=== PATIENT | female | born 1945 | race Caucasian/White ===

== ENCOUNTER 2017-05-07 07:51 | Outpatient (RCR) | payer MEDICARE, OTHER ==
[~2017-05-07 07:51] MED LIST: ALLOPURINOL300 MG PO; AMLODIPINE BESY10 MG PO; BYSTOLIC PO; FUROSEMIDE40 MG PO; GLIMEPIRIDE2 MG PO; GLYBURIDE5 MG PO; HYDRALAZINE HCL25 MG PO; LEVOTHYROXINE PO; LIPITOR40 MG PO; LISINOPRIL2.5 MG PO; METFORMIN HCL1000 M1 PO; NORCO 5-325 TA1 EACH PO; OXYBUTYNIN CHLOR5 MG PO; PANTOPRAZOLE SO40 MG PO; SERTRALINE HCL100 MG PO; SYMBICORT 80-10.2 GM INH; ULTRAM50 MG PO
== END 2017-05-30 ==
LOC: PT 07:51
PROVIDERS: ATTEND Neurological Surgery
DX: M51.16 Intervertebral disc disorders with radiculopathy, lumbar region (principal); M53.86 Other specified dorsopathies, lumbar region; M62.81 Muscle weakness (generalized)
CPT/HCPCS: 97110; 97161; G8978; G8979

== ENCOUNTER 2017-05-09 06:13 | Emergency (ER) | payer MEDICARE, OTHER ==
[~2017-05-09] VITALS: Ht 152.4 cm; Wt 110.7 kg
--- OUTSIDE RECORDS SUMMARY | 2017-05-09 06:17 | XMS REPORT | Clinical Summary ---
Author Author [place] [facility] Address Unknown Phone Unavailable Care Team Providers Care Hat Maker Name Role Phone Asked, Pcp PCP Unavailable Allergies No Known Allergies Current Medications No known medications Active Problems Problem Noted Date Peroneal tendon tear 04/24/2016 Achilles rupture, right 12/21/2015 Social History Tobacco Use Types Packs/Day Years Used Date Never Smoker Sex Assigned at Date Recorded Not on file Last Filed Vital Signs Not on file Plan of Treatment Health Maintenance Due Date Last Done Comments COLONOSCOPY 11/13/1995 MAMMOGRAM 11/13/1995 ZOSTER VACCINE 2005 PNEUMOCOCCAL 2010 POLYSACCHARIDE VACCINE AGE 65 AND OVER PNEUMOCOCCAL-13 2010 INFLUENZA VACCINE 10/31/2016 Results Not on fileafter 05/08/2016 Insurance Payer Benefit Subscriber ID Type Phone Address Plan / Group MEDICARE MEDICARE [id number] Medicare [place], [place] PART A AND B COMMERCIAL [facility] [id number] Commercial COMMERCIAL
[2017-05-09] MEDS ORDERED: CLONIDINE HCL 0.1 MG TAB PO ONE (06:45)
[2017-05-09 06:51] LABS: BASOPHILS % 0.5 % (0.0-1.0); EOSINOPHILS # (AUTO) 0.1 (0.0-0.4); EOSINOPHILS % 1.3 % (0.0-6.0); HEMATOCRIT 36.7 % (34.2-44.1); HEMOGLOBIN 11.9 g/dL (12.0-16.0); LYMPHOCYTES # (AUTO) 1.3 (1.0-3.2); LYMPHOCYTES % 20.6 % (18.0-39.1); MEAN CORPUSCULAR HEMOGLOBIN 30.7 pg (28-32); MEAN CORPUSCULAR HGB CONC 32.4 g/dL (31-35); MEAN CORPUSCULAR VOLUME 94.6 fL (81-99); MONOCYTES # (AUTO) 0.4 (0.2-0.8); MONOCYTES % 6.9 % (4.4-11.3); NEUTROPHILS # (AUTO) 4.3 (2.1-6.9); NEUTROPHILS % 70.4 % (38.7-80.0); PLATELET COUNT 149 x10e3/uL (140-360); RED BLOOD COUNT 3.88 x10e6/uL (3.6-5.1); RED CELL DISTRIBUTION WIDTH 14.6 % (11.7-14.4)
[2017-05-09 06:52] LABS: BILIRUBIN,URINE NEGATIVE (NEGATIVE); COLOR,URINE YELLOW (YELLOW); KETONES,URINE NEGATIVE (NEGATIVE); LEUKOCYTE ESTERASE ,URINE 2+ (NEGATIVE); NITRITE,URINE NEGATIVE (NEGATIVE); URINE UROBILINOGEN 0.2 mg/dL (0.2 - 1)
[2017-05-09 06:54] LABS: CLARITY,URINE HAZY (CLEAR); PROTEIN,URINE DIPSTICK 2+ (NEGATIVE)
[2017-05-09 07:09] LABS: ALBUMIN/GLOBULIN RATIO 1.2 (0.8-2.0); ANION GAP 15.5 mmol/L (8-16); CALCIUM 9.4 mg/dL (8.4-10.2); CREATININE, SERUM 1.58 mg/dL (0.57-1.11); POTASSIUM 4.5 mmol/L (3.5-5.1)
[2017-05-09 07:16] LABS: CREATINE KINASE MB 3.6 ng/mL (0.00-5.00)
[2017-05-09] MEDS ORDERED: ENALAPRILAT IV INJ 1.25 MG/ML VIAL IV STA (07:20)
[2017-05-09] MEDS ORDERED: KETOROLAC TROMETHAMINE 30 MG/ML VIAL IV STA (07:20)
[2017-05-09 07:27] LABS: EPITHELIAL CELLS,URINE FEW /LPF; TRANSITIONAL EPI CELLS,URINE FEW
[2017-05-09 07:30] LABS: BACTERIA,URINE RARE /HPF
[2017-05-09] MEDS ORDERED: METOCLOPRAMIDE HCL 10 MG/2ML VIAL IV ONE (07:30)
--- NOTE | 2017-05-09 08:15 | Diagnostic Imaging Report ---
EXAMINATION: Head CT HISTORY: Headache, nausea for the last 8 hours COMPARISON: None. TECHNIQUE: Multidetector axial images were obtained without contrast from the foramen magnum to the vertex . The images were reconstructed using brain and bone algorithms. Thin section brain images were reformatted into coronal and sagittal planes. Intravenous contrast: None. Motion/streaking artifact limits the evaluation of the skull base and posterior cranial fossa. FINDINGS: Parenchyma: 1. Moderately severe confluent periventricular, moses radiata and centrum semiovale white matter hypodensities, most likely nonspecific chronic microvascular ischemic changes. 2. No mass or hemorrhage. No CT evidence of acute territorial vascular insult. Extra-axial spaces:No abnormal density. No extra-axial fluid collections Brain volume: Normal for age. Ventricles: No hydrocephalus or displacement. Arteries: No density suggestive of thrombus. Dural sinuses: No abnormal density. Extra-axial spaces: No abnormal density. Foramen magnum: No mass, Chiari malformation, or basilar invagination. Sella: No obvious mass. Paranasal/mastoid sinuses: Imaged portions unremarkable. Skull/Scalp: No lytic or blastic lesions. No fractures. IMPRESSION: 1. No acute intracranial hemorrhage or cortical infarcts. 2. Severe confluent white matter chronic microvascular ischemic changes. Signed by: Dr. Nori Jones M.D. on 05/09/2017 8:11 AM
[2017-05-09] MEDS ORDERED: CEFTRIAXONE SOD 1 GM VIAL IV ONE (08:45)
[2017-05-09 10:16] VITALS: BP 137/87
== END 2017-05-09 10:25 | disposition home or self-care (01) ==
LOC: ER 06:13
DX: R51 Headache (principal); I10 Essential (primary) hypertension; E11.65 Type 2 diabetes mellitus with hyperglycemia; N18.9 Chronic kidney disease, unspecified; E66.01 Morbid (severe) obesity due to excess calories
CPT/HCPCS: 36415; 70450; 80053; 81001; 82550; 82553; 84484; 85025; 87086; 93005; 96374; 99284; J0696; J1885; J2765

== ENCOUNTER → 2017-11-28 | Day surgery (SDC) | payer MEDICARE, OTHER ==
--- NOTE | 2017-11-23 13:11 | Diagnostic Imaging Report ---
EXAMINATION: CHEST 2 VIEWS INDICATION: \S\PRE-OP \[id number] \S\[id number] COMPARISON: Chest radiograph 04/09/2015 FINDINGS: PA and lateral views TUBES and LINES: None. LUNGS: Lungs are well inflated. Unchanged bibasilar atelectasis. Mild chronic central pulmonary congestion. No consolidations. PLEURA: No pleural effusion or pneumothorax. HEART AND MEDIASTINUM: Stable mild enlargement of the cardiac silhouette. Mildly tortuous thoracic aorta. Enlarged pulmonary arteries are unchanged. BONES AND SOFT TISSUES: Surgical screw overlying the right humeral head. Mild multilevel degenerative changes of the thoracic spine. Surgical clips along the right upper quadrant. UPPER ABDOMEN: No free air under the diaphragm. IMPRESSION: Stable mild enlargement of the cardiac silhouette with chronic mild central bony vascular congestion and enlarged pulmonary arteries consistent with pulmonary hypertension. Stable mild subsegmental atelectasis in both lower lobes. Signed by: Dr. Vernell Coyne M.D. on 11/23/2017 1:08 PM
[~2017-11-28] MED LIST changes: +ASPIR 8181 MG PO; +CEFTRIAXONE SOD 1 GM VIAL ONE; +DEXAMETHASONE SOD PHOS INJ 4 MG/ML VIAL ONE; +LIDOCAINE HCL 2% LOCAL INJ 5 ML SDV VIAL INJ ONE; +MIDAZOLAM HCL 2 MG/2 ML VIAL ONE; +NIFEDIPINE ER30 M1 PO; +ONDANSETRON HCL INJ 2 MG/ML VIAL ONE; +PROPOFOL IV EMULSION 10 MG/ML 20 ML VIAL ONE; +SEVOFLURANE INHAL SOLN 250 ML PEN BTL ONE; +VITAMIN D35000 UNIT PO
--- NOTE | 2017-11-28 13:09 | Diagnostic Imaging Report ---
PROCEDURE:X-RAY ABDOMEN - KUB COMPARISON:None. INDICATIONS:PRE OPERATIVE LEFT RENAL STONE FINDINGS: One view of the abdomen (AP supine) No dilated loops of bowel or abnormal air-fluid levels patterns. No free air underneath the diaphragm. Visualized portions of the lung bases are clear. 1.2 cm calcification is projected over the left kidney. A 1.2 cm calcification is also projected over the right kidney. There is an indeterminate 1.0 cm calcification projected over the left hemipelvis which may be a urinary stone or calcified fibroid. Five non-rib bearing lumbar type vertebral bodies identified. There are degenerative changes of the lower lumbar spine. Cholecystectomy clips are visible. CONCLUSION: Calcifications projected over both kidneys as described above. There is an indeterminate 1 cm calcification in the left hemipelvis. This could represent a urinary calcification or calcified fibroid. Dictated by: Ahsan Sadler M.D. on 11/28/2017 at 13:15 Electronically approved by: Ahsan Sadler M.D. on 11/28/2017 at 13:15
--- NOTE | 2017-11-28 14:24 | Operative Report ---
DATE OF PROCEDURE: November 28, 2017 PREOPERATIVE DIAGNOSIS: Left kidney stone. POSTOPERATIVE DIAGNOSIS: Left kidney stone. OPERATION PERFORMED: Staged shock-wave lithotripsy, left side. ANESTHESIA: General. ESTIMATED BLOOD LOSS: Minimal. COMPLICATIONS: None. INDICATIONS FOR PROCEDURE: Ms. Durán is a very pleasant, 72-year-old female with a 6 x 6 cm, symptomatic, left kidney stone. She and I had a long discussion regarding the alternatives, risks and benefits, including doing nothing, shock-wave lithotripsy, ureteroscopy, percutaneous surgery, open surgery. She voiced an understanding of the options, the alternatives, and the risks and benefits, and she elected to proceed. PROCEDURE IN DETAIL: After informed consent was obtained, the patient was taken to the operative suite and placed supine on the table and underwent general anesthesia by the anesthesia service. The stone was localized in the X-Y-Z planes. Total of 2500 shocks were delivered to the stone. Good fragmentation was seen. The patient was awakened from anesthesia and transported to the recovery room in excellent condition. SUPERVISION OF FLUOROSCOPY: I was present during the entire procedure and supervised the use of fluoroscopy. No radiologist was present. Job#: [id number] cc:CLEO TORRES MD
[2017-11-28 14:40] VITALS: BP 144/93
== END | disposition home or self-care (01) ==
LOC: OR 10:48
PROVIDERS: ATTEND Urology
DX: N20.0 Calculus of kidney (principal); N39.0 Urinary tract infection, site not specified; E11.22 Type 2 diabetes mellitus with diabetic chronic kidney disease; I12.9 Hypertensive chronic kidney disease with stage 1 through stage 4 chronic kidney disease, or unspecified chronic kidney disease; N18.4 Chronic kidney disease, stage 4 (severe); E66.01 Morbid (severe) obesity due to excess calories; R00.1 Bradycardia, unspecified; I44.0 Atrioventricular block, first degree; J44.9 Chronic obstructive pulmonary disease, unspecified; G47.33 Obstructive sleep apnea (adult) (pediatric); E03.9 Hypothyroidism, unspecified; K21.9 Gastro-esophageal reflux disease without esophagitis; K58.9 Irritable bowel syndrome, unspecified; K76.0 Fatty (change of) liver, not elsewhere classified; Z91.048 Other nonmedicinal substance allergy status; Z01.810 Encounter for preprocedural cardiovascular examination; Z01.818 Encounter for other preprocedural examination; Z79.82 Long term (current) use of aspirin; Z68.42 Body mass index [BMI] 45.0-49.9, adult; Z84.1 Family history of disorders of kidney and ureter
CPT/HCPCS: 36415; 50590; 71046; 74018; 82948; 93005; J0696; J1100; J2001; J2250; J2405

== ENCOUNTER 2017-12-08 21:06 | Emergency (ER) | payer MEDICARE, OTHER ==
[~2017-12-08] VITALS: Ht 154.9 cm; Wt 116.1 kg
[~2017-12-08 21:06] MED LIST changes: -CEFTRIAXONE SOD 1 GM VIAL ONE; -DEXAMETHASONE SOD PHOS INJ 4 MG/ML VIAL ONE; -LIDOCAINE HCL 2% LOCAL INJ 5 ML SDV VIAL INJ ONE; -MIDAZOLAM HCL 2 MG/2 ML VIAL ONE; -ONDANSETRON HCL INJ 2 MG/ML VIAL ONE; -PROPOFOL IV EMULSION 10 MG/ML 20 ML VIAL ONE; -SEVOFLURANE INHAL SOLN 250 ML PEN BTL ONE
--- NOTE | 2017-12-08 22:26 | Diagnostic Imaging Report ---
EXAM: CT ABD/PEL WO CONTRAST-HOPD DATE: 12/08/2017 12:00 AM INDICATION: Constipation, left flank pain COMPARISON: None TECHNIQUE: The abdomen and pelvis were scanned using a multidetector helical scanner. Coronal and sagittal reformations were obtained. CT low dose techniques were utilized, as applicable. IV Contrast: 0 ml Isovue 300/370 FINDINGS: Lack of IV contrast and noise related to body habitus decreases sensitivity in evaluating abdominal and pelvic organs. LOWER THORAX: No consolidations. Coronary artery and aortic atherosclerosis. LIVER/BILIARY: No masses. No ductal dilatation. GALLBLADDER: Surgically absent SPLEEN: Unremarkable PANCREAS: Unremarkable ADRENALS: No nodules KIDNEYS: Bilateral renal vascular calcifications and/or nonobstructing renal calculi. No hydronephrosis. GI TRACT: Small hiatal hernia. Moderate left colonic stool burden. Diverticulosis with mild peritoneal thickening/fluid in the left lower quadrant (image 73, coronal image 38) which may be sequelae of diverticulitis. VESSELS: Moderate to severe atherosclerotic calcifications. PERITONEUM/RETROPERITONEUM: No free air or fluid LYMPH NODES: No lymphadenopathy REPRODUCTIVE ORGANS/BLADDER: Incidental calcified fibroid. Otherwise unremarkable SOFT TISSUES: Rectus muscle diastases. BONES: Multilevel degenerative changes with grade 1 anterolisthesis of L4 over L5. IMPRESSION: Evaluation is degraded by body habitus and lack of IV contrast. 1. Findings suspicious for uncomplicated sigmoid diverticulitis in the left lower quadrant. 2. No obstructive uropathy. Signed by: Dr Nolvia Lucero MD on 12/08/2017 10:23 PM
== END 2017-12-08 22:53 | disposition home or self-care (01) ==
LOC: FSED 21:06
DX: R10.33 Periumbilical pain (principal); R11.0 Nausea; K59.00 Constipation, unspecified; K57.32 Diverticulitis of large intestine without perforation or abscess without bleeding
CPT/HCPCS: 74176; 99283

== ENCOUNTER 2018-05-25 19:13 | Emergency (ER) | payer MEDICARE, OTHER ==
[~2018-05-25] VITALS: Ht 154.9 cm; Wt 103.4 kg
--- OUTSIDE RECORDS SUMMARY | 2018-05-25 19:18 | XMS REPORT | Clinical Summary ---
Author Author [place] [facility] Address Unknown Phone Unavailable Care Team Providers Care Payroll Consultant Name Role Phone Asked, No Pcp PCP Unavailable Allergies No Known Allergies Medications End Date Status Medication Sig Dispensed Refills Start Date Active allopurinol (ZYLOPRIM) 0 300 MG tablet 8 Active atorvastatin (LIPITOR) 40 0 MG tablet 8 Active budesonide-formoterol Symbicort 160 0 (SYMBICORT) 160-4.5 mcg-4.5 mcg/actuation inhaler mcg/actuation HFA aerosol inhaler Active SYNTHROID 50 mcg tablet 0 8 Active lisinopril 0 (PRINIVIL,ZESTRIL) 40 mg 8 tablet Active NIFEdipine XL (PROCARDIA 0 XL) 30 MG 24 hr tablet 8 Active pantoprazole (PROTONIX) 0 40 MG EC tablet 8 Active Problems Problem Noted Date Peroneal tendon tear 04/24/2016 Achilles rupture, right 12/21/2015 Encounters Care Team Description Date Type Specialty Hina Villeda MD Encounter for cervical Pap smear with pelvic exam (Primary Dx); Cervical polyp 11/21/2017 Office Visit Obstetrics and Gynecology after 05/24/2017 Social History Date Tobacco Use Types Packs/Day Years Used Never Smoker Smokeless Tobacco: Never Used Alcohol Use Drinks/Week oz/Week Comments Yes social Sex Assigned at Date Recorded Not on file Industry Job Start Date Occupation Not on file Not on file Not on file Travel End Travel History Travel Start No recent travel history available. Last Filed Vital Signs Time Taken Vital Sign Reading 11/21/2017 1:34 PM CDT Blood Pressure 148/83 11/21/2017 1:34 PM CDT Pulse 70 - Temperature - - Respiratory Rate - - Oxygen Saturation - - Inhaled Oxygen - Concentration 11/21/2017 1:34 PM CDT Weight 115 kg (253 lb 12.8 oz) 11/21/2017 1:34 PM CDT Height 152.4 cm (5') 11/21/2017 1:34 PM CDT Body Mass Index 49.57 Plan of Treatment Health Maintenance Due Date Last Done Comments BREAST CANCER SCREENING 11/13/1995 COLON CANCER SCREENING 11/13/1995 SHINGLES VACCINES (#1) 11/13/1995 65+ PNEUMOCOCCAL VACCINE 2010 (1 of 2 - PCV13) PNEUMOCOCCAL 2010 POLYSACCHARIDE VACCINE AGE 65 AND OVER INFLUENZA VACCINE 10/31/2017 Procedures Comments Procedure Name Priority Date/Time Associated Diagnosis THINPREP TIS PAP RFX HPV Routine 11/21/2017 Encounter for cervical 2:07 PM CDT Pap smear with pelvic exam after 05/24/2017 Results * THINPREP TIS PAP RFX HPV (11/21/2017 2:07 PM CDT) Clinical information None given [employer] [place] Date of last menstrual NONE GIVEN [employer] period [place] Prev. pap: NONE GIVEN [employer] [place] Prev. bx: NONE GIVEN [employer] [place] Source None given [employer] [place] Statement of adequacy Comment: [employer] Satisfactory for evaluation. [place] Endocervical/transformation zone component present. Interpretation/result: Comment: Negative for [employer] intraepithelial lesion or [facility] malignancy. Comment Comment: [employer] This Pap test has been [place] evaluated with computer assisted technology. Cover Creaser Comment: [employer] DJL, CT (ASCP) [place] CT screening location: [address], [place] [id number] Comment Comment: [employer] EXPLANATORY NOTE: [place] The Pap is a screening test for cervical cancer. It is not a diagnostic test and is subject to false negative and false positive results. It is most reliable when a satisfactory sample, regularly obtained, is submitted with relevant clinical findings and history, and when the Pap result is evaluated along with historic and current clinical information. Specimen Cervical Resulting Agency Comment Performing Organization Information: Site ID: [id number] Name: [facility] Address: [address] [place] [id number] Director: Aminah Arevalo Performing Organization Address City/State/Zipcode Phone Number DIANA [employer] [place] [phone] after 05/24/2017 Insurance Payer Benefit Subscriber ID Type Phone Address Plan / Group MEDICARE MEDICARE xxxxxxxxxx Medicare [place], [place] PART A AND B COMMERCIAL MISC MISC xxxxxxxxxxx Commercial COMMERCIAL Advance Directives Patient has advance care planning documents on file. For more information, shantel garner contact: Johnathan Loera [address] [place] [address]
--- NOTE | 2018-05-25 20:38 | Diagnostic Imaging Report ---
HIP LEFT 2-3 VW (+/- PELVIS) - 3 views HISTORY: Fall COMPARISON: None available. FINDINGS: See impression. IMPRESSION: No acute fracture or dislocation of the left hip. Partially seen lumbar spine fusion hardware and disc spacer. Vascular calcifications. Signed by: Dr. Guillaume Naylor MD on 05/25/2018 8:35 PM
--- NOTE | 2018-05-25 20:39 | Diagnostic Imaging Report ---
HIP RIGHT 2-3 VW (+/- PELVIS) - 3 views HISTORY: Fall COMPARISON: None available. FINDINGS: See impression. IMPRESSION: No acute fracture or dislocation of the right hip. Signed by: Dr. Guillaume Naylor MD on 05/25/2018 8:35 PM
--- NOTE | 2018-05-25 20:41 | Diagnostic Imaging Report ---
KNEE RIGHT THREE VIEWS - 3 views HISTORY: Pain COMPARISON: None available. FINDINGS: Bones: No acute displaced fracture. Osseous alignment is within normal limits. Joints: Medial and patellofemoral compartment joint space narrowing. Soft tissues: Vascular calcifications. IMPRESSION: No acute fracture or dislocation of the right knee. Signed by: Dr. Guillaume Naylor MD on 05/25/2018 8:38 PM
--- NOTE | 2018-05-25 20:41 | Diagnostic Imaging Report ---
KNEE LEFT THREE VIEWS - 3 views HISTORY: Pain COMPARISON: None available. FINDINGS: Bones: No acute displaced fracture. Osseous alignment is within normal limits. Joints: Medial and patellofemoral compartment narrowing. Soft tissues: Vascular calcifications. IMPRESSION: No acute fracture or dislocation of the left knee. Signed by: Dr. Guillaume Naylor MD on 05/25/2018 8:37 PM
[2018-05-25 20:56] LABS: CLARITY,URINE HAZY (CLEAR); COLOR,URINE YELLOW (YELLOW); LEUKOCYTE ESTERASE ,URINE NEGATIVE (NEGATIVE); NITRITE,URINE NEGATIVE (NEGATIVE); PROTEIN,URINE DIPSTICK 2+ (NEGATIVE)
[2018-05-25 20:57] LABS: BILIRUBIN,URINE NEGATIVE (NEGATIVE); KETONES,URINE NEGATIVE (NEGATIVE); URINE UROBILINOGEN 0.2 mg/dL (0.2 - 1)
[2018-05-25 20:58] LABS: BACTERIA,URINE FEW /HPF; EPITHELIAL CELLS,URINE MODERATE /LPF; WBC,URINE (MAN) 0-5 /HPF (0-5)
[2018-05-25 21:16] VITALS: BP 122/77
== END 2018-05-25 21:25 | disposition home or self-care (01) ==
LOC: ER 19:13
DX: S80.211A Abrasion, right knee, initial encounter (principal); W01.0XXA Fall on same level from slipping, tripping and stumbling without subsequent striking against object, initial encounter; M25.552 Pain in left hip; M25.551 Pain in right hip; M25.562 Pain in left knee; Y93.9 Activity, unspecified; Y92.019 Unspecified place in single-family (private) house as the place of occurrence of the external cause; Z91.048 Other nonmedicinal substance allergy status
CPT/HCPCS: 81001; 99283

== ENCOUNTER 2018-10-22 10:32 | Observation (INO) | payer MEDICARE, OTHER ==
[2018-10-22] VITALS (7 sets, daily range): BP systolic 125–138; BP diastolic 64–82
[~2018-10-22] VITALS: Ht 149.9 cm; Wt 100.4 kg
--- OUTSIDE RECORDS SUMMARY | 2018-10-22 10:37 | XMS REPORT | Clinical Summary ---
Author Author [facility] [facility] Address Unknown Phone Unavailable Care Team Providers Care Arch Pad Cementer Name Role Phone Asked, No Pcp PCP [...] 11/21/2017 Office Visit Obstetrics and Gynecology after 10/21/2017 Social History Date Tobacco Use Types Packs/Day [...] Last Done Comments BREAST CANCER SCREENING 11/13/1995 COLONOSCOPY SCREENING 11/13/1995 SHINGLES VACCINES (#1) 11/13/1995 65+ PNEUMOCOCCAL VACCINE 2010 (1 of 2 - PCV13) INFLUENZA VACCINE 10/31/2018 Procedures Comments Procedure Name Priority Date/Time Associated Diagnosis THINPREP TIS PAP RFX HPV Routine 11/21/2017 Encounter for cervical 2:07 PM CDT Pap smear with pelvic exam after 10/21/2017 Results * THINPREP TIS PAP RFX HPV (11/21/2017 2:07 PM CDT) Clinical None given [facility] information [employer] [place] Date of last NONE GIVEN [facility] menstrual [facility]AGNOST[facility] period [place] Prev. pap: NONE GIVEN [facility] [place] Prev. bx: NONE GIVEN [facility] [place] Source None given [facility] [place] Statement of Comment: [facility] adequacy Satisfactory for evaluation. [facility]ST[facility] Endocervical/transformation [facility] zone component present. Interpretation/ Comment: Negative for [facility] result: intraepithelial lesion or DI[facility]NOSTICS malignancy. [facility] Comment Comment: [facility] This Pap test has been DI[facility]NOSTICS evaluated with computer BOWLES assisted technology. [employer] Comment: [facility] t DJL, CT (ASCP) DIAGNOSTICS CT screening location: [facility] [address], [place] [phone] Comment Comment: [facility] EXPLANATORY NOTE: DIAGNOSTICS The Pap is a screening test [facility] for cervical cancer. It is not a diagnostic test and is subject to false negative and false positive results. It is most reliable when a satisfactory sample, regularly obtained, is submitted with relevant clinical findings and history, and when the Pap result is evaluated along with historic and current clinical information. Specimen Cervical Resulting Agency Comment Performing Organization Information: Site ID: [id number] Name: [facility] Address: [address] [place] [phone] Director: Aminah Arevalo Performing Organization Address City/State/Zipcode Phone Number CHRISTIE CON[place]Y [place] [phone] after 10/21/2017 Insurance Type Payer Benefit Subscriber ID Effective Phone Address Plan / Dates Group Medicare MEDICARE MEDICARE xxxxxxxxxx 2010-P BOWLES, PART A AND resent [place] B Commercial COMMERCIAL MISC MISC xxxxxxxxxxx 2006-P COMMERCIAL resent Advance Directives Patient has advance care planning documents on file. For more information, shantel garner contact: Johnathan Loera [address] [place] [address]
--- NOTE | 2018-10-22 11:20 | Diagnostic Imaging Report ---
EXAMINATION: CXR 1 [facility] INDICATION: Lethargy COMPARISON: Chest radiograph of 11/23/2017 FINDINGS: TUBES and LINES: None. LUNGS: The lung volumes are low. There is perihilar fullness and indistinctness of the pulmonary vasculature. PLEURA: Likely trace left pleural effusion. No pneumothorax. HEART AND MEDIASTINUM: Cardiomediastinal silhouette is stably enlarged. BONES AND SOFT TISSUES: No acute fracture or dislocation. UPPER ABDOMEN: No free air under the diaphragm. IMPRESSION: Low lung volumes. Possible mild pulmonary interstitial edema. Likely trace left pleural effusion. Unchanged cardiomegaly. Signed by: Fam Smith MD on 10/22/2018 11:16 AM
[2018-10-22] MEDS ORDERED: LANTUS 3ML100 UNITS/ SQ (11:39)
[2018-10-22] MEDS ORDERED: NIFEDIPINE ER60 MG PO (11:39)
[2018-10-22] MEDS ORDERED: HUMULIN R100 UNIT/2 (11:39)
[2018-10-22] MEDS ORDERED: LISINOPRIL40 MG PO (11:39)
[2018-10-22] MEDS ORDERED: IBUPROFEN 200 MG TAB PO PRN (11:45)
[2018-10-22] MEDS ORDERED: ACETAMINOPHEN 325 MG TAB PO PRN (11:45)
[2018-10-22] MEDS ORDERED: DIPHENHYDRAMINE HCL INJ 50 MG/ML VIAL IV PRN (11:45)
[2018-10-22] MEDS ORDERED: ONDANSETRON HCL INJ 2MG/ML 2ML 2 MG/ML VIAL IV PRN (11:45)
[2018-10-22] MEDS ORDERED: DEXTROSE 50% SYRINGE 50 ML IV PRN (11:45)
[2018-10-22] MEDS ORDERED: ENALAPRILAT IV INJ 1.25 MG/ML VIAL IV PRN (11:45)
--- NOTE | 2018-10-22 11:52 | NUR ---
[facility] CALLED 45 MIN ETA.
--- NOTE | 2018-10-22 12:10 | NUR ---
REPORT RECEIVED FROM CHAN IN [facility] CONTACT NUMBER IS [phone]
--- NOTE | 2018-10-22 12:21 | NUR ---
PT RESTING, VITAL SIGNS STABLE, PT AND FAMILY AWARE OF POC TO BE ADMITTED AND TRANSFERRED TO MAIN [facility], PT VOICES NO COMPLAINTS AT THIS TIME.
--- OUTSIDE RECORDS SUMMARY | 2018-10-22 12:28 | XMS REPORT | Clinical Summary ---
Author Author [facility] [facility] [facility] Address Unknown Phone Unavailable Care Team Providers Care Web Content Executive Name Role Phone Asked, No Pcp PCP [...] (11/21/2017 2:07 PM CDT) Clinical None given [employer] information [employer] [place] Date of last NONE GIVEN [facility] menstrual DIAGNOSTICS period [place] Prev. pap: NONE GIVEN [facility] [place] Prev. bx: NONE GIVEN [facility] [place] Source None given [facility] [place] Statement of Comment: [facility] adequacy Satisfactory for evaluation. DIAGNOSTICS Endocervical/transformation [place] zone component present. Interpretation/ Comment: Negative for [facility] result: intraepithelial lesion or DIAGNOSTICS malignancy. [place] Comment Comment: [facility] This Pap test has been DIAGNOSTICS evaluated with computer BOWLES assisted technology. [employer] Comment: [facility] t DJL, CT (ASCP) DIAGNOSTICS CT screening location: [facility] [address], [place] [phone] Comment Comment: [facility] EXPLANATORY NOTE: DIAGNOSTICS The Pap is a screening test [place] for cervical cancer. It is not a [...] Organization Information: Site ID: [id number] Name: [facility] Address: [address] [place] [phone] Director: Aminah Arevalo Performing Organization Address City/State/Zipcode Phone Number [place] [phone] after 10/21/2017 Insurance Type Payer Benefit Subscriber ID Effective Phone Address Plan / Dates Group Medicare MEDICARE MEDICARE xxxxxxxxxx 2010-P BOWLES, PART A AND resent [place] B Commercial COMMERCIAL MISC MISC xxxxxxxxxxx 2006-P COMMERCIAL resent Advance Directives Patient has advance care planning documents on file. For more information, shantel garner contact: Johnathan Loera [address] [place] [address]
[2018-10-22] MEDS ORDERED: IBUPROFEN 400 MG TAB PO PRN (12:45)
[2018-10-22] MEDS ORDERED: LACTATED RINGER'S 1,000 ML IV SCH (13:00)
--- NOTE | 2018-10-22 13:32 | NUR ---
RECEIVED PT TO FLOOR [id number] PT IS IN NO S.S OF DISTRESS DENIES PAIN V/S WITHIN NORMAL LIMITS BS READ AT 68 GIVEN CRANBERRY JUICE WITH SUGAR PACKS, SANDWICH, JELLO PT STATES LAST MEAL WAS YESTERDAY FAMILY IS AT BEDSIDE PLACED PT ON TELEMETRY READING A FIB CONCURRENT WITH EGK READING FROM HOPD IV TO THE RIGHT AC 2O PATENT AND DRY. UPON FLUSHING PT REPORTS PAIN. WILL DC AND GET NEW IV WILL CONTINUE TO MONITOR PT AT THIS TIME SIDE [id number], BED WHEELS LOCKED, CALL LIGHT IS WITHIN EASY REACH, INSTRUCTED TO CALL FOR ASSISTANCE IF NEEDED
[2018-10-22 15:13] LABS: CREATINE KINASE MB 3.9 ng/mL (0-5.0)
[2018-10-22] MEDS: INSULIN REGULAR, HUMAN 100 UNIT/1 ML 3ML VIAL SQ SCH ×2 (15:31→20:41)
[2018-10-22] MEDS: FAMOTIDINE 20 MG/2 ML VIAL IV SCH (16:39)
[2018-10-22] MEDS ORDERED: METOPROLOL SUCCINATE 25 MG TAB XL PO NR (18:15)
[2018-10-22] MEDS: RIVAROXABAN 15 MG TABLET PO SCH (18:27)
[2018-10-22] MEDS: OXYBUTYNIN CHLORIDE 5 MG TAB PO SCH ×2 (18:30→20:34)
--- NOTE | 2018-10-22 18:49 | Consultation ---
DATE OF CONSULTATION: 10/22/2018 Cardiology Consultation Note INDICATIONS: Atrial fibrillation. HISTORY OF PRESENT ILLNESS: Ms. Mills is a 72-year-old lady with new onset of swelling in her legs as well as dizziness and brief altered mental status. Blood sugar was below 60. She was brought to the freestanding emergency room, admitted because of new onset of atrial fibrillation. No documentation of atrial fibrillation in the past. She is not on a beta-kaley or anticoagulation. Echocardiogram done today shows an enlarged left atrium with normal LV systolic function. She denies any history of coronary artery disease. PAST MEDICAL HISTORY: Diabetes mellitus, hypertension. SOCIAL HISTORY: The patient does not smoke or drink. No family is present. MEDICATIONS: At home were reviewed and reconciled in the chart. REVIEW OF SYSTEMS: Negative except as dictated in the history of present illness. PHYSICAL EXAMINATION: VITAL SIGNS: Afebrile, heart rate 88, blood pressure 125/64, O2 sats 98%. CARDIOVASCULAR: Irregularly irregular rhythm. Systolic murmur. LUNGS: Clear to auscultation bilaterally. ABDOMEN: Soft. EXTREMITIES: 1+ edema. Pedal pulses are trace positive. Echocardiogram was repeated. EKG shows atrial fibrillation. LABORATORY DATA: Telemetry shows atrial fibrillation. Creatinine 2.0. Cardiac enzymes are negative. Chest x-ray shows mild pulmonary interstitial edema. ASSESSMENT: 1. Atrial fibrillation, new onset with CHADS-VASc score of greater than 3. 2. Acute diastolic heart failure. RECOMMENDATIONS: Include diuresis with intravenous diuretics, initiation of beta kaley, anticoagulation of 15 mg of Xarelto once daily. Echocardiogram was reviewed and discussed with the patient. The patient is stable for discharge in the next 24 hours with close followup in the office. Further evaluation of her congestive heart failure, atrial fibrillation, and possible coronary artery disease. I thank Dr. Bennett for this consultation. MD PRINCESS Bernstein/WEST /[id number]
--- NOTE | 2018-10-22 20:30 | NUR ---
Patient blood sugar at 1930 45 mg/dl. Patient is alert and verbal. Snacks offered and accepted. Patient blood sugar rechecked and revealed 82 mg/dl. Patient is responsive and oriented. No complains made.
[2018-10-22] MEDS: ATORVASTATIN 40 MG TAB PO SCH (20:34)
[2018-10-22] MEDS ORDERED: NON-FORMULARY MEDICATION (Atorvastatin Calcium (Lipitor) 40 MG) PO SCH (21:00)
[2018-10-22] MEDS: ZOLPIDEM TARTRATE 5 MG TAB PO PRN (23:03)
[2018-10-22 23:30] LABS: CREATINE KINASE MB 3.3 ng/mL (0-5.0)
[2018-10-23] VITALS (7 sets, daily range): BP systolic 125–173; BP diastolic 60–87
--- NOTE | 2018-10-23 05:03 | NUR ---
DR. TORRES MADE AWARE OF LOW BLOOD SUGAR 33 MG/DL. D50 1 VIAL GIVEN.
[2018-10-23] MEDS: LEVOTHYROXINE SODIUM 50 MCG TAB PO SCH (05:30)
--- NOTE | 2018-10-23 05:50 | NUR ---
DR. TORRES MADE AWARE OF BLOOD SUGAR OF 130MG/DL AFTER GIVING D50 1 VIAL, SLIDING SCALE PLACED ON HOLD AND D/C GLIMEPIRIDE.
[2018-10-23 06:19] LABS: BASOPHILS % 0.1 % (0.0-1.0); EOSINOPHILS # (AUTO) 0.1 (0.0-0.4); EOSINOPHILS % 1.3 % (0.0-6.0); HEMATOCRIT 32.3 % (34.2-44.1); HEMOGLOBIN 10.2 g/dL (12.0-16.0); LYMPHOCYTES # (AUTO) 0.4 (1.0-3.2); LYMPHOCYTES % 6.5 % (18.0-39.1); MEAN CORPUSCULAR HEMOGLOBIN 29.5 pg (28-32); MEAN CORPUSCULAR HGB CONC 31.6 g/dL (31-35); MEAN CORPUSCULAR VOLUME 93.4 fL (81-99); MONOCYTES # (AUTO) 0.5 (0.2-0.8); NEUTROPHILS # (AUTO) 5.7 (2.1-6.9); NEUTROPHILS % 83.7 % (38.7-80.0); PLATELET COUNT 152 x10e3/uL (140-360); RED BLOOD COUNT 3.46 x10e6/uL (3.6-5.1)
[2018-10-23 06:53] LABS: CREATINE KINASE MB 2.7 ng/mL (0-5.0)
[2018-10-23 06:55] LABS: ANION GAP 14.9 mmol/L (8-16); CALCIUM 8.8 mg/dL (8.4-10.2); CREATININE, SERUM 2.06 mg/dL (0.57-1.11); POTASSIUM 4.9 mmol/L (3.5-5.1)
[2018-10-23 06:56] LABS: CHOL/HDL RATIO 2.3 (3.0-3.6)
[2018-10-23 07:16] LABS: MAGNESIUM 1.3 MG/DL (1.3-2.1)
[2018-10-23] MEDS ORDERED: GLIMEPIRIDE 2 MG TAB PO SCH (07:30)
--- NOTE | 2018-10-23 07:46 | NUR ---
Pt received in bed with eyes closed easily arouses. Pt is able to verbalize needs. Pt denies any pain at this time. Breathes are even and unlabored.
[2018-10-23 08:24] LABS: EOSINOPHILS % (MANUAL) 2 % (0-7); HYPOCHROMASIA SLIGHT; LYMPHOCYTES % (MANUAL) 8 % (19-48); MONOCYTES % (MANUAL) 3 % (3.4-9.0); NEUTROPHILS % (MANUAL) 87 % (40-74); PLATELET ESTIMATE ADEQUATE; PLATELET MORPHOLOGY COMMENT MANY EDTA CLUMPING
[2018-10-23 08:25] LABS: POIKILOCYTOSIS SLIGHT
[2018-10-23] MEDS: PANTOPRAZOLE SOD 40 MG TABEC PO SCH (08:37)
[2018-10-23] MEDS: ASPIRIN 81 MG ENTERIC COATED PO SCH (08:37)
[2018-10-23] MEDS: OXYBUTYNIN CHLORIDE 5 MG TAB PO SCH ×4 (08:37→21:03)
[2018-10-23] MEDS: LISINOPRIL 20 MG TAB PO SCH (08:37)
[2018-10-23] MEDS: ALLOPURINOL 300 MG TAB PO SCH (08:38)
[2018-10-23] MEDS: RIVAROXABAN 15 MG TABLET PO SCH (08:38)
[2018-10-23] MEDS: FAMOTIDINE 20 MG/2 ML VIAL IV SCH ×2 (08:41→17:15)
[2018-10-23] MEDS ORDERED: METOPROLOL SUCCINATE 25 MG TAB XL PO SCH (09:00)
[2018-10-23] MEDS ORDERED: ONDANSETRON HCL 4 MG ORAL DISINTEGRATING TAB PO PRN (09:30)
--- NOTE | 2018-10-23 10:05 | NUR ---
Visit made by the Spiritual Care Department Pastoral Visitor, Vicky Camara. PV provided pastoral presence, prayer, hospitality, and supportive listening. Pastoral Visitor informed pt/family of the scope of Electronic Specialist Services and availability. MADHU RODRÍGUEZ Mirror Painter Spiritual Care Department O: [phone] Pager: [phone] ([phone] number calling from)
--- NOTE | 2018-10-23 11:01 | Progress Note ---
DATE: Cardiology Progress Note SUBJECTIVE: The patient is feeling better. Denies any chest pain, palpitations, or shortness of breath. OBJECTIVE: VITAL SIGNS: Temperature is 95.3, heart rate is 84, respirations are 19, blood pressure is 125/60, oxygen saturation 95% on room air. GENERAL: Well-appearing, in no apparent distress. CARDIOVASCULAR: Irregularly irregular. LUNGS: Clear to auscultation. ABDOMEN : Soft, nontender, and nondistended. EXTREMITIES: No edema. LABORATORY DATA: Reviewed. Hemoglobin 10.2, potassium 4.9, creatinine 2.06. Telemetry monitoring revealed atrial fibrillation with episodes of rapid ventricular response. IMPRESSION: 1. Atrial fibrillation. 2. Acute on chronic diastolic heart failure. 3. Diabetes mellitus. 4. Hypertension. 5. Acute on chronic kidney disease. RECOMMENDATIONS: Continue low-dose diuretics. Increase beta kaley for better rate control. Continue anticoagulation with Xarelto 15 mg daily. The patient is safe for discharge from a cardiovascular standpoint with outpatient followup. Paxton Peters DO BM/MODL /[id number]
[2018-10-23] MEDS: METOPROLOL SUCCINATE 50 MG TAB XL PO SCH (13:06)
--- NOTE | 2018-10-23 18:06 | NUR ---
Pt in bed. Aox4 and able to verbalize needs. Denies any pain at this time. Pt denies SOB on room air.
--- NOTE | 2018-10-23 19:23 | NUR ---
BEDSIDE SHIFT REPORT PERFORMED, RECEIVED PT LAYING SEMI FOWLERS IN BED, AAOX3, RR EVEN AND NON-LABORED, ON ROOM AIR. NO S/SX OF DISTRESS NOTED. LEFT PT LAYING SEMI FOWLERS IN BED, BED IN LOW LOCKED POSITION, SIDE RAILS UPX2, CALL LIGHT AND PHONE WITHIN REACH
[2018-10-23] MEDS: ATORVASTATIN 40 MG TAB PO SCH (21:03)
[2018-10-23] MEDS: ZOLPIDEM TARTRATE 5 MG TAB PO PRN (22:18)
[2018-10-24] VITALS: BP 178/96
[2018-10-24 04:00] VITALS: BP 170/96
[2018-10-24] MEDS: LEVOTHYROXINE SODIUM 50 MCG TAB PO SCH (05:33)
--- NOTE | 2018-10-24 07:28 | NUR ---
Rcvd patient in report this am. Patient is asleep in bed at this time. No s/s of distress noted
[2018-10-24] MEDS: ASPIRIN 81 MG ENTERIC COATED PO SCH (08:13)
[2018-10-24] MEDS: PANTOPRAZOLE SOD 40 MG TABEC PO SCH (08:13)
[2018-10-24] MEDS: LISINOPRIL 20 MG TAB PO SCH (08:13)
[2018-10-24] MEDS: FAMOTIDINE 20 MG/2 ML VIAL IV SCH (08:13)
[2018-10-24] MEDS: OXYBUTYNIN CHLORIDE 5 MG TAB PO SCH (08:13)
[2018-10-24] MEDS: RIVAROXABAN 15 MG TABLET PO SCH (08:14)
[2018-10-24] MEDS: METOPROLOL SUCCINATE 50 MG TAB XL PO SCH (08:14)
[2018-10-24] MEDS: ALLOPURINOL 300 MG TAB PO SCH (08:14)
--- NOTE | 2018-10-24 08:15 | NUR ---
Patient is AAOx3. Patient lung guzmán clear to auscultation. Bowel sounds present x4. No edema noted. Patient ambulates with a cane. No s/s of distress noted. No c/o chest pain
[2018-10-24 08:17] VITALS: BP 179/81
[2018-10-24] MEDS ORDERED: KEFLEX500 MG PO (08:33)
[2018-10-24] MEDS ORDERED: METOPROLOL SUCC50 MG PO (08:34)
[2018-10-24] MEDS ORDERED: XARELTO10 MG PO (08:34)
--- NOTE | 2018-10-24 08:52 | NUR ---
IV removed from left hand. Pressure dressing applied
[2018-10-24 09:30] VITALS: BP 179/81
--- NOTE | 2018-10-24 09:30 | NUR ---
Patient discharged from facility to home. Patient assisted out via wheelchair and staff. Reviewed all discharge paperwork, follow up appts and RX's given.
[2018-10-24] MEDS ORDERED: FAMOTIDINE 20 MG TAB PO SCH (16:30)
--- NOTE | 2018-11-04 10:19 | Discharge Summary ---
DISCHARGE DIAGNOSES: 1. Atrial fibrillation with rapid ventricular response. 2. Hypoglycemia. 3. Hypertension. HISTORY OF PRESENT ILLNESS: The patient is a lady well known to me, who presented with acute onset of atrial fibrillation with RVR, as well as hypoglycemia due to not eating well, so she was brought in, held of her diabetic medicines, and her sugars improved naturally. With atrial fibrillation, she was seen by Cardiology, where she converted to normal sinus rhythm quickly, feeling good. Once her workup was complete, she was able to be discharged home with followup in a couple of days with me. Please see hospital chart for full details. MD GENOVEVA Jacobo/WEST /[id number]
[2018-12-03] MEDS ORDERED: WARFARIN SODIUM3 MG PO (12:47)
[2018-12-03] MEDS ORDERED: LASIX20 MG PO (12:47)
[2018-12-03] MEDS ORDERED: HUMALOG100 UNIT/3 SC (12:47)
[2018-12-03] MEDS ORDERED: NORCO 10-325 T1 EACH PO (12:58)
== END 2018-10-24 09:25 | disposition home or self-care (01) ==
LOC: FSED 10:32 → ERHOLD 11:44 → MED/SURG 13:45
PROVIDERS: ADMIT Internal Medicine; ATTEND Internal Medicine
DX: I48.91 Unspecified atrial fibrillation (principal); E11.649 Type 2 diabetes mellitus with hypoglycemia without coma; I50.33 Acute on chronic diastolic (congestive) heart failure; E86.0 Dehydration; E86.1 Hypovolemia; Z91.048 Other nonmedicinal substance allergy status; E11.22 Type 2 diabetes mellitus with diabetic chronic kidney disease; E03.9 Hypothyroidism, unspecified; N18.3 Chronic kidney disease, stage 3 (moderate); G47.33 Obstructive sleep apnea (adult) (pediatric); Z82.49 Family history of ischemic heart disease and other diseases of the circulatory system; E66.01 Morbid (severe) obesity due to excess calories; Z68.41 Body mass index [BMI] 40.0-44.9, adult; I13.0 Hypertensive heart and chronic kidney disease with heart failure and stage 1 through stage 4 chronic kidney disease, or unspecified chronic kidney disease; N17.9 Acute kidney failure, unspecified; N39.0 Urinary tract infection, site not specified; Z79.4 Long term (current) use of insulin; Z79.82 Long term (current) use of aspirin
CPT/HCPCS: 36415 ×3; 71045; 80053 ×2; 80061; 81003; 82550 ×2; 82553 ×2; 82948 ×3; 83735; 83880; 84443; 84484 ×2; 85025 ×2; 85610; 87086; 87186; 93005; 93306; 99284; G0378 ×3; J7121 ×2; J7799; S0164 ×2

== ENCOUNTER → 2018-12-05 | Day surgery (SDC) | payer MEDICARE, OTHER ==
[2018-12-03 14:03] LABS: BASOPHILS % 0.3 % (0.0-1.0); EOSINOPHILS # (AUTO) 0.1 (0.0-0.4); HEMATOCRIT 32.8 % (34.2-44.1); HEMOGLOBIN 10.3 g/dL (12.0-16.0); LYMPHOCYTES # (AUTO) 0.8 (1.0-3.2); MEAN CORPUSCULAR HEMOGLOBIN 30.1 pg (28-32); MEAN CORPUSCULAR HGB CONC 31.4 g/dL (31-35); MEAN CORPUSCULAR VOLUME 95.9 fL (81-99); MONOCYTES # (AUTO) 0.4 (0.2-0.8); NEUTROPHILS # (AUTO) 5.3 (2.1-6.9); NEUTROPHILS % 79.4 % (38.7-80.0); PLATELET COUNT 137 x10e3/uL (140-360); RED BLOOD COUNT 3.42 x10e6/uL (3.6-5.1); RED CELL DISTRIBUTION WIDTH 16.3 % (11.7-14.4)
[2018-12-03 14:11] LABS: INR 1.03
[2018-12-03 14:12] LABS: PARTIAL THROMBOPLASTIN TIME 32.4 seconds (23.8-35.5)
[2018-12-03 14:18] LABS: ANION GAP 13.4 mmol/L (8-16)
[2018-12-03 14:23] LABS: POTASSIUM 5.4 mmol/L (3.5-5.1)
[~2018-12-05] MED LIST changes: +HUMALOG100 UNIT/3 SC; +HUMULIN R100 UNIT/2; +KEFLEX500 MG PO; +LANTUS 3ML100 UNITS/ SQ; +LASIX20 MG PO; +LIDOCAINE HCL 2% LOCAL INJ 5 ML SDV VIAL INJ ONE; +LISINOPRIL40 MG PO; +METOPROLOL SUCC50 MG PO; +MIDAZOLAM HCL 2 MG/2 ML VIAL ONE; +NIFEDIPINE ER60 MG PO; +NORCO 10-325 T1 EACH PO; +PROPOFOL IV EMULSION 10 MG/ML 20 ML VIAL ONE; +SODIUM CHLORIDE 0.9% 500ML 500 ML ONE; +WARFARIN SODIUM3 MG PO; +XARELTO10 MG PO
--- OUTSIDE RECORDS SUMMARY | 2018-12-05 06:16 | XMS REPORT | Clinical Summary ---
Author Author [facility] Organization [facility] Address Unknown Phone Unavailable Care Team Providers Care Manager Occupational Name Role Phone Asked, No Pcp PCP [...] 04/24/2016 Achilles rupture, right 12/21/2015 Social History Date Tobacco Use Types Packs/Day Years Used Never Smoker Smokeless Tobacco: Never Used Drinks/Week oz/Week Comments Alcohol Use social Yes Sex Assigned at Date Recorded Not on file Industry Job Start Date Occupation Not on file Not on file Not on file Travel End Travel History Travel Start No recent travel history available. Last Filed Vital Signs Not on file Plan of Treatment Health Maintenance Due Date Last Done Comments BREAST CANCER SCREENING 11/13/1995 COLONOSCOPY SCREENING 11/13/1995 SHINGLES VACCINES (#1) 11/13/1995 65+ PNEUMOCOCCAL VACCINE 2010 (1 of 2 - PCV13) INFLUENZA VACCINE 10/31/2018 Results Not on fileafter 12/04/2017 Insurance Type Payer Benefit Subscriber ID Effective Phone Address Plan / Dates Group Medicare MEDICARE MEDICARE xxxxxxxxxx 2010-P JOHNATHAN, PART A AND resent [place] B Commercial COMMERCIAL MISC MISC xxxxxxxxxxx 2006-P COMMERCIAL resent Advance Directives For more information, please contact: [phone] 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
[2018-12-05 08:55] VITALS: BP 149/73
== END | disposition home or self-care (01) ==
LOC: OR 06:12
PROVIDERS: ATTEND Internal Medicine Gastroenterology
DX: K29.70 Gastritis, unspecified, without bleeding (principal); K21.9 Gastro-esophageal reflux disease without esophagitis; K44.9 Diaphragmatic hernia without obstruction or gangrene; Z71.3 Dietary counseling and surveillance; E11.22 Type 2 diabetes mellitus with diabetic chronic kidney disease; I12.9 Hypertensive chronic kidney disease with stage 1 through stage 4 chronic kidney disease, or unspecified chronic kidney disease; G47.33 Obstructive sleep apnea (adult) (pediatric); N18.9 Chronic kidney disease, unspecified; E66.01 Morbid (severe) obesity due to excess calories; M10.9 Gout, unspecified; I48.91 Unspecified atrial fibrillation; E78.00 Pure hypercholesterolemia, unspecified; R76.11 Nonspecific reaction to tuberculin skin test without active tuberculosis; M06.9 Rheumatoid arthritis, unspecified; E03.9 Hypothyroidism, unspecified; Z01.810 Encounter for preprocedural cardiovascular examination; F32.9 Major depressive disorder, single episode, unspecified; Z01.812 Encounter for preprocedural laboratory examination; Z79.84 Long term (current) use of oral hypoglycemic drugs; Z79.4 Long term (current) use of insulin; Z79.01 Long term (current) use of anticoagulants; Z68.42 Body mass index [BMI] 45.0-49.9, adult; Z80.0 Family history of malignant neoplasm of digestive organs
CPT/HCPCS: 36415 ×2; 43239; 80048; 82948; 84132; 85025; 85610; 85730; 93005; J2001; J2250; J2704; J7040

== ENCOUNTER 2019-01-27 10:00 | Outpatient (RCR) | payer MEDICARE, OTHER ==
[~2019-01-27 10:00] MED LIST changes: +LEVOTHYROXINE50 MCG PO; -LIDOCAINE HCL 2% LOCAL INJ 5 ML SDV VIAL INJ ONE; -MIDAZOLAM HCL 2 MG/2 ML VIAL ONE; +NEXIUM20 MG PO; -PROPOFOL IV EMULSION 10 MG/ML 20 ML VIAL ONE; -SODIUM CHLORIDE 0.9% 500ML 500 ML ONE
== END 2019-01-30 ==
LOC: PT 10:00
PROVIDERS: ATTEND Specialist
DX: M16.12 Unilateral primary osteoarthritis, left hip (principal); M43.26 Fusion of spine, lumbar region

== ENCOUNTER 2019-02-21 09:58 | Outpatient (RCR) | payer MEDICARE, OTHER | END 2019-03-01 | LOC: PT 09:58 | PROVIDERS: ATTEND Specialist | DX: M16.12 Unilateral primary osteoarthritis, left hip (principal); M43.26 Fusion of spine, lumbar region | CPT/HCPCS: 97139 ==

== ENCOUNTER 2020-02-23 13:20 | Emergency (ER) | payer MEDICARE, OTHER ==
[~2020-02-23] VITALS: Ht 149.9 cm; Wt 100.2 kg
[2020-02-23] MEDS ORDERED: FENTANYL CITRATE/PF 100MCG/2 ML INJ IV ONE (13:30)
[2020-02-23] MEDS ORDERED: ACETAMINOPHEN 325 MG TAB PO PRN (13:30)
--- NOTE | 2020-02-23 13:35 | Emergency Department Note ---
History of Present Illnes History of Present Illness Chief Complaint: General Medicine Complaints History of Present Illness This is a 74 year old female that had a mechanical fall and struck her left shoulder about 11:30. Patient with severe pain to the left shoulder, denies any LOC or any other concerns. Patient did get up and ambulate. . Arrival Mode: [facility] Onset (how long ago): hour(s) (2) Location: L shoulder Radiation: Reports non-radiation Severity: severe Onset quality: gradual Duration (how long): hour(s) (2) Timing of current episode: constant Progression: worsening Chronicity: new Context: Denies recent illness Relieving factors: none Exacerbating factors: movement Associated symptoms: Reports denies other symptoms Treatments prior to arrival: none Past Medical/Family History Physician Review I have reviewed the patient's past medical and family history. Any updates have been documented here. Past Medical History Past Medical History: Hypertension, Diabetes, A-Fib, Hypothyroidism, Kidney Stones, Hyperlipedemia, Chronic Kidney Disease, Chronic Back Pain Other Medical History: GOUT SLEEP APNEA - CPAP AT HOME IBS Past Surgical History: Cholecysctectomy, Back Surgery Other Surgery: LITHOTRIPSY BILATERAL ACHILLES TENDON REPAIR. Other Last Tetanus: UTD Review of Systems Review of Systems Constitutional: Reports no symptoms EENTM: Reports no symptoms Cardiovascular: Reports no symptoms Respiratory: Reports no symptoms Gastrointestinal: Reports no symptoms Genitourinary: Reports no symptoms Musculoskeletal: Reports as per HPI Integumentary: Reports no symptoms Neurological: Reports no symptoms Psychological: Reports no symptoms Endocrine: Reports no symptoms Hematological/Lymphatic: Reports no symptoms Physical Exam Related Data Allergies: Uncoded Allergies: SURGICAL TAPE (Allergy, Mild, BLISTERS, 11/15/16) Vital signs reviewed: Yes Physical Exam CONSTITUTIONAL Constitutional: Present well-developed, Present well-nourished HENT HENT: Present normocephalic, Present atraumatic, Present oropharynx clear/moist, Present nose normal HENT L/R: Present left ext ear normal, Present right ext ear normal EYES Eyes: Reports PERRL, Reports conjunctivae normal NECK Neck: Present ROM normal PULMONARY Pulmonary: Present effort normal, Present breath sounds normal CARDIOVASCULAR Cardiovascular: Present regular rhythm, Present heart sounds normal, Present capillary refill normal, Present normal rate GASTROINTESTINAL Abdominal: Present soft, Present nontender, Present bowel sounds normal GENITOURINARY Genitourinary: Present exam deferred SKIN Skin: Present warm, Present dry MUSCULOSKELETAL Musculoskeletal: Present ROM normal, Present other (left shoulder with diffuse tenderness to palpation, edema, neurovascularly intact distally, the rest of musculoskeletal exam is normal.) NEUROLOGICAL Neurological: Present alert, Present oriented x 3, Present no gross motor or sensory deficits PSYCHOLOGICAL Psychological: Present mood/affect normal, Present judgement normal Assessment & Plan Medical Decision Making MDM Patient's a 74-year-old with a mechanical fall after she tripped. Patient is currently on Zoloft O for atrial fibrillation. Patient with left shoulder pain concern for dislocation versus humeral head fracture. We'll treat symptomatically and get imaging. Reassessment Reassessment Sure that she humerus neck fracture will be placed in a sling for comfort to follow-up with orthopedics. Assessment & Plan Final Impression: (1) Humeral head fracture (2) Fall Depart Disposition: HOME, SELF-alf Meds Reported Medications Rivaroxaban (XARELTO) 10 Mg Tablet, 15 MG PO DAILY 01/13/19 Esomeprazole Magnesium (NEXIUM) 20 Mg Capsule.dr, 20 MG PO DAILY PROTONIX THERAPEUTIC INTERCHANGE PER [facility] 01/13/19 Levothyroxine Sodium (LEVOTHYROXINE SODIUM) 50 Mcg Tablet, 50 MCG PO 0600, #30 TAB 01/13/19 Hydrocodone Bit/Acetaminophen (NORCO 10-325 TABLET) 1 Each Tablet, 1 EA PO Q4HR PRN for MODERATE PAIN (4-6) 12/03/18 Furosemide (LASIX) 20 Mg Tablet, 5 MG PO DAILY PRN for SWELLING, #30 TAB 12/03/18 Insulin Lispro (HUMALOG) 100 Unit/1 Ml Insuln.pen, SC UD BS 200-250 = 2 UNITS BS 251-300 = 4 UNITS 12/03/18 Metoprolol Succinate (METOPROLOL SUCCINATE) 50 Mg Tab.er.24h, 30 MG PO DAILY, MG 10/24/18 Insulin Glargine (LANTUS 3ML PEN) 100 Units/1 Ml Inj, 20 UNIT SQ HS 10/22/18 Nifedipine (NIFEDIPINE ER) 60 Mg Tablet.er, 60 MG PO DAILY 10/22/18 Lisinopril (LISINOPRIL) 40 Mg Tablet, 40 MG PO DAILY 10/22/18 Aspirin (ASPIR 81) 81 Mg Tablet.dr, 81 MG PO HS 11/26/17 Cholecalciferol (Vitamin D3) (VITAMIN D3) 5,000 Unit Capsule, 5000 UNITS PO HS 11/26/17 Allopurinol (ALLOPURINOL) 300 Mg Tablet, 300 MG PO DAILY, #30 TAB 04/09/15 Oxybutynin Chloride (OXYBUTYNIN CHLORIDE) 5 Mg Tablet, 5 MG PO BID, #30 TAB 12/25/13 Atorvastatin Calcium (LIPITOR) 40 Mg Tablet, 40 MG PO HS 12/23/13 KENYATTA CROWLEY MD Feb 23, 2020 13:35
--- OUTSIDE RECORDS SUMMARY | 2020-02-23 13:36 | XMS REPORT | Clinical Summary ---
Author Author [facility] Address Unknown Phone Unavailable Care Team Providers Care Research And Development Specialist Name Role Phone Reynaldo Bennett MD PCP Allergies No Known Active Allergies Medications End Date Status Medication Sig Dispensed Refills Start Date Active allopurinol (ZYLOPRIM) 0 300 MG tablet 8 Active atorvastatin (LIPITOR) 40 0 MG tablet 8 Active budesonide-formoterol Symbicort 160 0 (SYMBICORT) 160-4.5 mcg-4.5 mcg/actuation inhaler mcg/actuation HFA aerosol inhaler Active SYNTHROID 50 mcg tablet 0 8 Active lisinopril 0 (PRINIVIL,ZESTRIL) 40 mg 8 tablet Active pantoprazole (PROTONIX) 0 40 MG EC tablet 8 Active NIFEdipine CC (ADALAT CC) 0 60 MG 24 hr tablet 9 Active XARELTO 15 mg tablet 0 9 Active TOPROL XL 50 mg 24 hr 0 tablet 9 Active LANTUS U-100 INSULIN 100 INJECT 20 2 12/20 unit/mL injection (vial) UNITS SC QHS 9 Active NYAMYC 100,000 unit/gram 0 powder 9 02/24/2019 Discontinued NIFEdipine XL (PROCARDIA 0 XL) 30 MG 24 hr tablet 8 03/06/2019 sulfamethoxazole-trimetho Take 1 tablet 20 tablet 0 prim (BACTRIM DS) 800-160 by mouth 2 9 mg per tablet (two) times a day for 10 days. 03/13/2019 clindamycin (CLEOCIN HCL) Take 1 40 capsule 0 300 MG capsule capsule (300 9 mg total) by mouth 4 (four) times a day for 10 days. Active Problems Problem Noted Date Peroneal tendon tear 04/24/2016 Achilles rupture, right 12/21/2015 Encounters Care Team Description Date Type Specialty Hina Villeda MD 03/03/2019 Telephone Obstetrics and Gyne cology Hina Villeda MD Vulvar abscess (Primary Dx) 02/24/2019 Office Visit Obstetrics and Gyne cology after 02/22/2019 Surgical History Surgery Date Site/Laterality Comments FOOT SURGERY ANKLE SURGERY SHOULDER SURGERY BACK SURGERY 01/22/2018 Medical History Medical History Date Comments S/P foot joint surgery Hypertension Diabetes mellitus (HCC) Kidney stone Social History Date Tobacco Use Types Packs/Day Years Used Never Smoker Smokeless Tobacco: Never Used Drinks/Week oz/Week Comments Alcohol Use social Yes Sex Assigned at Date Recorded Not on file Obstetrics History Term Pre Abrt (TAB) (SAB) (Ect) Mult Lvng Comments Grav Para 1 1 Date GA Total Labor Labor/2nd/3rd Weight Sex Delivery Anes PTL [place] A1 A5 Name Clin Outcome Para Last Filed Vital Signs Reading Time Taken Comments Vital Sign 151/112 02/24/2019 3:49 PM STAMP MOUNTER Blood Pressure 80 02/24/2019 3:49 PM [employer]TER Pulse - - Temperature - - Respiratory Rate - - Oxygen Saturation - - Inhaled Oxygen Concentration 98 kg (216 lb) 02/24/2019 3:49 PM ST[employer] MOUNTER Weight 152.4 cm (5') 02/24/2019 3:49 PM [employer] M[employer]TER Height 42.18 02/24/2019 3:49 PM ST[employer] M[employer]TER Body Mass Index Plan of Treatment Health Maintenance Due Date Last Done Comments DIABETES: RETINAL EYE 11/13/1955 EXAM DIABETIC FOOT EXAM 11/13/1955 URINE MICROALBUMIN 11/13/1955 BREAST CANCER SCREENING 11/13/1995 COLONOSCOPY SCREENING 11/13/1995 SHINGLES VACCINES (#1) 11/13/1995 65+ PNEUMOCOCCAL VACCINE 2010 04/02/2017 (1 of 1 - PPSV23) INFLUENZA VACCINE 11/01/2019 Results Not on fileafter 02/22/2019 Insurance Type Payer Benefit Subscriber ID Effective Phone Address Plan / Dates Group Medicare MEDICARE MEDICARE [id number] 2010-P [place], PART A AND resent [place] B Commercial COMMERCIAL MISC MISC [id number] 2006-P COMMERCIAL resent Advance Directives For more information, please contact: [phone] 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
--- OUTSIDE RECORDS SUMMARY | 2020-02-23 13:37 | XMS REPORT | Continuity of Care Document ---
Author Author [facility] t Organization [facility] Address [address] [place] [address] Phone Unavailable Care Team Providers Care Negative Assembler Name Role Phone BRIAN CRENSHAW, CLEO PCP MICHELLE GONZALEZ Attphys Unavailable Christiana CRENSHAW, Hina Attphys Alysha CONTRERAS Attphys Unavailable Sunitha HAMM Attphys Unavailable CRISS PORTILLO Attphys Unavailable Felipe ROA Attphys Unavailable Payers Payer Name Policy Type Policy Number Effective Date Expiration Date [facility] Plan Indemnity [id number] 2011 00:00:00 [facility] Medicare A & B [id number] 2010 00:00:00 [facility] MEDICAREMEDICARE PART A AND [id number] 2010-ALESSANDRO BlakeMedisrinivasan [id number] 2010 00:00:00 Johnathan Loera COMMERCIAL MISCMISC [id number]/04/2006[facility] mercial [id number] 2006 00:00:00 Johnathan Loera Problems Condition Name Condition Details Condition Category Status Onset Date Resolution Date Last Treatment Date Treating Clinician Comments Source Peroneal tendon tear Peroneal tendon tear Disease Active 00:00:00 Johnathan Loera Achilles rupture, right Achilles rupture, right Disease Active 2015-12-21 00:00:00 Johnathan david Atrial fibrillation Atrial fibrillation Problem Active [facility] Hypoglycemia Hypoglycemia Problem Active [facility] Acute renal failure superimposed on chronic kidney dis ease Renal failure (ARF), acute on chronic Problem Active [facility] Allergies, Adverse Reactions, Alerts Allergy Name Allergy Type Status Severity Reaction(s) Onset Date Inacti ve Date Treating Clinician Comments Source adhesive tape DA Active 2018-05-30 00:00:00 [facility] SURGICAL TAPE Allergy to Substance Active Mild BLISTERS 2016-11-15 0 0:00:00 [facility] adhesive tape DA Active 2013-04-19 00:00:00 [facility] Social History Social Habit Start Date Stop Date Quantity Comments Source Sex Assigned At Liliane precious Loera Tobacco use and exposure 2019-02-24 00:00:00 2019-02-24 00:00:00 Nadia giraldo used Johnathan Loera Alcohol intake 2019-02-24 00:00:00 2019-02-24 00:00:00 Current drinker of alcohol (finding) Johnathan Loera Alcohol Comment 2017-11-21 00:00:00 2017-11-21 00:00:00 social Johnathan Loera Smoking Status Start Date Stop Date Source Never smoker Johnathan diaz Medications Ordered Medication Name Filled Medication Name Start Date Stop Da te Current Medication? Ordering Clinician Indication Dosage Frequency Signature (SIG) Comments Components Source clindamycin (CLEOCIN HCL) 300 MG capsule 2019-03 00:00:00 2019-03-13 23:59:00 No 300mg Q.25D Take 1 capsule (300 mg total) by mouth 4 (four) times a day for 10 days. Johnathan david budesonide-formoterol (SYMBICORT) 160-4.5 mcg/actuation inha ler 2019-02-24 15:48:35 Yes Symbicort 160 mcg-4.5 m cg/actuation HFA aerosol inhaler Johnathan Loera sulfamethoxazole-trimethoprim (BACTRIM DS) 800-160 mg per ta blet 2019-02-24 00:00:00 2019-03-06 23:59:00 No 1{tbl} Q.5D Take 1 tablet by mouth 2 (two) times a day for 10 days. Johnathan david NIFEdipine CC (ADALAT CC) 60 MG 24 hr tablet 2019-02-16 00:00:00 Yes Johnathan Taylor t XARELTO 15 mg tablet 2019-02-14 00:00:00 Yes Johnathan Loera NYAMYC 100,000 unit/gram powder 2019-01-15 00:00:00 Yes Johnathan Loera TOPROL XL 50 mg 24 hr tablet 2019-01-07 00:00:00 Yes Johnathan Loera LANTUS U-100 INSULIN 100 unit/mL injection (vial) 2018-12-20 00:00:00 Yes [facility] lisinopril (PRINIVIL,ZESTRIL) 40 mg tablet 2017-11-20 00:00:00 Yes Johnathan Loera NIFEdipine XL (PROCARDIA XL) 30 MG 24 hr tablet 2017-11-20 00:00:00 2019-02-24 00:00:00 No Johnathan Loera allopurinol (ZYLOPRIM) 300 MG tablet 2017-10-29 00:00:00 Yes Johnathan Loera pantoprazole (PROTONIX) 40 MG EC tablet 2017-10-27 00:00:00 Ye s Johnathan Loera SYNTHROID 50 mcg tablet 2017-10-11 00:00:00 Yes Johnathan Loera atorvastatin (LIPITOR) 40 MG tablet 2017-09-26 00:00:00 Yes Johnathan Loera Allopurinol 300 Mg Tablet Allopurinol 300 Mg Tablet Yes 300 Daily [facility] Aspirin (Aspir 81) 81 Mg Tablet. Aspirin (Aspir 81) 81 Mg Tablet. Yes 81 Bedtime [facility] Atorvastatin Calcium (Lipitor) 40 Mg Tablet Atorvastat in Calcium (Lipitor) 40 Mg Tablet Yes 40 Bedtime [facility] Cholecalciferol (Vitamin D3) (Vitamin D3) 5,000 Unit C apsule Cholecalciferol (Vitamin D3) (Vitamin D3) 5,000 Unit Capsule Yes 5000 Bedtime [facility] Esomeprazole Magnesium (Nexium) 20 Mg Capsule.dr Esome prazole Magnesium (Nexium) 20 Mg Capsule. Yes 20 Daily [facility] Furosemide (Lasix) 20 Mg Tablet Furosemide (Lasix) 20 Mg Tablet Yes 5 Daily as needed for Swelling [facility] Hydrocodone Bit/Acetaminophen (Shelby 10-325 Tablet) 1 Each Tablet Hydrocodone Bit/Acetaminophen (Shelby 10-325 Tablet) 1 Each Tablet Yes 1 Every 4 Hours as needed for Moderate Pain (4-6) [facility] Insulin Glargine (Lantus 3ML Pen) 100 Units/1 Ml Inj I nsulin Glargine (Lantus 3ML Pen) 100 Units/1 Ml Inj Yes 20 Bedtime [facility] Insulin Lispro (Humalog) 100 Unit/1 Ml Insuln.pen Insu genesis Lispro (Humalog) 100 Unit/1 Ml Insuln.pen Yes Use As Directed [facility] Levothyroxine Sodium 50 Mcg Tablet Levothyroxine Sodium 50 Mcg Tablet Yes 50 Today At 6:00AM [facility] Lisinopril 40 Mg Tablet Lisinopril 40 Mg Tablet Yes 40 Daily [facility] Metoprolol Succinate 50 Mg Tab.er.24h Metoprolol Succinate 50 Mg Ta b.er.24h Yes 30 Daily [facility] Nifedipine (Nifedipine Er) 60 Mg Tablet.er Nifedipine (Nifedipine Er) 60 Mg Tablet.er Yes 60 Daily [facility] Oxybutynin Chloride 5 Mg Tablet Oxybutynin Chloride 5 Mg Tablet Yes 5 Twice A Day [facility] Rivaroxaban (Xarelto) 10 Mg Tablet Rivaroxaban (Xarelto) 10 Mg Tablet Yes 15 Daily [facility] Glimepiride 2 Mg Tablet, 4 Mg Oral Glimepiride 2 Mg Tablet, 4 Mg Oral 2019-01-14 00:00:00 No 4 Daily [facility] Pantoprazole Sodium (Protonix) 40 Mg Tablet., 40 Mg Oral Pantoprazole Sodium (Protonix) 40 Mg Tablet., 40 Mg Oral 2019-01-13 00:00:00 No 40 Daily [facility] Warfarin Sodium 3 Mg Tablet, 5 Mg Oral Warfarin Sodium 3 Mg Tabl et, 5 Mg Oral 2019-01-13 00:00:00 No 5 Daily [facility] Cephalexin Monohydrate (Keflex) 500 Mg Capsule, 500 Mg Oral Cephalexin Monohydrate (Keflex) 500 Mg Capsule, 500 Mg Oral 2018-12-03 00:00:00 No 500 Twice A Day [facility] Insulin Regular, Human (Humulin R) 100 Unit/1 Ml Vial, 2 Insulin Regular, Human (Humulin R) 100 Unit/1 Ml Vial, 2 2018-12-03 00:00:00 No 2 [facility] Rivaroxaban (Xarelto) 10 Mg Tablet, 15 Mg Oral Rivarox aban (Xarelto) 10 Mg Tablet, 15 Mg Oral 2018-12-03 00:00:00 No 15 Daily [facility] Furosemide 40 Mg Tablet, 40 Mg Oral Furosemide 40 Mg Tablet, 40 Mg Oral 2018-10-22 00:00:00 No 40 Daily [facility] Hydrocodone Bit/Acetaminophen (Shelby 5-325 Tablet) 1 E ach Tablet, 1 Each Oral Hydrocodone Bit/Acetaminophen (Shelby 5-325 Tablet) 1 Each Tablet, 1 Each Oral 2018-10-22 00:00:00 No 1 As Needed [facility] Lisinopril 2.5 Mg Tablet, 2.5 Mg Oral Lisinopril 2.5 Mg Tablet, 2.5 Mg Oral 2018-10-22 00:00:00 No 2.5 Daily [facility] Nifedipine (Nifedipine Er) 30 Mg Tab.er.24, Oral Nif edipine (Nifedipine Er) 30 Mg Tab.er.24, Oral 2018-10-22 00:00:00 No [place] ly [facility] Amlodipine Besylate 10 Mg Tablet, 10 Mg Oral Amlodipin e Besylate 10 Mg Tablet, 10 Mg Oral 2017-11-28 00:00:00 No 10 Daily [facility] Budesonide/Formoterol Fumarate (Symbicor t 80-4.5 Mcg Inhaler) 10.2 Gm Hfa.aer.ad, 1 Each Inhalation Budesonide/Formoterol Fumarate (Symbicor t 80-4.5 Mcg Inhaler) 10.2 Gm Hfa.aer.ad, 1 Each Inhalation 2017-11-28 00:00:0 0 No 1 As Needed [facility] Tramadol Hcl (Ultram) 50 Mg Tablet, 50 Mg Oral Tramado l Hcl (Ultram) 50 Mg Tablet, 50 Mg Oral 2017-11-28 00:00:00 No 50 Bedtime as needed for Pain [facility] Sertraline Hcl 100 Mg Tablet, 100 Mg Oral Sertraline H cl 100 Mg Tablet, 100 Mg Oral 2016-11-16 00:00:00 No 100 Daily [facility] Metformin Hcl (Metformin Hcl Er) 1,000 Mg Tab.er.24, 1 000 Mg Oral Metformin Hcl (Metformin Hcl Er) 1,000 Mg Tab.er.24, 1000 Mg Oral 2015-04-12 00:0 0:00 No 1000 Twice A Day [facility] Bystolic , 10 Mg Oral Bystolic , 10 Mg Oral 2015-04-09 00:00:00 No 10 Daily [facility] Hydralazine Hcl 25 Mg Tab, 25 Mg Oral Hydralazine Hcl 25 Mg Tab, 25 Mg Oral 2015-04-09 00:00:00 No 25 Twice A Day [facility] Glyburide 5 Mg Tablet, 5 Mg Oral Glyburide 5 Mg Tablet, 5 Mg Ora l 2013-12-25 00:00:00 No 5 Daily [facility] Vital Signs Vital Name Observation Time Observation Value Comments Source Systolic blood pressure 2019-02-24 15:49:00 151 mm[Hg] Johnathan Loera Diastolic blood pressure 2019-02-24 15:49:00 112 mm[Hg] Johnathan Loera Heart rate 2019-02-24 15:49:00 80 /min Johnathan Loera Body height 2019-02-24 15:49:00 152.4 cm Johnathan Loera Body weight 2019-02-24 15:49:00 97.977 kg Johnathan Loera BMI 2019-02-24 15:49:00 42.18 kg/m2 Johnathan Loera Procedures Procedure Date / Time Performed Performing Clinician [facility] X-ray of chest, single view 2019-04-17 [facility] CT of abdomen and pelvis without contrast 2019-04-17 00:00:00 [facility] of brain without radiopaque contrast 201 12-10-12 00:00:00 [facility] EGD BIOPSY SINGLE/MULTIPLE 2018-12-05 00:00:00 JAMMIE LEMUS [facility] Plan of Care Planned Activity Planned Date Details Comments Source Future Scheduled Test 2019-11-01 00:00:00 INFLUENZA VACCINE [code = INFLUENZA VACCINE] [facility] Scheduled Test 2010 00:00:00 65+ PNEUMOCOCCAL V ACCINE (1 of 1 - PPSV23) [code = 65+ PNEUMOCOCCAL VACCINE (1 of 1 - PPSV23)] [facility] [place] Future Scheduled Test 1995-11-13 00:00:00 BREAST CANCER SCRE ENING [code = BREAST CANCER SCREENING] [facility] [place] Future Scheduled Test 1995-11-13 00:00:00 COLONOSCOPY SCREEN ING [code = COLONOSCOPY SCREENING] [facility] Scheduled Test 1995-11-13 00:00:00 SHINGLES VACCINES (#1) [code = SHINGLES VACCINES (#1)] [facility] [place] Future Scheduled Test 1955-11-13 00:00:00 DIABETES: RETINAL EYE EXAM [code = DIABETES: RETINAL EYE EXAM] [facility] [place] Future Scheduled Test 1955-11-13 00:00:00 DIABETIC FOOT EXAM [code = DIABETIC FOOT EXAM] [facility] [place] Future Scheduled Test 1955-11-13 00:00:00 URINE MICROALBUMIN [code = URINE MICROALBUMIN] [facility] [place] Encounters Start Date/Time End Date/Time Encounter Type Admission Type [facility] Facility Care Department Encounter ID Source 2019-04-30 09:55:00 2019-05-02 23:59:00 Discharged Recurring [facility] [id number] [facility] 2019-04-17 16:40:00 2019-04-18 00:03:00 [id number] 2019-01-31 09:57:00 2019-03-01 23:59:00 Discharged Recurring [facility] [id number] [facility] 2019-01-21 10:11:00 2019-01-30 23:59:00 Discharged Recurring [facility] [id number] [facility] 2019-01-12 17:55:00 2019-01-14 15:18:00 Discharged Inpatient (obs) 1 MICHELLE GAMBOA [facility] [id number] [facility] 2018-12-05 06:12:00 2018-12-05 06:12:00 Registered Surgical Day Care [facility] [id number] [facility] 2018-10-22 11:44:00 2018-10-24 09:25:00 Discharged Inpatient (obs) [address] [id number] [facility] 2018-05-25 19:13:00 2018-05-25 21:25:00 Departed Emergency Room 1 JASON CONTRERAS [facility] [id number] [facility] 2017-12-08 21:06:00 2017-12-08 22:53:00 Departed Emergency Room 1 KANDI HAMM [facility] [id number] [facility] 2017-11-28 10:48:00 2017-11-28 10:48:00 Registered Surgical Day Car e CRISS GARCIA [facility] [id number] [facility] 2017-05-03 13:08:00 2017-05-30 23:59:00 Discharged Recurring [facility] [id number] [facility] 2017-05-09 06:13:00 2017-05-09 10:25:00 Departed Emergency Room ER SURY ROA [facility] [id number] [facility] 2016-11-16 05:07:00 2016-11-16 05:07:00 Registered Surgical Day Care [facility] [id number] [facility] Results Test Description Test Time Test Comments Results Result Comments Source CT ABDOMEN/PELVIS WO 2019-04-17 23:16:00 [facility] [address], [place] [address] Patient Name: DARIELA MILLS MR #: [id number] : 1945 Age/Sex: 73/F Req #: [id number] Adm Physician: Ordered by: MICHELLE GONZALEZ DO Report #: [id number] Location: ER Room/Bed: Procedure: [id number] CT/CT ABDOMEN/PELVIS WO Exam Date: 04/17/19 Exam Time: 2154 REPORT STATUS: Signed EXAMINATION: CT of the abdomen and pelvis without contrast. TECHNIQUE: Spiral CT images of the abdomen and pelvis were performed from the lung bases to the lesser trochanters. No intravenous contrast was given due to decreased GFR. Oral dilute Gastrografin was given.. Coronal and sagittal reformatted images were obtained. COMPARISON: CT abdomen and pelvis without contrast 12/08/2012 CLINICAL HISTORY:Abdominal pain, epigastric pain since today, nausea and vomiting. DISCUSSION: ABSENCE OF INTRAVENOUS CONTRAST DECREASES SENSITIVITY FOR DETECTION OF FOCAL LESIONS AND VASCULAR PATHOLOGY. ABDOMEN/PELVIS: LOWER THORAX: Lung bases are grossly clear. Trace pericardial effusion. Atherosclerotic calcification of the thoracic aorta. Small hiatal hernia. HEPATOBILIARY: No focal hepatic lesions. No intra or extrahepatic biliary ductal dilation. GALLBLADDER: Cholecystectomy clips. SPLEEN: No splenomegaly. PANCREAS: No focal masses or ductal dilatation. Stable dystrophic calcification in the anterior aspect of the pancreatic head (series 2, image 30). No peripancreatic free fluid or fat stranding. ADRENALS: Stable 1.6 cm homogeneous fat containing lesion in the left adrenal gland, consistent with a myelolipoma. Right adrenal gland is unremarkable. KIDNEYS/URETERS: No ureteral calculi or hydronephrosis. No significant interval change in multiple bilateral renal calcific densities at the renal sinuses, most of which are linear, which are felt to represent vascular calcifications. Punctate bilateral sinus calcifications may reflect nonobstructing calculi ve rsus additional vascular calcifications No contour abnormalities. PELVIC ORGANS/BLADDER: Bladder is unremarkable. Stable dystrophic calcifications in the uterus, likely representing calcified fibroids. No adnexal masses. PERITONEUM/RETROPERITONEUM: No free air or fluid. LYMPH NODES: No intra- abdominal,retroperitoneal, pelvic or inguinal lymphadenopathy. VESSELS: Atherosclerotic calcification of the abdominal aorta, aortic branches and iliac vessels. GI TRACT: No bowel dilation or evidence of obstruction. No pericolonic inflammatory changes. Proximal and mid sigmoid diverticulosis, without surrounding inflammatory changes to suggest diverticulitis. BONES AND SOFT TISSUES: No aggressive lytic lesions. Generalized osteopenia. Vertebroplasty changes at L1. Posterior fusion hardware and intervertebral disc spacer L4-L5. Tiny fat-containing umbilical hernia. IMPRESSION: 1. No acute abdominopelvic abnormalities. Specifically, no acute abnormal findings in the epigastric region to explain the patient's pain. 2. Stable dystrophic calcification in the anterior aspect of the pancreatic head, which may reflect sequela of prior pancreatitis. No acute peripancreatic inflammatory changes, free fluid or fluid collections to suggest acute pancreatitis. 3. 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 4. Proximal and mid sigmoid diverticulosis, without diverticulitis. Signed by: Dr. Efrem Villarreal M.D. on 04/17/2019 11:25 PM Dictated By: EFREM VILLARREAL MD [id number] Transcribed By: BRAN on 04/17/19 9587 COPY TO: MICHELLE GONZALEZ DO Creatine Kinase MB 2019-04-17 21:02:00 Test Item Creatine Kinase MB (test code = 03790-5) 2.20 0-5.0 [facility] [id number] 21:02:00* Test Item Value Reference Range Interpretation Comments Troponin I (test code = VTV5763) 0.009 0-0.300 [facility] [id number] 21:02:00* Test Item Value Reference Range Interpretation Comments Creatine Kinase MB (test code = 24821-1) 2.20 0-5.0 [facility] CenterTroponin [id number] 21:02:00* Test Item Value Reference Range Interpretation Comments Troponin I (test code = XZK0137) 0.009 0-0.300 [facility] [id number] 20:53:00* Test Item Value Reference Range Interpretation Comments Sodium Level (test code = 2951-2) 142 136-145 [facility]Potassium Mcorf2385-73-84 20:53:00* Test Item Value Reference Range Interpretation Comments Potassium Level (test code = 2823-3) 4.8 3.5-5.1 [facility] CenterChloride Djyhs2752-00-62 20:53:00* Test Item Value Reference Range Interpretation Comments Chloride Level (test code = 2075-0) 115 98-107 H [facility] CenterCarbon Dioxide Oyhla0720-11-90 20:53:00* Test Item Value Reference Range Interpretation Comments Carbon Dioxide Level (test code = 2028-9) 18 22-29 L [facility] CenterAnion [id number] 20:53:00* Test Item Value Reference Range Interpretation Comments Anion Gap (test code = 59524-3) 13.8 8-16 [facility] Center[facility] Urea Ixonvxob7758-84-16 20:53:00* Test Item Value Reference Range Interpretation Comments Blood Urea Nitrogen (test code = 3094-0) 42 7-26 H [facility] CenterCreatinine2020-01-16 20:53:00* Test Item Value Reference Range Interpretation Comments Creatinine (test code = 2160-0) 2.19 0.57-1.11 H [facility] CenterBUN/Creatinine Gvruu5605-64-69 20:53:00* Test Item Value Reference Range Interpretation Comments BUN/Creatinine Ratio (test code = 3097-3) 19 6-25 [facility] CenterEstimat Glomerular Filtration Rate 2019-04-17 20:53:00* Test Item Value Reference Range Interpretation Comments Estimat Glomerular Filtration Rate (test code = 729491896) 22 >60 L Ranges were taken from the National Kidney Disease Education Program and the [facility] literature.Reference ranges:60 or greater: Kyknaa76-83 ( for 3 consecutive months): Chronic kidney disease 15 or less: Kidney failureWhite Rock Medical CenterGlucose Icxzd4547-99-84 20:53:00* Test Item Value Reference Range Interpretation Comments Glucose Level (test code = XKX5639) 182 74-118 H [facility] CenterCalcium Pnayc2261-64-90 20:53:00* Test Item Value Reference Range Interpretation Comments Calcium Level (test code = 71292-1) 9.2 8.4-10.2 [facility] CenterTotal Ebwlouwdp1211-04-11 20:53:00* Test Item Value Reference Range Interpretation Comments Total Bilirubin (test code = 1975-2) 0.4 0.2-1.2 [facility] CenterAspartate Amino Transf (AST/SGOT) 2019-04-17 20:53:00* Test Item Value Reference Range Interpretation Comments Aspartate Amino Transf (AST/SGOT) (test code = Aspartate Amino Transf (AST/SGOT)) 12 5-34 [facility] CenterAlanine Aminotransferase (ALT/SGPT) 2019-04-17 20:53:00* Test Item Value Reference Range Interpretation Comments Alanine Aminotransferase (ALT/SGPT) (test code = 1742-6) 13 0-55 [facility] CenterTotal Ptfoihz9618-91-53 20:53:00* Test Item Value Reference Range Interpretation Comments Total Protein (test code = 2885-2) 6.3 6.5-8.1 L [facility] CenterAlbumin2020-01-16 20:53:00* Test Item Value Reference Range Interpretation Comments Albumin (test code = 1751-7) 3.7 3.5-5.0 [facility] CenterGlobulin2020-01-16 20:53:00* Test Item Value Reference Range Interpretation Comments Globulin (test code = 15335-6) 2.6 2.3-3.5 [facility] CenterAlbumin/Globulin Bdlxk4748-47-35 20:53:00 * Test Item Value Reference Range Interpretation Comments Albumin/Globulin Ratio (test code = 1759-0) 1.4 0.8-2.0 [facility] CenterAlkaline Yvjpbvcoojl6643-96-93 20:53:00* Test Item Value Reference Range Interpretation Comments Alkaline Phosphatase (test code = 6768-6) 78 40-150 [facility] CenterCreatine Qbodsp8615-10-95 20:53:00* Test Item Value Reference Range Interpretation Comments Creatine Kinase (test code = 2157-6) 62 29-168 [facility] Zmtas9106-49-59 20:53:00* Test Item Value Reference Range Interpretation Comments Sodium Level (test code = 2951-2) 142 136-145 [facility] CenterPotassium Zofcc6926-79-12 20:53:00* Test Item Value Reference Range Interpretation Comments Potassium Level (test code = 2823-3) 4.8 3.5-5.1 [facility] CenterChloride Wwdnk2074-81-25 20:53:00* Test Item Value Reference Range Interpretation Comments Chloride Level (test code = 2075-0) 115 98-107 H [facility] CenterCarbon Dioxide Cutfl5369-59-55 20:53:00* Test Item Value Reference Range Interpretation Comments Carbon Dioxide Level (test code = 2028-9) 18 22-29 L [facility] CenterAnion Csk7335-03-33 20:53:00* Test Item Value Reference Range Interpretation Comments Anion Gap (test code = 91037-3) 13.8 8-16 [facility] CenterBlood Urea Wjtjiukt3740-70-88 20:53:00* Test Item Value Reference Range Interpretation Comments Blood Urea Nitrogen (test code = 3094-0) 42 7-26 H [facility] CenterCreatinine2020-01-16 20:53:00* Test Item Value Reference Range Interpretation Comments Creatinine (test code = 2160-0) 2.19 0.57-1.11 H [facility] CenterBUN/Creatinine Sykvi3482-14-03 20:53:00* Test Item Value Reference Range Interpretation Comments BUN/Creatinine Ratio (test code = 3097-3) 19 6-25 [facility] CenterEstimat Glomerular Filtration Rate 2019-04-17 20:53:00* Test Item Value Reference Range Interpretation Comments Estimat Glomerular Filtration Rate (test code = 516476275) 22 >60 L Ranges were taken from the National Kidney Disease Education Program and the [facility] Kidney Foundation literature.Reference ranges:60 or greater: Rglyhv77-16 ( for 3 consecutive months): Chronic kidney disease 15 or less: Kidney failureWhite Rock Medical CenterGlucose Aiazq1416-83-24 20:53:00* Test Item Value Reference Range Interpretation Comments Glucose Level (test code = JOP4723) 182 74-118 H [facility] CenterCalcium Zdace9747-05-12 20:53:00* Test Item Value Reference Range Interpretation Comments Calcium Level (test code = 21474-2) 9.2 8.4-10.2 [facility] CenterTotal Zlcvnusbi5269-67-47 20:53:00* Test Item Value Reference Range Interpretation Comments Total Bilirubin (test code = 1975-2) 0.4 0.2-1.2 [facility] CenterAspartate Amino Transf (AST/SGOT) 2019-04-17 20:53:00* Test Item Value Reference Range Interpretation Comments Aspartate Amino Transf (AST/SGOT) (test code = Aspartate Amino Transf (AST/SGOT)) 12 5-34 [facility] CenterAlanine Aminotransferase (ALT/SGPT) 2019-04-17 20:53:00* Test Item Value Reference Range Interpretation Comments Alanine Aminotransferase (ALT/SGPT) (test code = 1742-6) 13 0-55 [facility] CenterTotal Zxrkvxx0904-34-34 20:53:00* Test Item Value Reference Range Interpretation Comments Total Protein (test code = 2885-2) 6.3 6.5-8.1 L [facility] CenterAlbumin2020-01-16 20:53:00* Test Item Value Reference Range Interpretation Comments Albumin (test code = 1751-7) 3.7 3.5-5.0 [facility] CenterGlobulin2020-01-16 20:53:00* Test Item Value Reference Range Interpretation Comments Globulin (test code = 23261-2) 2.6 2.3-3.5 [facility] CenterAlbumin/Globulin Ofvna2376-87-28 20:53:00 * Test Item Value Reference Range Interpretation Comments Albumin/Globulin Ratio (test code = 1759-0) 1.4 0.8-2.0 [facility] CenterAlkaline Vgbzvolqhig9453-43-55 20:53:00* Test Item Value Reference Range Interpretation Comments Alkaline Phosphatase (test code = 6768-6) 78 40-150 [facility] CenterCreatine Qllnnr7600-94-87 20:53:00* Test Item Value Reference Range Interpretation Comments Creatine Kinase (test code = 2157-6) 62 29-168 [facility] CenterUrine Lkrdl5980-51-05 19:58:00* Test Item Value Reference Range Interpretation Comments Urine Color (test code = 5778-6) YELLOW YELLOW [facility] Fdkdikv6759-12-08 19:58:00* Test Item Value Reference Range Interpretation Comments Urine Clarity (test code = 85560-9) SL CLOUDY CLEAR [facility] CenterU[facility] Specific Lscoyvk3871-44-33 19:58:00 * Test Item Value Reference Range Interpretation Comments Urine Specific [place] (test code = 5811-5) 1.025 1.010-1.02 5 [facility] CenterU[facility] qH1615-76-41 19:58:00* Test Item Value Reference Range Interpretation Comments Urine pH (test code = 09927-9) 5 5-7 [facility] Leukocyte Hotwopzf2576-61-46 19:58:00* Test Item Value Reference Range Interpretation Comments Urine Leukocyte Esterase (test code = 5799-2) NEGATIVE NEGATIVE [facility] Kugdmco2826-93-20 19:58:00* Test Item Value Reference Range Interpretation Comments Urine Nitrite (test code = 78864-7) NEGATIVE NEGATIVE [facility] Mgxctjg5102-95-29 19:58:00* Test Item Value Reference Range Interpretation Comments Urine Protein (test code = 5804-0) 2+ NEGATIVE H [facility] CenterU[facility] Glucose (UA)2019-04-17 19:58:00* Test Item Value Reference Range Interpretation Comments Urine Glucose (UA) (test code = 2349-9) NEGATIVE NEGATIVE [facility] CenterU[facility] Bynoiuk6919-39-78 19:58:00* Test Item Value Reference Range Interpretation Comments Urine Ketones (test code = 95940-5) TRACE NEGATIVE H [facility] Cfboblalanpy3719-51-31 19:58:00* Test Item Value Reference Range Interpretation Comments Urine Urobilinogen (test code = 50277-4) 1 0.2-1 [facility] Gwoablmds2537-53-37 19:58:00* Test Item Value Reference Range Interpretation Comments Urine Bilirubin (test code = 1978-6) SMALL NEGATIVE [facility] Kdxne5376-48-83 19:58:00* Test Item Value Reference Range Interpretation Comments Urine Blood (test code = 71093-8) NEGATIVE NEGATIVE [facility] EAC9215-18-10 19:58:00* Test Item Value Reference Range Interpretation Comments Urine WBC (test code = 5821-4) 0-5 0-5 [facility] XOB4295-09-58 19:58:00* Test Item Value Reference Range Interpretation Comments Urine RBC (test code = 62585-8) 0-5 0-5 [facility] Vvlhsqbb3888-71-31 19:58:00* Test Item Value Reference Range Interpretation Comments Urine Bacteria (test code = 40710-6) MODERATE NONE H [facility] CenterU[facility] Epithelial Zuedp2887-35-60 19:58:00 * Test Item Value Reference Range Interpretation Comments Urine Epithelial Cells (test code = 48890-5) FEW NONE [facility] Ggghr7572-14-76 19:58:00* Test Item Value Reference Range Interpretation Comments Urine Mucus (test code = 8247-9) FEW RARE H [facility] CenterU[facility] Xsqbc0197-26-68 19:58:00* Test Item Value Reference Range Interpretation Comments Urine Color (test code = 5778-6) YELLOW YELLOW [facility] Center[facility] Zkuvpny4554-72-95 19:58:00* Test Item Value Reference Range Interpretation Comments Urine Clarity (test code = 89381-4) SL CLOUDY CLEAR [facility] CenterU[facility] Specific Qvzjwto8977-00-98 19:58:00 * Test Item Value Reference Range Interpretation Comments Urine Specific [place] (test code = 5811-5) 1.025 1.010-1.02 5 [facility] CenterU[facility] mC1761-66-87 19:58:00* Test Item Value Reference Range Interpretation Comments Urine pH (test code = 17019-0) 5 5-7 [facility] Center[facility] Leukocyte Unuuoltq7927-50-29 19:58:00* Test Item Value Reference Range Interpretation Comments Urine Leukocyte Esterase (test code = 5799-2) NEGATIVE NEGATIVE [facility] CenterU[facility] Laktliq4056-22-45 19:58:00* Test Item Value Reference Range Interpretation Comments Urine Nitrite (test code = 26674-0) NEGATIVE NEGATIVE [facility] Cqqpbvf3395-05-46 19:58:00* Test Item Value Reference Range Interpretation Comments Urine Protein (test code = 5804-0) 2+ NEGATIVE H [facility] CenterU[facility] Glucose (UA)2019-04-17 19:58:00* Test Item Value Reference Range Interpretation Comments Urine Glucose (UA) (test code = 2349-9) NEGATIVE NEGATIVE [facility] Nrvoplw2793-43-73 19:58:00* Test Item Value Reference Range Interpretation Comments Urine Ketones (test code = 77304-7) TRACE NEGATIVE H [facility] CenterU[facility] Hqhfkmkmnkim9941-09-40 19:58:00* Test Item Value Reference Range Interpretation Comments Urine Urobilinogen (test code = 01419-5) 1 0.2-1 [facility] Nfoqenwgv5404-49-61 19:58:00* Test Item Value Reference Range Interpretation Comments Urine Bilirubin (test code = 1978-6) SMALL NEGATIVE [facility] Lkfsi4658-64-89 19:58:00* Test Item Value Reference Range Interpretation Comments Urine Blood (test code = 29872-7) NEGATIVE NEGATIVE [facility] RMX4937-78-85 19:58:00* Test Item Value Reference Range Interpretation Comments Urine WBC (test code = 5821-4) 0-5 0-5 [facility] RJD8575-43-88 19:58:00* Test Item Value Reference Range Interpretation Comments Urine RBC (test code = 68887-4) 0-5 0-5 [facility] Bajakfrc1831-17-47 19:58:00* Test Item Value Reference Range Interpretation Comments Urine Bacteria (test code = 14557-0) MODERATE NONE H [facility] CenterU[facility] Epithelial Xkrtg7449-27-15 19:58:00 * Test Item Value Reference Range Interpretation Comments Urine Epithelial Cells (test code = 37352-2) FEW NONE [facility] CenterU[facility] Aqurs1700-54-01 19:58:00* Test Item Value Reference Range Interpretation Comments Urine Mucus (test code = 8247-9) FEW RARE H [facility] CenterPlatelet Shqob9249-92-16 18:52:00* Test Item Value Reference Range Interpretation Comments Platelet Count (test code = 777-3) 164 140-360 [facility] CenterPlatelet Djuoiwtj5731-46-80 18:52:00* Test Item Value Reference Range Interpretation Comments Platelet Estimate (test code = 17325-9) ADEQUATE [facility] CenterClumped Udaiutslx1723-70-65 18:52:00* Test Item Value Reference Range Interpretation Comments Clumped Platelets (test code = 7796-6) NONE NONE [facility] CenterRed Cell Morphology Redaezl1086-48-71 18:52:00* Test Item Value Reference Range Interpretation Comments Red Cell Morphology Comment (test code = 6742-1) NORMAL [facility] CenterPlatelet Ipnjq3166-27-01 18:52:00* Test Item Value Reference Range Interpretation Comments Platelet Count (test code = 777-3) 164 140-360 [facility] CenterPlatelet Equhtwlj7325-85-86 18:52:00* Test Item Value Reference Range Interpretation Comments Platelet Estimate (test code = 00606-5) ADEQUATE [facility] CenterClumped Lvrzzdqub8751-84-59 18:52:00* Test Item Value Reference Range Interpretation Comments Clumped Platelets (test code = 7796-6) NONE NONE [facility] CenterRed Cell Morphology Gvjhltb2718-06-01 18:52:00* Test Item Value Reference Range Interpretation Comments Red Cell Morphology Comment (test code = 6742-1) NORMAL [facility] CenterWhite Blood Sdkro2551-73-32 18:36:00* Test Item Value Reference Range Interpretation Comments White Blood Count (test code = 6690-2) 11.66 4.8-10.8 H [facility] CenterRed Blood Oqqbx1268-08-73 18:36:00* Test Item Value Reference Range Interpretation Comments Red Blood Count (test code = 789-8) 3.29 3.6-5.1 L [facility] CenterHemoglobin2020-01-16 18:36:00* Test Item Value Reference Range Interpretation Comments Hemoglobin (test code = 76807-4) 9.9 12.0-16.0 L [facility] CenterHematocrit2020-01-16 18:36:00* Test Item Value Reference Range Interpretation Comments Hematocrit (test code = 4544-3) 31.2 34.2-44.1 L [facility] CenterMean Corpuscular Fmybgj5142-06-19 18:36:00* Test Item Value Reference Range Interpretation Comments Mean Corpuscular Volume (test code = 787-2) 94.8 81-99 [facility] CenterMean Corpuscular Prqqrcbxcg7578-42-32 18:36:00* Test Item Value Reference Range Interpretation Comments Mean Corpuscular Hemoglobin (test code = 785-6) 30.1 28-32 [facility] CenterMean Corpuscular Hemoglobin Concent 2019-04-17 18:36:00* Test Item Value Reference Range Interpretation Comments Mean Corpuscular Hemoglobin Concent (test code = 786-4) 31.7 31-35 [facility] CenterRed Cell Distribution Arzvr5752-50-22 18:36:00* Test Item Value Reference Range Interpretation Comments Red Cell Distribution Width (test code = 85947-7) 16.5 11.7 -14.4 H [facility] CenterNeutrophils (%) (Auto)2019-04-17 18:36:00 * Test Item Value Reference Range Interpretation Comments Neutrophils (%) (Auto) (test code = 88182-8) 88.9 38.7-80.0 H [facility] CenterLymphocytes (%) (Auto)2019-04-17 18:36:00 * Test Item Value Reference Range Interpretation Comments Lymphocytes (%) (Auto) (test code = 736-9) 5.2 18.0-39.1 L [facility] CenterMonocytes (%) (Auto)2019-04-17 18:36:00* Test Item Value Reference Range Interpretation Comments Monocytes (%) (Auto) (test code = 5905-5) 4.0 4.4-11.3 L [facility] CenterEosinophils (%) (Auto)2019-04-17 18:36:00 * Test Item Value Reference Range Interpretation Comments Eosinophils (%) (Auto) (test code = 713-8) 1.3 0.0-6.0 [facility] CenterBasophils (%) (Auto)2019-04-17 18:36:00* Test Item Value Reference Range Interpretation Comments Basophils (%) (Auto) (test code = 706-2) 0.3 0.0-1.0 [facility] CenterIM GRANULOCYTES %2019-04-17 18:36:00* Test Item Value Reference Range Interpretation Comments IM GRANULOCYTES % (test code = IM GRANULOCYTES %) 0.3 0.0- 1.0 [facility] CenterNeutrophils # (Auto)2019-04-17 18:36:00* Test Item Value Reference Range Interpretation Comments Neutrophils # (Auto) (test code = 751-8) 10.4 2.1-6.9 H [facility] CenterLymphocytes # (Auto)2019-04-17 18:36:00* Test Item Value Reference Range Interpretation Comments Lymphocytes # (Auto) (test code = 37964-1) 0.6 1.0-3.2 L [facility] CenterMonocytes # (Auto)2019-04-17 18:36:00* Test Item Value Reference Range Interpretation Comments Monocytes # (Auto) (test code = 742-7) 0.5 0.2-0.8 [facility] CenterEosinophils # (Auto)2019-04-17 18:36:00* Test Item Value Reference Range Interpretation Comments Eosinophils # (Auto) (test code = 711-2) 0.2 0.0-0.4 [facility] CenterBasophils # (Auto)2019-04-17 18:36:00* Test Item Value Reference Range Interpretation Comments Basophils # (Auto) (test code = 704-7) 0.0 0.0-0.1 [facility] CenterAbsolute Immature Granulocyte (auto 2019-04-17 18:36:00* Test Item Value Reference Range Interpretation Comments Absolute Immature Granulocyte (auto (mart t code = Absolute Immature Granulocyte (auto) 0.04 0-0.1 [facility] CenterWhite Blood Lauvo3944-39-89 18:36:00* Test Item Value Reference Range Interpretation Comments White Blood Count (test code = 6690-2) 11.66 4.8-10.8 H [facility] CenterRed Blood Zcwzf9975-34-69 18:36:00* Test Item Value Reference Range Interpretation Comments Red Blood Count (test code = 789-8) 3.29 3.6-5.1 L [facility] CenterHemoglobin2020-01-16 18:36:00* Test Item Value Reference Range Interpretation Comments Hemoglobin (test code = 89181-9) 9.9 12.0-16.0 L [facility] CenterHematocrit2020-01-16 18:36:00* Test Item Value Reference Range Interpretation Comments Hematocrit (test code = 4544-3) 31.2 34.2-44.1 L [facility] CenterMean Corpuscular Stsegp0790-17-70 18:36:00* Test Item Value Reference Range Interpretation Comments Mean Corpuscular Volume (test code = 787-2) 94.8 81-99 [facility] CenterMean Corpuscular Meigczxbdh9671-15-38 18:36:00* Test Item Value Reference Range Interpretation Comments Mean Corpuscular Hemoglobin (test code = 785-6) 30.1 28-32 [facility] CenterMean Corpuscular Hemoglobin Concent 2019-04-17 18:36:00* Test Item Value Reference Range Interpretation Comments Mean Corpuscular Hemoglobin Concent (test code = 786-4) 31.7 31-35 [facility] CenterRed Cell Distribution Bvfzc3804-43-62 18:36:00* Test Item Value Reference Range Interpretation Comments Red Cell Distribution Width (test code = 31792-2) 16.5 11.7 -14.4 H [facility] CenterNeutrophils (%) (Auto)2019-04-17 18:36:00 * Test Item Value Reference Range Interpretation Comments Neutrophils (%) (Auto) (test code = 36836-7) 88.9 38.7-80.0 H [facility] CenterLymphocytes (%) (Auto)2019-04-17 18:36:00 * Test Item Value Reference Range Interpretation Comments Lymphocytes (%) (Auto) (test code = 736-9) 5.2 18.0-39.1 L [facility] CenterMonocytes (%) (Auto)2019-04-17 18:36:00* Test Item Value Reference Range Interpretation Comments Monocytes (%) (Auto) (test code = 5905-5) 4.0 4.4-11.3 L [facility] CenterEosinophils (%) (Auto)2019-04-17 18:36:00 * Test Item Value Reference Range Interpretation Comments Eosinophils (%) (Auto) (test code = 713-8) 1.3 0.0-6.0 [facility] CenterBasophils (%) (Auto)2019-04-17 18:36:00* Test Item Value Reference Range Interpretation Comments Basophils (%) (Auto) (test code = 706-2) 0.3 0.0-1.0 [facility] CenterIM GRANULOCYTES %2019-04-17 18:36:00* Test Item Value Reference Range Interpretation Comments IM GRANULOCYTES % (test code = IM GRANULOCYTES %) 0.3 0.0- 1.0 [facility] CenterNeutrophils # (Auto)2019-04-17 18:36:00* Test Item Value Reference Range Interpretation Comments Neutrophils # (Auto) (test code = 751-8) 10.4 2.1-6.9 H [facility] CenterLymphocytes # (Auto)2019-04-17 18:36:00* Test Item Value Reference Range Interpretation Comments Lymphocytes # (Auto) (test code = 74446-7) 0.6 1.0-3.2 L [facility] CenterMonocytes # (Auto)2019-04-17 18:36:00* Test Item Value Reference Range Interpretation Comments Monocytes # (Auto) (test code = 742-7) 0.5 0.2-0.8 [facility] CenterEosinophils # (Auto)2019-04-17 18:36:00* Test Item Value Reference Range Interpretation Comments Eosinophils # (Auto) (test code = 711-2) 0.2 0.0-0.4 [facility] CenterBasophils # (Auto)2019-04-17 18:36:00* Test Item Value Reference Range Interpretation Comments Basophils # (Auto) (test code = 704-7) 0.0 0.0-0.1 [facility] CenterAbsolute Immature Granulocyte (auto 2019-04-17 18:36:00* Test Item Value Reference Range Interpretation Comments Absolute Immature Granulocyte (auto (mart t code = Absolute Immature Granulocyte (auto) 0.04 0-0.1 [facility] CenterCHEST SINGLE (NOT PORTABLE)2019-04-17 18:03:00 [facility] [address] [address] Patient Name: DARIELA MILLS MR #: [id number] : 1945 Age/Sex: 73/F Req #: [id number] Adm Physician: Ordered by: MICHELLE GONZALEZ DO Report #: [id number] Location: ER Room/Bed: Procedure: [id number] DX/CHEST SINGLE (NOT PORTABLE) Exam Date: 04/17/19 Exam Time: 1730 REPORT STATUS: Sign ed EXAMINATION: CHEST SINGLE (NOT PORTABLE) INDICATION: [id number] COMPARISON: 10/22/2018 FINDINGS: TUB ES and LINES: None. LUNGS: The lung volumes are low. There is perihilar f ullness and indistinctness of the pulmonary vasculature. PLEURA: No defi nite pleural effusion. No pneumothorax. HEART AND MEDIASTINUM: Cardiomedias tinal silhouette is stably enlarged. BONES AND SOFT TISSUES: No acute fract ure or dislocation. UPPER ABDOMEN: No free air under the diaphragm. IM PRESSION: Low lung volumes. Possible mild pulmonary interstitial edema. Unchanged cardiomegaly. Signed by: Dr. Tico Saleem M.D. on 04/17/2019 6:04 PM Dictated By: TICO SALEEM MD, MD 03 Transcribed By: BRAN on 04/17/191803 COPY TO: MICHELLE GONZALEZ DO SCR MAMM BILATERAL YANELI CAD UJIMVOS2739-62-40 10:42:04 - SCR MAMM BILATERAL YANELI CAD DIGITALBILATERAL DIGITAL SCREENING MAMMOGRAM 3D/2D WITH CAD: 01/17/2019CLINICAL: Asymptomatic. Digital breast tomosynthesis was performed in addition to routine CC and MLO views. Current mammographic images were evaluated by either a [employer] M-Vu or a [employer] ImageChecker CAD (computer aided detection system). Comparison is made to exams dated 12/25/2017 mammogram, 12/20/2016 mammogram, and 11/03/2015 mammogram - [facility]-. There are scattered fibroglandular tissues in both breasts. No suspicious mass, architectural distortion, malignant type calcification, or lymph node abnormality detected. Breast architecture is stable compared to prior exams.IMPRESSION: NEGATIVEThere is no mammographic evidence of malignancy. Resume annual screening mammography in one year. Taz Bray M.D. ss/penrad:01/17/2019 10:42:04 Operations Assistant: Elida NÚÑEZ, [facility]-letter sent: BIRADS 1-2 Normal Mammogram BI-RADS: [facility] Ancuzfw5006-49-53 22:22:00* Test Item Value Reference Range Interpretation Comments Bedside Glucose (test code = 05365-0) 158 70-120 H Meter ID: [id number] [facility] Glucose 2019-01-14 22:22:00* Test Item Value Reference Range Interpretation Comments Bedside Glucose (test code = 94632-9) 158 70-120 H Meter ID: [id number] [facility] Glucose 2019-01-14 22:22:00* Test Item Value Reference Range Interpretation Comments Bedside Glucose (test code = 82301-9) 158 70-120 H Meter ID: [id number] [facility] Glucose 2019-01-14 22:22:00* Test Item Value Reference Range Interpretation Comments Bedside Glucose (test code = 84468-7) 158 70-120 H Meter ID: [id number] [facility] Glucose 2019-01-14 07:27:00* Test Item Value Reference Range Interpretation Comments Bedside Glucose (test code = 37107-1) 110 70-120 Meter ID: [id number] [facility] CampusHemoglobin A1c Jrbtfbv7111-49-76 06:57:00* Test Item Value Reference Range Interpretation Comments Hemoglobin A1c Percent (test code = Hemoglobin A1c Percent) 5.5 4.0-7.0 [facility] CenterHemoglobin A1c Yftxrrm8689-04-41 06:57:00 * Test Item Value Reference Range Interpretation Comments Hemoglobin A1c Percent (test code = Hemoglobin A1c Percent) 5.5 4.0-7.0 [facility] CenterHemoglobin A1c Eqjnilw0341-75-17 06:57:00 * Test Item Value Reference Range Interpretation Comments Hemoglobin A1c Percent (test code = Hemoglobin A1c Percent) 5.5 4.0-7.0 [facility] CenterHemoglobin A1c Meujhjz1378-61-77 06:57:00 * Test Item Value Reference Range Interpretation Comments Hemoglobin A1c Percent (test code = Hemoglobin A1c Percent) 5.5 4.0-7.0 [facility] CenterHemoglobin A1c Sctjcjc6914-65-15 06:57:00 * Test Item Value Reference Range Interpretation Comments Hemoglobin A1c Percent (test code = Hemoglobin A1c Percent) 5.5 4.0-7.0 [facility]st[facility] Nazjg9377-17-77 06:52:00* Test Item Value Reference Range Interpretation Comments Sodium Level (test code = 2951-2) 144 136-145 [facility] CenterPotassium Aqsun3680-26-27 06:52:00* Test Item Value Reference Range Interpretation Comments Potassium Level (test code = 2823-3) 5.2 3.5-5.1 H [facility] CenterChloride Tyytu6446-88-87 06:52:00* Test Item Value Reference Range Interpretation Comments Chloride Level (test code = 2075-0) 114 98-107 H [facility] CenterCarbon Dioxide Dxoon1780-62-27 06:52:00* Test Item Value Reference Range Interpretation Comments Carbon Dioxide Level (test code = 2028-9) 23 22-29 [facility] CenterAnion Day8141-07-09 06:52:00* Test Item Value Reference Range Interpretation Comments Anion Gap (test code = 34619-6) 12.2 8-16 [facility] CenterBlood Urea Xczyibcv3008-54-16 06:52:00* Test Item Value Reference Range Interpretation Comments Blood Urea Nitrogen (test code = 3094-0) 38 7-26 H [facility] CenterCreatinine2019-10-14 06:52:00* Test Item Value Reference Range Interpretation Comments Creatinine (test code = 2160-0) 1.74 0.57-1.11 H [facility] CenterBUN/Creatinine Mhsua4084-54-40 06:52:00* Test Item Value Reference Range Interpretation Comments BUN/Creatinine Ratio (test code = 3097-3) 22 6-25 [facility] CenterEstimat Glomerular Filtration Rate 2019-01-13 06:52:00* Test Item Value Reference Range Interpretation Comments Estimat Glomerular Filtration Rate (test code = 726580760) 29 >60 L Ranges were taken from the National Kidney Disease Education Program and the [facility] Foundation literature.Reference ranges:60 or greater: Qrvdcd97-80 ( for 3 consecutive months): Chronic kidney disease 15 or less: Kidney failureWhite Rock Medical CenterGlucose Megbv8168-59-46 06:52:00* Test Item Value Reference Range Interpretation Comments Glucose Level (test code = WXF2929) 95 74-118 [facility] CenterCalcium Hroll3515-78-97 06:52:00* Test Item Value Reference Range Interpretation Comments Calcium Level (test code = 33058-5) 9.4 8.4-10.2 [facility] CenterTotal Lemvthyzw6297-94-34 06:52:00* Test Item Value Reference Range Interpretation Comments Total Bilirubin (test code = 1975-2) 0.4 0.2-1.2 [facility] CenterAspartate Amino Transf (AST/SGOT) 2019-01-13 06:52:00* Test Item Value Reference Range Interpretation Comments Aspartate Amino Transf (AST/SGOT) (test code = Aspartate Amino Transf (AST/SGOT)) 11 5-34 [facility] CenterAlanine Aminotransferase (ALT/SGPT) 2019-01-13 06:52:00* Test Item Value Reference Range Interpretation Comments Alanine Aminotransferase (ALT/SGPT) (test code = 1742-6) 10 0-55 [facility] CenterTotal Qzugcxq5258-53-43 06:52:00* Test Item Value Reference Range Interpretation Comments Total Protein (test code = 2885-2) 5.8 6.5-8.1 L [facility] CenterAlbumin2019-10-14 06:52:00* Test Item Value Reference Range Interpretation Comments Albumin (test code = 1751-7) 3.2 3.5-5.0 L [facility] CenterGlobulin2019-10-14 06:52:00* Test Item Value Reference Range Interpretation Comments Globulin (test code = 44944-7) 2.6 2.3-3.5 [facility] CenterAlbumin/Globulin Fquwb5025-37-15 06:52:00 * Test Item Value Reference Range Interpretation Comments Albumin/Globulin Ratio (test code = 1759-0) 1.2 0.8-2.0 [facility] CenterAlkaline Keadywjklte0596-50-84 06:52:00* Test Item Value Reference Range Interpretation Comments Alkaline Phosphatase (test code = 6768-6) 56 40-150 [facility]stodium Nwryh9212-93-96 06:52:00* Test Item Value Reference Range Interpretation Comments Sodium Level (test code = 2951-2) 144 136-145 [facility] CenterPotassium Owtcn4822-83-58 06:52:00* Test Item Value Reference Range Interpretation Comments Potassium Level (test code = 2823-3) 5.2 3.5-5.1 H [facility] CenterChloride Naedd1258-79-10 06:52:00* Test Item Value Reference Range Interpretation Comments Chloride Level (test code = 2075-0) 114 98-107 H [facility] CenterCarbon Dioxide Xaljh4713-14-76 06:52:00* Test Item Value Reference Range Interpretation Comments Carbon Dioxide Level (test code = 2028-9) 23 22-29 [facility] CenterAnion Glk3430-93-74 06:52:00* Test Item Value Reference Range Interpretation Comments Anion Gap (test code = 24816-5) 12.2 8-16 [facility] [facility] CenterBlood Urea Oqvcdoiw4504-05-56 06:52:00* Test Item Value Reference Range Interpretation Comments Blood Urea Nitrogen (test code = 3094-0) 38 7-26 [facility] CenterCreatinine2019-10-14 06:52:00* Test Item Value Reference Range Interpretation Comments Creatinine (test code = 2160-0) 1.74 0.57-1.11 [facility] CenterBUN/Creatinine Tzjns2203-91-17 06:52:00* Test Item Value Reference Range Interpretation Comments BUN/Creatinine Ratio (test code = 3097-3) 22 6-25 [facility] CenterEstimat Glomerular Filtration Rate 2019-01-13 06:52:00* Test Item Value Reference Range Interpretation Comments Estimat Glomerular Filtration Rate (test code = 604297986) 29 >60 L Ranges were taken from the National Kidney Disease Education Program and the [facility] literature.Reference ranges:60 or greater: Kzwawg67-48 ( for 3 consecutive months): Chronic kidney disease 15 or less: Kidney failureWhite Rock Medical CenterGlucose Nsvwt6423-22-96 06:52:00* Test Item Value Reference Range Interpretation Comments Glucose Level (test code = AMG5154) 95 74-118 [facility] CenterCalcium Sqzjz9889-67-03 06:52:00* Test Item Value Reference Range Interpretation Comments Calcium Level (test code = 06933-0) 9.4 8.4-10.2 [facility] CenterTotal Sgkkqusjy3028-77-23 06:52:00* Test Item Value Reference Range Interpretation Comments Total Bilirubin (test code = 1975-2) 0.4 0.2-1.2 [facility] CenterAspartate Amino Transf (AST/SGOT) 2019-01-13 06:52:00* Test Item Value Reference Range Interpretation Comments Aspartate Amino Transf (AST/SGOT) (test code = Aspartate Amino Transf (AST/SGOT)) 11 5-34 [facility] CenterAlanine Aminotransferase (ALT/SGPT) 2019-01-13 06:52:00* Test Item Value Reference Range Interpretation Comments Alanine Aminotransferase (ALT/SGPT) (test code = 1742-6) 10 0-55 [facility] CenterTotal Jniadwv0647-47-63 06:52:00* Test Item Value Reference Range Interpretation Comments Total Protein (test code = 2885-2) 5.8 6.5-8.1 L [facility] CenterAlbumin2019-10-14 06:52:00* Test Item Value Reference Range Interpretation Comments Albumin (test code = 1751-7) 3.2 3.5-5.0 L [facility] CenterGlobulin2019-10-14 06:52:00* Test Item Value Reference Range Interpretation Comments Globulin (test code = 65093-8) 2.6 2.3-3.5 [facility] CenterAlbumin/Globulin Ijewn9057-33-05 06:52:00 * Test Item Value Reference Range Interpretation Comments Albumin/Globulin Ratio (test code = 1759-0) 1.2 0.8-2.0 [facility] CenterAlkaline Ccikdmwnlds1594-24-72 06:52:00* Test Item Value Reference Range Interpretation Comments Alkaline Phosphatase (test code = 6768-6) 56 40-150 [facility]st[facility] Aplex1068-98-21 06:52:00* Test Item Value Reference Range Interpretation Comments Sodium Level (test code = 2951-2) 144 136-145 [facility] CenterPotassium Wavwg0835-95-51 06:52:00* Test Item Value Reference Range Interpretation Comments Potassium Level (test code = 2823-3) 5.2 3.5-5.1 [facility] CenterChloride Vmtie6799-84-90 06:52:00* Test Item Value Reference Range Interpretation Comments Chloride Level (test code = 2075-0) 114 98-107 [facility] CenterCarbon Dioxide Vqzso4907-95-37 06:52:00* Test Item Value Reference Range Interpretation Comments Carbon Dioxide Level (test code = 2028-9) 23 22-29 [facility] CenterAnion Mho2613-81-64 06:52:00* Test Item Value Reference Range Interpretation Comments Anion Gap (test code = 17109-9) 12.2 8-16 [facility] CenterBlood Urea Ochnqtgw8390-88-80 06:52:00* Test Item Value Reference Range Interpretation Comments Blood Urea Nitrogen (test code = 3094-0) 38 7-26 [facility] CenterCreatinine2019-10-14 06:52:00* Test Item Value Reference Range Interpretation Comments Creatinine (test code = 2160-0) 1.74 0.57-1.11 [facility] CenterBUN/Creatinine Dmyjc1331-40-98 06:52:00* Test Item Value Reference Range Interpretation Comments BUN/Creatinine Ratio (test code = 3097-3) 22 6-25 [facility] CenterEstimat Glomerular Filtration Rate 2019-01-13 06:52:00* Test Item Value Reference Range Interpretation Comments Estimat Glomerular Filtration Rate (test code = 072465806) 29 >60 L Ranges were taken from the National Kidney Disease Education Program and the [facility] literature.Reference ranges:60 or greater: Mqlrkf43-31 ( for 3 consecutive months): Chronic kidney disease 15 or less: Kidney failureWhite Rock Medical CenterGlucose Ozdxc0485-78-92 06:52:00* Test Item Value Reference Range Interpretation Comments Glucose Level (test code = BLP4913) 95 74-118 [facility] CenterCalcium Twppr2574-10-71 06:52:00* Test Item Value Reference Range Interpretation Comments Calcium Level (test code = 73177-5) 9.4 8.4-10.2 [facility] CenterTotal Dzjxijvxk9640-82-30 06:52:00* Test Item Value Reference Range Interpretation Comments Total Bilirubin (test code = 1975-2) 0.4 0.2-1.2 [facility] CenterAspartate Amino Transf (AST/SGOT) 2019-01-13 06:52:00* Test Item Value Reference Range Interpretation Comments Aspartate Amino Transf (AST/SGOT) (test code = Aspartate Amino Transf (AST/SGOT)) 11 5-34 [facility] CenterAlanine Aminotransferase (ALT/SGPT) 2019-01-13 06:52:00* Test Item Value Reference Range Interpretation Comments Alanine Aminotransferase (ALT/SGPT) (test code = 1742-6) 10 0-55 [facility] CenterTotal Xdmxpuc7791-57-96 06:52:00* Test Item Value Reference Range Interpretation Comments Total Protein (test code = 2885-2) 5.8 6.5-8.1 L [facility] CenterAlbumin2019-10-14 06:52:00* Test Item Value Reference Range Interpretation Comments Albumin (test code = 1751-7) 3.2 3.5-5.0 L [facility] CenterGlobulin2019-10-14 06:52:00* Test Item Value Reference Range Interpretation Comments Globulin (test code = 38087-3) 2.6 2.3-3.5 [facility] CenterAlbumin/Globulin Coshq7943-96-39 06:52:00 * Test Item Value Reference Range Interpretation Comments Albumin/Globulin Ratio (test code = 1759-0) 1.2 0.8-2.0 [facility] CenterAlkaline Ovsroxgwvbr5140-69-69 06:52:00* Test Item Value Reference Range Interpretation Comments Alkaline Phosphatase (test code = 6768-6) 56 40-150 [facility] CenterCreatine Kinase JU3767-07-13 06:35:00* Test Item Value Reference Range Interpretation Comments Creatine Kinase MB (test code = 59477-5) 1.90 0-5.0 [facility] CenterTroponin O2429-57-20 06:35:00* Test Item Value Reference Range Interpretation Comments Troponin I (test code = PAV3289) 0.009 0-0.300 [facility] CenterCreatine Kinase XM5824-40-00 06:35:00* Test Item Value Reference Range Interpretation Comments Creatine Kinase MB (test code = 49953-0) 1.90 0-5.0 [facility] Austinn D9243-55-83 06:35:00* Test Item Value Reference Range Interpretation Comments Troponin I (test code = AMO5320) 0.009 0-0.300 [facility] CenterCreatine Kinase FY1243-79-61 06:35:00* Test Item Value Reference Range Interpretation Comments Creatine Kinase MB (test code = 31058-2) 1.90 0-5.0 [facility] CenterTroponin C7537-21-58 06:35:00* Test Item Value Reference Range Interpretation Comments Troponin I (test code = CAA8597) 0.009 0-0.300 [facility] CenterCreatine Leoboy5541-89-75 06:31:00* Test Item Value Reference Range Interpretation Comments Creatine Kinase (test code = 2157-6) 48 29-168 [facility] CenterCreatine Vcthmc3039-01-60 06:31:00* Test Item Value Reference Range Interpretation Comments Creatine Kinase (test code = 2157-6) 48 29-168 [facility] CenterCreatine Munmrq4120-39-27 06:31:00* Test Item Value Reference Range Interpretation Comments Creatine Kinase (test code = 2157-6) 48 168 [facility] CenterWhite Blood Jxreb6760-19-64 06:22:00* Test Item Value Reference Range Interpretation Comments White Blood Count (test code = 6690-2) 5.42 4.8-10.8 [facility] CenterRed Blood Gnrna2207-36-69 06:22:00* Test Item Value Reference Range Interpretation Comments Red Blood Count (test code = 789-8) 3.11 3.6-5.1 L [facility] CenterHemoglobin2019-10-14 06:22:00* Test Item Value Reference Range Interpretation Comments Hemoglobin (test code = 03240-1) 9.2 12.0-16.0 L [facility] CenterHematocrit2019-10-14 06:22:00* Test Item Value Reference Range Interpretation Comments Hematocrit (test code = 4544-3) 29.4 34.2-44.1 L [facility] CenterMean Corpuscular Kqdhaq3326-44-97 06:22:00* Test Item Value Reference Range Interpretation Comments Mean Corpuscular Volume (test code = 787-2) 94.5 81-99 [facility] CenterMean Corpuscular Hjzdcvkndg8712-27-36 06:22:00* Test Item Value Reference Range Interpretation Comments Mean Corpuscular Hemoglobin (test code = 785-6) 29.6 28-32 [facility] CenterMean Corpuscular Hemoglobin Concent 2019-01-13 06:22:00* Test Item Value Reference Range Interpretation Comments Mean Corpuscular Hemoglobin Concent (test code = 786-4) 31.3 31-35 [facility] CenterRed Cell Distribution Rorqy4454-20-43 06:22:00* Test Item Value Reference Range Interpretation Comments Red Cell Distribution Width (test code = 09761-6) 15.3 11.7 -14.4 H [facility] CenterPlatelet Iuqjq6037-70-33 06:22:00* Test Item Value Reference Range Interpretation Comments Platelet Count (test code = 777-3) 139 140-360 L [facility] CenterNeutrophils (%) (Auto)2019-01-13 06:22:00 * Test Item Value Reference Range Interpretation Comments Neutrophils (%) (Auto) (test code = 71298-0) 71.5 38.7-80.0 [facility] CenterLymphocytes (%) (Auto)2019-01-13 06:22:00 * Test Item Value Reference Range Interpretation Comments Lymphocytes (%) (Auto) (test code = 736-9) 16.6 18.0-39.1 L [facility] CenterMonocytes (%) (Auto)2019-01-13 06:22:00* Test Item Value Reference Range Interpretation Comments Monocytes (%) (Auto) (test code = 5905-5) 8.1 4.4-11.3 [facility] CenterEosinophils (%) (Auto)2019-01-13 06:22:00 * Test Item Value Reference Range Interpretation Comments Eosinophils (%) (Auto) (test code = 713-8) 2.8 0.0-6.0 [facility] CenterBasophils (%) (Auto)2019-01-13 06:22:00* Test Item Value Reference Range Interpretation Comments Basophils (%) (Auto) (test code = 706-2) 0.4 0.0-1.0 [facility] CenterIM GRANULOCYTES %2019-01-13 06:22:00* Test Item Value Reference Range Interpretation Comments IM GRANULOCYTES % (test code = IM GRANULOCYTES %) 0.6 0.0- 1.0 [facility] CenterNeutrophils # (Auto)2019-01-13 06:22:00* Test Item Value Reference Range Interpretation Comments Neutrophils # (Auto) (test code = 751-8) 3.9 2.1-6.9 [facility] CenterLymphocytes # (Auto)2019-01-13 06:22:00* Test Item Value Reference Range Interpretation Comments Lymphocytes # (Auto) (test code = 70738-3) 0.9 1.0-3.2 L [facility] CenterMonocytes # (Auto)2019-01-13 06:22:00* Test Item Value Reference Range Interpretation Comments Monocytes # (Auto) (test code = 742-7) 0.4 0.2-0.8 [facility] CenterEosinophils # (Auto)2019-01-13 06:22:00* Test Item Value Reference Range Interpretation Comments Eosinophils # (Auto) (test code = 711-2) 0.2 0.0-0.4 [facility] CenterBasophils # (Auto)2019-01-13 06:22:00* Test Item Value Reference Range Interpretation Comments Basophils # (Auto) (test code = 704-7) 0.0 0.0-0.1 [facility] CenterAbsolute Immature Granulocyte (auto 2019-01-13 06:22:00* Test Item Value Reference Range Interpretation Comments Absolute Immature Granulocyte (auto (mart t code = Absolute Immature Granulocyte (auto) 0.03 0-0.1 [facility] CenterWhite Blood Pebmv1802-05-40 06:22:00* Test Item Value Reference Range Interpretation Comments White Blood Count (test code = 6690-2) 5.42 4.8-10.8 [facility] CenterRed Blood Taipm2639-31-96 06:22:00* Test Item Value Reference Range Interpretation Comments Red Blood Count (test code = 789-8) 3.11 3.6-5.1 L [facility] CenterHemoglobin2019-10-14 06:22:00* Test Item Value Reference Range Interpretation Comments Hemoglobin (test code = 63266-8) 9.2 12.0-16.0 L [facility] CenterHematocrit2019-10-14 06:22:00* Test Item Value Reference Range Interpretation Comments Hematocrit (test code = 4544-3) 29.4 34.2-44.1 L [facility] CenterMean Corpuscular Gnvnef0454-83-41 06:22:00* Test Item Value Reference Range Interpretation Comments Mean Corpuscular Volume (test code = 787-2) 94.5 81-99 [facility] CenterMean Corpuscular Akimuevolj2266-75-32 06:22:00* Test Item Value Reference Range Interpretation Comments Mean Corpuscular Hemoglobin (test code = 785-6) 29.6 28-32 [facility] CenterMean Corpuscular Hemoglobin Concent 2019-01-13 06:22:00* Test Item Value Reference Range Interpretation Comments Mean Corpuscular Hemoglobin Concent (test code = 786-4) 31.3 31-35 [facility] CenterRed Cell Distribution Tdyme9097-61-74 06:22:00* Test Item Value Reference Range Interpretation Comments Red Cell Distribution Width (test code = 90740-3) 15.3 11.7 -14.4 H [facility] CenterPlatelet Rhdyb4728-73-09 06:22:00* Test Item Value Reference Range Interpretation Comments Platelet Count (test code = 777-3) 139 140-360 L [facility] CenterNeutrophils (%) (Auto)2019-01-13 06:22:00 * Test Item Value Reference Range Interpretation Comments Neutrophils (%) (Auto) (test code = 99816-9) 71.5 38.7-80.0 [facility] CenterLymphocytes (%) (Auto)2019-01-13 06:22:00 * Test Item Value Reference Range Interpretation Comments Lymphocytes (%) (Auto) (test code = 736-9) 16.6 18.0-39.1 L [facility] CenterMonocytes (%) (Auto)2019-01-13 06:22:00* Test Item Value Reference Range Interpretation Comments Monocytes (%) (Auto) (test code = 5905-5) 8.1 4.4-11.3 [facility] CenterEosinophils (%) (Auto)2019-01-13 06:22:00 * Test Item Value Reference Range Interpretation Comments Eosinophils (%) (Auto) (test code = 713-8) 2.8 0.0-6.0 [facility] CenterBasophils (%) (Auto)2019-01-13 06:22:00* Test Item Value Reference Range Interpretation Comments Basophils (%) (Auto) (test code = 706-2) 0.4 0.0-1.0 [facility] CenterIM GRANULOCYTES %2019-01-13 06:22:00* Test Item Value Reference Range Interpretation Comments IM GRANULOCYTES % (test code = IM GRANULOCYTES %) 0.6 0.0- 1.0 [facility] CenterNeutrophils # (Auto)2019-01-13 06:22:00* Test Item Value Reference Range Interpretation Comments Neutrophils # (Auto) (test code = 751-8) 3.9 2.1-6.9 [facility] CenterLymphocytes # (Auto)2019-01-13 06:22:00* Test Item Value Reference Range Interpretation Comments Lymphocytes # (Auto) (test code = 46184-8) 0.9 1.0-3.2 L [facility] CenterMonocytes # (Auto)2019-01-13 06:22:00* Test Item Value Reference Range Interpretation Comments Monocytes # (Auto) (test code = 742-7) 0.4 0.2-0.8 [facility] CenterEosinophils # (Auto)2019-01-13 06:22:00* Test Item Value Reference Range Interpretation Comments Eosinophils # (Auto) (test code = 711-2) 0.2 0.0-0.4 [facility] CenterBasophils # (Auto)2019-01-13 06:22:00* Test Item Value Reference Range Interpretation Comments Basophils # (Auto) (test code = 704-7) 0.0 0.0-0.1 [facility] CenterAbsolute Immature Granulocyte (auto 2019-01-13 06:22:00* Test Item Value Reference Range Interpretation Comments Absolute Immature Granulocyte (auto (mart t code = Absolute Immature Granulocyte (auto) 0.03 0-0.1 [facility] CenterWhite Blood Qcgvs9959-83-29 06:22:00* Test Item Value Reference Range Interpretation Comments White Blood Count (test code = 6690-2) 5.42 4.8-10.8 [facility] CenterRed Blood Gsdsv2505-84-59 06:22:00* Test Item Value Reference Range Interpretation Comments Red Blood Count (test code = 789-8) 3.11 3.6-5.1 L [facility] CenterHemoglobin2019-10-14 06:22:00* Test Item Value Reference Range Interpretation Comments Hemoglobin (test code = 91831-5) 9.2 12.0-16.0 L [facility] CenterHematocrit2019-10-14 06:22:00* Test Item Value Reference Range Interpretation Comments Hematocrit (test code = 4544-3) 29.4 34.2-44.1 L [facility] CenterMean Corpuscular Wgutrm4666-66-59 06:22:00* Test Item Value Reference Range Interpretation Comments Mean Corpuscular Volume (test code = 787-2) 94.5 81-99 [facility] CenterMean Corpuscular Ocdsfzdlbf8675-14-99 06:22:00* Test Item Value Reference Range Interpretation Comments Mean Corpuscular Hemoglobin (test code = 785-6) 29.6 28-32 [facility] CenterMean Corpuscular Hemoglobin Concent 2019-01-13 06:22:00* Test Item Value Reference Range Interpretation Comments Mean Corpuscular Hemoglobin Concent (test code = 786-4) 31.3 31-35 [facility] CenterRed Cell Distribution Eccmb4068-11-49 06:22:00* Test Item Value Reference Range Interpretation Comments Red Cell Distribution Width (test code = 35056-9) 15.3 11.7 -14.4 H [facility] CenterPlatelet Hkeom8974-65-72 06:22:00* Test Item Value Reference Range Interpretation Comments Platelet Count (test code = 777-3) 139 140-360 L [facility] CenterNeutrophils (%) (Auto)2019-01-13 06:22:00 * Test Item Value Reference Range Interpretation Comments Neutrophils (%) (Auto) (test code = 00976-1) 71.5 38.7-80.0 [facility] CenterLymphocytes (%) (Auto)2019-01-13 06:22:00 * Test Item Value Reference Range Interpretation Comments Lymphocytes (%) (Auto) (test code = 736-9) 16.6 18.0-39.1 L [facility] CenterMonocytes (%) (Auto)2019-01-13 06:22:00* Test Item Value Reference Range Interpretation Comments Monocytes (%) (Auto) (test code = 5905-5) 8.1 4.4-11.3 [facility] CenterEosinophils (%) (Auto)2019-01-13 06:22:00 * Test Item Value Reference Range Interpretation Comments Eosinophils (%) (Auto) (test code = 713-8) 2.8 0.0-6.0 [facility] CenterBasophils (%) (Auto)2019-01-13 06:22:00* Test Item Value Reference Range Interpretation Comments Basophils (%) (Auto) (test code = 706-2) 0.4 0.0-1.0 [facility] CenterIM GRANULOCYTES %2019-01-13 06:22:00* Test Item Value Reference Range Interpretation Comments IM GRANULOCYTES % (test code = IM GRANULOCYTES %) 0.6 0.0- 1.0 [facility] CenterNeutrophils # (Auto)2019-01-13 06:22:00* Test Item Value Reference Range Interpretation Comments Neutrophils # (Auto) (test code = 751-8) 3.9 2.1-6.9 [facility] CenterLymphocytes # (Auto)2019-01-13 06:22:00* Test Item Value Reference Range Interpretation Comments Lymphocytes # (Auto) (test code = 47744-6) 0.9 1.0-3.2 L [facility] CenterMonocytes # (Auto)2019-01-13 06:22:00* Test Item Value Reference Range Interpretation Comments Monocytes # (Auto) (test code = 742-7) 0.4 0.2-0.8 [facility] CenterEosinophils # (Auto)2019-01-13 06:22:00* Test Item Value Reference Range Interpretation Comments Eosinophils # (Auto) (test code = 711-2) 0.2 0.0-0.4 [facility] CenterBasophils # (Auto)2019-01-13 06:22:00* Test Item Value Reference Range Interpretation Comments Basophils # (Auto) (test code = 704-7) 0.0 0.0-0.1 [facility] CenterAbsolute Immature Granulocyte (auto 2019-01-13 06:22:00* Test Item Value Reference Range Interpretation Comments Absolute Immature Granulocyte (auto (mart t code = Absolute Immature Granulocyte (auto) 0.03 0-0.1 [facility] CenterMagnesium Zevhq8932-42-31 18:12:00* Test Item Value Reference Range Interpretation Comments Magnesium Level (test code = 55589-0) 1.2 1.3-2.1 L [facility] CenterMagnesium Usnwr0505-20-56 18:12:00* Test Item Value Reference Range Interpretation Comments Magnesium Level (test code = 31850-4) 1.2 1.3-2.1 L [facility] CenterMagnesium Ygoaw4235-23-66 18:12:00* Test Item Value Reference Range Interpretation Comments Magnesium Level (test code = 50947-8) 1.2 1.3-2.1 L [facility] CenterMagnesium Zbjas1239-74-47 18:12:00* Test Item Value Reference Range Interpretation Comments Magnesium Level (test code = 32240-0) 1.2 1.3-2.1 L [facility] CenterMagnesium Gfjij7060-18-85 18:12:00* Test Item Value Reference Range Interpretation Comments Magnesium Level (test code = 79945-3) 1.2 1.3-2.1 L [facility] CenterCT BRAIN EW7253-26-26 17:56:00 [facility] [address] [address] Patient Name: DARIELA MILLS MR #: [id number] : 1945 Age/Sex: 73/F Req #: [id number] Adm Physician: Ordered by: MICHELLE GAMBOA MD Report #: [id number] Location: ER Room/Bed: Procedure: [id number] CT/CT BRAIN WO Exam Date: 01/12/19 Exam Time: 1725 REPORT STATUS: Signed Exam: Head CT without contrast History: Altered mental status Comparison studies: Hea d CT 05/09/2018. Technique: Axial images were obtained from the skull base to the vertex. Coronal and sagittal images reconstructed from the axial data. Dose modulation, iterative reconstruction, and/or weight based adjustment of the mA/kV was utilized to reduce the radiation dose to as low as reasonably achievable. Radiation dose: Total DLP: 1066 mGy*cm. Estimated effec tive dose: DLP x 0.015 Intravenous contrast: None Findings: Scalp: No abnormalities. Bones: No fractures, blastic or lytic lesions. Brain zaragoza lci: Mildly prominent. Ventricles: Mild compensatory dilatation. No hydrocepha jackie. Extra-axial spaces: Incidental small dural ossification right frontal con vexity without mass effect. No other mass or fluid collection. Parenchym a: No mass, acute hemorrhage or acute cortical vascular insults. Ill-defined confluent hypodensities in the supratentorial white matter are nonspecific but are most compatible with chronic microvascular ischemic changes. Possible small chronic lacunar infarct present in the left thalamus. Sellar/suprasellar region: No abnormalities. Craniocervical junction: Patent foramen magnum. No Chiari one malformation. Incidental findings: Calcified atherosclerosis in the carotid siphons and left intradural vertebral artery. IMPRESSION: No acute intracranial abnormalities. Chronic findings: 1. Mild ge neralized parenchymal volume loss. 2. Severe chronic microvascular ischemic c hanges. Signed by: Dr. Carol Mcallister M.D. on 01/12/2019 6:00 PM Dic tated By: CAROL MCALLISTER MD 1800 COPY TO: SHERRON GAMBOA MD Urine [id number] 17:45:00* Test Item Value Reference Range Interpretation Comments Urine WBC (test code = 5821-4) 0-5 0-5 [facility] CenterUrine [id number] 17:45:00* Test Item Value Reference Range Interpretation Comments Urine RBC (test code = 05046-4) 0-5 0-5 [facility] CenterUrine Hhiiuubz4087-68-84 17:45:00* Test Item Value Reference Range Interpretation Comments Urine Bacteria (test code = 64135-2) FEW NONE [facility] CenterUrine Epithelial Eyxax1259-63-10 17:45:00 * Test Item Value Reference Range Interpretation Comments Urine Epithelial Cells (test code = 76339-4) FEW NONE [facility] CenterUrine RTO4750-03-43 17:45:00* Test Item Value Reference Range Interpretation Comments Urine WBC (test code = 5821-4) 0-5 0-5 [facility] CenterUrine FSD7561-94-85 17:45:00* Test Item Value Reference Range Interpretation Comments Urine RBC (test code = 69113-9) 0-5 0-5 [facility] CenterUrine Zrfkhuki5841-39-62 17:45:00* Test Item Value Reference Range Interpretation Comments Urine Bacteria (test code = 29731-3) FEW NONE [facility] CenterUrine Epithelial Gxbdl4253-88-47 17:45:00 * Test Item Value Reference Range Interpretation Comments Urine Epithelial Cells (test code = 56508-0) FEW NONE [facility] CenterUrine [id number] 17:45:00* Test Item Value Reference Range Interpretation Comments Urine WBC (test code = 5821-4) 0-5 0-5 [facility] CenterUrine [id number] 17:45:00* Test Item Value Reference Range Interpretation Comments Urine RBC (test code = 40682-6) 0-5 0-5 [facility] CenterUrine Pjaedjhf3262-02-17 17:45:00* Test Item Value Reference Range Interpretation Comments Urine Bacteria (test code = 94642-0) FEW NONE [facility] CenterUrine Epithelial Hmsyt2430-56-57 17:45:00 * Test Item Value Reference Range Interpretation Comments Urine Epithelial Cells (test code = 17828-3) FEW NONE [facility] CenterUrine Toirp1825-34-35 17:42:00* Test Item Value Reference Range Interpretation Comments Urine Color (test code = 5778-6) YELLOW YELLOW [facility] Oyifqun6764-44-05 17:42:00* Test Item Value Reference Range Interpretation Comments Urine Clarity (test code = 82420-1) HAZY CLEAR [facility] Specific Nuqfdoo6884-58-29 17:42:00 * Test Item Value Reference Range Interpretation Comments Urine Specific [place] (test code = 5811-5) 1.020 1.010-1.02 5 [facility] [id number] 17:42:00* Test Item Value Reference Range Interpretation Comments Urine pH (test code = 50127-6) 6 5-7 [facility] Leukocyte Nkxzgyow2357-24-67 17:42:00* Test Item Value Reference Range Interpretation Comments Urine Leukocyte Esterase (test code = 5799-2) NEGATIVE NEGATIVE [facility] Jrgdtvv2257-53-19 17:42:00* Test Item Value Reference Range Interpretation Comments Urine Nitrite (test code = 17094-5) NEGATIVE NEGATIVE [facility] Mblkelc3183-44-13 17:42:00* Test Item Value Reference Range Interpretation Comments Urine Protein (test code = 5804-0) NEGATIVE NEGATIVE [facility] Glucose (UA)2019-01-12 17:42:00* Test Item Value Reference Range Interpretation Comments Urine Glucose (UA) (test code = 2349-9) NEGATIVE NEGATIVE [facility] Usqyxph4357-27-27 17:42:00* Test Item Value Reference Range Interpretation Comments Urine Ketones (test code = 40697-0) NEGATIVE NEGATIVE [facility] Abbngohaqeli2384-17-31 17:42:00* Test Item Value Reference Range Interpretation Comments Urine Urobilinogen (test code = 10132-2) 0.2 0.2-1 [facility] Ofmvidsir3332-37-83 17:42:00* Test Item Value Reference Range Interpretation Comments Urine Bilirubin (test code = 1978-6) NEGATIVE NEGATIVE [facility] Sfsnx2476-25-20 17:42:00* Test Item Value Reference Range Interpretation Comments Urine Blood (test code = 23103-7) NEGATIVE NEGATIVE [facility] Rqseq5739-76-60 17:42:00* Test Item Value Reference Range Interpretation Comments Urine Color (test code = 5778-6) YELLOW YELLOW [facility] Lyroqdc3431-67-46 17:42:00* Test Item Value Reference Range Interpretation Comments Urine Clarity (test code = 67112-9) HAZY CLEAR [facility] Specific Hhscfod6882-40-83 17:42:00 * Test Item Value Reference Range Interpretation Comments Urine Specific [place] (test code = 5811-5) 1.020 1.010-1.02 5 [facility] rW7129-70-98 17:42:00* Test Item Value Reference Range Interpretation Comments Urine pH (test code = 72554-4) 6 5-7 [facility] Leukocyte Hnwdosoq4173-53-62 17:42:00* Test Item Value Reference Range Interpretation Comments Urine Leukocyte Esterase (test code = 5799-2) NEGATIVE NEGATIVE [facility] Lwrfezf3071-28-22 17:42:00* Test Item Value Reference Range Interpretation Comments Urine Nitrite (test code = 20985-6) NEGATIVE NEGATIVE [facility] Pjcitxb2888-89-19 17:42:00* Test Item Value Reference Range Interpretation Comments Urine Protein (test code = 5804-0) NEGATIVE NEGATIVE [facility] Glucose (UA)2019-01-12 17:42:00* Test Item Value Reference Range Interpretation Comments Urine Glucose (UA) (test code = 2349-9) NEGATIVE NEGATIVE [facility] Iavoadk1389-04-59 17:42:00* Test Item Value Reference Range Interpretation Comments Urine Ketones (test code = 50878-5) NEGATIVE NEGATIVE [facility] Ycyrwszcnsqb0609-16-68 17:42:00* Test Item Value Reference Range Interpretation Comments Urine Urobilinogen (test code = 74786-1) 0.2 0.2-1 [facility] Idstiknxo7920-03-84 17:42:00* Test Item Value Reference Range Interpretation Comments Urine Bilirubin (test code = 1978-6) NEGATIVE NEGATIVE [facility] Dlgpk0043-82-75 17:42:00* Test Item Value Reference Range Interpretation Comments Urine Blood (test code = 25774-3) NEGATIVE NEGATIVE [facility] Odfho7177-85-60 17:42:00* Test Item Value Reference Range Interpretation Comments Urine Color (test code = 5778-6) YELLOW YELLOW [facility] Vdjcpca1957-56-59 17:42:00* Test Item Value Reference Range Interpretation Comments Urine Clarity (test code = 08294-1) HAZY CLEAR [facility] Specific Aomcget7370-08-86 17:42:00 * Test Item Value Reference Range Interpretation Comments Urine Specific [place] (test code = 5811-5) 1.020 1.010-1.02 5 [facility] bM2188-53-12 17:42:00* Test Item Value Reference Range Interpretation Comments Urine pH (test code = 33243-1) 6 5-7 [facility] Leukocyte Zugnosfc0165-63-39 17:42:00* Test Item Value Reference Range Interpretation Comments Urine Leukocyte Esterase (test code = 5799-2) NEGATIVE NEGATIVE [facility] Pggikzw1266-99-63 17:42:00* Test Item Value Reference Range Interpretation Comments Urine Nitrite (test code = 58893-0) NEGATIVE NEGATIVE [facility] Hsuyfae9542-12-61 17:42:00* Test Item Value Reference Range Interpretation Comments Urine Protein (test code = 5804-0) NEGATIVE NEGATIVE [facility] Glucose (UA)2019-01-12 17:42:00* Test Item Value Reference Range Interpretation Comments Urine Glucose (UA) (test code = 2349-9) NEGATIVE NEGATIVE [facility] Ufiuext8569-76-63 17:42:00* Test Item Value Reference Range Interpretation Comments Urine Ketones (test code = 58551-4) NEGATIVE NEGATIVE [facility] Jmaiicvxqthv2621-66-37 17:42:00* Test Item Value Reference Range Interpretation Comments Urine Urobilinogen (test code = 93216-9) 0.2 0.2-1 [facility] Rjgfoazka0228-89-05 17:42:00* Test Item Value Reference Range Interpretation Comments Urine Bilirubin (test code = 1978-6) NEGATIVE NEGATIVE [facility] Jwpbg0029-81-19 17:42:00* Test Item Value Reference Range Interpretation Comments Urine Blood (test code = 08355-2) NEGATIVE NEGATIVE [facility] CenterProthrombin Bgjg9834-07-19 17:28:00* Test Item Value Reference Range Interpretation Comments Prothrombin Time (test code = 5902-2) 22.9 11.9-14.5 H [facility] CenterProthromb Time International Ratio 2019-01-12 17:28:00* Test Item Value Reference Range Interpretation Comments Prothromb Time International Ratio (test code = 6301-6) 1.95 Oral Anticoagulant Therapy INR Values:1. Low Intensity Therapy 1.5 - 2.02 . Moderate Intensity Therapy 2.0 - 3.03. High Intensity Therapy(1) 2.5 - 3. 54. High Intensity Therapy(2) 3.0 - 4.05. Panic Value INR > 5.0 [facility] CenterAct[facility] Partial Thromboplast Time 2019-01-12 17:28:00* Test Item Value Reference Range Interpretation Comments Activated Partial Thromboplast Time (test code = 45842-0) 46.6 23.8-35.5 H [facility] CenterProthrombin Iqbj6281-13-63 17:28:00* Test Item Value Reference Range Interpretation Comments Prothrombin Time (test code = 5902-2) 22.9 11.9-14.5 H [facility] CenterProthromb Time International Ratio 2019-01-12 17:28:00* Test Item Value Reference Range Interpretation Comments Prothromb Time International Ratio (test code = 6301-6) 1.95 Oral Anticoagulant Therapy INR Values:1. Low Intensity Therapy 1.5 - 2.02 . Moderate Intensity Therapy 2.0 - 3.03. High Intensity Therapy(1) 2.5 - 3. 54. High Intensity Therapy(2) 3.0 - 4.05. Panic Value INR > 5.0 [facility] CenterAct[facility] Partial Thromboplast Time 2019-01-12 17:28:00* Test Item Value Reference Range Interpretation Comments Activated Partial Thromboplast Time (test code = 94103-0) 46.6 23.8-35.5 H [facility] CenterProthrombin Vbyf9979-72-90 17:28:00* Test Item Value Reference Range Interpretation Comments Prothrombin Time (test code = 5902-2) 22.9 11.9-14.5 H [facility] CenterProthromb Time International Ratio 2019-01-12 17:28:00* Test Item Value Reference Range Interpretation Comments Prothromb Time International Ratio (test code = 6301-6) 1.95 Oral Anticoagulant Therapy INR Values:1. Low Intensity Therapy 1.5 - 2.02 . Moderate Intensity Therapy 2.0 - 3.03. High Intensity Therapy(1) 2.5 - 3. 54. High Intensity Therapy(2) 3.0 - 4.05. Panic Value INR > 5.0 [facility] CenterAct[facility] Partial Thromboplast Time 2019-01-12 17:28:00* Test Item Value Reference Range Interpretation Comments Activated Partial Thromboplast Time (test code = 35317-1) 46.6 23.8-35.5 H [facility] CenterProthrombin Gnig8591-04-40 17:28:00* Test Item Value Reference Range Interpretation Comments Prothrombin Time (test code = 5902-2) 22.9 11.9-14.5 H [facility] CenterProthromb Time International Ratio 2019-01-12 17:28:00* Test Item Value Reference Range Interpretation Comments Prothromb Time International Ratio (test code = 6301-6) 1.95 Oral Anticoagulant Therapy INR Values:1. Low Intensity Therapy 1.5 - 2.02 . Moderate Intensity Therapy 2.0 - 3.03. High Intensity Therapy(1) 2.5 - 3. 54. High Intensity Therapy(2) 3.0 - 4.05. Panic Value INR > 5.0 [facility] CenterAct[facility] Partial Thromboplast Time 2019-01-12 17:28:00* Test Item Value Reference Range Interpretation Comments Activated Partial Thromboplast Time (test code = 02375-5) 46.6 23.8-35.5 H [facility] CenterProthrombin Joif5658-85-86 17:28:00* Test Item Value Reference Range Interpretation Comments Prothrombin Time (test code = 5902-2) 22.9 11.9-14.5 H [facility] CenterProthromb Time International Ratio 2019-01-12 17:28:00* Test Item Value Reference Range Interpretation Comments Prothromb Time International Ratio (test code = 6301-6) 1.95 Oral Anticoagulant Therapy INR Values:1. Low Intensity Therapy 1.5 - 2.02 . Moderate Intensity Therapy 2.0 - 3.03. High Intensity Therapy(1) 2.5 - 3. 54. High Intensity Therapy(2) 3.0 - 4.05. Panic Value INR > 5.0 [facility] CenterAct[facility] Partial Thromboplast Time 2019-01-12 17:28:00* Test Item Value Reference Range Interpretation Comments Activated Partial Thromboplast Time (test code = 69201-7) 46.6 23.8-35.5 H [facility] Qufympc8040-69-49 09:16:00* Test Item Value Reference Range Interpretation Comments Urine Culture (test code = 630-4) Organism: ESCHERICHIA COLI [facility] Fvrhiaz6928-70-11 09:16:00* Test Item Value Reference Range Interpretation Comments Urine Culture (test code = 630-4) No Result Data Provided [facility] Zrvfimk2132-32-39 09:16:00* Test Item Value Reference Range Interpretation Comments Urine Culture (test code = 630-4) No Result Data Provided [facility] Sqcfisy7620-20-29 09:16:00* Test Item Value Reference Range Interpretation Comments Urine Culture (test code = 630-4) No Result Data Provided [facility] Qjjagyx1488-44-57 09:16:00* Test Item Value Reference Range Interpretation Comments Urine Culture (test code = 630-4) No Result Data Provided [facility] Damltvx0939-87-04 09:16:00* Test Item Value Reference Range Interpretation Comments Urine Culture (test code = 630-4) No Result Data Provided [facility] CenterBedside Nzmcmkj0706-57-71 08:42:00* Test Item Value Reference Range Interpretation Comments Bedside Glucose (test code = 37726-5) 130 70-120 H Meter ID: [id number] [facility] Mxkkqfq9812-96-58 08:25:00* Test Item Value Reference Range Interpretation Comments Differential Total Cells Counted (test code = Differellie tial Total Cells Counted) 100 [facility] CenterNeutrophils % (Manual)2018-10-23 08:25:00 * Test Item Value Reference Range Interpretation Comments Neutrophils % (Manual) (test code = 70285-0) 87 40-74 H [facility] CenterLymphocytes % (Manual)2018-10-23 08:25:00 * Test Item Value Reference Range Interpretation Comments Lymphocytes % (Manual) (test code = 737-7) 8 19-48 L [facility] CenterMonocytes % (Manual)2018-10-23 08:25:00* Test Item Value Reference Range Interpretation Comments Monocytes % (Manual) (test code = 744-3) 3 3.4-9.0 L [facility] CenterEosinophils % (Manual)2018-10-23 08:25:00 * Test Item Value Reference Range Interpretation Comments Eosinophils % (Manual) (test code = 714-6) 2 0-7 [facility] CenterPlatelet Iewzhujm2303-43-34 08:25:00* Test Item Value Reference Range Interpretation Comments Platelet Estimate (test code = 61419-6) ADEQUATE [facility] CenterPlatelet Morphology Qaetlsu6041-50-40 08:25:00* Test Item Value Reference Range Interpretation Comments Platelet Morphology Comment (test code = 16738-0) MANY EDTA CLUMPIN G [facility] CenterHypochromasia2019-07-24 08:25:00* Test Item Value Reference Range Interpretation Comments Hypochromasia (test code = 728-6) SLIGHT [facility] CenterPoikilocytosis2019-07-24 08:25:00* Test Item Value Reference Range Interpretation Comments Poikilocytosis (test code = 779-9) SLIGHT [facility] CenterDifferential Total Cells Counted 2018-10-23 08:25:00* Test Item Value Reference Range Interpretation Comments Differential Total Cells Counted (test code = Differen tial Total Cells Counted) 100 [facility] CenterNeutrophils % (Manual)2018-10-23 08:25:00 * Test Item Value Reference Range Interpretation Comments Neutrophils % (Manual) (test code = 18523-1) 87 40-74 H [facility] CenterLymphocytes % (Manual)2018-10-23 08:25:00 * Test Item Value Reference Range Interpretation Comments Lymphocytes % (Manual) (test code = 737-7) 8 19-48 L [facility] CenterMonocytes % (Manual)2018-10-23 08:25:00* Test Item Value Reference Range Interpretation Comments Monocytes % (Manual) (test code = 744-3) 3 3.4-9.0 L [facility] CenterEosinophils % (Manual)2018-10-23 08:25:00 * Test Item Value Reference Range Interpretation Comments Eosinophils % (Manual) (test code = 714-6) 2 0-7 [facility] CenterPlatelet Vkrsdwmj8178-89-00 08:25:00* Test Item Value Reference Range Interpretation Comments Platelet Estimate (test code = 72075-4) ADEQUATE [facility] CenterPlatelet Morphology Ufjriix4706-82-74 08:25:00* Test Item Value Reference Range Interpretation Comments Platelet Morphology Comment (test code = 66623-9) MANY EDTA CLUMPIN G [facility] CenterHypochromasia2019-07-24 08:25:00* Test Item Value Reference Range Interpretation Comments Hypochromasia (test code = 728-6) SLIGHT [facility] CenterPoikilocytosis2019-07-24 08:25:00* Test Item Value Reference Range Interpretation Comments Poikilocytosis (test code = 779-9) SLIGHT [facility] CenterDifferential Total Cells Counted 2018-10-23 08:25:00* Test Item Value Reference Range Interpretation Comments Differential Total Cells Counted (test code = Differellie tial Total Cells Counted) 100 [facility] CenterNeutrophils % (Manual)2018-10-23 08:25:00 * Test Item Value Reference Range Interpretation Comments Neutrophils % (Manual) (test code = 70033-7) 87 40-74 H [facility] CenterLymphocytes % (Manual)2018-10-23 08:25:00 * Test Item Value Reference Range Interpretation Comments Lymphocytes % (Manual) (test code = 737-7) 8 19-48 L [facility] CenterMonocytes % (Manual)2018-10-23 08:25:00* Test Item Value Reference Range Interpretation Comments Monocytes % (Manual) (test code = 744-3) 3 3.4-9.0 L [facility] CenterEosinophils % (Manual)2018-10-23 08:25:00 * Test Item Value Reference Range Interpretation Comments Eosinophils % (Manual) (test code = 714-6) 2 0-7 [facility] CenterPlatelet Fxgpplai7585-29-82 08:25:00* Test Item Value Reference Range Interpretation Comments Platelet Estimate (test code = 89754-4) ADEQUATE [facility] CenterPlatelet Morphology Uxtbuys3869-82-08 08:25:00* Test Item Value Reference Range Interpretation Comments Platelet Morphology Comment (test code = 23470-2) MANY EDTA CLUMPIN G [facility] CenterHypochromasia2019-07-24 08:25:00* Test Item Value Reference Range Interpretation Comments Hypochromasia (test code = 728-6) SLIGHT [facility] CenterPoikilocytosis2019-07-24 08:25:00* Test Item Value Reference Range Interpretation Comments Poikilocytosis (test code = 779-9) SLIGHT [facility] CenterDifferential Total Cells Counted 2018-10-23 08:25:00* Test Item Value Reference Range Interpretation Comments Differential Total Cells Counted (test code = Differellie tial Total Cells Counted) 100 [facility] CenterNeutrophils % (Manual)2018-10-23 08:25:00 * Test Item Value Reference Range Interpretation Comments Neutrophils % (Manual) (test code = 76499-8) 87 40-74 H [facility] CenterLymphocytes % (Manual)2018-10-23 08:25:00 * Test Item Value Reference Range Interpretation Comments Lymphocytes % (Manual) (test code = 737-7) 8 19-48 L [facility] CenterMonocytes % (Manual)2018-10-23 08:25:00* Test Item Value Reference Range Interpretation Comments Monocytes % (Manual) (test code = 744-3) 3 3.4-9.0 L [facility] CenterEosinophils % (Manual)2018-10-23 08:25:00 * Test Item Value Reference Range Interpretation Comments Eosinophils % (Manual) (test code = 714-6) 2 0-7 [facility] CenterPlatelet Ttydoysj9606-08-96 08:25:00* Test Item Value Reference Range Interpretation Comments Platelet Estimate (test code = 68305-3) ADEQUATE [facility] CenterPlatelet Morphology Gkraqyg5485-82-87 08:25:00* Test Item Value Reference Range Interpretation Comments Platelet Morphology Comment (test code = 99177-0) MANY EDTA CLUMPIN G [facility] CenterHypochromasia2019-07-24 08:25:00* Test Item Value Reference Range Interpretation Comments Hypochromasia (test code = 728-6) SLIGHT [facility] CenterPoikilocytosis2019-07-24 08:25:00* Test Item Value Reference Range Interpretation Comments Poikilocytosis (test code = 779-9) SLIGHT [facility] CenterDifferential Total Cells Counted 2018-10-23 08:25:00* Test Item Value Reference Range Interpretation Comments Differential Total Cells Counted (test code = Differen tial Total Cells Counted) 100 [facility] CenterNeutrophils % (Manual)2018-10-23 08:25:00 * Test Item Value Reference Range Interpretation Comments Neutrophils % (Manual) (test code = 21541-9) 87 40-74 H [facility] CenterLymphocytes % (Manual)2018-10-23 08:25:00 * Test Item Value Reference Range Interpretation Comments Lymphocytes % (Manual) (test code = 737-7) 8 19-48 L [facility] CenterMonocytes % (Manual)2018-10-23 08:25:00* Test Item Value Reference Range Interpretation Comments Monocytes % (Manual) (test code = 744-3) 3 3.4-9.0 L [facility] CenterEosinophils % (Manual)2018-10-23 08:25:00 * Test Item Value Reference Range Interpretation Comments Eosinophils % (Manual) (test code = 714-6) 2 0-7 [facility] CenterPlatelet Morphology Fqksdib7069-19-97 08:25:00* Test Item Value Reference Range Interpretation Comments Platelet Morphology Comment (test code = 99790-9) MANY EDTA CLUMPIN G [facility] CenterHypochromasia2019-07-24 08:25:00* Test Item Value Reference Range Interpretation Comments Hypochromasia (test code = 728-6) SLIGHT [facility] CenterPoikilocytosis2019-07-24 08:25:00* Test Item Value Reference Range Interpretation Comments Poikilocytosis (test code = 779-9) SLIGHT [facility] CenterDifferential Total Cells Counted 2018-10-23 08:25:00* Test Item Value Reference Range Interpretation Comments Differential Total Cells Counted (test code = Differen tial Total Cells Counted) 100 [facility] CenterNeutrophils % (Manual)2018-10-23 08:25:00 * Test Item Value Reference Range Interpretation Comments Neutrophils % (Manual) (test code = 47543-5) 87 40-74 H [facility] CenterLymphocytes % (Manual)2018-10-23 08:25:00 * Test Item Value Reference Range Interpretation Comments Lymphocytes % (Manual) (test code = 737-7) 8 19-48 L [facility] CenterMonocytes % (Manual)2018-10-23 08:25:00* Test Item Value Reference Range Interpretation Comments Monocytes % (Manual) (test code = 744-3) 3 3.4-9.0 L [facility] CenterEosinophils % (Manual)2018-10-23 08:25:00 * Test Item Value Reference Range Interpretation Comments Eosinophils % (Manual) (test code = 714-6) 2 0-7 [facility] CenterPlatelet Morphology Hmbwohd0595-66-46 08:25:00* Test Item Value Reference Range Interpretation Comments Platelet Morphology Comment (test code = 24501-6) MANY EDTA CLUMPIN G [facility] CenterHypochromasia2019-07-24 08:25:00* Test Item Value Reference Range Interpretation Comments Hypochromasia (test code = 728-6) SLIGHT [facility] CenterPoikilocytosis2019-07-24 08:25:00* Test Item Value Reference Range Interpretation Comments Poikilocytosis (test code = 779-9) SLIGHT [facility] CenterThyroid Stimulating Hormone (TSH) 2018-10-23 07:30:00* Test Item Value Reference Range Interpretation Comments Thyroid Stimulating Hormone (TSH) (test code = 47009-6) 3.277 0.350-4.940 [facility] CenterThyroid Stimulating Hormone (TSH) 2018-10-23 07:30:00* Test Item Value Reference Range Interpretation Comments Thyroid Stimulating Hormone (TSH) (test code = 01996-3) 3.277 0.350-4.940 [facility] CenterThyroid Stimulating Hormone (TSH) 2018-10-23 07:30:00* Test Item Value Reference Range Interpretation Comments Thyroid Stimulating Hormone (TSH) (test code = 51484-7) 3.277 0.350-4.940 [facility] CenterThyroid Stimulating Hormone (TSH) 2018-10-23 07:30:00* Test Item Value Reference Range Interpretation Comments Thyroid Stimulating Hormone (TSH) (test code = 99313-1) 3.277 0.350-4.940 [facility] CenterThyroid Stimulating Hormone (TSH) 2018-10-23 07:30:00* Test Item Value Reference Range Interpretation Comments Thyroid Stimulating Hormone (TSH) (test code = 92576-7) 3.277 0.350-4.940 [facility] CenterThyroid Stimulating Hormone (TSH) 2018-10-23 07:30:00* Test Item Value Reference Range Interpretation Comments Thyroid Stimulating Hormone (TSH) (test code = 34372-7) 3.277 0.350-4.940 [facility] CenterMagnesium Bmpny4869-30-53 07:16:00* Test Item Value Reference Range Interpretation Comments Magnesium Level (test code = 07577-1) 1.3 1.3-2.1 [facility] CenterTroponin V4585-97-19 07:14:00* Test Item Value Reference Range Interpretation Comments Troponin I (test code = MJT0238) 0.004 0-0.300 [facility] CenterCreatine Wpaxrq7565-48-77 07:08:00* Test Item Value Reference Range Interpretation Comments Creatine Kinase (test code = 2157-6) 50 29-168 [facility] Jonye9059-79-06 07:03:00* Test Item Value Reference Range Interpretation Comments Sodium Level (test code = 2951-2) 141 136-145 [facility] CenterPotassium Vhhqj2699-10-93 07:03:00* Test Item Value Reference Range Interpretation Comments Potassium Level (test code = 2823-3) 4.9 3.5-5.1 [facility] CenterChloride Vtxis7768-08-96 07:03:00* Test Item Value Reference Range Interpretation Comments Chloride Level (test code = 2075-0) 113 98-107 H [facility] CenterCarbon Dioxide Lpcva8523-78-52 07:03:00* Test Item Value Reference Range Interpretation Comments Carbon Dioxide Level (test code = 2028-9) 18 22-29 L [facility] CenterAnion Kaa1289-62-15 07:03:00* Test Item Value Reference Range Interpretation Comments Anion Gap (test code = 37647-8) 14.9 8-16 [facility] CenterBlood Urea Yikbzmmj9297-16-02 07:03:00* Test Item Value Reference Range Interpretation Comments Blood Urea Nitrogen (test code = 3094-0) 45 7-26 H [facility] CenterCreatinine2019-07-24 07:03:00* Test Item Value Reference Range Interpretation Comments Creatinine (test code = 2160-0) 2.06 0.57-1.11 H [facility] CenterBUN/Creatinine Xzoge1847-27-75 07:03:00* Test Item Value Reference Range Interpretation Comments BUN/Creatinine Ratio (test code = 3097-3) 22 6-25 [facility] CenterEstimat Glomerular Filtration Rate 2018-10-23 07:03:00* Test Item Value Reference Range Interpretation Comments Estimat Glomerular Filtration Rate (test code = 266955728) 24 >60 L Ranges were taken from the National Kidney Disease Education Program and the [facility] literature.Reference ranges:60 or greater: Ezacxv89-22 ( for 3 consecutive months): Chronic kidney disease 15 or less: Kidney failureWhite [facility] Medical CenterGlucose Abgxl1360-65-36 07:03:00* Test Item Value Reference Range Interpretation Comments Glucose Level (test code = JSG5390) 118 74-118 [facility] CenterCalcium Pkpmh9739-49-54 07:03:00* Test Item Value Reference Range Interpretation Comments Calcium Level (test code = 96518-1) 8.8 8.4-10.2 [facility] CenterTotal Rovfobroq9048-71-99 07:03:00* Test Item Value Reference Range Interpretation Comments Total Bilirubin (test code = 1975-2) 0.2 0.2-1.2 [facility] CenterAspartate Amino Transf (AST/SGOT) 2018-10-23 07:03:00* Test Item Value Reference Range Interpretation Comments Aspartate Amino Transf (AST/SGOT) (test code = Aspartate Amino Transf (AST/SGOT)) 9 5-34 [facility] CenterAlanine Aminotransferase (ALT/SGPT) 2018-10-23 07:03:00* Test Item Value Reference Range Interpretation Comments Alanine Aminotransferase (ALT/SGPT) (test code = 1742-6) 11 0-55 [facility] CenterTotal Rtmhyjb9138-05-48 07:03:00* Test Item Value Reference Range Interpretation Comments Total Protein (test code = 2885-2) 6.1 6.5-8.1 L [facility] CenterAlbumin2019-07-24 07:03:00* Test Item Value Reference Range Interpretation Comments Albumin (test code = 1751-7) 3.0 3.5-5.0 L [facility] CenterGlobulin2019-07-24 07:03:00* Test Item Value Reference Range Interpretation Comments Globulin (test code = 65398-2) 3.1 2.3-3.5 [facility] CenterAlbumin/Globulin Saurz8256-29-88 07:03:00 * Test Item Value Reference Range Interpretation Comments Albumin/Globulin Ratio (test code = 1759-0) 1.0 0.8-2.0 [facility] CenterAlkaline Zpqqyqtenuc6550-97-18 07:03:00* Test Item Value Reference Range Interpretation Comments Alkaline Phosphatase (test code = 6768-6) 58 40-150 [facility] CenterTriglycerides Yzuld8113-14-12 06:57:00* Test Item Value Reference Range Interpretation Comments Triglycerides Level (test code = 2571-8) 56 0-149 [facility] CenterCholesterol Owctm0361-52-93 06:57:00* Test Item Value Reference Range Interpretation Comments Cholesterol Level (test code = 2093-3) 121 0-199 Less than 200 mg/dL Low Bbyl960 - 239 mg/dL Borderline Bjix250 m g/dl and greater High Risk [facility] CenterLDL Iuwqxotquwt1161-83-45 06:57:00* Test Item Value Reference Range Interpretation Comments LDL Cholesterol (test code = 2089-1) 57 60-130 L [facility] CenterHDL Lltpitwnlys3183-23-94 06:57:00* Test Item Value Reference Range Interpretation Comments HDL Cholesterol (test code = 2085-9) 53 40-60 [facility] CenterCholesterol/HDL Bdgww6326-66-42 06:57:00 * Test Item Value Reference Range Interpretation Comments Cholesterol/HDL Ratio (test code = 9830-1) 2.3 3.0-3.6 L [facility] CenterTriglycerides Zratg5190-33-41 06:57:00* Test Item Value Reference Range Interpretation Comments Triglycerides Level (test code = 2571-8) 56 0-149 [facility] CenterCholesterol Esnnj5819-26-38 06:57:00* Test Item Value Reference Range Interpretation Comments Cholesterol Level (test code = 2093-3) 121 0-199 Less than 200 mg/dL Low Ukue047 - 239 mg/dL Borderline Vczw275 m g/dl and greater High Risk [facility] CenterLDL Vxwhminqkbo6221-55-35 06:57:00* Test Item Value Reference Range Interpretation Comments LDL Cholesterol (test code = 2089-1) 57 60-130 L [facility] Bbsefsnrxrc6789-62-30 06:57:00* Test Item Value Reference Range Interpretation Comments HDL Cholesterol (test code = 2085-9) 53 40-60 [facility] CenterCholesterol/HDL Chtwx1758-13-95 06:57:00 * Test Item Value Reference Range Interpretation Comments Cholesterol/HDL Ratio (test code = 9830-1) 2.3 3.0-3.6 L [facility] CenterTriglycerides Jxmbm5936-19-05 06:57:00* Test Item Value Reference Range Interpretation Comments Triglycerides Level (test code = 2571-8) 56 0-149 [facility] CenterCholesterol Rhqav2906-91-33 06:57:00* Test Item Value Reference Range Interpretation Comments Cholesterol Level (test code = 2093-3) 121 0-199 Less than 200 mg/dL Low Nsyj021 - 239 mg/dL Borderline Jjqw709 m g/dl and greater High Risk [facility] CenterLDL Dmdaiekoozv1393-98-74 06:57:00* Test Item Value Reference Range Interpretation Comments LDL Cholesterol (test code = 2089-1) 57 60-130 L [facility] Dhivojezfcp8532-96-87 06:57:00* Test Item Value Reference Range Interpretation Comments HDL Cholesterol (test code = 2085-9) 53 40-60 [facility] CenterCholesterol/HDL Yloxm1680-11-49 06:57:00 * Test Item Value Reference Range Interpretation Comments Cholesterol/HDL Ratio (test code = 9830-1) 2.3 3.0-3.6 L [facility] CenterTriglycerides Rnvmm9674-41-32 06:57:00* Test Item Value Reference Range Interpretation Comments Triglycerides Level (test code = 2571-8) 56 0-149 [facility] CenterCholesterol Ecula4388-28-92 06:57:00* Test Item Value Reference Range Interpretation Comments Cholesterol Level (test code = 2093-3) 121 0-199 Less than 200 mg/dL Low Nfnq601 - 239 mg/dL Borderline Slga970 m g/dl and greater High Risk [facility] CenterLDL Iztcqzzwhfs2197-17-80 06:57:00* Test Item Value Reference Range Interpretation Comments LDL Cholesterol (test code = 2089-1) 57 60-130 [facility] Wnngotupnuf2761-13-78 06:57:00* Test Item Value Reference Range Interpretation Comments HDL Cholesterol (test code = 2085-9) 53 40-60 [facility] CenterCholesterol/HDL Zkykf3973-98-30 06:57:00 * Test Item Value Reference Range Interpretation Comments Cholesterol/HDL Ratio (test code = 9830-1) 2.3 3.0-3.6 L [facility] CenterTriglycerides Zcsro6197-20-59 06:57:00* Test Item Value Reference Range Interpretation Comments Triglycerides Level (test code = 2571-8) 56 0-149 [facility] CenterCholesterol Boqjw5884-39-83 06:57:00* Test Item Value Reference Range Interpretation Comments Cholesterol Level (test code = 2093-3) 121 0-199 Less than 200 mg/dL Low Gqdc105 - 239 mg/dL Borderline Sqvo200 m g/dl and greater High Risk [facility] CenterLDL Tzbrbqzgjdp6106-19-29 06:57:00* Test Item Value Reference Range Interpretation Comments LDL Cholesterol (test code = 2089-1) 57 60-130 L [facility] Toblhweryyp2298-94-45 06:57:00* Test Item Value Reference Range Interpretation Comments HDL Cholesterol (test code = 2085-9) 53 40-60 [facility] CenterCholesterol/HDL Luzfh8670-85-12 06:57:00 * Test Item Value Reference Range Interpretation Comments Cholesterol/HDL Ratio (test code = 9830-1) 2.3 3.0-3.6 L [facility] CenterTriglycerides Ruxma0329-82-33 06:57:00* Test Item Value Reference Range Interpretation Comments Triglycerides Level (test code = 2571-8) 56 0-149 [facility] CenterCholesterol Xnycl9725-41-97 06:57:00* Test Item Value Reference Range Interpretation Comments Cholesterol Level (test code = 2093-3) 121 0-199 Less than 200 mg/dL Low Oanq023 - 239 mg/dL Borderline Xsou676 m g/dl and greater High Risk [facility] CenterLDL Krlnjplbeza5741-66-46 06:57:00* Test Item Value Reference Range Interpretation Comments LDL Cholesterol (test code = 2089-1) 57 60-130 L [facility] CenterHDL Jlyqpebhtcn3914-99-03 06:57:00* Test Item Value Reference Range Interpretation Comments HDL Cholesterol (test code = 2085-9) 53 40-60 [facility] CenterCholesterol/HDL Asekn3201-30-69 06:57:00 * Test Item Value Reference Range Interpretation Comments Cholesterol/HDL Ratio (test code = 9830-1) 2.3 3.0-3.6 L [facility] CenterCreatine Kinase TC0428-60-32 06:54:00* Test Item Value Reference Range Interpretation Comments Creatine Kinase MB (test code = 91885-5) 2.70 0-5.0 [facility] CenterWhite Blood Rtyrg2766-19-89 06:23:00* Test Item Value Reference Range Interpretation Comments White Blood Count (test code = 6690-2) 6.79 4.8-10.8 [facility] CenterRed Blood Vkulc1844-61-60 06:23:00* Test Item Value Reference Range Interpretation Comments Red Blood Count (test code = 789-8) 3.46 3.6-5.1 L [facility] CenterHemoglobin2019-07-24 06:23:00* Test Item Value Reference Range Interpretation Comments Hemoglobin (test code = 73904-1) 10.2 12.0-16.0 L [facility] CenterHematocrit2019-07-24 06:23:00* Test Item Value Reference Range Interpretation Comments Hematocrit (test code = 4544-3) 32.3 34.2-44.1 L [facility] CenterMean Corpuscular Knwwln6809-76-37 06:23:00* Test Item Value Reference Range Interpretation Comments Mean Corpuscular Volume (test code = 787-2) 93.4 81-99 [facility] CenterMean Corpuscular Gqvstwetss5304-86-35 06:23:00* Test Item Value Reference Range Interpretation Comments Mean Corpuscular Hemoglobin (test code = 785-6) 29.5 28-32 [facility] CenterMean Corpuscular Hemoglobin Concent 2018-10-23 06:23:00* Test Item Value Reference Range Interpretation Comments Mean Corpuscular Hemoglobin Concent (test code = 786-4) 31.6 31-35 [facility] CenterRed Cell Distribution Wgjhi9653-84-15 06:23:00* Test Item Value Reference Range Interpretation Comments Red Cell Distribution Width (test code = 40329-5) 15.0 11.7 -14.4 H [facility] CenterPlatelet Wwrkl7564-08-69 06:23:00* Test Item Value Reference Range Interpretation Comments Platelet Count (test code = 777-3) 152 140-360 [facility] CenterNeutrophils (%) (Auto)2018-10-23 06:23:00 * Test Item Value Reference Range Interpretation Comments Neutrophils (%) (Auto) (test code = 06605-7) 83.7 38.7-80.0 H [facility] CenterLymphocytes (%) (Auto)2018-10-23 06:23:00 * Test Item Value Reference Range Interpretation Comments Lymphocytes (%) (Auto) (test code = 736-9) 6.5 18.0-39.1 L [facility] CenterMonocytes (%) (Auto)2018-10-23 06:23:00* Test Item Value Reference Range Interpretation Comments Monocytes (%) (Auto) (test code = 5905-5) 8.0 4.4-11.3 [facility] CenterEosinophils (%) (Auto)2018-10-23 06:23:00 * Test Item Value Reference Range Interpretation Comments Eosinophils (%) (Auto) (test code = 713-8) 1.3 0.0-6.0 [facility] CenterBasophils (%) (Auto)2018-10-23 06:23:00* Test Item Value Reference Range Interpretation Comments Basophils (%) (Auto) (test code = 706-2) 0.1 0.0-1.0 [facility] CenterIM GRANULOCYTES %2018-10-23 06:23:00* Test Item Value Reference Range Interpretation Comments IM GRANULOCYTES % (test code = IM GRANULOCYTES %) 0.4 0.0- 1.0 [facility] CenterNeutrophils # (Auto)2018-10-23 06:23:00* Test Item Value Reference Range Interpretation Comments Neutrophils # (Auto) (test code = 751-8) 5.7 2.1-6.9 [facility] CenterLymphocytes # (Auto)2018-10-23 06:23:00* Test Item Value Reference Range Interpretation Comments Lymphocytes # (Auto) (test code = 63203-4) 0.4 1.0-3.2 L [facility] CenterMonocytes # (Auto)2018-10-23 06:23:00* Test Item Value Reference Range Interpretation Comments Monocytes # (Auto) (test code = 742-7) 0.5 0.2-0.8 [facility] CenterEosinophils # (Auto)2018-10-23 06:23:00* Test Item Value Reference Range Interpretation Comments Eosinophils # (Auto) (test code = 711-2) 0.1 0.0-0.4 [facility] CenterBasophils # (Auto)2018-10-23 06:23:00* Test Item Value Reference Range Interpretation Comments Basophils # (Auto) (test code = 704-7) 0.0 0.0-0.1 [facility] CenterAbsolute Immature Granulocyte (auto 2018-10-23 06:23:00* Test Item Value Reference Range Interpretation Comments Absolute Immature Granulocyte (auto (mart t code = Absolute Immature Granulocyte (auto) 0.03 0-0.1 [facility] CenterCXR 1 VEW - PGAO3210-03-08 11:13:00 [place] [address] Patient Name: DARIELA MILLS MR #: [id number] : 1945 Age/Sex: 72/F Req #: [id number] Adm Physician: Ordered by: JASON CONTRERAS MD Report #: [id number] [facility] Room/Bed: Procedure: [id number] HOP D/CXR 1 VEW - HOPD Exam Date: 10/22/18 Exam Time: 02 08 REPORT STATUS: Signed EXAMINA TION: CXR 1 - HOPD INDICATION: Lethargy COMPARISON: Chest rad iograph of 11/23/2017 FINDINGS: TUBES and LINES: None. LUNGS: The lung volumes are low. There is perihilar fullness and indistinctness of th e pulmonary vasculature. PLEURA: Likely trace left pleural effusion. No pn eumothorax. HEART AND MEDIASTINUM: Cardiomediastinal silhouette is stably e nlarged. BONES AND SOFT TISSUES: No acute fracture or dislocation. UPP ER ABDOMEN: No free air under the diaphragm. IMPRESSION: Low lung volume s. Possible mild pulmonary interstitial edema. Likely trace left pleural effus ion. Unchanged cardiomegaly. Signed by: Lisa Barnes MD on 10/22/2018 11 :16 AM Dictated By: LISA BARNES MD 111 Transcribed By: BRAN on 10/22/186 COPY TO: JASON PHIPPS MD - CT L-SPINE W/O IZOPRMFC5583-60-06 07:55:00 Name: DARIELA MILLS [facility] : 1945 Age/S: 72 / F [address] Unit #: [id number] Loc: [place] [address] Phys: Colt Valdez MD Acct: [id number] Di s Date: [id number] Status: DIS IN PHONE #: [phone] Exam Date: 07/02/2018 0953 FAX #: [phone] Reason: POST KYPHOPLASTY EXAMS: CPT CODE: [id number] CT L-SPINE W/O CONTRAST 95812 EXAM: CT scan of the lumbar spine without contrast; INFORMATION: Low back pain; subacute compression fracture of L1; status post kyphoplasty. Clinically, the patient has significantly improved with only mild residual back pain. TECHNIQUE AND FINDINGS: CT dose reduction protocol; 2.5 mm axial scans; sagittal and coronal reconstructions. There is good cement distribution within the L1 vertebral body with minimal leakage into the T12/L1 disc space. No posterior, epidural leakage. Status post pos terior fusion of L4 and 5. Advanced degenerative disc disease L3/4 with al most complete obliteration of the disc space and with intravertebral vacuu m phenomenon. Prominent anterior and anterior lateral osteophytes fr om L2 to through L5. Paravertebral soft tissues are unremarkable. The stent is seen in the right renal artery and there are are calcific ations of the abdominal aorta and both renal arteries. IMPRESSIO N: 1. Good morphological result after kyphoplasty for treatment of a symptomatic compression fracture of L1. No significant cement elo kage. 2. Status post posterior fusion of L4 and 5. 3. Advanced degenerative disc disease L3/4. 4. Spondylosis. 5. Right renal stent. at 0755 Reported and signed by: Ryan Valdez M.D. CC: Celo Bennett MD; Ryan Boggs MD Technologist:Karen Cochran RT(R),CT CT DI: DLP: Trnscb Date/Time: 07/03/2018 (075) Charan Orig Print D/T: S: 07/03/2018 (0759) CTDI: DLP: PAGE 1 Signed Report BONE,OEAACV2365-00-07 16:23:00 RUN DATE: 07/02/18 [facility] PAGE 1 RUN TIME: 1623 Specimen Inqui ry RUN USER: INTERFACE PATIENT: DARIELA MILLS ACCT #: [id number] LOC: [employer] U #: [id number] AGE/SX: 72/F ROOM: [facility] RE07/01/18REG DR: Ryan Valdez MD : [birth year] BED: A DIS: STATUS: ADM IN TLOC: SPEC #: [id number] RECD: 07/01/18 STATUS: SIGIFREDOAlysha REQ #: [id number] MELVIN: 07/01/18- SUBM DR: Ryan Valdez MD ENTERED: 07/01/18 SP TYPE: BX BONE OTHR DR: Jane Jones MD, Kent D MDORDERED: GROSS COPIES TO: Leo Joens MD [address] [facility], [address] [place] [address] Cleo Bennett MD [address] [facility] [address] [place] [address] Ryan Valdez MD [address] [place] [address] PROCEDURES: GROSS (07/02/18 -1158) TISSUES: LUMBAR VERTEBRA, NOS - L1 BX AND 2 SLIDES CLIN ICAL HISTORY COLLECTION DATE: 07/01/18 FINAL DIAGNOSIS Vertebra, L1, core biopsy with touch prep: REACTIVE BONE WITH UNREMARKABLE MARROW [place] ENTS COMPATIBLE WITH ORGANIZING FRACTURE SITE MIXED INFLAMMATOR Y CELLS AND CELLS COMPATIBLE WITH MEGAKARYOCYTES IN BACKGROUND OF BLOOD (MARROW ELEMENTS), TOUCH PREP SLIDES NEGATIVE FOR MALIGNANCY R RB/ifeoma D [address], [address], [address] SREE KENRICK ON NEXT PAGE RUN DATE: 07/02/18 [facility] - Lab PAGE 2 RUN TIME: 1623 Specimen Inquiry RUN USER: INTERFACE SPEC #: [id number] ATIENT: DARIELA MILLS #[id number] (Continued) MACROSCOPIC The specimen consists of two slides for processing. Rec eived in formalin in a container labeled with the patient's name and identifie d as "L1" is a core biopsy of dark johnson-red gritty tissue compatible with bone that measures 1.0 cm in length with a diameter up to 0.2 cm. The specimen is submitted for decalcification and follow up histologic evaluation. SHAWN S PERFORMED AT [facility] [address] [place] [address] [phone])[phone] [facility] All of the stains, including any controls performed, stain appropriately . MICROSCOPIC PERFORMED AT [facility] [address] [place] [address] [phone])[phone] PER FORMING SITE Diagnosis performed at: [facility] [address] [place] [address] ----- ------- Signed SIGNATURE ON FILE Abe Arias MD 05/21 3093 END O F REPORT - US RETRO [id number] 13:36:00 Name: DARIELA MILLS [facility] : 1945 Age/S: 72 / F [address] Unit #: [id number] Loc: [place] [address] Phys: Leo Jones MD Acct: [id number] Dis Date: Status: ADM IN PHONE #: [phone] Exam Date: 07/02/2018 1227 FAX #: [phone] Reason: ELEVATED BUN/CREATININE EXAMS: CPT CODE: [id number] [facility] [address] HISTORY: Elevated BUN/creatinine. COMPARISON: Renal ultrasound from January 292017. Both kidneys are hyperechogenic suggesting chronic medical renal disease. No hydronephrosis on either side. Calyceal stones on the left side measuring 5.3 mm in the upper pole and 5.5 mm in the lower pole. No calyceal stones visible on the right side. No perinephric collections. Right kidney measured 9.4 x 4.1 x 4.1 cm. Bosniak 1 and 2 lesion in the upper pole and interpolar region measuring between 1 and 1.2 cm with debris. Left kidney measured 10.7 x 4.5 x 4.5 cm. Unremarkable incompletely distended urinary bladder. No wall thickening or mural nodules. IMPRESSION: No hydronephrosis on either side with nonobstructing calyceal stones in the upper and the lower pole as described. Bosniak 1 and 2 lesions on the right side. Chronic medical renal disease is slight loss of corticomedullary differentiation bilaterally. Unremarkable incompletely distended urinary bladder. Electronically Signed by Jp Calderon on 07/02 at 1330 Reported and signed by: Gama Calderon M.D. CC: Leo Jones MD; Cleo Bennett MD; Ryan Valdez MD Technolo gist: DEBBY DOTSON RT(R),[facility] Trngab Date/Time: 0 07/02/2018 (5816) t.SDR.TH4 Orig Print D/T: S: 07/02/2018 (7561) Probe: PAGE 1 Signed Rep ort URINALYSIS [id number] 13:12:00* Test Item Value Reference Range Interpretation Comments UA COLOR (test code = COLU) LIGHT YELLOW YELLOW UA APPEARANCE (test code = APPU) SLIGHTLY CLOUDY CLEAR A UA GLUCOSE DIPSTICK (test code = DGLUU) NEGATIVE mg/dL NEGATIVE UA BILIRUBIN DIPSTICK (test code = BILU) NEGATIVE mg/dL NEGATIVE UA KETONE DIPSTICK (test code = KETU) NEGATIVE mg/dL NEGATIVE UA SPECIFIC GRAVITY (test code = SGU) 1.013 1.001-1.035 UA BLOOD DIPSTICK (test code = LACEY) Negative mg/dL NEGATIVE UA PH DIPSTICK (test code = JERALD) 5.0 5.0-8.0 UA PROTEIN DIPSTICK (test code = PROU) 30 (1+) mg/dL NEGATIVE A UA UROBILINIOGEN DIPSTICK (test code = URO) NEGATIVE mg/dL NEGATIVE UA NITRITE DIPSTICK (test code = CANDE) NEGATIVE NEGATIVE UA LEUKOCYTE ESTERASE W REFLEX (test code = LEUUR) TRACE Maggie/uL NEG ATIVE A UA WBC (test code = WBCU) 0-5 per HPF 0-5 UA RBC (test code = RBCU) 0-2 #/HPF 0-5 UA EPITHELIAL CELLS (test code = EPIU) FEW per HPF FEW UA BACTERIA (test code = BACU) FEW #/HPF NONE A UA MUCUS (test code = MUCU) FEW #/LPF FEW Urine Source? Clean CatchUR PROTEIN [id number] 13:12:00* Test Item Value Reference Range Interpretation Comments UR PROTEIN RANDOM (test code = PROTU) 78.3 mg/dL 0.0-11.9 H Protein levels may be falsely elevated in patients withelevated level of aminoglycoside antibiotics in CSF and inhighly concentrated urine specimens. If false elevation issuspected, contact lab for alternated testing technique. Urine Source? Clean CatchUR CREATININE [id number] 13:12:00* Test Item Value Reference Range Interpretation Comments UR CREATININE RANDOM (test code = CREATU) 87.0 mg/dL 30-125 N Urine Source? Clean CatchURINALYSIS [id number] 13:07:00* Test Item Value Reference Range Interpretation Comments UA COLOR (test code = COLU) LIGHT YELLOW YELLOW UA APPEARANCE (test code = APPU) SLIGHTLY CLOUDY CLEAR A UA GLUCOSE DIPSTICK (test code = DGLUU) NEGATIVE mg/dL NEGATIVE UA BILIRUBIN DIPSTICK (test code = BILU) NEGATIVE mg/dL NEGATIVE UA KETONE DIPSTICK (test code = KETU) NEGATIVE mg/dL NEGATIVE UA SPECIFIC GRAVITY (test code = SGU) 1.013 1.001-1.035 UA BLOOD DIPSTICK (test code = LACEY) Negative mg/dL NEGATIVE UA PH DIPSTICK (test code = JERALD) 5.0 5.0-8.0 UA PROTEIN DIPSTICK (test code = PROU) 30 (1+) mg/dL NEGATIVE A UA UROBILINIOGEN DIPSTICK (test code = URO) NEGATIVE mg/dL NEGATIVE UA NITRITE DIPSTICK (test code = CANDE) NEGATIVE NEGATIVE UA LEUKOCYTE ESTERASE W REFLEX (test code = LEUUR) TRACE Maggie/uL NEG ATIVE A UA WBC (test code = WBCU) 0-5 per HPF 0-5 UA RBC (test code = RBCU) 0-2 #/HPF 0-5 UA EPITHELIAL CELLS (test code = EPIU) FEW per HPF FEW UA BACTERIA (test code = BACU) FEW #/HPF NONE A UA MUCUS (test code = MUCU) FEW #/LPF FEW Urine Source? Clean CatchUR PROTEIN [id number] 13:07:00* Test Item Value Reference Range Interpretation Comments UR PROTEIN RANDOM (test code = PROTU) 78.3 mg/dL 0.0-11.9 H Protein levels may be falsely elevated in patients withelevated level of aminoglycoside antibiotics in CSF and inhighly concentrated urine specimens. If false elevation issuspected, contact lab for alternated testing technique. Urine Source? Clean CatchUR CREATININE [id number] 13:07:00* Test Item Value Reference Range Interpretation Comments UR CREATININE RANDOM (test code = CREATU) mg/dL 30-125 Urine Source? Clean CatchURINALYSIS [id number] 12:47:00* Test Item Value Reference Range Interpretation Comments UA COLOR (test code = COLU) LIGHT YELLOW YELLOW UA APPEARANCE (test code = APPU) SLIGHTLY CLOUDY CLEAR A UA GLUCOSE DIPSTICK (test code = DGLUU) NEGATIVE mg/dL NEGATIVE UA BILIRUBIN DIPSTICK (test code = BILU) NEGATIVE mg/dL NEGATIVE UA KETONE DIPSTICK (test code = KETU) NEGATIVE mg/dL NEGATIVE UA SPECIFIC GRAVITY (test code = SGU) 1.013 1.001-1.035 UA BLOOD DIPSTICK (test code = LACEY) Negative mg/dL NEGATIVE UA PH DIPSTICK (test code = JERALD) 5.0 5.0-8.0 UA PROTEIN DIPSTICK (test code = PROU) 30 (1+) mg/dL NEGATIVE A UA UROBILINIOGEN DIPSTICK (test code = URO) NEGATIVE mg/dL NEGATIVE UA NITRITE DIPSTICK (test code = CANDE) NEGATIVE NEGATIVE UA LEUKOCYTE ESTERASE W REFLEX (test code = LEUUR) TRACE Maggie/uL NEG ATIVE A UA WBC (test code = WBCU) 0-5 per HPF 0-5 UA RBC (test code = RBCU) 0-2 #/HPF 0-5 UA EPITHELIAL CELLS (test code = EPIU) FEW per HPF FEW UA BACTERIA (test code = BACU) FEW #/HPF NONE A UA MUCUS (test code = MUCU) FEW #/LPF FEW Urine Source? Clean CatchUR PROTEIN [id number] 12:47:00* Test Item Value Reference Range Interpretation Comments UR PROTEIN RANDOM (test code = PROTU) mg/dL 0.0-11.9 Urine Source? Clean CatchUR CREATININE [id number] 12:47:00* Test Item Value Reference Range Interpretation Comments UR CREATININE RANDOM (test code = CREATU) mg/dL 30-125 Urine Source? Clean CatchURINALYSIS [id number] 12:45:00* Test Item Value Reference Range Interpretation Comments UA COLOR (test code = COLU) LIGHT YELLOW YELLOW UA APPEARANCE (test code = APPU) SLIGHTLY CLOUDY CLEAR A UA GLUCOSE DIPSTICK (test code = DGLUU) NEGATIVE mg/dL NEGATIVE UA BILIRUBIN DIPSTICK (test code = BILU) NEGATIVE mg/dL NEGATIVE UA KETONE DIPSTICK (test code = KETU) NEGATIVE mg/dL NEGATIVE UA SPECIFIC GRAVITY (test code = SGU) 1.013 1.001-1.035 UA BLOOD DIPSTICK (test code = LACEY) Negative mg/dL NEGATIVE UA PH DIPSTICK (test code = JERALD) 5.0 5.0-8.0 UA PROTEIN DIPSTICK (test code = PROU) 30 (1+) mg/dL NEGATIVE A UA UROBILINIOGEN DIPSTICK (test code = URO) NEGATIVE mg/dL NEGATIVE UA NITRITE DIPSTICK (test code = CANDE) NEGATIVE NEGATIVE UA LEUKOCYTE ESTERASE W REFLEX (test code = LEUUR) TRACE Maggie/uL NEG ATIVE A UA WBC (test code = WBCU) per HPF 0-5 Urine Source? Clean CatchUR PROTEIN [id number] 12:45:00* Test Item Value Reference Range Interpretation Comments UR PROTEIN RANDOM (test code = PROTU) mg/dL 0.0-11.9 Urine Source? Clean CatchUR CREATININE [id number] 12:45:00* Test Item Value Reference Range Interpretation Comments UR CREATININE RANDOM (test code = CREATU) mg/dL 30-125 Urine Source? Clean [id number] 09:20:00* Test Item Value Reference Range Interpretation Comments GLUBED (test code = GLUBED) 95 mg/dL 74-106 N Performed by certified pattern generator operator at [facility] - VERT W FRAC RED BB [id number] 08:14:00 Name: DARIELA MILLS [facility] : 1945 Age/S: 72 / F [address] Unit #: [id number] Loc: [place] [address] Phys: Ryan Valdez MD Acct: [id number] Dis Date: Status: ADM IN PHONE #: [phone] Exam Date: 07/01/2018 1411 FAX #: [phone] Reason: EXAMS: CPT CODE: [id number] VERT W FRAC RED BB LUMBAR [id number] Fluoro Time: 522 DAP (Gy m2): 336233 Air Kerma (mGy): 926.8 EXAM: Percutaneous lumbar kyphoplasty; INFORMATION: Patient with severe lower back pain after fall; an MRI scan has demonstrated a subacute fracture of the L1 vertebral body. The patient is also status post posterior fusion of L4 and L5. TECHNIQUE AND FINDINGS: Benefits and risks of procedure including risks of hemorrhage, infection and cement leakage with possible nerve injury, were explained to the patient and informed consent was obtained. She was placed prone on the procedure table and general anesthesia was initiated. The patient's skin in the lumbar region was prepped and draped in the usual sterile fashion, applying all elements of maximal sterile barrier technique. Marcaine was administered at the skin and at the posterior asp ect of the pedicles of L1. Trocar cannulas were then inserted throug h both pedicles into the posterior 3rd of the L1 vertebral body. Coaxial bone marrow biopsy was performed followed by insertion of a bone drill and augmentation balloons. After deflation and removal of the balloons bone cement was slowly injected and good distribution was seen within the L1 ve rtebral body. Cement leakage occurred into the T12/L1 disc. This is of n o clinical significance. No evidence of posterior, epidural leakage. Trocar cannulas were removed. No apparent complications. IMPRESSION: 1. Technically successful percutaneous kyphoplasty for treatment of a symptomatic compression fracture of L1. 2. The procedure was combined with coaxial bone marrow biopsy. Fluor oscopy Time: 522 sec CAK : 926.85 mGy DAP : 209703 mGy sq cm at 0814 Reported and signed by: Ryan Valdez M.D. PAGE 1 Sig luca Report (CONTINUED) Name: DARIELA MILLS [facility] : 1945 Age/S: 72 / F 40 [facility] Unit #: [id number] Loc: [place] [address] Phys: Ryan Valdez MD Acct: [id number] Dis Date: Status: ADM IN PHONE #: [phone] Exam Date: 07/01/2018 1411 FAX #: [phone] Reason: EXAMS: CPT CODE: [id number] VERT W FRAC RED BB LUMBAR [id number] Fluoro Time: 522 DAP (Gy m2): 697741 Air Kerma (mGy): 926.8 < Continued> CC: Cleo Bennett MD; Ryan Valdez MD Technologist: VINOD SIERRA RT(R) Trnscb Date/Time: 07/02/2018 (813) tOLIVIA Orig Print D/T: S: 07/02/2018 (816) PAGE 2 Signed Report BASIC METABOLIC [id number] 07:57:00* Test Item Value Reference Range Interpretation Comments SODIUM (test code = NA) 147 mmol/L 136-145 H POTASSIUM (test code = K) 4.7 mmol/L 3.5-5.1 N CHLORIDE (test code = CL) 118.0 mmol/L 98-107 H CARBON DIOXIDE (test code = CO2) 22.0 mmol/L 21-32 N ANION GAP (test code = GAP) 11.7 10-20 N GLUCOSE (test code = GLU) 80 mg/dL 74-106 N BLOOD UREA NITROGEN (test code = BUN) 42 mg/dL 7-18 H GLOMERULAR FILTRATION RATE (test code = GFR) 24 mL/min >=60 Estimated GFR by using Modified MDRD formula.Chronic kidney disease is defined as either kidney damageor GFR <60 mL/min/1.73 m2 for >3 months. CREATININE (test code = CREAT) 2.00 mg/dL 0.55-1.02 H Note change in reference range due to change in reagent. BUN/CREATININE RATIO (test code = BUN/CREA) 21.0 10-20 H CALCIUM (test code = CA) 8.6 mg/dL 8.5-10.1 N BASIC METABOLIC [id number] 07:55:00* Test Item Value Reference Range Interpretation Comments SODIUM (test code = NA) 147 mmol/L 136-145 H POTASSIUM (test code = K) 4.7 mmol/L 3.5-5.1 N CHLORIDE (test code = CL) 118.0 mmol/L 98-107 H CARBON DIOXIDE (test code = CO2) mmol/L 21-32 ANION GAP (test code = GAP) 10-20 GLUCOSE (test code = GLU) mg/dL 74-106 BLOOD UREA NITROGEN (test code = BUN) mg/dL 7-18 GLOMERULAR FILTRATION RATE (test code = GFR) mL/min >=60 CREATININE (test code = CREAT) mg/dL 0.55-1.02 BUN/CREATININE RATIO (test code = BUN/CREA) 10-20 CALCIUM (test code = CA) 8.6 mg/dL 8.5-10.1 N [id number] 16:35:00* Test Item Value Reference Range Interpretation Comments GLUBED (test code = GLUBED) 104 mg/dL 74-106 N Performed by certified pattern generator operator at [facility] COMPREHENSIVE METABOLIC [id number] 11:36:00* Test Item Value Reference Range Interpretation Comments SODIUM (test code = NA) 144 mmol/L 136-145 N POTASSIUM (test code = K) 5.4 mmol/L 3.5-5.1 H CHLORIDE (test code = CL) 113.0 mmol/L 98-107 H CARBON DIOXIDE (test code = CO2) 22.0 mmol/L 21-32 N ANION GAP (test code = GAP) 14.4 10-20 N GLUCOSE (test code = GLU) 134 mg/dL 74-106 H BLOOD UREA NITROGEN (test code = BUN) 51 mg/dL 7-18 H GLOMERULAR FILTRATION RATE (test code = GFR) 21 mL/min >=60 Estimated GFR by using Modified MDRD formula.Chronic kidney disease is defined as either kidney damageor GFR <60 mL/min/1.73 m2 for >3 months. CREATININE (test code = CREAT) 2.30 mg/dL 0.55-1.02 H Note change in reference range due to change in reagent. BUN/CREATININE RATIO (test code = BUN/CREA) 22.2 10-20 H TOTAL PROTEIN (test code = PROT) 7.1 gram/dL 6.4-8.2 N ALBUMIN (test code = ALB) 3.4 g/dL 3.4-5.0 N GLOBULIN (test code = GLOB) 3.7 gram/dL 2.7-4.2 N ALBUMIN/GLOBULIN RATIO (test code = A/G) 0.9 0.75-1.50 N CALCIUM (test code = CA) 9.4 mg/dL 8.5-10.1 N BILIRUBIN TOTAL (test code = BILT) 0.30 mg/dL 0.0-1.0 N SGOT/AST (test code = AST) 12 IUnit/L 15-37 L SGPT/ALT (test code = ALT) 13 IUnit/L 12-78 N ALKALINE PHOSPHATASE TOTAL (test code = ALKP) 97 IUnit/L 45-117 N Note change in reference range due to change in reagent. COMPREHENSIVE METABOLIC [id number] 11:28:00* Test Item Value Reference Range Interpretation Comments SODIUM (test code = NA) 144 mmol/L 136-145 N POTASSIUM (test code = K) 5.4 mmol/L 3.5-5.1 H CHLORIDE (test code = CL) 113.0 mmol/L 98-107 H CARBON DIOXIDE (test code = CO2) mmol/L 21-32 ANION GAP (test code = GAP) 10-20 GLUCOSE (test code = GLU) mg/dL 74-106 BLOOD UREA NITROGEN (test code = BUN) mg/dL 7-18 GLOMERULAR FILTRATION RATE (test code = GFR) mL/min >=60 CREATININE (test code = CREAT) mg/dL 0.55-1.02 BUN/CREATININE RATIO (test code = BUN/CREA) 10-20 TOTAL PROTEIN (test code = PROT) gram/dL 6.4-8.2 ALBUMIN (test code = ALB) g/dL 3.4-5.0 GLOBULIN (test code = GLOB) gram/dL 2.7-4.2 ALBUMIN/GLOBULIN RATIO (test code = A/G) 0.75-1.50 CALCIUM (test code = CA) mg/dL 8.5-10.1 BILIRUBIN TOTAL (test code = BILT) mg/dL 0.0-1.0 SGOT/AST (test code = AST) IUnit/L 15-37 SGPT/ALT (test code = ALT) IUnit/L 12-78 ALKALINE PHOSPHATASE TOTAL (test code = ALKP) IUnit/L 45-117 [id number] 11:03:00* Test Item Value Reference Range Interpretation Comments GLUBED (test code = GLUBED) 131 mg/dL 74-106 H Performed by certified pattern generator operator at [facility] CBC W/AUTO [id number] 16:41:00* Test Item Value Reference Range Interpretation Comments WHITE BLOOD CELL (test code = WBC) 9.1 K/mm3 4.5-12.5 N RED BLOOD CELL (test code = RBC) 3.96 mill/mm3 3.7-5.2 N HEMOGLOBIN (test code = HGB) 11.1 gram/dL 11.5-15.5 L HEMATOCRIT (test code = HCT) 37.3 % 36.0-46.0 N MEAN CELL VOLUME (test code = MCV) 94.2 fL 80-98 N MEAN CELL HGB (test code = MCH) 28.0 picogram 27.0-33.0 N MEAN CELL HGB CONCETRATION (test code = MCHC) 29.8 gram/dL 33.0-36. 0 L RED CELL DISTRIBUTION WIDTH (test code = RDW) 15.5 % 11.6-16. 2 N RED CELL DISTRIBUTION WIDTH SD (test code = RDW-SD) 53.2 fL 37 .0-51.0 H PLATELET COUNT (test code = PLT) 194 K/mm3 150-450 N MEAN PLATELET VOLUME (test code = MPV) TEST NOT PERFORMED fL 6.7-11 .0 Unable to determine due to platelet abnormality , please seethe platelet morphology. NEUTROPHIL % (test code = NT%) 81.4 % 39.0-69.0 H IMMATURE GRANULOCYTE % (test code = IG%) 0.6 % 0.0-5.0 N LYMPHOCYTE % (test code = LY%) 10.9 % 25.0-55.0 L MONOCYTE % (test code = MO%) 5.6 % 0.0-10.0 N EOSINOPHIL % (test code = EO%) 1.2 % 0.0-5.0 N BASOPHIL % (test code = BA%) 0.3 % 0.0-1.0 N NUCLEATED RBC % (test code = NRBC%) 0.0 % 0-0 N NEUTROPHIL # (test code = NT#) 7.37 K/mm3 1.8-7.7 N IMMATURE GRANULOCYTE # (test code = IG#) 0.05 x10 3/uL 0-0.03 H LYMPHOCYTE # (test code = LY#) 0.99 K/mm3 1.0-5.0 L MONOCYTE # (test code = MO#) 0.51 K/mm3 0-0.8 N EOSINOPHIL # (test code = EO#) 0.11 K/mm3 0.0-0.5 N BASOPHIL # (test code = BA#) 0.03 K/mm3 0.0-0.2 N NUCLEATED RBC # (test code = NRBC#) 0.00 K/mm3 0.0-0.1 N MANUAL DIFF REQUIRED (test code = MDIFF) NO, ONLY SCAN NEEDED DIFFERENTIAL [id number] 16:41:00* Test Item Value Reference Range Interpretation Comments STAIN ACCEPTABILITY (test code = STN ACCEPTABLE) STAIN ACCEPTABLE POIKILOCYTOSIS (test code = POIK) 1+ ANISOCYTOSIS (test code = ANISO) 1+ PLATELET ESTIMATE (test code = PLTEST) ADEQUATE PLATELET MORPHOLOGY (test code = PLTMORPH) NORMAL COMPREHENSIVE METABOLIC [id number] 16:24:00* Test Item Value Reference Range Interpretation Comments SODIUM (test code = NA) 139 mmol/L 136-145 N POTASSIUM (test code = K) 5.5 mmol/L 3.5-5.1 H CHLORIDE (test code = CL) 111.0 mmol/L 98-107 H CARBON DIOXIDE (test code = CO2) 20.0 mmol/L 21-32 L ANION GAP (test code = GAP) 13.5 10-20 N GLUCOSE (test code = GLU) 258 mg/dL 74-106 H BLOOD UREA NITROGEN (test code = BUN) 61 mg/dL 7-18 H GLOMERULAR FILTRATION RATE (test code = GFR) 19 mL/min >=60 Estimated GFR by using Modified MDRD formula.Chronic kidney disease is defined as either kidney damageor GFR <60 mL/min/1.73 m2 for >3 months. CREATININE (test code = CREAT) 2.50 mg/dL 0.55-1.02 H Note change in reference range due to change in reagent. BUN/CREATININE RATIO (test code = BUN/CREA) 24.4 10-20 H TOTAL PROTEIN (test code = PROT) 7.4 gram/dL 6.4-8.2 N ALBUMIN (test code = ALB) 3.4 g/dL 3.4-5.0 N GLOBULIN (test code = GLOB) 4.0 gram/dL 2.7-4.2 N ALBUMIN/GLOBULIN RATIO (test code = A/G) 0.9 0.75-1.50 N CALCIUM (test code = CA) 9.6 mg/dL 8.5-10.1 N BILIRUBIN TOTAL (test code = BILT) 0.20 mg/dL 0.0-1.0 N SGOT/AST (test code = AST) 9 IUnit/L 15-37 L SGPT/ALT (test code = ALT) 15 IUnit/L 12-78 N ALKALINE PHOSPHATASE TOTAL (test code = ALKP) 102 IUnit/L 45-117 N Note change in reference range due to change in reagent. PROTHROMBIN [id number] 16:20:00* Test Item Value Reference Range Interpretation Comments PROTHROMBIN TIME PATIENT (test code = PTP) 12.8 seconds 9.0-14.0 N INTERNATIONAL NORMAL RATIO (test code = INR) 1.1 0.8-1.2 N The therapeutic range for oral anticoagulant therapy formost indications is an international normalized ratio (INR)of between 2.0 and 3.0. The recommended therapeutic INRrange for various clinical situations is listed below: Clinical Situation INR range Pulmonary e mbolism treatment (2.0-3.0)Venous thrombosis treatmentVenous thrombosis prophylaxis (high risk surgery)Prevention of systemic embolism from: Acute myocardial infarction Valvular heart disease Atrial fibrillation Mechanical prosthetic heart valves (2.5-3.5) THROMBOPLASTIN TIME [id number] 16:20:00* Test Item Value Reference Range Interpretation Comments THROMBOPLASTIN TIME PARTIAL (test code = PTT) 32.2 seconds 25.0-36. 5 N COMPREHENSIVE METABOLIC [id number] 16:10:00* Test Item Value Reference Range Interpretation Comments SODIUM (test code = NA) 139 mmol/L 136-145 N POTASSIUM (test code = K) 5.5 mmol/L 3.5-5.1 H CHLORIDE (test code = CL) 111.0 mmol/L 98-107 H CARBON DIOXIDE (test code = CO2) mmol/L 21-32 ANION GAP (test code = GAP) 10-20 GLUCOSE (test code = GLU) mg/dL 74-106 BLOOD UREA NITROGEN (test code = BUN) mg/dL 7-18 GLOMERULAR FILTRATION RATE (test code = GFR) mL/min >=60 CREATININE (test code = CREAT) mg/dL 0.55-1.02 BUN/CREATININE RATIO (test code = BUN/CREA) 10-20 TOTAL PROTEIN (test code = PROT) gram/dL 6.4-8.2 ALBUMIN (test code = ALB) g/dL 3.4-5.0 GLOBULIN (test code = GLOB) gram/dL 2.7-4.2 ALBUMIN/GLOBULIN RATIO (test code = A/G) 0.75-1.50 CALCIUM (test code = CA) mg/dL 8.5-10.1 BILIRUBIN TOTAL (test code = BILT) mg/dL 0.0-1.0 SGOT/AST (test code = AST) IUnit/L 15-37 SGPT/ALT (test code = ALT) IUnit/L 12-78 ALKALINE PHOSPHATASE TOTAL (test code = ALKP) IUnit/L 45-117 CBC W/AUTO [id number] 16:07:00* Test Item Value Reference Range Interpretation Comments WHITE BLOOD CELL (test code = WBC) 9.1 K/mm3 4.5-12.5 N RED BLOOD CELL (test code = RBC) 3.96 mill/mm3 3.7-5.2 N HEMOGLOBIN (test code = HGB) 11.1 gram/dL 11.5-15.5 L HEMATOCRIT (test code = HCT) 37.3 % 36.0-46.0 N MEAN CELL VOLUME (test code = MCV) 94.2 fL 80-98 N MEAN CELL HGB (test code = MCH) 28.0 picogram 27.0-33.0 N MEAN CELL HGB CONCETRATION (test code = MCHC) 29.8 gram/dL 33.0-36. 0 L RED CELL DISTRIBUTION WIDTH (test code = RDW) 15.5 % 11.6-16. 2 N RED CELL DISTRIBUTION WIDTH SD (test code = RDW-SD) 53.2 fL 37 .0-51.0 H PLATELET COUNT (test code = PLT) 194 K/mm3 150-450 N MEAN PLATELET VOLUME (test code = MPV) TEST NOT PERFORMED fL 6.7-11 .0 Unable to determine due to platelet abnormality , please seethe platelet morphology. NEUTROPHIL % (test code = NT%) 81.4 % 39.0-69.0 H IMMATURE GRANULOCYTE % (test code = IG%) 0.6 % 0.0-5.0 N LYMPHOCYTE % (test code = LY%) 10.9 % 25.0-55.0 L MONOCYTE % (test code = MO%) 5.6 % 0.0-10.0 N EOSINOPHIL % (test code = EO%) 1.2 % 0.0-5.0 N BASOPHIL % (test code = BA%) 0.3 % 0.0-1.0 N NUCLEATED RBC % (test code = NRBC%) 0.0 % 0-0 N NEUTROPHIL # (test code = NT#) 7.37 K/mm3 1.8-7.7 N IMMATURE GRANULOCYTE # (test code = IG#) 0.05 x10 3/uL 0-0.03 H LYMPHOCYTE # (test code = LY#) 0.99 K/mm3 1.0-5.0 L MONOCYTE # (test code = MO#) 0.51 K/mm3 0-0.8 N EOSINOPHIL # (test code = EO#) 0.11 K/mm3 0.0-0.5 N BASOPHIL # (test code = BA#) 0.03 K/mm3 0.0-0.2 N NUCLEATED RBC # (test code = NRBC#) 0.00 K/mm3 0.0-0.1 N MANUAL DIFF REQUIRED (test code = MDIFF) NO, ONLY SCAN NEEDED DIFFERENTIAL [id number] 16:07:00* Test Item Value Reference Range Interpretation Comments STAIN ACCEPTABILITY (test code = STN ACCEPTABLE) CABOT RINGS (test code = CAB) MORPHOLOGY COMMENT (test code = MOC) PLATELET ESTIMATE (test code = PLTEST) PLATELET MORPHOLOGY (test code = PLTMORPH) CBC W/AUTO [id number] 16:07:00* Test Item Value Reference Range Interpretation Comments WHITE BLOOD CELL (test code = WBC) 9.1 K/mm3 4.5-12.5 N RED BLOOD CELL (test code = RBC) 3.96 mill/mm3 3.7-5.2 N HEMOGLOBIN (test code = HGB) 11.1 gram/dL 11.5-15.5 L HEMATOCRIT (test code = HCT) 37.3 % 36.0-46.0 N MEAN CELL VOLUME (test code = MCV) 94.2 fL 80-98 N MEAN CELL HGB (test code = MCH) 28.0 picogram 27.0-33.0 N MEAN CELL HGB CONCETRATION (test code = MCHC) 29.8 gram/dL 33.0-36. 0 L RED CELL DISTRIBUTION WIDTH (test code = RDW) 15.5 % 11.6-16. 2 N RED CELL DISTRIBUTION WIDTH SD (test code = RDW-SD) 53.2 fL 37 .0-51.0 H PLATELET COUNT (test code = PLT) 194 K/mm3 150-450 N MEAN PLATELET VOLUME (test code = MPV) TEST NOT PERFORMED fL 6.7-11 .0 Unable to determine due to platelet abnormality , please seethe platelet morphology. NEUTROPHIL % (test code = NT%) 81.4 % 39.0-69.0 H IMMATURE GRANULOCYTE % (test code = IG%) 0.6 % 0.0-5.0 N LYMPHOCYTE % (test code = LY%) 10.9 % 25.0-55.0 L MONOCYTE % (test code = MO%) 5.6 % 0.0-10.0 N EOSINOPHIL % (test code = EO%) 1.2 % 0.0-5.0 N BASOPHIL % (test code = BA%) 0.3 % 0.0-1.0 N NUCLEATED RBC % (test code = NRBC%) 0.0 % 0-0 N NEUTROPHIL # (test code = NT#) 7.37 K/mm3 1.8-7.7 N IMMATURE GRANULOCYTE # (test code = IG#) 0.05 x10 3/uL 0-0.03 H LYMPHOCYTE # (test code = LY#) 0.99 K/mm3 1.0-5.0 L MONOCYTE # (test code = MO#) 0.51 K/mm3 0-0.8 N EOSINOPHIL # (test code = EO#) 0.11 K/mm3 0.0-0.5 N BASOPHIL # (test code = BA#) 0.03 K/mm3 0.0-0.2 N NUCLEATED RBC # (test code = NRBC#) 0.00 K/mm3 0.0-0.1 N MANUAL DIFF REQUIRED (test code = MDIFF) NO, ONLY SCAN NEEDED DIFFERENTIAL [id number] 16:07:00* Test Item Value Reference Range Interpretation Comments STAIN ACCEPTABILITY (test code = STN ACCEPTABLE) CABOT RINGS (test code = CAB) MORPHOLOGY COMMENT (test code = MOC) PLATELET ESTIMATE (test code = PLTEST) PLATELET MORPHOLOGY (test code = PLTMORPH) CBC W/AUTO [id number] 16:07:00* Test Item Value Reference Range Interpretation Comments WHITE BLOOD CELL (test code = WBC) 9.1 K/mm3 4.5-12.5 N RED BLOOD CELL (test code = RBC) 3.96 mill/mm3 3.7-5.2 N HEMOGLOBIN (test code = HGB) 11.1 gram/dL 11.5-15.5 L HEMATOCRIT (test code = HCT) 37.3 % 36.0-46.0 N MEAN CELL VOLUME (test code = MCV) 94.2 fL 80-98 N MEAN CELL HGB (test code = MCH) 28.0 picogram 27.0-33.0 N MEAN CELL HGB CONCETRATION (test code = MCHC) 29.8 gram/dL 33.0-36. 0 L RED CELL DISTRIBUTION WIDTH (test code = RDW) 15.5 % 11.6-16. 2 N RED CELL DISTRIBUTION WIDTH SD (test code = RDW-SD) 53.2 fL 37 .0-51.0 H PLATELET COUNT (test code = PLT) 194 K/mm3 150-450 N MEAN PLATELET VOLUME (test code = MPV) TEST NOT PERFORMED fL 6.7-11 .0 Unable to determine due to platelet abnormality , please seethe platelet morphology. NEUTROPHIL % (test code = NT%) 81.4 % 39.0-69.0 H IMMATURE GRANULOCYTE % (test code = IG%) 0.6 % 0.0-5.0 N LYMPHOCYTE % (test code = LY%) 10.9 % 25.0-55.0 L MONOCYTE % (test code = MO%) 5.6 % 0.0-10.0 N EOSINOPHIL % (test code = EO%) 1.2 % 0.0-5.0 N BASOPHIL % (test code = BA%) 0.3 % 0.0-1.0 N NUCLEATED RBC % (test code = NRBC%) 0.0 % 0-0 N NEUTROPHIL # (test code = NT#) 7.37 K/mm3 1.8-7.7 N IMMATURE GRANULOCYTE # (test code = IG#) 0.05 x10 3/uL 0-0.03 H LYMPHOCYTE # (test code = LY#) 0.99 K/mm3 1.0-5.0 L MONOCYTE # (test code = MO#) 0.51 K/mm3 0-0.8 N EOSINOPHIL # (test code = EO#) 0.11 K/mm3 0.0-0.5 N BASOPHIL # (test code = BA#) 0.03 K/mm3 0.0-0.2 N NUCLEATED RBC # (test code = NRBC#) 0.00 K/mm3 0.0-0.1 N MANUAL DIFF REQUIRED (test code = MDIFF) NO, ONLY SCAN NEEDED DIFFERENTIAL [id number] 16:07:00* Test Item Value Reference Range Interpretation Comments STAIN ACCEPTABILITY (test code = STN ACCEPTABLE) MORPHOLOGY COMMENT (test code = MOC) PLATELET ESTIMATE (test code = PLTEST) PLATELET MORPHOLOGY (test code = PLTMORPH) CBC W/AUTO [id number] 16:06:00* Test Item Value Reference Range Interpretation Comments WHITE BLOOD CELL (test code = WBC) 9.1 K/mm3 4.5-12.5 N RED BLOOD CELL (test code = RBC) 3.96 mill/mm3 3.7-5.2 N HEMOGLOBIN (test code = HGB) 11.1 gram/dL 11.5-15.5 L HEMATOCRIT (test code = HCT) 37.3 % 36.0-46.0 N MEAN CELL VOLUME (test code = MCV) 94.2 fL 80-98 N MEAN CELL HGB (test code = MCH) 28.0 picogram 27.0-33.0 N MEAN CELL HGB CONCETRATION (test code = MCHC) 29.8 gram/dL 33.0-36. 0 L RED CELL DISTRIBUTION WIDTH (test code = RDW) 15.5 % 11.6-16. 2 N RED CELL DISTRIBUTION WIDTH SD (test code = RDW-SD) 53.2 fL 37 .0-51.0 H PLATELET COUNT (test code = PLT) 194 K/mm3 150-450 N MEAN PLATELET VOLUME (test code = MPV) TEST NOT PERFORMED fL 6.7-11 .0 Unable to determine due to platelet abnormality , please seethe platelet morphology. NEUTROPHIL % (test code = NT%) 81.4 % 39.0-69.0 H IMMATURE GRANULOCYTE % (test code = IG%) 0.6 % 0.0-5.0 N LYMPHOCYTE % (test code = LY%) 10.9 % 25.0-55.0 L MONOCYTE % (test code = MO%) 5.6 % 0.0-10.0 N EOSINOPHIL % (test code = EO%) 1.2 % 0.0-5.0 N BASOPHIL % (test code = BA%) 0.3 % 0.0-1.0 N NUCLEATED RBC % (test code = NRBC%) 0.0 % 0-0 N NEUTROPHIL # (test code = NT#) 7.37 K/mm3 1.8-7.7 N IMMATURE GRANULOCYTE # (test code = IG#) 0.05 x10 3/uL 0-0.03 H LYMPHOCYTE # (test code = LY#) 0.99 K/mm3 1.0-5.0 L MONOCYTE # (test code = MO#) 0.51 K/mm3 0-0.8 N EOSINOPHIL # (test code = EO#) 0.11 K/mm3 0.0-0.5 N BASOPHIL # (test code = BA#) 0.03 K/mm3 0.0-0.2 N NUCLEATED RBC # (test code = NRBC#) 0.00 K/mm3 0.0-0.1 N MANUAL DIFF REQUIRED (test code = MDIFF) NO, ONLY SCAN NEEDED DIFFERENTIAL [id number] 16:06:00* Test Item Value Reference Range Interpretation Comments STAIN ACCEPTABILITY (test code = STN ACCEPTABLE) CABOT RINGS (test code = CAB) MORPHOLOGY COMMENT (test code = MOC) PLATELET ESTIMATE (test code = PLTEST) PLATELET MORPHOLOGY (test code = PLTMORPH) - CT PELVIS W/O [id number] 08:56:00 Name: DARIELA MILLS [facility] : 1945 Age/S: 72 / F [address] [facility] Unit #: [id number] Loc: [place] [address] Phys: Juvenal Lawson MD Acct: [id number] Dis Date: Status: REG ER PHONE #: [phone] Exam Date: 05/30/2018 0848 FAX #: [phone] Reason: Fall, L hip pain EXAMS: CPT CODE: [id number] CT PELVIS W/O CONTRAST 97763 EXAM: CT of the pelvis without contrast; INFORMATION: Left hip pain after fall; TECHNIQUE AND FINDINGS: CT dose reduction protocol; 2.5 mm axial scans without contrast; FINDINGS: Pelvis, sacrum, coccyx and both hip joints are intact; no evidence of fracture or dislocation. Status post posterior fusion of L4 and 5 with 2 longitudinal rods and transpedicular screws and with interbody spacer. Soft tissue windows show no evidence of pelvic mass lesions. Small calcifications are seen in the uterus consistent with calcified fibroids. There are also calcified plaques in the aorta and iliofemoral arteries. There are sigmoid diverticula without evidence of diverticulitis. Small gluteal injection granulomas on the right. IMPRESSION: 1. No evidence of acute osseous trauma. 2. Sigmoid diverticulosis without evidence of diverticulitis. 3. Small calcified uterine fibroids. 4. Status post posterior fusion of the lower lumbar spine. at 0856 Reported and signed by: Ryan Valdez M.D. CC: Juvenal Lawson MD; Cleo Bennett MD Technologist:Tasha Briceno,RT(R),CT CTDI: DLP: Trnscb Date/Time: 05/30/2018 (0856) [email or web address] Orig Print D/T: S: 05/30/2018 (0859) CTDI: DLP: PAGE 1 Signed Report Urine [id number] 20:58:00* Test Item Value Reference Range Interpretation Comments Urine Color (test code = 5778-6) [facility]LLOW [facility]LLOW [facility] [id number] 20:58:00* Test Item Value Reference Range Interpretation Comments Urine Clarity (test code = 12852-3) HAZY CLEAR [facility] [id number] 20:58:00 * Test Item Value Reference Range Interpretation Comments Urine Specific [place] (test code = 5811-5) 1.030 1.010-1.02 5 H [facility] [id number] 20:58:00* Test Item Value Reference Range Interpretation Comments Urine pH (test code = 91666-3) 6 5-7 [facility] Leukocyte [id number] 20:58:00* Test Item Value Reference Range Interpretation Comments Urine Leukocyte Esterase (test code = 5799-2) NEGATIVE NEGATIVE [facility] [id number] 20:58:00* Test Item Value Reference Range Interpretation Comments Urine Nitrite (test code = 97562-0) NEGATIVE NEGATIVE [facility] [id number] 20:58:00* Test Item Value Reference Range Interpretation Comments Urine Protein (test code = 5804-0) 2+ NEGATIVE H [facility] Glucose (UA)2018-05-25 20:58:00* Test Item Value Reference Range Interpretation Comments Urine Glucose (UA) (test code = 2349-9) NEGATIVE NEGATIVE [facility] Gsrsmhv4239-73-80 20:58:00* Test Item Value Reference Range Interpretation Comments Urine Ketones (test code = 11345-2) NEGATIVE NEGATIVE [facility] Pbnblzunmkro4659-46-54 20:58:00* Test Item Value Reference Range Interpretation Comments Urine Urobilinogen (test code = 70473-7) 0.2 0.2-1 [facility] Ygkqebnnl7250-95-25 20:58:00* Test Item Value Reference Range Interpretation Comments Urine Bilirubin (test code = 1978-6) NEGATIVE NEGATIVE [facility] Oeiln0446-41-37 20:58:00* Test Item Value Reference Range Interpretation Comments Urine Blood (test code = 05162-9) 1+ NEGATIVE H [facility] MZD5640-48-43 20:58:00* Test Item Value Reference Range Interpretation Comments Urine WBC (test code = 5821-4) 0-5 0-5 [facility] TOI8168-01-59 20:58:00* Test Item Value Reference Range Interpretation Comments Urine RBC (test code = 49366-3) 6-10 0-5 [facility] Ftbxtrbm9410-47-65 20:58:00* Test Item Value Reference Range Interpretation Comments Urine Bacteria (test code = 65828-1) FEW NONE [facility] Epithelial Lsrlx1307-39-01 20:58:00 * Test Item Value Reference Range Interpretation Comments Urine Epithelial Cells (test code = 53038-2) MODERATE NONE [facility] Oblbu4006-67-28 20:58:00* Test Item Value Reference Range Interpretation Comments Urine Color (test code = 5778-6) YELLOW YELLOW [facility] Ycojmhg6566-20-72 20:58:00* Test Item Value Reference Range Interpretation Comments Urine Clarity (test code = 63907-3) HAZY CLEAR [facility] Specific Jnwdapf3839-35-53 20:58:00 * Test Item Value Reference Range Interpretation Comments Urine Specific [place] (test code = 5811-5) 1.030 1.010-1.02 5 H [facility] hC3665-71-50 20:58:00* Test Item Value Reference Range Interpretation Comments Urine pH (test code = 62013-3) 6 5-7 [facility] Leukocyte Chlewkln3208-12-88 20:58:00* Test Item Value Reference Range Interpretation Comments Urine Leukocyte Esterase (test code = 5799-2) NEGATIVE NEGATIVE [facility] Mqweftn2103-91-76 20:58:00* Test Item Value Reference Range Interpretation Comments Urine Nitrite (test code = 15861-2) NEGATIVE NEGATIVE [facility] Gpmjhot8556-36-27 20:58:00* Test Item Value Reference Range Interpretation Comments Urine Protein (test code = 5804-0) 2+ NEGATIVE H [facility] Glucose (UA)2018-05-25 20:58:00* Test Item Value Reference Range Interpretation Comments Urine Glucose (UA) (test code = 2349-9) NEGATIVE NEGATIVE [facility] Hxbroiv4126-43-43 20:58:00* Test Item Value Reference Range Interpretation Comments Urine Ketones (test code = 24580-3) NEGATIVE NEGATIVE [facility] Ewpcyqaixdfl0211-11-95 20:58:00* Test Item Value Reference Range Interpretation Comments Urine Urobilinogen (test code = 32249-7) 0.2 0.2-1 [facility] Lzrtsxgrl0855-19-18 20:58:00* Test Item Value Reference Range Interpretation Comments Urine Bilirubin (test code = 1978-6) NEGATIVE NEGATIVE [facility] Nkuej3204-67-82 20:58:00* Test Item Value Reference Range Interpretation Comments Urine Blood (test code = 31873-1) 1+ NEGATIVE H [facility] ZJJ3476-73-49 20:58:00* Test Item Value Reference Range Interpretation Comments Urine WBC (test code = 5821-4) 0-5 0-5 [facility] ZDE5671-95-94 20:58:00* Test Item Value Reference Range Interpretation Comments Urine RBC (test code = 53691-0) 6-10 0-5 [facility] Ymnrqycy5689-25-07 20:58:00* Test Item Value Reference Range Interpretation Comments Urine Bacteria (test code = 17185-4) FEW NONE [facility] Epithelial Fvkvo7568-41-73 20:58:00 * Test Item Value Reference Range Interpretation Comments Urine Epithelial Cells (test code = 69780-3) MODERATE NONE [facility] CenterKNEE RIGHT THREE AHKRV6721-88-84 20:37:00 [facility] [address] [address] Patient Name: DARIELA MILLS MR #: [id number] : 946 Age/Sex: 72/F Req #: [id number] Adm Physician: Ordered by: JASON CONTRERAS MD Report #: [id number] Location: ER Room/Bed: Procedure: [id number] DX/ KNEE RIGHT THREE VIEWS Exam Date: Exam Time: REPORT STATUS: Signed KNEE RIGHT THREE VIEWS - 3 views HISTORY: Pain COMPARISON: None available. FI NDINGS: Bones: No acute displaced fracture. Osseous alignment is within normal limits. Joints: Medial and patellofemoral compartment joint space narrowing. Soft tissues: Vascular calcifications. IMPRESSION: No acute fracture or dislocation of the right knee. Signed by: Dr. Kylah breen MD on 05/25/2018 8:38 PM Dictated By: KYLAH BELL MD [facility] Signed By: KYLAH BELL MD on 05/25/182037 Transcribed By: BRAN on 2037 COPY TO: JASON CONTRERAS MD KNEE LEFT THREE VIEWS 2018-05-25 20:36:[address] [address] Patient Name: DARIELA MILLS MR #: [id number] : 1945 Age/Sex: 72/F Req #: [id number] Adm Physician: Ordered by: JASON CONTRERAS MD Report #: [id number] Location: ER Room/Bed: Procedure: [id number] DX/ KNEE LEFT THREE VIEWS Exam Date: Exam Time: REPORT STATUS: Signed KNEE LEFT THREE VIEWS - 3 views HISTORY: Pain COMPARISON: None available. FIND INGS: Bones: No acute displaced fracture. Osseous alignment is within no rmal limits. Joints: Medial and patellofemoral compartment narrowing. Soft tissues: Vascular calcifications. IMPRESSION: No acute fract ure or dislocation of the left knee. Signed by: Dr. Kylah Bell MD on 8:37 PM Dictated By: KYLAH BLEL MD 36 Transcribed By: BRAN on 05/25/182036 COPY TO: JASON CONTRERAS MD HIP RIGHT 2-3 VW (+/- PELVIS)2018-05-25 20:35:00 [address] [address] Patient Name: DARIELA MILLS MR #: [id number] : 1945 Age/Sex: 72/F Req #: [id number] Adm Physician: Ordered by: JASON CONTRERAS MD Report #: [id number] Location: ER Room/Bed: Procedure: [id number] DX/ HIP RIGHT 2-3 VW (+/- PELVIS) Exam Date: Exam Time: REPORT STATUS: Signed HIP RIGHT 2-3 VW (+/- PELVIS) - 3 views HISTORY: Fall COMPARISON: None available. FINDINGS: See impression. IMPRESSION: No acute fracture or dislocation of the right hip. Signed by: Dr. Kylah Bell MD on 05/25/2018 8:35 PM Dictated By: KYLAH BELL MD 34 Transcribed By: BRAN on 05/25/182034 COPY TO: JASON CONTRERAS MD HIP LEFT 2-3 VW (+/- PELVIS)2018-05-25 20:32:00 [address] [address] Patient Name: DARIELA MILLS MR #: [id number] : 1945 Age/Sex: 72/F Req #: [id number] Adm Physician: Ordered by: JASON CONTRERAS MD Report #: [id number] Location: ER Room/Bed: Procedure: [id number] DX/ HIP LEFT 2-3 VW (+/- PELVIS) Exam Date: Exam Time: REPORT STATUS: Signed HIP LEFT 2-3 VW (+/- PELVIS) - 3 views HISTORY: Fall COMPARISON: None available. FINDINGS: See impression. IMPRESSION: No acute fracture or dislocation of the left hip. Partially seen lumbar spine fusion hardware and disc spacer. Vascular calcifications. Signed by: Dr. Kylah Bell MD on 05/25/2018 8:35 PM Dictated By: KYLAH BELL MD 34 Transcribed By: BRAN on 05/25/182034 COPY TO: JASON CONTRERAS MD INTERVERTEBRAL RCCD9126-07-25 13:27:00 RUN DATE: 01/24/[address] [facility] PAGE 1 RUN TIME: 1327 Specimen Inqui ry RUN USER: INTERFACE PATIENT: DARIELA MILLS ACCT #: [id number] LOC: [facility] #: [id number] AGE/SX: 72/F ROOM: 2080 RE01/23/18REG DR: Fede Vargas MD : 45 BED: A DIS: STATUS: ADM IN TLOC: SPEC #: [id number] RECD: 01/23/18 STATUS: CAROL OBRIEN #: [id number] MELVIN: 01/23/18 DR: Fede Vargas MD ENTERED: 01/23/18 SP TYPE: INT DISC OTHR DR: Cleo Mercado MD ORDERED: GROSS COPIES TO: Fede Vargas MD [address] [place], [place] [address] Cleo Bennett MD [address] [place] [address] PROCEDURES: GROSS ( 8-1215) TISSUES: LUMBAR REGION - DISC CLINICAL HISTORY MELVIN ECTION DATE: 01/23/2018 L4-5 SPONDYLOLISTHESIS FINAL DIAGNOSIS Lumbar disc, L4-5, discectomy: INTERVERTEBRAL DISC MATERIAL NEGAT LEANDRA FOR MALIGNANCY DMW/ifeoma D [address], [address] MACROSCOPIC The specimen is received in formalin labeled with the patient's name, "lumbar disc" and consists of irregular fragments of johnson fibrous tissue and small fra gments of possible bone. The specimen measures 4.0 X 4.0 X 0.8 cm in aggregat e. After decalcification public health representative portions are submitted for histologic evaluation in a single cassette. CONTINUED ON NEXT PAGE RUN DATE: 01/24/[address] [facility] PAGE 2 RUN TIME: 1327 Specimen Inquiry RUN USER: INTERFACE SPEC #: [id number] PATIENT: DARIELA MILLS #[id number] (Continued) MACROSCOPIC (Continued) GROSS PERFORMED AT [address] [address] (P) MICROSCOPIC MICROSCOPIC PERFORMED AT [facility] All of the stains, including any controls performed, stain appropriately. [facility] [address] [place] [phone] PERFORMING SITE Diagnosis performed at: [facility], [address] [address] Signed SIGNATURE ON FILE Yoseph isBia 01/24/[address] ABD/PEL WO DTHHZBDX-UMUR3963-25-08 22:13:00 [address] [address] Patient Name: DARIELA MILLS MR #: [id number] : 1945 Age/Sex: 72/F Req #: [id number] Adm Physician: Ordered by: KANDI HAMM MD Report #: [id number] Location: [facility]/Bed: Procedure: [id number] HOPD/CT ABD/PEL WO CONT RAST-HOPD Exam Date: 12/08/17 Exam Time: 2150 REPORT STATUS: Signed EXAM: CT ABD/PEL WO CONTRAST-HOPD DATE: 12/08/2017 12:0 0 AM INDICATION: Constipation, left flank pain COMPARISON: None TECHN IQUE: The abdomen and pelvis were scanned using a multidetector helical scanne r. Coronal and sagittal reformations were obtained. CT low dose techniques we re utilized, as applicable. IV Contrast: 0 ml Isovue 300/370 FINDINGS: Lack of IV contrast and noise related to body habitus decreases sensitivity in evaluating abdominal and pelvic organs. LOWER THORAX: No consolidations. Cor onary artery and aortic atherosclerosis. LIVER/BILIARY: No masses. No tali codey dilatation. GALLBLADDER: Surgically absent SPLEEN: Unremarkable PATEL CREAS: Unremarkable ADRENALS: No nodules KIDNEYS: Bilateral renal vascula r calcifications and/or nonobstructing renal calculi. No hydronephrosis. GI TRACT: Small hiatal hernia. Moderate left colonic stool burden. Diverticulosis with mild peritoneal thickening/fluid in the left lower quadrant (image 73, coronal image 38) which may be sequelae of diverticulitis. VESSELS: Moderate to severe atherosclerotic calcifications. PERITONEUM/RETROPERITONEUM: No free air or fluid LYMPH NODES: No lymphadenopathy REPRODUCTIVE ORGANS/BLADDER: Incidental calcified fibroid. Otherwise unremarkable SOFT TISSUES: Rectus muscle diastases. BONES: Multilevel degenerative changes with grade 1 ronald listhesis of L4 over L5. IMPRESSION: Evaluation is degraded by body hab itus and lack of IV contrast. 1. Findings suspicious for uncomplicated sigmoid diverticulitis in the left lower quadrant. 2. No obstructive uropathy. Signed by: Dr Russel Smith MD on 12/08/2017 10:23 PM Dictated By: RUSSEL SMITH MD 22 Tra nscribed By: BRAN on 12/08/172222 COPY TO: KANDI HAMM MD Bedside Zjqaoqg4723-65-04 13:48:00* Test Item Value Reference Range Interpretation Comments Bedside Glucose (test code = 20479-5) 166 70-120 H Meter ID: [id number] [facility] 2017-11-28 13:48:00* Test Item Value Reference Range Interpretation Comments Bedside Glucose (test code = 51234-7) 166 70-120 H Meter ID: [id number] [address] (KUB) 2017-11-28 13:15:00 [address] [address] Patient Name: DRAIELA MILLS MR #: [id number] : 1945 Age/Sex: 72/F Req #: [id number] Adm Physician: Ordered by: RCISS PORTILLO MD Report #: [id number] Location: OR Room/Bed: Procedure: [id number] DX/ABDOMEN-1VIEW (KUB) Exam Date: 11/28/17 Exam Time: 1240 REPORT STATUS: Signed PROCEDURE: X-RAY ABDOMEN - KUB COMPARISON: None. INDIC ATIONS: PRE OPERATIVE LEFT RENAL STONE FINDINGS: One view of the a bdomen (AP supine) No dilated loops of bowel or abnormal air-fluid levels patterns. No free air underneath the diaphragm. Visualized portions of the lung bases are clear. 1.2 cm calcification is projected over the left k idney. A 1.2 cm calcification is also projected over the right kidney. There is an indeterminate 1.0 cm calcification projected over the left hemipelvis which may be a urinary stone or calcified fibroid. Five non-rib bearing lumbar type vertebral bodies identified. There are degenerative changes of th e lower lumbar spine. Cholecystectomy clips are visible. CONCLUSION: Calcifications projected over both kidneys as described above. There is an indeterminate 1 cm calcification in the left hemipelvis. This could repr esent a urinary calcification or calcified fibroid. Dictated by: Josie pittman M.D. on 11/28/2017 at 13:15 Electronically approved by: Josie dee M.D. on 11/28/2017 at 13:15 Dictated By: JOSIE Ram MD 1315 Transcribe d By: ELEONORA on 11/28/17 1315 COPY TO: CRISS PORTILLO MD CHEST 2 JRHAU1493-54-59 12:57:00 [address] [address] Patient Name: DARIELA MILLS MR #: [id number] : 1945 Age/Sex: 72/F Req #: [id number] Adm Physician: Ordered by: CRISS PORTILLO MD Report #: [id number] Location: OR Room/Bed: Procedure: [id number] DX/CHEST 2 VIEWS Exam Date: 11/23/17 Exam Time: 1234 REPORT STATUS: Signed EXAMINATION: CHEST 2 VIEWS INDICATION: COMPARI SON: Chest radiograph 04/09/2015 FINDINGS: PA and lateral views TUBES and LINES: None. LUNGS: Lungs are well inflated. Unchanged bibasi lar atelectasis. Mild chronic central pulmonary congestion. No consolidation s. PLEURA: No pleural effusion or pneumothorax. HEART AND MEDIASTINUM : Stable mild enlargement of the cardiac silhouette. Mildly tortuous thoracic aorta. Enlarged pulmonary arteries are unchanged. BONES AND SOFT TISSUES: Surgical screw overlying the right humeral head. Mild multilevel degenerative changes of the thoracic spine. Surgical clips along the right upper quadrant. UPPER ABDOMEN: No free air under the diaphragm. IMPRESSION: Stable mild enlargement of the cardiac silhouette with chronic mild central bony v ascular congestion and enlarged pulmonary arteries consistent with pulmonary h ypertension. Stable mild subsegmental atelectasis in both lower lobes. Signed by: Dr. Vernell Coyne M.D. on 11/23/2017 1:08 PM Dic tated By: VERNELL COYNE MD 1308 Transcribed By: BRAN on 11/23/17 1308 COPY TO: CRISS PORTILLO MD Sodium Forgu1923-73-84 07:32:00* Test Item Value Reference Range Interpretation Comments Sodium Level (test code = 2951-2) 143 136-145 [facility] Waddn0047-12-17 07:32:00* Test Item Value Reference Range Interpretation Comments Potassium Level (test code = 2823-3) 4.5 3.5-5.1 [facility] CenterChloride Jhulu7942-70-34 07:32:00* Test Item Value Reference Range Interpretation Comments Chloride Level (test code = 2075-0) 109 98-107 H [facility] CenterCarbon Dioxide Mkryz8192-87-26 07:32:00* Test Item Value Reference Range Interpretation Comments Carbon Dioxide Level (test code = 2028-9) 23 22-29 [facility] CenterAnion Qcz6917-40-05 07:32:00* Test Item Value Reference Range Interpretation Comments Anion Gap (test code = 96957-3) 15.5 8-16 [facility] CenterBlood Urea Iqmkloyi8747-27-66 07:32:00* Test Item Value Reference Range Interpretation Comments Blood Urea Nitrogen (test code = 3094-0) 40 7-26 H [facility] CenterCreatinine2018-02-07 07:32:00* Test Item Value Reference Range Interpretation Comments Creatinine (test code = 2160-0) 1.58 0.57-1.11 H [facility] CenterBUN/Creatinine Smpjk8930-93-83 07:32:00* Test Item Value Reference Range Interpretation Comments BUN/Creatinine Ratio (test code = 3097-3) 25 6-25 [facility] CenterEstimat Glomerular Filtration Rate 2017-05-09 07:32:00* Test Item Value Reference Range Interpretation Comments Estimat Glomerular Filtration Rate (test code = 19754-6) 32 >60 L Ranges were taken from the National Kidney Disease Education Program and the [facility] Foundation literature.Reference ranges:60 or greater: Nozxjs25-67 ( for 3 consecutive months): Chronic kidney disease 15 or less: Kidney failureWhite Rock Medical CenterGlucose Rlbfi2429-21-37 07:32:00* Test Item Value Reference Range Interpretation Comments Glucose Level (test code = LQK9938) 214 74-118 H [facility] CenterCalcium Dltsd5217-04-53 07:32:00* Test Item Value Reference Range Interpretation Comments Calcium Level (test code = 83463-8) 9.4 8.4-10.2 [facility] CenterTotal Ibglwcxab2561-80-99 07:32:00* Test Item Value Reference Range Interpretation Comments Total Bilirubin (test code = 1975-2) 0.5 0.2-1.2 [facility] CenterAspartate Amino Transf (AST/SGOT) 2017-05-09 07:32:00* Test Item Value Reference Range Interpretation Comments Aspartate Amino Transf (AST/SGOT) (test code = Aspartate Amino Transf (AST/SGOT)) 13 5-34 [facility] CenterAlanine Aminotransferase (ALT/SGPT) 2017-05-09 07:32:00* Test Item Value Reference Range Interpretation Comments Alanine Aminotransferase (ALT/SGPT) (test code = 1742-6) 13 0-55 [facility] CenterTotal Pacbduo4156-88-78 07:32:00* Test Item Value Reference Range Interpretation Comments Total Protein (test code = 2885-2) 7.3 6.5-8.1 [facility] CenterAlbumin2018-02-07 07:32:00* Test Item Value Reference Range Interpretation Comments Albumin (test code = 1751-7) 4.0 3.5-5.0 [facility] CenterGlobulin2018-02-07 07:32:00* Test Item Value Reference Range Interpretation Comments Globulin (test code = 02553-8) 3.3 2.3-3.5 [facility] CenterAlbumin/Globulin Mczvp9373-47-58 07:32:00 * Test Item Value Reference Range Interpretation Comments Albumin/Globulin Ratio (test code = 1759-0) 1.2 0.8-2.0 [facility] CenterAlkaline Sighujfojzh6120-52-27 07:32:00* Test Item Value Reference Range Interpretation Comments Alkaline Phosphatase (test code = 6768-6) 85 40-150 [facility] CenterCreatine Osnjot3213-77-75 07:32:00* Test Item Value Reference Range Interpretation Comments Creatine Kinase (test code = 2157-6) 124 29-168 [facility] CenterCreatine Kinase HK0450-24-19 07:32:00* Test Item Value Reference Range Interpretation Comments Creatine Kinase MB (test code = 52242-3) 3.60 0.00-5.00 [facility] CenterTroponin W2998-69-71 07:32:00* Test Item Value Reference Range Interpretation Comments Troponin I (test code = 27725-9) 0.026 0-0.300 [facility] Tvafv2913-89-08 07:32:00* Test Item Value Reference Range Interpretation Comments Sodium Level (test code = 2951-2) 143 136-145 [facility] CenterPotassium Cksst7691-69-64 07:32:00* Test Item Value Reference Range Interpretation Comments Potassium Level (test code = 2823-3) 4.5 3.5-5.1 [facility] CenterChloride Dbtsa1277-95-10 07:32:00* Test Item Value Reference Range Interpretation Comments Chloride Level (test code = 2075-0) 109 98-107 H [facility] CenterCarbon Dioxide Zyxcu0382-87-62 07:32:00* Test Item Value Reference Range Interpretation Comments Carbon Dioxide Level (test code = 2028-9) 23 22-29 [facility] CenterAnion Smb1522-03-62 07:32:00* Test Item Value Reference Range Interpretation Comments Anion Gap (test code = 79356-4) 15.5 8-16 [facility] CenterBlood Urea Easglcej4580-73-37 07:32:00* Test Item Value Reference Range Interpretation Comments Blood Urea Nitrogen (test code = 3094-0) 40 7-26 H [facility] CenterCreatinine2018-02-07 07:32:00* Test Item Value Reference Range Interpretation Comments Creatinine (test code = 2160-0) 1.58 0.57-1.11 H [facility] CenterBUN/Creatinine Qzrdv2574-82-74 07:32:00* Test Item Value Reference Range Interpretation Comments BUN/Creatinine Ratio (test code = 3097-3) 25 6-25 [facility] CenterEstimat Glomerular Filtration Rate 2017-05-09 07:32:00* Test Item Value Reference Range Interpretation Comments Estimat Glomerular Filtration Rate (test code = 12488-1) 32 >60 L Ranges were taken from the National Kidney Disease Education Program and the [facility] Foundation literature.Reference ranges:60 or greater: Iiwtck25-68 ( for 3 consecutive months): Chronic kidney disease 15 or less: Kidney failureWhite Rock Medical CenterGlucose Nstkr9733-57-15 07:32:00* Test Item Value Reference Range Interpretation Comments Glucose Level (test code = AFY2051) 214 74-118 H [facility] CenterCalcium Pdvug5327-06-27 07:32:00* Test Item Value Reference Range Interpretation Comments Calcium Level (test code = 56230-2) 9.4 8.4-10.2 [facility] CenterTotal Quymkspmw4301-43-66 07:32:00* Test Item Value Reference Range Interpretation Comments Total Bilirubin (test code = 1975-2) 0.5 0.2-1.2 [facility] CenterAspartate Amino Transf (AST/SGOT) 2017-05-09 07:32:00* Test Item Value Reference Range Interpretation Comments Aspartate Amino Transf (AST/SGOT) (test code = Aspartate Amino Transf (AST/SGOT)) 13 5-34 [facility] CenterAlanine Aminotransferase (ALT/SGPT) 2017-05-09 07:32:00* Test Item Value Reference Range Interpretation Comments Alanine Aminotransferase (ALT/SGPT) (test code = 1742-6) 13 0-55 [facility] CenterTotal Knrctun7725-28-43 07:32:00* Test Item Value Reference Range Interpretation Comments Total Protein (test code = 2885-2) 7.3 6.5-8.1 [facility] CenterAlbumin2018-02-07 07:32:00* Test Item Value Reference Range Interpretation Comments Albumin (test code = 1751-7) 4.0 3.5-5.0 [facility] CenterGlobulin2018-02-07 07:32:00* Test Item Value Reference Range Interpretation Comments Globulin (test code = 61227-9) 3.3 2.3-3.5 [facility] CenterAlbumin/Globulin Dhczb0056-21-92 07:32:00 * Test Item Value Reference Range Interpretation Comments Albumin/Globulin Ratio (test code = 1759-0) 1.2 0.8-2.0 [facility] CenterAlkaline Kajsssepzss8427-94-56 07:32:00* Test Item Value Reference Range Interpretation Comments Alkaline Phosphatase (test code = 6768-6) 85 40-150 [facility] CenterCreatine Ezletv4682-23-84 07:32:00* Test Item Value Reference Range Interpretation Comments Creatine Kinase (test code = 2157-6) 124 29-168 [facility] CenterCreatine Kinase ON7924-11-97 07:32:00* Test Item Value Reference Range Interpretation Comments Creatine Kinase MB (test code = 85014-7) 3.60 0.00-5.00 [facility] CenterTroponin V6555-54-74 07:32:00* Test Item Value Reference Range Interpretation Comments Troponin I (test code = POT2787) 0.026 0-0.300 [facility]stodium Enygk3320-32-88 07:32:00* Test Item Value Reference Range Interpretation Comments Sodium Level (test code = 2951-2) 143 136-145 [facility] CenterPotassium Uofxl0573-00-81 07:32:00* Test Item Value Reference Range Interpretation Comments Potassium Level (test code = 2823-3) 4.5 3.5-5.1 [facility] CenterChloride Btgli1172-87-77 07:32:00* Test Item Value Reference Range Interpretation Comments Chloride Level (test code = 2075-0) 109 98-107 H [facility] CenterCarbon Dioxide Ajrbw5046-95-53 07:32:00* Test Item Value Reference Range Interpretation Comments Carbon Dioxide Level (test code = 2028-9) 23 22-29 [facility] CenterAnion Miw4494-66-75 07:32:00* Test Item Value Reference Range Interpretation Comments Anion Gap (test code = 29202-8) 15.5 8-16 [facility] CenterBlood Urea Hgrmuglv7497-91-66 07:32:00* Test Item Value Reference Range Interpretation Comments Blood Urea Nitrogen (test code = 3094-0) 40 7-26 H [facility] CenterCreatinine2018-02-07 07:32:00* Test Item Value Reference Range Interpretation Comments Creatinine (test code = 2160-0) 1.58 0.57-1.11 H [facility] CenterBUN/Creatinine Vadts1689-07-84 07:32:00* Test Item Value Reference Range Interpretation Comments BUN/Creatinine Ratio (test code = 3097-3) 25 6-25 [facility] CenterEstimat Glomerular Filtration Rate 2017-05-09 07:32:00* Test Item Value Reference Range Interpretation Comments Estimat Glomerular Filtration Rate (test code = 09333-8) 32 >60 L Ranges were taken from the National Kidney Disease Education Program and the [facility] Kidney Foundation literature.Reference ranges:60 or greater: Dsqpoa47-57 ( for 3 consecutive months): Chronic kidney disease 15 or less: Kidney failureCHI Hendrick Medical CenterGlucose Jitaz2635-77-74 07:32:00* Test Item Value Reference Range Interpretation Comments Glucose Level (test code = PVH9714) 214 74-118 H [facility] CenterCalcium Qypcy1430-18-52 07:32:00* Test Item Value Reference Range Interpretation Comments Calcium Level (test code = 97683-1) 9.4 8.4-10.2 [facility] [facility] Bbddnvavj6789-70-51 07:32:00* Test Item Value Reference Range Interpretation Comments Total Bilirubin (test code = 1975-2) 0.5 0.2-1.2 [facility] CenterAspartate Amino Transf (AST/SGOT) 2017-05-09 07:32:00* Test Item Value Reference Range Interpretation Comments Aspartate Amino Transf (AST/SGOT) (test code = Aspartate Amino Transf (AST/SGOT)) 13 5-34 [facility] CenterAlanine Aminotransferase (ALT/SGPT) 2017-05-09 07:32:00* Test Item Value Reference Range Interpretation Comments Alanine Aminotransferase (ALT/SGPT) (test code = 1742-6) 13 0-55 [facility] CenterTotal Frzchai6248-40-21 07:32:00* Test Item Value Reference Range Interpretation Comments Total Protein (test code = 2885-2) 7.3 6.5-8.1 [facility] CenterAlbumin2018-02-07 07:32:00* Test Item Value Reference Range Interpretation Comments Albumin (test code = 1751-7) 4.0 3.5-5.0 [facility] CenterGlobulin2018-02-07 07:32:00* Test Item Value Reference Range Interpretation Comments Globulin (test code = 76970-1) 3.3 2.3-3.5 [facility] CenterAlbumin/Globulin Gnrkg5544-49-35 07:32:00 * Test Item Value Reference Range Interpretation Comments Albumin/Globulin Ratio (test code = 1759-0) 1.2 0.8-2.0 [facility] CenterAlkaline Cgievocxctb6361-35-54 07:32:00* Test Item Value Reference Range Interpretation Comments Alkaline Phosphatase (test code = 6768-6) 85 40-150 [facility] CenterCreatine Ooheir9086-05-39 07:32:00* Test Item Value Reference Range Interpretation Comments Creatine Kinase (test code = 2157-6) 124 29-168 [facility] CenterCreatine Kinase QK4618-51-09 07:32:00* Test Item Value Reference Range Interpretation Comments Creatine Kinase MB (test code = 59798-5) 3.60 0.00-5.00 [facility] CenterTroponin I0398-48-98 07:32:00* Test Item Value Reference Range Interpretation Comments Troponin I (test code = BZK7174) 0.026 0-0.300 [facility] CenterUrine RCV8033-16-03 07:30:00* Test Item Value Reference Range Interpretation Comments Urine WBC (test code = 5821-4) 11-20 0-5 H [facility] CenterU[facility] FLY2907-88-80 07:30:00* Test Item Value Reference Range Interpretation Comments Urine RBC (test code = 47480-7) 6-10 0-5 H [facility] CenterU[facility] Pyjfqqox4987-11-60 07:30:00* Test Item Value Reference Range Interpretation Comments Urine Bacteria (test code = 29467-2) RARE NONE [facility] CenterU[facility] Epithelial Dtpvv9816-60-04 07:30:00 * Test Item Value Reference Range Interpretation Comments Urine Epithelial Cells (test code = 31615-5) FEW NONE [facility] CenterU[facility] Transitional Epithelial Cells 2017-05-09 07:30:00* Test Item Value Reference Range Interpretation Comments Urine Transitional Epithelial Cells (test code = 8249-5) FEW NONE H [facility] CenterU[facility] KUA5022-19-25 07:30:00* Test Item Value Reference Range Interpretation Comments Urine WBC (test code = 5821-4) 11-20 0-5 H [facility] CenterU[facility] [id number] 07:30:00* Test Item Value Reference Range Interpretation Comments Urine RBC (test code = 84884-7) 6-10 0-5 H [facility] Jigoihgd4364-52-78 07:30:00* Test Item Value Reference Range Interpretation Comments Urine Bacteria (test code = 06423-2) RARE NONE [facility] Epithelial Vttab1442-10-58 07:30:00 * Test Item Value Reference Range Interpretation Comments Urine Epithelial Cells (test code = 37582-8) FEW NONE [facility] Transitional Epithelial Cells 2017-05-09 07:30:00* Test Item Value Reference Range Interpretation Comments Urine Transitional Epithelial Cells (test code = 8249-5) FEW NONE H [facility] CenterU[facility] MTJ3494-08-63 07:30:00* Test Item Value Reference Range Interpretation Comments Urine WBC (test code = 5821-4) 11-20 0-5 H [facility] CenterU[facility] [id number] 07:30:00* Test Item Value Reference Range Interpretation Comments Urine RBC (test code = 15008-9) 6-10 0-5 H [facility] Pyjqsqvk9749-60-82 07:30:00* Test Item Value Reference Range Interpretation Comments Urine Bacteria (test code = 94252-0) RARE [facility] Epithelial Gdjkk7619-57-53 07:30:00 * Test Item Value Reference Range Interpretation Comments Urine Epithelial Cells (test code = 80622-2) FEW NONE [facility] Transitional Epithelial Cells 2017-05-09 07:30:00* Test Item Value Reference Range Interpretation Comments Urine Transitional Epithelial Cells (test code = 8249-5) FEW NONE H [facility] CenterU[facility] Nlwop3767-53-10 06:54:00* Test Item Value Reference Range Interpretation Comments Urine Color (test code = 5778-6) YELLOW YELLOW [facility] CenterU[facility] Fewxzih7217-28-75 06:54:00* Test Item Value Reference Range Interpretation Comments Urine Clarity (test code = 56600-7) HAZY CLEAR [facility] CenterU[facility] Specific Ufprqxh4102-17-61 06:54:00 * Test Item Value Reference Range Interpretation Comments Urine Specific [place] (test code = 5811-5) 1.015 1.010-1.02 5 [facility] CenterU[facility] jB7016-21-97 06:54:00* Test Item Value Reference Range Interpretation Comments Urine pH (test code = 36748-7) 5 5-7 [facility] Leukocyte Ngpvjtdr9713-64-92 06:54:00* Test Item Value Reference Range Interpretation Comments Urine Leukocyte Esterase (test code = 5799-2) 2+ NEGATIVE H [facility] CenterU[facility] Qnnuypy8747-62-06 06:54:00* Test Item Value Reference Range Interpretation Comments Urine Nitrite (test code = 60428-8) NEGATIVE NEGATIVE [facility] CenterU[facility] Sdblxcl9786-49-83 06:54:00* Test Item Value Reference Range Interpretation Comments Urine Protein (test code = 5804-0) 2+ NEGATIVE H [facility] CenterU[facility] Glucose (UA)2017-05-09 06:54:00* Test Item Value Reference Range Interpretation Comments Urine Glucose (UA) (test code = 2349-9) TRACE NEGATIVE H [facility] CenterU[facility] Jhobnxi9391-36-32 06:54:00* Test Item Value Reference Range Interpretation Comments Urine Ketones (test code = 62153-3) NEGATIVE NEGATIVE [facility] CenterU[facility] Njfymzzjnslt0675-29-97 06:54:00* Test Item Value Reference Range Interpretation Comments Urine Urobilinogen (test code = 04253-8) 0.2 0.2-1 [facility] CenterU[facility] Ovuinfkim1245-34-24 06:54:00* Test Item Value Reference Range Interpretation Comments Urine Bilirubin (test code = 1978-6) NEGATIVE NEGATIVE [facility] Qirxh8938-20-74 06:54:00* Test Item Value Reference Range Interpretation Comments Urine Blood (test code = 07590-3) 1+ NEGATIVE H [facility] CenterU[facility] Bvoja9281-92-17 06:54:00* Test Item Value Reference Range Interpretation Comments Urine Color (test code = 5778-6) YELLOW YELLOW [facility] Botebfj9741-76-44 06:54:00* Test Item Value Reference Range Interpretation Comments Urine Clarity (test code = 16562-1) HAZY CLEAR [facility] Specific Judlvsj1103-35-68 06:54:00 * Test Item Value Reference Range Interpretation Comments Urine Specific [place] (test code = 5811-5) 1.015 1.010-1.02 5 [facility] tB0171-43-27 06:54:00* Test Item Value Reference Range Interpretation Comments Urine pH (test code = 07651-0) 5 5-7 [facility] Leukocyte Irutpxmt9883-66-20 06:54:00* Test Item Value Reference Range Interpretation Comments Urine Leukocyte Esterase (test code = 5799-2) 2+ NEGATIVE H [facility] Edudymd2634-14-06 06:54:00* Test Item Value Reference Range Interpretation Comments Urine Nitrite (test code = 05364-6) NEGATIVE NEGATIVE [facility] Dpklxyy5833-34-62 06:54:00* Test Item Value Reference Range Interpretation Comments Urine Protein (test code = 5804-0) 2+ NEGATIVE H [facility] Glucose (UA)2017-05-09 06:54:00* Test Item Value Reference Range Interpretation Comments Urine Glucose (UA) (test code = 2349-9) TRACE NEGATIVE H [facility] Kkbbmgv8452-61-87 06:54:00* Test Item Value Reference Range Interpretation Comments Urine Ketones (test code = 75902-3) NEGATIVE NEGATIVE [facility] Hrbcksyewahq0360-63-55 06:54:00* Test Item Value Reference Range Interpretation Comments Urine Urobilinogen (test code = 66889-3) 0.2 0.2-1 [facility] CenterU[facility] Zjomzkcqc0734-69-20 06:54:00* Test Item Value Reference Range Interpretation Comments Urine Bilirubin (test code = 1978-6) NEGATIVE NEGATIVE [facility] CenterU[facility] Wduei1256-03-39 06:54:00* Test Item Value Reference Range Interpretation Comments Urine Blood (test code = 74484-4) 1+ NEGATIVE H [facility] CenterU[facility] Fxhsh6036-49-85 06:54:00* Test Item Value Reference Range Interpretation Comments Urine Color (test code = 5778-6) YELLOW YELLOW [facility] CenterU[facility] Xqmkugq6641-54-66 06:54:00* Test Item Value Reference Range Interpretation Comments Urine Clarity (test code = 59742-7) HAZY CLEAR [facility] CenterU[facility] Specific Guzyony5156-48-70 06:54:00 * Test Item Value Reference Range Interpretation Comments Urine Specific [place] (test code = 5811-5) 1.015 1.010-1.02 5 [facility] CenterU[facility] pH3405-65-75 06:54:00* Test Item Value Reference Range Interpretation Comments Urine pH (test code = 31720-5) 5 5-7 [facility] Leukocyte Zmnwploq2616-29-25 06:54:00* Test Item Value Reference Range Interpretation Comments Urine Leukocyte Esterase (test code = 5799-2) 2+ NEGATIVE H [facility] CenterU[facility] Umfhaij6503-87-99 06:54:00* Test Item Value Reference Range Interpretation Comments Urine Nitrite (test code = 98827-3) NEGATIVE NEGATIVE [facility] CenterU[facility] Sqmgjqe6148-87-25 06:54:00* Test Item Value Reference Range Interpretation Comments Urine Protein (test code = 5804-0) 2+ NEGATIVE H [facility] CenterU[facility] Glucose (UA)2017-05-09 06:54:00* Test Item Value Reference Range Interpretation Comments Urine Glucose (UA) (test code = 2349-9) TRACE NEGATIVE H [facility] CenterU[facility] Eckkcab6763-12-55 06:54:00* Test Item Value Reference Range Interpretation Comments Urine Ketones (test code = 49998-6) NEGATIVE NEGATIVE [facility] CenterU[facility] Wzewfsmypgfq7454-24-68 06:54:00* Test Item Value Reference Range Interpretation Comments Urine Urobilinogen (test code = 15414-7) 0.2 0.2-1 [facility] CenterU[facility] Hqwypyjpp6891-13-06 06:54:00* Test Item Value Reference Range Interpretation Comments Urine Bilirubin (test code = 1978-6) NEGATIVE NEGATIVE [facility] CenterU[facility] Jshfx1606-37-33 06:54:00* Test Item Value Reference Range Interpretation Comments Urine Blood (test code = 96692-0) 1+ NEGATIVE H [facility] CenterWhite Blood Hheam7983-64-59 06:52:00* Test Item Value Reference Range Interpretation Comments White Blood Count (test code = 6690-2) 6.06 4.8-10.8 [facility] CenterRed Blood Qvcsx4962-31-46 06:52:00* Test Item Value Reference Range Interpretation Comments Red Blood Count (test code = 789-8) 3.88 3.6-5.1 [facility] CenterHemoglobin2018-02-07 06:52:00* Test Item Value Reference Range Interpretation Comments Hemoglobin (test code = 10780-8) 11.9 12.0-16.0 L [facility] CenterHematocrit2018-02-07 06:52:00* Test Item Value Reference Range Interpretation Comments Hematocrit (test code = 4544-3) 36.7 34.2-44.1 [facility] CenterMean Corpuscular Arwizi0027-22-80 06:52:00* Test Item Value Reference Range Interpretation Comments Mean Corpuscular Volume (test code = 787-2) 94.6 81-99 [facility] CenterMean Corpuscular Odbcgdjerd8993-49-26 06:52:00* Test Item Value Reference Range Interpretation Comments Mean Corpuscular Hemoglobin (test code = 785-6) 30.7 28-32 [facility] CenterMean Corpuscular Hemoglobin Concent 2017-05-09 06:52:00* Test Item Value Reference Range Interpretation Comments Mean Corpuscular Hemoglobin Concent (test code = 786-4) 32.4 31-35 [facility] CenterRed Cell Distribution Guofd9895-52-47 06:52:00* Test Item Value Reference Range Interpretation Comments Red Cell Distribution Width (test code = 90342-7) 14.6 11.7 -14.4 H [facility] CenterPlatelet Uyryo1574-78-62 06:52:00* Test Item Value Reference Range Interpretation Comments Platelet Count (test code = 777-3) 149 140-360 [facility] CenterNeutrophils (%) (Auto)2017-05-09 06:52:00 * Test Item Value Reference Range Interpretation Comments Neutrophils (%) (Auto) (test code = 02777-2) 70.4 38.7-80.0 [facility] CenterLymphocytes (%) (Auto)2017-05-09 06:52:00 * Test Item Value Reference Range Interpretation Comments Lymphocytes (%) (Auto) (test code = 736-9) 20.6 18.0-39.1 [facility] CenterMonocytes (%) (Auto)2017-05-09 06:52:00* Test Item Value Reference Range Interpretation Comments Monocytes (%) (Auto) (test code = 5905-5) 6.9 4.4-11.3 [facility] CenterEosinophils (%) (Auto)2017-05-09 06:52:00 * Test Item Value Reference Range Interpretation Comments Eosinophils (%) (Auto) (test code = 713-8) 1.3 0.0-6.0 [facility] CenterBasophils (%) (Auto)2017-05-09 06:52:00* Test Item Value Reference Range Interpretation Comments Basophils (%) (Auto) (test code = 706-2) 0.5 0.0-1.0 [facility] CenterIM GRANULOCYTES %2017-05-09 06:52:00* Test Item Value Reference Range Interpretation Comments IM GRANULOCYTES % (test code = IM GRANULOCYTES %) 0.3 0.0- 1.0 [facility] CenterNeutrophils # (Auto)2017-05-09 06:52:00* Test Item Value Reference Range Interpretation Comments Neutrophils # (Auto) (test code = 751-8) 4.3 2.1-6.9 [facility] CenterLymphocytes # (Auto)2017-05-09 06:52:00* Test Item Value Reference Range Interpretation Comments Lymphocytes # (Auto) (test code = 83453-7) 1.3 1.0-3.2 [facility] CenterMonocytes # (Auto)2017-05-09 06:52:00* Test Item Value Reference Range Interpretation Comments Monocytes # (Auto) (test code = 742-7) 0.4 0.2-0.8 [facility] CenterEosinophils # (Auto)2017-05-09 06:52:00* Test Item Value Reference Range Interpretation Comments Eosinophils # (Auto) (test code = 711-2) 0.1 0.0-0.4 [facility] CenterBasophils # (Auto)2017-05-09 06:52:00* Test Item Value Reference Range Interpretation Comments Basophils # (Auto) (test code = 704-7) 0.0 0.0-0.1 [facility] CenterAbsolute Immature Granulocyte (auto 2017-05-09 06:52:00* Test Item Value Reference Range Interpretation Comments Absolute Immature Granulocyte (auto (mart t code = Absolute Immature Granulocyte (auto) 0.02 0-0.1 [facility] CenterWhite Blood Ubbqq5262-00-06 06:52:00* Test Item Value Reference Range Interpretation Comments White Blood Count (test code = 6690-2) 6.06 4.8-10.8 [facility] CenterRed Blood Uwcjt7911-43-08 06:52:00* Test Item Value Reference Range Interpretation Comments Red Blood Count (test code = 789-8) 3.88 3.6-5.1 [facility] CenterHemoglobin2018-02-07 06:52:00* Test Item Value Reference Range Interpretation Comments Hemoglobin (test code = 26875-9) 11.9 12.0-16.0 L [facility] CenterHematocrit2018-02-07 06:52:00* Test Item Value Reference Range Interpretation Comments Hematocrit (test code = 4544-3) 36.7 34.2-44.1 [facility] CenterMean Corpuscular Vcyjvu7380-08-36 06:52:00* Test Item Value Reference Range Interpretation Comments Mean Corpuscular Volume (test code = 787-2) 94.6 81-99 [facility] CenterMean Corpuscular Jhmmqtfsmn5453-49-45 06:52:00* Test Item Value Reference Range Interpretation Comments Mean Corpuscular Hemoglobin (test code = 785-6) 30.7 28-32 [facility] CenterMean Corpuscular Hemoglobin Concent 2017-05-09 06:52:00* Test Item Value Reference Range Interpretation Comments Mean Corpuscular Hemoglobin Concent (test code = 786-4) 32.4 31-35 [facility] CenterRed Cell Distribution Mgcmw4304-49-15 06:52:00* Test Item Value Reference Range Interpretation Comments Red Cell Distribution Width (test code = 56997-7) 14.6 11.7 -14.4 H [facility] CenterPlatelet Wbops4069-45-93 06:52:00* Test Item Value Reference Range Interpretation Comments Platelet Count (test code = 777-3) 149 140-360 [facility] CenterNeutrophils (%) (Auto)2017-05-09 06:52:00 * Test Item Value Reference Range Interpretation Comments Neutrophils (%) (Auto) (test code = 62157-4) 70.4 38.7-80.0 [facility] CenterLymphocytes (%) (Auto)2017-05-09 06:52:00 * Test Item Value Reference Range Interpretation Comments Lymphocytes (%) (Auto) (test code = 736-9) 20.6 18.0-39.1 [facility] CenterMonocytes (%) (Auto)2017-05-09 06:52:00* Test Item Value Reference Range Interpretation Comments Monocytes (%) (Auto) (test code = 5905-5) 6.9 4.4-11.3 [facility] CenterEosinophils (%) (Auto)2017-05-09 06:52:00 * Test Item Value Reference Range Interpretation Comments Eosinophils (%) (Auto) (test code = 713-8) 1.3 0.0-6.0 [facility] CenterBasophils (%) (Auto)2017-05-09 06:52:00* Test Item Value Reference Range Interpretation Comments Basophils (%) (Auto) (test code = 706-2) 0.5 0.0-1.0 [facility] CenterIM GRANULOCYTES %2017-05-09 06:52:00* Test Item Value Reference Range Interpretation Comments IM GRANULOCYTES % (test code = IM GRANULOCYTES %) 0.3 0.0- 1.0 [facility] CenterNeutrophils # (Auto)2017-05-09 06:52:00* Test Item Value Reference Range Interpretation Comments Neutrophils # (Auto) (test code = 751-8) 4.3 2.1-6.9 [facility] CenterLymphocytes # (Auto)2017-05-09 06:52:00* Test Item Value Reference Range Interpretation Comments Lymphocytes # (Auto) (test code = 25500-7) 1.3 1.0-3.2 [facility] CenterMonocytes # (Auto)2017-05-09 06:52:00* Test Item Value Reference Range Interpretation Comments Monocytes # (Auto) (test code = 742-7) 0.4 0.2-0.8 [facility] CenterEosinophils # (Auto)2017-05-09 06:52:00* Test Item Value Reference Range Interpretation Comments Eosinophils # (Auto) (test code = 711-2) 0.1 0.0-0.4 [facility] CenterBasophils # (Auto)2017-05-09 06:52:00* Test Item Value Reference Range Interpretation Comments Basophils # (Auto) (test code = 704-7) 0.0 0.0-0.1 [facility] CenterAbsolute Immature Granulocyte (auto 2017-05-09 06:52:00* Test Item Value Reference Range Interpretation Comments Absolute Immature Granulocyte (auto (mart t code = Absolute Immature Granulocyte (auto) 0.02 0-0.1 [facility] CenterWhite Blood Euwwl2615-23-47 06:52:00* Test Item Value Reference Range Interpretation Comments White Blood Count (test code = 6690-2) 6.06 4.8-10.8 [facility] CenterRed Blood Iqxeb5119-65-81 06:52:00* Test Item Value Reference Range Interpretation Comments Red Blood Count (test code = 789-8) 3.88 3.6-5.1 [facility] CenterHemoglobin2018-02-07 06:52:00* Test Item Value Reference Range Interpretation Comments Hemoglobin (test code = 90086-1) 11.9 12.0-16.0 L [facility] CenterHematocrit2018-02-07 06:52:00* Test Item Value Reference Range Interpretation Comments Hematocrit (test code = 4544-3) 36.7 34.2-44.1 [facility] CenterMean Corpuscular Udfizu1858-16-62 06:52:00* Test Item Value Reference Range Interpretation Comments Mean Corpuscular Volume (test code = 787-2) 94.6 81-99 [facility] CenterMean Corpuscular Pfpxmduvlj2801-38-12 06:52:00* Test Item Value Reference Range Interpretation Comments Mean Corpuscular Hemoglobin (test code = 785-6) 30.7 28-32 [facility] CenterMean Corpuscular Hemoglobin Concent 2017-05-09 06:52:00* Test Item Value Reference Range Interpretation Comments Mean Corpuscular Hemoglobin Concent (test code = 786-4) 32.4 31-35 [facility] CenterRed Cell Distribution Fwtai2870-89-29 06:52:00* Test Item Value Reference Range Interpretation Comments Red Cell Distribution Width (test code = 95120-9) 14.6 11.7 -14.4 H [facility] CenterPlatelet Akpwq1244-26-87 06:52:00* Test Item Value Reference Range Interpretation Comments Platelet Count (test code = 777-3) 149 140-360 [facility] CenterNeutrophils (%) (Auto)2017-05-09 06:52:00 * Test Item Value Reference Range Interpretation Comments Neutrophils (%) (Auto) (test code = 29005-5) 70.4 38.7-80.0 [facility] CenterLymphocytes (%) (Auto)2017-05-09 06:52:00 * Test Item Value Reference Range Interpretation Comments Lymphocytes (%) (Auto) (test code = 736-9) 20.6 18.0-39.1 [facility] CenterMonocytes (%) (Auto)2017-05-09 06:52:00* Test Item Value Reference Range Interpretation Comments Monocytes (%) (Auto) (test code = 5905-5) 6.9 4.4-11.3 [facility] CenterEosinophils (%) (Auto)2017-05-09 06:52:00 * Test Item Value Reference Range Interpretation Comments Eosinophils (%) (Auto) (test code = 713-8) 1.3 0.0-6.0 [facility] CenterBasophils (%) (Auto)2017-05-09 06:52:00* Test Item Value Reference Range Interpretation Comments Basophils (%) (Auto) (test code = 706-2) 0.5 0.0-1.0 [facility] CenterIM GRANULOCYTES %2017-05-09 06:52:00* Test Item Value Reference Range Interpretation Comments IM GRANULOCYTES % (test code = IM GRANULOCYTES %) 0.3 0.0- 1.0 [facility] CenterNeutrophils # (Auto)2017-05-09 06:52:00* Test Item Value Reference Range Interpretation Comments Neutrophils # (Auto) (test code = 751-8) 4.3 2.1-6.9 [facility] CenterLymphocytes # (Auto)2017-05-09 06:52:00* Test Item Value Reference Range Interpretation Comments Lymphocytes # (Auto) (test code = 22226-5) 1.3 1.0-3.2 [facility] CenterMonocytes # (Auto)2017-05-09 06:52:00* Test Item Value Reference Range Interpretation Comments Monocytes # (Auto) (test code = 742-7) 0.4 0.2-0.8 [facility] CenterEosinophils # (Auto)2017-05-09 06:52:00* Test Item Value Reference Range Interpretation Comments Eosinophils # (Auto) (test code = 711-2) 0.1 0.0-0.4 [facility] CenterBasophils # (Auto)2017-05-09 06:52:00* Test Item Value Reference Range Interpretation Comments Basophils # (Auto) (test code = 704-7) 0.0 0.0-0.1 [facility] CenterAbsolute Immature Granulocyte (auto 2017-05-09 06:52:00* Test Item Value Reference Range Interpretation Comments Absolute Immature Granulocyte (auto (mart t code = Absolute Immature Granulocyte (auto) 0.02 0-0.1 [facility] Jfkaeen3692-38-47 05:56:00* Test Item Value Reference Range Interpretation Comments Bedside Glucose (test code = 93160-5) 110 70-120 Meter ID: [id number] [facility] Glucose 2016-11-16 05:56:00* Test Item Value Reference Range Interpretation Comments Bedside Glucose (test code = 31170-9) 110 70-120 Meter ID: [id number] [facility] [address] [place] [address] Patient Name: DARIELA MILLS MR #: [id number] : 1945 Age/Sex: 71/F Req #: [id number] Adm Physician: Ordered by: GÓMEZ PEGUERO MD Report #: [id number] Location: ER Room/Bed: Procedure: [id number] CT/CT BRAIN WO Exam D ate: 05/09/17 Exam Time: 0755 REPORT STATUS: Si gned EXAMINATION: Head CT HISTORY: Headache, nausea for the last 8 hour s COMPARISON: None. TECHNIQUE: Multidetector axial images were obtained with out contrast from the foramen magnum to the vertex . The images were reconstru cted using brain and bone algorithms. Thin section brain images were reformat joshua into coronal and sagittal planes. Intravenous contrast: None. Motion/ streaking artifact limits the evaluation of the skull base and posterior crani al fossa. FINDINGS: Parenchyma: 1. Moderately severe confluen t periventricular, moses radiata and centrum semiovale white matter hypodensi ties, most likely nonspecific chronic microvascular ischemic changes. 2. No mass or hemorrhage. No CT evidence of acute territorial vascular insult. Extra-axial spaces:No abnormal density. No extra-axial fluid collecti ons Brain volume: Normal for age. Ventricles: No hydrocephalus o r displacement. Arteries: No density suggestive of thrombus. Du ral sinuses: No abnormal density. Extra-axial spaces: No abnormal densit y. Foramen magnum: No mass, Chiari malformation, or basilar invagination . Sella: No obvious mass. Paranasal/mastoid sinuses: Imaged por tions unremarkable. Skull/Scalp: No lytic or blastic lesions. No fractu res. IMPRESSION: 1. No acute intracranial hemorrhage or cortical inf arcts. 2. Severe confluent white matter chronic microvascular ischemic charles nges. Signed by: Dr. Ryan Jones M.D. on 05/09/2017 8:11 AM Dictated By: RYAN JONES MD 0 T ranscribed By: BRAN on 05/09/17810 COPY TO: GÓMEZ PEGUERO MD
--- NOTE | 2020-02-23 15:17 | Diagnostic Imaging Report ---
CT BRAIN WO HISTORY: Fall COMPARISON: Head CT 01/12/2019 Technique: Noncontrast axial scans were obtained from skull base to the vertex. Coronal and sagittal reconstructions obtained from the axial data. One or more of the following dose reduction techniques were used: Automated exposure control, adjustment of the mA and/or kV according to patient size, and/or utilization of iterative reconstruction technique. DISCUSSION: Scalp/Skull: Unremarkable. Brain sulci: Mildly prominent. Ventricles: Compensatory dilatation. Extra-axial spaces: No masses or fluid collections. Carotid and vertebral artery calcifications are present. Parenchyma: Moderate to severe bilateral deep white matter hypodensity is likely chronic microvascular ischemic change. Otherwise, no masses, hemorrhage, or large vascular territory acute infarct. Dural sinuses: No abnormal densities. Sellar/Suprasellar region: Intact. Skull base: Intact. Incidental findings: None. IMPRESSION: 1. No acute intracranial abnormalities. 2. Moderate to severe supratentorial chronic microvascular ischemic change. Mild generalized cerebral volume loss. Signed by: Dr. Israel Montero M.D. on 02/23/2020 3:14 PM
--- NOTE | 2020-02-23 15:23 | Diagnostic Imaging Report ---
CT CERVICAL SPINE WO HISTORY: Fall COMPARISON: None. TECHNIQUE: CT of the cervical spine without contrast. Sagittal and coronal reformations were created. One or more of the following dose reduction techniques were used: Automated exposure control, adjustment of the mA and/or kV according to patient size, and/or utilization of iterative reconstruction technique. FINDINGS: Cervical lordosis is straightened. There is no scoliosis or subluxation. Mild bone demineralization limits evaluation. No definite acute fracture or compression deformity is seen. The craniocervical junction is intact. No gross spinal canal masses are seen. The paravertebral and paraspinal soft tissues are unremarkable. Degenerative changes: Mild to moderate multilevel spondylosis is most prominent at C5-C6 and C6-C7. There is at least mild to moderate canal stenosis from C4 to C7 due to posterior disc osteophyte complexes. Moderate bilateral C5-C6 and C6-C7 foraminal stenoses are due to uncovertebral and facet arthrosis. Incidental findings: Mild to moderate bilateral carotid bulb calcified plaque is present. Trace bilateral mastoid effusion. IMPRESSION: 1. No acute osseous abnormalities. 2. Degenerative changes as described above. Signed by: Dr. Israel Montero M.D. on 02/23/2020 3:19 PM
--- NOTE | 2020-02-23 16:48 | Diagnostic Imaging Report ---
X-ray left shoulder History: Fall Findings: Suboptimal film in a patient with osteopenic bones. There is comminuted fracture of the left humeral head. The acromion process is intact. Integrity of the glenoid and coracoid process is difficult to evaluate. Impression: Comminuted fracture of the humeral head. The body habitus and osteopenia make interpretation difficult. A CT of the shoulder should be considered. Signed by: Dayron Arguelles MD on 02/23/2020 4:44 PM
[2020-02-23] MEDS ORDERED: HYDROCODONE/APAP 5MG-325MG TAB PO ONE (17:00)
[2020-02-23 17:58] VITALS: BP 128/74
== END 2020-02-23 18:00 | disposition home or self-care (01) ==
LOC: ER 13:33
DX: S42.292A Other displaced fracture of upper end of left humerus, initial encounter for closed fracture (principal); S50.312A Abrasion of left elbow, initial encounter; W01.198A Fall on same level from slipping, tripping and stumbling with subsequent striking against other object, initial encounter; Y93.01 Activity, walking, marching and hiking; Y92.008 Other place in unspecified non-institutional (private) residence as the place of occurrence of the external cause; I10 Essential (primary) hypertension; E11.9 Type 2 diabetes mellitus without complications; I48.91 Unspecified atrial fibrillation; E78.5 Hyperlipidemia, unspecified; M10.9 Gout, unspecified; G47.30 Sleep apnea, unspecified
CPT/HCPCS: 70450; 72125; 73030; 99284; J3010

== ENCOUNTER 2020-04-10 20:30 | Inpatient (IN) | payer MEDICARE, OTHER ==
[~2020-04-10] VITALS: Ht 149.9 cm; Wt 100.2 kg
[2020-04-10 22:03] LABS: BASOPHILS # (AUTO) 0.1 (0.0-0.1); BASOPHILS % 0.7 % (0.0-1.0); EOSINOPHILS # (AUTO) 0.5 (0.0-0.4); EOSINOPHILS % 6.6 % (0.0-6.0); HEMATOCRIT 29.9 % (34.2-44.1); HEMOGLOBIN 9.4 g/dL (12.0-16.0); LYMPHOCYTES # (AUTO) 0.8 (1.0-3.2); LYMPHOCYTES % 11.7 % (18.0-39.1); MEAN CORPUSCULAR HEMOGLOBIN 28.7 pg (28-32); MEAN CORPUSCULAR HGB CONC 31.4 g/dL (31-35); MEAN CORPUSCULAR VOLUME 91.4 fL (81-99); MONOCYTES # (AUTO) 0.4 (0.2-0.8); MONOCYTES % 5.5 % (4.4-11.3); NEUTROPHILS # (AUTO) 5.3 (2.1-6.9); NEUTROPHILS % 74.9 % (38.7-80.0); PLATELET COUNT 257 x10e3/uL (140-360); RED BLOOD COUNT 3.27 x10e6/uL (3.6-5.1); RED CELL DISTRIBUTION WIDTH 16.5 % (11.7-14.4)
[2020-04-10 22:12] LABS: INR 1.92; PROTHROMBIN TIME 23.5 seconds (11.9-14.5)
[2020-04-10 22:13] LABS: PARTIAL THROMBOPLASTIN TIME 48.8 seconds (23.8-35.5)
[2020-04-10 22:24] LABS: ALBUMIN 3.6 g/dL (3.5-5.0); ALBUMIN/GLOBULIN RATIO 1.1 (0.8-2.0); ANION GAP 15.7 mmol/L (8-16); CALCIUM 8.9 mg/dL (8.4-10.2); CREATININE, SERUM 1.81 mg/dL (0.57-1.11); POTASSIUM 4.7 mmol/L (3.5-5.1)
[2020-04-10 22:33] LABS: CREATINE KINASE MB 1.5 ng/mL (0-5.0)
[2020-04-11] VITALS (7 sets, daily range): BP systolic 157–184; BP diastolic 63–85
[2020-04-11] MEDS ORDERED: DEXTROSE 50% SYRINGE 50 ML IV PRN
[2020-04-11] MEDS ORDERED: FUROSEMIDE 20 MG TAB PO PRN (05:00)
[2020-04-11] MEDS: LEVOTHYROXINE SODIUM 50 MCG TAB PO SCH (05:45)
[2020-04-11] MEDS: HYDROCODONE/APAP 10MG-325MG TAB PO PRN (05:45)
[2020-04-11] MEDS: CEFTRIAXONE SOD 1 GM/NS 50 ML 50 ML IV SCH (06:43)
[2020-04-11] MEDS: INSULIN REGULAR, HUMAN 100 UNIT/1 ML 3ML VIAL SQ SCH ×4 (07:30→21:00)
[2020-04-11 08:26] LABS: CREATINE KINASE MB 1.6 ng/mL (0-5.0)
[2020-04-11] MEDS ORDERED: RIVAROXABAN 10 MG TABLET PO SCH (09:00)
[2020-04-11] MEDS: OXYBUTYNIN CHLORIDE 5 MG TAB PO SCH ×2 (09:00→17:00)
[2020-04-11] MEDS: LISINOPRIL 20 MG TAB PO SCH (09:00)
[2020-04-11] MEDS: ALLOPURINOL 300 MG TAB PO SCH (09:00)
[2020-04-11] MEDS: FUROSEMIDE INJ 10 MG/ML 4 ML VIAL IV SCH ×3 (09:00→17:00)
[2020-04-11] MEDS: PANTOPRAZOLE SOD 40 MG TABEC PO SCH (09:15)
[2020-04-11] MEDS: METOPROLOL SUCCINATE 50 MG TAB XL PO SCH (09:30)
[2020-04-11] MEDS ORDERED: RIVAROXABAN 15 MG TABLET PO SCH (10:30)
[2020-04-11 15:52] LABS: CREATINE KINASE MB 1.4 ng/mL (0-5.0)
[2020-04-11] MEDS: ATORVASTATIN 20 MG TAB PO SCH (21:00)
[2020-04-11] MEDS: ASPIRIN 81 MG CHEW TAB PO SCH (21:00)
[2020-04-12] VITALS (8 sets, daily range): BP systolic 127–191; BP diastolic 60–87
[2020-04-12] MEDS ORDERED: CLONIDINE HCL 0.1 MG TAB PO ONE (02:15)
[2020-04-12] MEDS: METOPROLOL SUCCINATE 50 MG TAB XL PO SCH (04:25)
[2020-04-12] MEDS: LISINOPRIL 20 MG TAB PO SCH (04:25)
[2020-04-12] MEDS ORDERED: CLONIDINE HCL 0.1 MG TAB PO PRN (04:45)
[2020-04-12] MEDS: LEVOTHYROXINE SODIUM 50 MCG TAB PO SCH (05:10)
[2020-04-12 06:11] LABS: BASOPHILS % 0.7 % (0.0-1.0); EOSINOPHILS # (AUTO) 0.3 (0.0-0.4); EOSINOPHILS % 5.7 % (0.0-6.0); HEMATOCRIT 30.9 % (34.2-44.1); HEMOGLOBIN 9.7 g/dL (12.0-16.0); LYMPHOCYTES # (AUTO) 0.8 (1.0-3.2); MEAN CORPUSCULAR HEMOGLOBIN 28.4 pg (28-32); MEAN CORPUSCULAR HGB CONC 31.4 g/dL (31-35); MEAN CORPUSCULAR VOLUME 90.6 fL (81-99); MONOCYTES # (AUTO) 0.4 (0.2-0.8); MONOCYTES % 7.3 % (4.4-11.3); NEUTROPHILS # (AUTO) 4.4 (2.1-6.9); PLATELET COUNT 221 x10e3/uL (140-360); RED BLOOD COUNT 3.41 x10e6/uL (3.6-5.1); RED CELL DISTRIBUTION WIDTH 16.7 % (11.7-14.4)
[2020-04-12] MEDS: CEFTRIAXONE SOD 1 GM/NS 50 ML 50 ML IV SCH (06:20)
[2020-04-12 06:52] LABS: ALBUMIN 3.4 g/dL (3.5-5.0); ALBUMIN/GLOBULIN RATIO 1.2 (0.8-2.0); ANION GAP 15.3 mmol/L (8-16); CALCIUM 9.1 mg/dL (8.4-10.2); CREATININE, SERUM 1.37 mg/dL (0.57-1.11); POTASSIUM 4.3 mmol/L (3.5-5.1)
[2020-04-12 07:30] LABS: MAGNESIUM 0.9 MG/DL (1.3-2.1)
[2020-04-12] MEDS: INSULIN REGULAR, HUMAN 100 UNIT/1 ML 3ML VIAL SQ SCH ×4 (07:30→21:00)
[2020-04-12] MEDS: PANTOPRAZOLE SOD 40 MG TABEC PO SCH (07:58)
[2020-04-12] MEDS: NIFEDIPINE CR 30 MG TAB PO SCH (07:58)
[2020-04-12] MEDS: ALLOPURINOL 300 MG TAB PO SCH (07:59)
[2020-04-12] MEDS: RIVAROXABAN 15 MG TABLET PO SCH (07:59)
[2020-04-12] MEDS: OXYBUTYNIN CHLORIDE 5 MG TAB PO SCH ×2 (07:59→16:23)
[2020-04-12] MEDS ORDERED: MAGNESIUM SULFATE 2GM/50ML 50 ML IV ONE ×2 (08:00→12:00)
[2020-04-12] MEDS: FUROSEMIDE INJ 10 MG/ML 4 ML VIAL IV SCH ×2 (10:00→16:23)
[2020-04-12] MEDS: HYDROCODONE/APAP 10MG-325MG TAB PO PRN (13:26)
[2020-04-12] MEDS ORDERED: INSULIN GLARGINE 100 UNITS/ML VIAL SQ SCH (21:00)
[2020-04-12] MEDS: ATORVASTATIN 20 MG TAB PO SCH (21:39)
[2020-04-12] MEDS: ASPIRIN 81 MG CHEW TAB PO SCH (21:39)
[2020-04-13] VITALS: BP 129/61
[2020-04-13 04:00] VITALS: BP 146/63
[2020-04-13 05:45] LABS: ANION GAP 16.5 mmol/L (8-16); CALCIUM 8.8 mg/dL (8.4-10.2); CREATININE, SERUM 1.97 mg/dL (0.57-1.11); POTASSIUM 4.5 mmol/L (3.5-5.1)
[2020-04-13] MEDS: LEVOTHYROXINE SODIUM 50 MCG TAB PO SCH (05:45)
[2020-04-13] MEDS: CEFTRIAXONE SOD 1 GM/NS 50 ML 50 ML IV SCH (05:45)
[2020-04-13] MEDS: HYDROCODONE/APAP 10MG-325MG TAB PO PRN (05:52)
[2020-04-13 06:32] LABS: BASOPHILS # (AUTO) 0.1 (0.0-0.1); BASOPHILS % 0.8 % (0.0-1.0); EOSINOPHILS # (AUTO) 0.5 (0.0-0.4); EOSINOPHILS % 7.1 % (0.0-6.0); HEMATOCRIT 31.5 % (34.2-44.1); HEMOGLOBIN 9.8 g/dL (12.0-16.0); LYMPHOCYTES # (AUTO) 0.8 (1.0-3.2); LYMPHOCYTES % 12.5 % (18.0-39.1); MEAN CORPUSCULAR HEMOGLOBIN 28.5 pg (28-32); MEAN CORPUSCULAR HGB CONC 31.1 g/dL (31-35); MEAN CORPUSCULAR VOLUME 91.6 fL (81-99); MONOCYTES # (AUTO) 0.6 (0.2-0.8); MONOCYTES % 8.6 % (4.4-11.3); NEUTROPHILS # (AUTO) 4.7 (2.1-6.9); NEUTROPHILS % 70.5 % (38.7-80.0); PLATELET COUNT 179 x10e3/uL (140-360); RED BLOOD COUNT 3.44 x10e6/uL (3.6-5.1); RED CELL DISTRIBUTION WIDTH 17.2 % (11.7-14.4)
[2020-04-13] MEDS: INSULIN REGULAR, HUMAN 100 UNIT/1 ML 3ML VIAL SQ SCH ×3 (07:30→16:19)
[2020-04-13 07:44] VITALS: BP 125/60
[2020-04-13 08:08] VITALS: BP 125/60
[2020-04-13] MEDS: FUROSEMIDE INJ 10 MG/ML 4 ML VIAL IV SCH ×2 (09:00→16:22)
[2020-04-13] MEDS: OXYBUTYNIN CHLORIDE 5 MG TAB PO SCH ×2 (09:01→16:22)
[2020-04-13] MEDS: PANTOPRAZOLE SOD 40 MG TABEC PO SCH (09:02)
[2020-04-13] MEDS: METOPROLOL SUCCINATE 50 MG TAB XL PO SCH (09:02)
[2020-04-13] MEDS: ALLOPURINOL 300 MG TAB PO SCH (09:03)
[2020-04-13] MEDS: RIVAROXABAN 15 MG TABLET PO SCH (09:03)
[2020-04-13] MEDS: LISINOPRIL 20 MG TAB PO SCH (11:26)
[2020-04-13] MEDS: NIFEDIPINE CR 30 MG TAB PO SCH (11:27)
[2020-04-13 11:55] VITALS: BP 169/64
[2020-04-13 16:06] VITALS: BP 165/72
[2020-04-13] MEDS ORDERED: FUROSEMIDE40 MG PO (16:34)
== END 2020-04-13 17:47 | disposition home or self-care (01) | DRG 291 ==
LOC: ER 21:00 → ERHOLD 04-11 00:05 → MED/SURG2 04-11 01:47 → OBSVTOIN 04-13 11:53
PROVIDERS: ADMIT Internal Medicine; ATTEND Internal Medicine
DX: I13.0 Hypertensive heart and chronic kidney disease with heart failure and stage 1 through stage 4 chronic kidney disease, or unspecified chronic kidney disease (principal); J96.01 Acute respiratory failure with hypoxia; I50.31 Acute diastolic (congestive) heart failure; Z68.41 Body mass index [BMI] 40.0-44.9, adult; I48.21 Permanent atrial fibrillation; N18.30 Chronic kidney disease, stage 3 unspecified; E66.01 Morbid (severe) obesity due to excess calories; Z20.822 Contact with and (suspected) exposure to COVID-19
CPT/HCPCS: 36415; 71045; 80053; 82550; 82553; 82948; 83735; 83880; 84484; 85025; 85610; 85730; 93005; 93306; 99284; J0696; J1815; J1817; J1940; J3475; U0002

== ENCOUNTER → 2020-09-02 | Day surgery (SDC) | payer MEDICARE, OTHER ==
[2020-08-31 10:54] LABS: BASOPHILS % 0.5 % (0.0-1.0); EOSINOPHILS # (AUTO) 0.3 (0.0-0.4); EOSINOPHILS % 4.7 % (0.0-6.0); HEMATOCRIT 34.5 % (34.2-44.1); HEMOGLOBIN 10.9 g/dL (12.0-16.0); LYMPHOCYTES # (AUTO) 0.6 (1.0-3.2); LYMPHOCYTES % 9.4 % (18.0-39.1); MEAN CORPUSCULAR HEMOGLOBIN 29.9 pg (28-32); MEAN CORPUSCULAR HGB CONC 31.6 g/dL (31-35); MEAN CORPUSCULAR VOLUME 94.5 fL (81-99); MONOCYTES # (AUTO) 0.5 (0.2-0.8); MONOCYTES % 7.5 % (4.4-11.3); NEUTROPHILS # (AUTO) 4.8 (2.1-6.9); NEUTROPHILS % 77.7 % (38.7-80.0); PLATELET COUNT 200 x10e3/uL (140-360); RED BLOOD COUNT 3.65 x10e6/uL (3.6-5.1); RED CELL DISTRIBUTION WIDTH 15.7 % (11.7-14.4)
[2020-08-31 11:16] LABS: ANION GAP 17.7 mmol/L (8-16); CALCIUM 9.5 mg/dL (8.4-10.2); CREATININE, SERUM 2.58 mg/dL (0.57-1.11); POTASSIUM 4.7 mmol/L (3.5-5.1)
[2020-08-31 11:24] LABS: INR 0.95; PROTHROMBIN TIME 13.3 seconds (11.9-14.5)
[2020-08-31 11:25] LABS: PARTIAL THROMBOPLASTIN TIME 33.7 seconds (23.8-35.5)
[~2020-09-02] MED LIST changes: +ACIPHEX20 MG PO; +LIDOCAINE HCL 2% LOCAL INJ 5 ML SDV VIAL INJ ONE; +PROPOFOL IV EMULSION 10 MG/ML 20 ML VIAL ONE; +TORSEMIDE20 MG PO
[2020-09-02 10:10] VITALS: BP 128/84
== END | disposition home or self-care (01) ==
LOC: OR 07:00
PROVIDERS: ATTEND Internal Medicine Gastroenterology
DX: Z09 Encounter for follow-up examination after completed treatment for conditions other than malignant neoplasm (principal); Z86.010 Personal history of colon polyps; K57.30 Diverticulosis of large intestine without perforation or abscess without bleeding; K64.8 Other hemorrhoids; Z71.3 Dietary counseling and surveillance; G47.33 Obstructive sleep apnea (adult) (pediatric); I25.10 Atherosclerotic heart disease of native coronary artery without angina pectoris; I48.91 Unspecified atrial fibrillation; E11.22 Type 2 diabetes mellitus with diabetic chronic kidney disease; I13.0 Hypertensive heart and chronic kidney disease with heart failure and stage 1 through stage 4 chronic kidney disease, or unspecified chronic kidney disease; N18.9 Chronic kidney disease, unspecified; I50.9 Heart failure, unspecified; E66.01 Morbid (severe) obesity due to excess calories; Z01.810 Encounter for preprocedural cardiovascular examination; Z01.812 Encounter for preprocedural laboratory examination; Z20.822 Contact with and (suspected) exposure to COVID-19; Z79.4 Long term (current) use of insulin; Z79.82 Long term (current) use of aspirin; Z68.41 Body mass index [BMI] 40.0-44.9, adult; Z80.0 Family history of malignant neoplasm of digestive organs
CPT/HCPCS: 36415 ×2; 45378; 80048; 82948; 85025; 85610; 85730; 93005; J2001; J2704; U0002

== ENCOUNTER → 2020-11-30 | Day surgery (SDC) | payer MEDICARE, OTHER ==
[2020-11-25 13:43] LABS: BASOPHILS % 0.4 % (0.0-1.0); EOSINOPHILS # (AUTO) 0.1 (0.0-0.4); EOSINOPHILS % 0.7 % (0.0-6.0); HEMATOCRIT 37.6 % (34.2-44.1); HEMOGLOBIN 11.9 g/dL (12.0-16.0); LYMPHOCYTES # (AUTO) 0.6 (1.0-3.2); LYMPHOCYTES % 6.9 % (18.0-39.1); MEAN CORPUSCULAR HGB CONC 31.6 g/dL (31-35); MEAN CORPUSCULAR VOLUME 94.7 fL (81-99); MONOCYTES # (AUTO) 0.5 (0.2-0.8); MONOCYTES % 6.5 % (4.4-11.3); NEUTROPHILS # (AUTO) 7.1 (2.1-6.9); PLATELET COUNT 216 x10e3/uL (140-360); RED BLOOD COUNT 3.97 x10e6/uL (3.6-5.1)
[2020-11-25 14:04] LABS: ALBUMIN 3.9 g/dL (3.5-5.0); ALBUMIN/GLOBULIN RATIO 1.3 (0.8-2.0); ANION GAP 16.5 mmol/L (8-16); CALCIUM 9.5 mg/dL (8.4-10.2); CREATININE, SERUM 2.3 mg/dL (0.57-1.11); POTASSIUM 4.5 mmol/L (3.5-5.1)
[2020-11-30] VITALS (9 sets, daily range): BP systolic 130–143; BP diastolic 60–77
[~2020-11-30] VITALS: Ht 149.9 cm; Wt 90.7 kg
[~2020-11-30] MED LIST changes: +ALPRAZOLAM 0.5 MG TAB ONE; +CITALOPRAM HBR20 MG PO; +DIPHENHYDRAMINE HCL 25 MG CAP ONE; +FENTANYL CITRATE/PF 100MCG/2 ML INJ ONE; +HEPARIN SOD/SOD CHLORIDE 2,000 ML ONE; +IOPAMIDOL 370 MG/ML 200 ML INFUS..BTL INJ ONE; +LIDOCAINE HCL 2% LOCAL 20 ML VIAL ONE; -LIDOCAINE HCL 2% LOCAL INJ 5 ML SDV VIAL INJ ONE; +MIDAZOLAM HCL 2 MG/2 ML VIAL ONE; -PROPOFOL IV EMULSION 10 MG/ML 20 ML VIAL ONE; +QUESTRAN PACKET4 GM PO; +SODIUM CHLORIDE 0.9% 1000ML 1,000 ML ONE
== END | disposition home or self-care (01) ==
LOC: CATH LAB 11:07
PROVIDERS: ATTEND Internal Medicine Interventional Cardiology
DX: I25.110 Atherosclerotic heart disease of native coronary artery with unstable angina pectoris (principal); R94.39 Abnormal result of other cardiovascular function study; I48.21 Permanent atrial fibrillation; E11.22 Type 2 diabetes mellitus with diabetic chronic kidney disease; I13.0 Hypertensive heart and chronic kidney disease with heart failure and stage 1 through stage 4 chronic kidney disease, or unspecified chronic kidney disease; N18.4 Chronic kidney disease, stage 4 (severe); I50.33 Acute on chronic diastolic (congestive) heart failure; Z01.812 Encounter for preprocedural laboratory examination; Z20.822 Contact with and (suspected) exposure to COVID-19; Z79.82 Long term (current) use of aspirin; Z79.4 Long term (current) use of insulin; Z68.34 Body mass index [BMI] 34.0-34.9, adult; Z95.818 Presence of other cardiac implants and grafts; Z82.49 Family history of ischemic heart disease and other diseases of the circulatory system; Z83.3 Family history of diabetes mellitus
CPT/HCPCS: 36415 ×2; 76937; 80053; 82948; 85025; 93458; C1769 ×2; C1887; J2001; J2250; J3010; J7030; Q9967; U0002; 99152

== ENCOUNTER → 2020-12-21 | Day surgery (SDC) | payer MEDICARE, OTHER ==
[~2020-12-21] MED LIST changes: -ALPRAZOLAM 0.5 MG TAB ONE; +BUPIVACAINE HCL 0.5% INJ 30 ML VIAL INJ ONE; -DIPHENHYDRAMINE HCL 25 MG CAP ONE; -FENTANYL CITRATE/PF 100MCG/2 ML INJ ONE; -HEPARIN SOD/SOD CHLORIDE 2,000 ML ONE; -IOPAMIDOL 370 MG/ML 200 ML INFUS..BTL INJ ONE; +LIDOCAINE 1% W/EPINEPHRINE 20 ML VIAL ONE; -LIDOCAINE HCL 2% LOCAL 20 ML VIAL ONE; -MIDAZOLAM HCL 2 MG/2 ML VIAL ONE; +SILVER NITRATE SWABS ONE; -SODIUM CHLORIDE 0.9% 1000ML 1,000 ML ONE
[2020-12-21 10:35] VITALS: BP 129/59
== END | disposition home or self-care (01) ==
LOC: OR 05:32
PROVIDERS: ATTEND Obstetrics & Gynecology
DX: D25.0 Submucous leiomyoma of uterus (principal); N84.1 Polyp of cervix uteri; N81.6 Rectocele; N81.2 Incomplete uterovaginal prolapse; G47.33 Obstructive sleep apnea (adult) (pediatric); I25.10 Atherosclerotic heart disease of native coronary artery without angina pectoris; E11.22 Type 2 diabetes mellitus with diabetic chronic kidney disease; I13.2 Hypertensive heart and chronic kidney disease with heart failure and with stage 5 chronic kidney disease, or end stage renal disease; N18.5 Chronic kidney disease, stage 5; I50.9 Heart failure, unspecified; K21.9 Gastro-esophageal reflux disease without esophagitis; E03.9 Hypothyroidism, unspecified; Z01.810 Encounter for preprocedural cardiovascular examination; Z01.812 Encounter for preprocedural laboratory examination; Z20.822 Contact with and (suspected) exposure to COVID-19; Z79.82 Long term (current) use of aspirin; Z79.4 Long term (current) use of insulin
CPT/HCPCS: 36415; 58561; 71046; 82948; 88305; C1758; U0002

== ENCOUNTER 2021-01-13 06:57 | Observation (INO) | payer MEDICARE, OTHER ==
[2021-01-11 09:42] LABS: BASOPHILS % 0.3 % (0.0-1.0); EOSINOPHILS # (AUTO) 0.2 (0.0-0.4); EOSINOPHILS % 2.2 % (0.0-6.0); HEMATOCRIT 36.2 % (34.2-44.1); HEMOGLOBIN 11.3 g/dL (12.0-16.0); LYMPHOCYTES # (AUTO) 0.6 (1.0-3.2); MEAN CORPUSCULAR HEMOGLOBIN 30.4 pg (28-32); MEAN CORPUSCULAR HGB CONC 31.2 g/dL (31-35); MEAN CORPUSCULAR VOLUME 97.3 fL (81-99); MONOCYTES # (AUTO) 0.7 (0.2-0.8); MONOCYTES % 6.6 % (4.4-11.3); NEUTROPHILS # (AUTO) 8.8 (2.1-6.9); NEUTROPHILS % 84.5 % (38.7-80.0); PLATELET COUNT 204 x10e3/uL (140-360); RED BLOOD COUNT 3.72 x10e6/uL (3.6-5.1); RED CELL DISTRIBUTION WIDTH 15.8 % (11.7-14.4)
[2021-01-11 10:03] LABS: INR 1.09; PROTHROMBIN TIME 14.5 seconds (11.9-14.5)
[2021-01-11 10:04] LABS: PARTIAL THROMBOPLASTIN TIME 35.6 seconds (23.8-35.5)
[2021-01-11 10:09] LABS: ANION GAP 16.7 mmol/L (8-16); CALCIUM 9.2 mg/dL (8.4-10.2); CREATININE, SERUM 2.47 mg/dL (0.57-1.11); POTASSIUM 4.7 mmol/L (3.5-5.1)
[~2021-01-13 06:57] MED LIST changes: -BUPIVACAINE HCL 0.5% INJ 30 ML VIAL INJ ONE; -SILVER NITRATE SWABS ONE; +THROMBIN FOR SOLN 5,000 UNIT VIAL ONE; +Vancomycin IV 1 GM VIAL ONE
[2021-01-13] MEDS ORDERED: HYDROCODON-ACE1 EA12 PO (09:10)
[2021-01-13] MEDS ORDERED: CARISOPRODOL 350 MG TAB PO PRN (09:15)
[2021-01-13] MEDS ORDERED: ACETAMINOPHEN 325 MG TAB PO PRN (09:15)
[2021-01-13] MEDS ORDERED: PROMETHAZINE HCL (IM) 25 MG/ML VIAL IM PRN (09:15)
[2021-01-13] MEDS ORDERED: HYDROMORPHONE 2MG/ML 2 MG/ML ML IV PRN (09:15)
[2021-01-13] MEDS ORDERED: OXYCODONE/ACETAMINOPHEN 5-325 1 EACH TABLET PO PRN (09:15)
[2021-01-13] MEDS ORDERED: DEXTROSE 50% SYRINGE 50 ML IV PRN (09:15)
[2021-01-13] MEDS ORDERED: CHOLESTYRAMINE 4 GM PACKET PO PRN (09:15)
[2021-01-13] MEDS ORDERED: ONDANSETRON HCL INJ 2MG/ML 2ML 2 MG/ML VIAL IV PRN (09:15)
[2021-01-13] MEDS ORDERED: MAGNESIUM/ALUMINUM/SIMETHICONE 30 ML UDC PO PRN (09:15)
[2021-01-13] MEDS ORDERED: MORPHINE SULFATE 5 MG/ML VIAL IM PRN (09:15)
[2021-01-13] MEDS: LACTATED RINGER'S 1,000 ML IV SCH ×2 (10:53→16:50)
[2021-01-13] MEDS: INSULIN LISPRO 100 UNIT/1 ML 3ML VIAL SQ SCH ×3 (11:30→21:48)
[2021-01-13 11:34] VITALS: BP 121/59
[2021-01-13] MEDS: HYDROCODONE/APAP 10MG-325MG TAB PO PRN (12:02)
[2021-01-13 12:26] VITALS: BP 107/43
[2021-01-13 12:39] VITALS: BP 123/64
[2021-01-13] MEDS ORDERED: PROPOFOL IV EMULSION 10 MG/ML 20 ML VIAL ONE (13:50)
[2021-01-13] MEDS ORDERED: EPHEDRINE SULFATE INJ 50 MG/ML VIAL ONE (13:50)
[2021-01-13] MEDS ORDERED: LIDOCAINE HCL 2% LOCAL INJ 5 ML SDV VIAL INJ ONE (13:50)
[2021-01-13] MEDS ORDERED: ONDANSETRON HCL INJ 2MG/ML 2ML 2 MG/ML VIAL ONE (13:50)
[2021-01-13] MEDS ORDERED: ROCURONIUM BROMIDE 10 MG/ML 5ML VIAL IV ONE (13:50)
[2021-01-13] MEDS ORDERED: DEXAMETHASONE SOD PHOS INJ 4 MG/ML SDV ONE (13:50)
[2021-01-13] MEDS ORDERED: SEVOFLURANE INHAL SOLN 250 ML PEN BTL ONE (13:50)
[2021-01-13] MEDS ORDERED: POVIDONE IODINE 0.05% 0.05 % ML PO ONE (13:50)
[2021-01-13] MEDS ORDERED: FENTANYL CITRATE/PF 100MCG/2 ML INJ ONE (16:01)
[2021-01-13] MEDS ORDERED: MIDAZOLAM HCL 2 MG/2 ML VIAL ONE (16:01)
[2021-01-13] MEDS: Cefazolin 1 GM in SODIUM CHLORIDE 0.9% 50ML 50 ML IV SCH ×2 (16:50→23:18)
[2021-01-13] MEDS: OXYBUTYNIN CHLORIDE 5 MG TAB PO SCH (16:50)
[2021-01-13 18:27] VITALS: BP 158/88
[2021-01-13 20:00] VITALS: BP 140/59
[2021-01-13 21:00] VITALS: BP 140/59
[2021-01-13] MEDS ORDERED: INSULIN GLARGINE 100 UNITS/ML VIAL SQ SCH (21:00)
[2021-01-13] MEDS ORDERED: NON-FORMULARY MEDICATION (Atorvastatin Calcium (Lipitor) 40 MG) PO SCH (21:00)
[2021-01-13] MEDS ORDERED: ATORVASTATIN 40 MG TAB PO SCH (21:00)
[2021-01-13] MEDS ORDERED: NON-FORMULARY MEDICATION (Insulin Glargine (Lantus 3ML Pen) 20 UNIT) SQ SCH (21:00)
[2021-01-13] MEDS ORDERED: ZOLPIDEM TARTRATE 5 MG TAB PO PRN (21:00)
[2021-01-14] VITALS: BP 152/74
[2021-01-14 04:00] VITALS: BP 174/83
[2021-01-14] MEDS: LACTATED RINGER'S 1,000 ML IV SCH ×2 (04:39→10:17)
[2021-01-14] MEDS ORDERED: LEVOTHYROXINE SODIUM 50 MCG TAB PO SCH (06:00)
[2021-01-14] MEDS: INSULIN LISPRO 100 UNIT/1 ML 3ML VIAL SQ SCH (07:30)
[2021-01-14] MEDS ORDERED: PANTOPRAZOLE SOD 40 MG TABEC PO SCH (07:30)
[2021-01-14] MEDS: Cefazolin 1 GM in SODIUM CHLORIDE 0.9% 50ML 50 ML IV SCH (08:44)
[2021-01-14] MEDS: OXYBUTYNIN CHLORIDE 5 MG TAB PO SCH (08:45)
[2021-01-14] MEDS: HYDROCODONE/APAP 10MG-325MG TAB PO PRN (08:48)
[2021-01-14] MEDS ORDERED: METOPROLOL SUCCINATE 25 MG TAB XL PO SCH (09:00)
[2021-01-14] MEDS ORDERED: NON-FORMULARY MEDICATION (Nifedipine (Nifedipine Er) 60 MG) PO SCH (09:00)
[2021-01-14] MEDS ORDERED: CITALOPRAM HYDROBROMIDE 20 MG TAB PO SCH (09:00)
[2021-01-14] MEDS ORDERED: ONDANSETRON HCL 4 MG ORAL DISINTEGRATING TAB PO PRN (09:00)
[2021-01-14] MEDS ORDERED: NIFEDIPINE CR 30 MG TAB PO SCH (09:00)
[2021-01-14] MEDS ORDERED: ALLOPURINOL 300 MG TAB PO SCH (09:00)
[2021-01-14] MEDS ORDERED: TORSEMIDE 10 MG TAB PO SCH (09:00)
[2021-01-14 09:02] VITALS: BP 193/87
[2021-01-14 10:47] VITALS: BP 193/87
== END 2021-01-14 12:08 | disposition home or self-care (01) ==
LOC: OR 06:57 → PACU V 09:08 → MED/SURG 10:32
PROVIDERS: ADMIT Neurological Surgery; ATTEND Neurological Surgery
DX: M47.12 Other spondylosis with myelopathy, cervical region (principal); M50.021 Cervical disc disorder at C4-C5 level with myelopathy; Z01.812 Encounter for preprocedural laboratory examination; Z20.822 Contact with and (suspected) exposure to COVID-19; K21.9 Gastro-esophageal reflux disease without esophagitis; K58.9 Irritable bowel syndrome, unspecified; K85.90 Acute pancreatitis without necrosis or infection, unspecified; E66.1 Drug-induced obesity; E11.22 Type 2 diabetes mellitus with diabetic chronic kidney disease; I12.9 Hypertensive chronic kidney disease with stage 1 through stage 4 chronic kidney disease, or unspecified chronic kidney disease; N18.4 Chronic kidney disease, stage 4 (severe); G47.33 Obstructive sleep apnea (adult) (pediatric); D64.9 Anemia, unspecified; Z95.811 Presence of heart assist device; Z79.82 Long term (current) use of aspirin; Z79.4 Long term (current) use of insulin
CPT/HCPCS: 20931; 22551; 22552; 22845; 36415 ×3; 72040; 80048; 82948 ×2; 85025; 85610; 85730; 86850; 86900; 88304; 88311; G0378 ×2; J0690 ×2; J1100; J2001; J2250; J2405; J2550; J2704; J3010; J3370; J7121 ×2; S0164; U0002; 77003; C1713

== ENCOUNTER 2021-03-03 17:09 | Inpatient (IN) | payer MEDICARE, OTHER ==
[~2021-03-03] VITALS: Ht 149.9 cm; Wt 93.0 kg
[~2021-03-03 17:09] MED LIST changes: +HYDROCODON-ACE1 EA12 PO; -LIDOCAINE 1% W/EPINEPHRINE 20 ML VIAL ONE; -THROMBIN FOR SOLN 5,000 UNIT VIAL ONE; -Vancomycin IV 1 GM VIAL ONE
[2021-03-03 18:38] LABS: BASOPHILS % 0.2 % (0.0-1.0); HEMATOCRIT 35.5 % (34.2-44.1); HEMOGLOBIN 11.7 g/dL (12.0-16.0); LYMPHOCYTES # (AUTO) 0.4 (1.0-3.2); LYMPHOCYTES % 2.9 % (18.0-39.1); MEAN CORPUSCULAR HEMOGLOBIN 29.6 pg (28-32); MEAN CORPUSCULAR VOLUME 89.9 fL (81-99); MONOCYTES # (AUTO) 0.4 (0.2-0.8); MONOCYTES % 3.4 % (4.4-11.3); NEUTROPHILS # (AUTO) 11.8 (2.1-6.9); NEUTROPHILS % 92.4 % (38.7-80.0); PLATELET COUNT 243 x10e3/uL (140-360); RED BLOOD COUNT 3.95 x10e6/uL (3.6-5.1); RED CELL DISTRIBUTION WIDTH 14.6 % (11.7-14.4)
[2021-03-03 19:07] LABS: INR 1.02; PROTHROMBIN TIME 14.2 seconds (11.9-14.5)
[2021-03-03 19:14] LABS: CLARITY,URINE SL CLOUDY (CLEAR); COLOR,URINE YELLOW (YELLOW); KETONES,URINE NEGATIVE (NEGATIVE); LEUKOCYTE ESTERASE ,URINE NEGATIVE (NEGATIVE); NITRITE,URINE NEGATIVE (NEGATIVE); PROTEIN,URINE DIPSTICK NEGATIVE (NEGATIVE); URINE UROBILINOGEN 0.2 mg/dL (0.2 - 1)
[2021-03-03 19:16] LABS: BACTERIA,URINE FEW /HPF; EPITHELIAL CELLS,URINE MODERATE /LPF; RBC,URINE 0-5 /HPF (0-5); WBC,URINE (MAN) 0-5 /HPF (0-5)
[2021-03-03 19:21] LABS: ALBUMIN 3.5 g/dL (3.5-5.0); ANION GAP 23.2 mmol/L (8-16); CALCIUM 9.3 mg/dL (8.4-10.2); CREATININE, SERUM 3.93 mg/dL (0.57-1.11); POTASSIUM 4.2 mmol/L (3.5-5.1)
[2021-03-03] MEDS ORDERED: FUROSEMIDE INJ 10 MG/ML 4 ML VIAL IV ONE (19:45)
[2021-03-03] MEDS ORDERED: DEXTROSE 50% SYRINGE 50 ML IV PRN (20:00)
[2021-03-03] MEDS: INSULIN REGULAR, HUMAN 100 UNIT/1 ML SQ SCH (20:10)
[2021-03-03 22:45] VITALS: BP 117/54
[2021-03-03] MEDS: HYDROCODONE/APAP 5MG-325MG TAB PO PRN (23:35)
[2021-03-03 23:39] VITALS: BP 117/54
[2021-03-03] MEDS: TEMAZEPAM 7.5 MG CAP PO PRN (23:39)
[2021-03-04] VITALS (7 sets, daily range): BP systolic 112–129; BP diastolic 54–68
[2021-03-04 03:11] LABS: BASOPHILS % 0.2 % (0.0-1.0); EOSINOPHILS # (AUTO) 0.1 (0.0-0.4); EOSINOPHILS % 1.1 % (0.0-6.0); HEMATOCRIT 31.5 % (34.2-44.1); HEMOGLOBIN 10.3 g/dL (12.0-16.0); LYMPHOCYTES # (AUTO) 0.4 (1.0-3.2); LYMPHOCYTES % 3.5 % (18.0-39.1); MEAN CORPUSCULAR HEMOGLOBIN 29.8 pg (28-32); MEAN CORPUSCULAR HGB CONC 32.7 g/dL (31-35); MONOCYTES # (AUTO) 0.7 (0.2-0.8); MONOCYTES % 6.4 % (4.4-11.3); NEUTROPHILS # (AUTO) 9.6 (2.1-6.9); NEUTROPHILS % 87.9 % (38.7-80.0); PLATELET COUNT 226 x10e3/uL (140-360); RED BLOOD COUNT 3.46 x10e6/uL (3.6-5.1); RED CELL DISTRIBUTION WIDTH 14.4 % (11.7-14.4)
[2021-03-04 03:33] LABS: CREATINE KINASE MB 2.4 ng/mL (0-5.0)
[2021-03-04 03:46] LABS: ALBUMIN/GLOBULIN RATIO 1.1 (0.8-2.0); ANION GAP 18.9 mmol/L (8-16); CALCIUM 8.8 mg/dL (8.4-10.2); CREATININE, SERUM 3.84 mg/dL (0.57-1.11); POTASSIUM 3.9 mmol/L (3.5-5.1)
[2021-03-04] MEDS ORDERED: CHOLESTYRAMINE 4 GM PACKET PO PRN (04:15)
[2021-03-04] MEDS: LEVOTHYROXINE SODIUM 50 MCG TAB PO SCH (05:27)
[2021-03-04] MEDS: HYDROCODONE/APAP 5MG-325MG TAB PO PRN ×2 (05:29→13:09)
[2021-03-04] MEDS: NIFEDIPINE CR 30 MG TAB PO SCH (09:00)
[2021-03-04] MEDS ORDERED: METOPROLOL SUCCINATE 50 MG TAB XL PO SCH (09:00)
[2021-03-04] MEDS: PANTOPRAZOLE SOD 40 MG TABEC PO SCH (09:00)
[2021-03-04] MEDS: OXYBUTYNIN CHLORIDE 5 MG TAB PO SCH ×2 (09:00→16:35)
[2021-03-04] MEDS: ALLOPURINOL 300 MG TAB PO SCH (09:01)
[2021-03-04] MEDS: INSULIN REGULAR, HUMAN 100 UNIT/1 ML SQ SCH ×4 (09:09→21:00)
[2021-03-04 12:22] LABS: CREATINE KINASE MB 1.7 ng/mL (0-5.0)
[2021-03-04] MEDS: SODIUM CHLORIDE 0.9% 1000ML 1,000 ML IV SCH (13:20)
[2021-03-04] MEDS: HYDROCODONE/APAP 10MG-325MG TAB PO PRN (17:45)
[2021-03-04] MEDS: ONDANSETRON HCL INJ 2MG/ML 2ML 2 MG/ML VIAL IV PRN (17:45)
[2021-03-04] MEDS: ATORVASTATIN 20 MG TAB PO SCH (21:51)
[2021-03-04] MEDS: TEMAZEPAM 7.5 MG CAP PO PRN (21:51)
[2021-03-04] MEDS: ASPIRIN 81 MG CHEW TAB PO SCH (21:51)
[2021-03-05 04:00] VITALS: BP 109/52
[2021-03-05 06:07] LABS: ALBUMIN 2.6 g/dL (3.5-5.0); ALBUMIN/GLOBULIN RATIO 0.9 (0.8-2.0); ANION GAP 16.7 mmol/L (8-16); CALCIUM 8.4 mg/dL (8.4-10.2); CREATININE, SERUM 3.15 mg/dL (0.57-1.11); POTASSIUM 4.7 mmol/L (3.5-5.1)
[2021-03-05] MEDS: LEVOTHYROXINE SODIUM 50 MCG TAB PO SCH (06:31)
[2021-03-05] MEDS: SODIUM CHLORIDE 0.9% 1000ML 1,000 ML IV SCH ×2 (06:31→12:30)
[2021-03-05 08:46] VITALS: BP 121/97
[2021-03-05] MEDS: OXYBUTYNIN CHLORIDE 5 MG TAB PO SCH ×2 (08:55→17:07)
[2021-03-05] MEDS: INSULIN REGULAR, HUMAN 100 UNIT/1 ML SQ SCH ×4 (08:55→21:26)
[2021-03-05] MEDS: SODIUM BICARBONATE 650 MG TAB PO SCH (08:56)
[2021-03-05] MEDS: NIFEDIPINE CR 30 MG TAB PO SCH (08:56)
[2021-03-05] MEDS: GABAPENTIN 100 MG CAP PO SCH ×3 (08:56→21:25)
[2021-03-05] MEDS: PANTOPRAZOLE SOD 40 MG TABEC PO SCH (08:56)
[2021-03-05] MEDS: ALLOPURINOL 300 MG TAB PO SCH (08:57)
[2021-03-05] MEDS: METOPROLOL SUCCINATE 25 MG TAB XL PO SCH (08:57)
[2021-03-05] MEDS: HYDROCODONE/APAP 10MG-325MG TAB PO PRN (08:58)
[2021-03-05 09:02] VITALS: BP 121/97
[2021-03-05 12:45] VITALS: BP 110/56
[2021-03-05 16:25] LABS: TOTAL PROTEIN, URINE < 6.8 mg/dL (1-14)
[2021-03-05 16:36] VITALS: BP 105/76
[2021-03-05 20:15] VITALS: BP 111/62
[2021-03-05] MEDS: ATORVASTATIN 20 MG TAB PO SCH (21:25)
[2021-03-05] MEDS: ASPIRIN 81 MG CHEW TAB PO SCH (21:25)
[2021-03-06] VITALS (7 sets, daily range): BP systolic 105–127; BP diastolic 56–76
[2021-03-06 05:14] LABS: BASOPHILS % 0.4 % (0.0-1.0); EOSINOPHILS # (AUTO) 0.2 (0.0-0.4); EOSINOPHILS % 2.7 % (0.0-6.0); HEMATOCRIT 32.6 % (34.2-44.1); HEMOGLOBIN 10.4 g/dL (12.0-16.0); LYMPHOCYTES # (AUTO) 0.6 (1.0-3.2); LYMPHOCYTES % 7.1 % (18.0-39.1); MEAN CORPUSCULAR HEMOGLOBIN 29.9 pg (28-32); MEAN CORPUSCULAR HGB CONC 31.9 g/dL (31-35); MEAN CORPUSCULAR VOLUME 93.7 fL (81-99); MONOCYTES # (AUTO) 0.5 (0.2-0.8); MONOCYTES % 6.7 % (4.4-11.3); NEUTROPHILS # (AUTO) 6.3 (2.1-6.9); PLATELET COUNT 219 x10e3/uL (140-360); RED BLOOD COUNT 3.48 x10e6/uL (3.6-5.1)
[2021-03-06] MEDS: LEVOTHYROXINE SODIUM 50 MCG TAB PO SCH (05:26)
[2021-03-06 05:41] LABS: ANION GAP 15.8 mmol/L (8-16); CALCIUM 8.6 mg/dL (8.4-10.2); CREATININE, SERUM 3.05 mg/dL (0.57-1.11); POTASSIUM 4.8 mmol/L (3.5-5.1)
[2021-03-06 06:20] LABS: ALBUMIN 2.6 g/dL (3.5-5.0); BILIRUBIN,DIRECT 0.2 mg/dL (0.0-0.5)
[2021-03-06] MEDS: GABAPENTIN 100 MG CAP PO SCH ×3 (08:15→20:29)
[2021-03-06] MEDS: OXYBUTYNIN CHLORIDE 5 MG TAB PO SCH ×2 (08:15→17:00)
[2021-03-06] MEDS: NIFEDIPINE CR 30 MG TAB PO SCH (08:16)
[2021-03-06] MEDS: PANTOPRAZOLE SOD 40 MG TABEC PO SCH (08:16)
[2021-03-06] MEDS: SODIUM BICARBONATE 650 MG TAB PO SCH (08:16)
[2021-03-06] MEDS: METOPROLOL SUCCINATE 25 MG TAB XL PO SCH (08:16)
[2021-03-06] MEDS: ALLOPURINOL 300 MG TAB PO SCH (08:17)
[2021-03-06] MEDS: INSULIN REGULAR, HUMAN 100 UNIT/1 ML SQ SCH ×4 (08:21→20:30)
[2021-03-06] MEDS: HYDROCODONE/APAP 5MG-325MG TAB PO PRN ×2 (08:36→17:18)
[2021-03-06] MEDS: ONDANSETRON HCL INJ 2MG/ML 2ML 2 MG/ML VIAL IV PRN (18:33)
[2021-03-06] MEDS: ASPIRIN 81 MG CHEW TAB PO SCH (20:29)
[2021-03-06] MEDS: ATORVASTATIN 20 MG TAB PO SCH (20:29)
[2021-03-07] VITALS: BP 112/62
[2021-03-07 04:27] VITALS: BP 119/59
[2021-03-07] MEDS ORDERED: METHYLPREDNISOLONE SOD SUCC 40 MG/ML VIAL 1ML IV ONE (04:45)
[2021-03-07] MEDS: LEVOTHYROXINE SODIUM 50 MCG TAB PO SCH (05:25)
[2021-03-07 07:11] LABS: ALBUMIN 2.6 g/dL (3.5-5.0); ALBUMIN/GLOBULIN RATIO 0.8 (0.8-2.0); ANION GAP 18.4 mmol/L (8-16); CALCIUM 8.8 mg/dL (8.4-10.2); CREATININE, SERUM 2.97 mg/dL (0.57-1.11); POTASSIUM 5.4 mmol/L (3.5-5.1)
[2021-03-07 07:47] VITALS: BP 130/66
[2021-03-07] MEDS: INSULIN REGULAR, HUMAN 100 UNIT/1 ML SQ SCH ×3 (08:03→15:35)
[2021-03-07] MEDS: SODIUM BICARBONATE 650 MG TAB PO SCH (09:09)
[2021-03-07] MEDS: PANTOPRAZOLE SOD 40 MG TABEC PO SCH (09:09)
[2021-03-07] MEDS: ALLOPURINOL 300 MG TAB PO SCH (09:09)
[2021-03-07] MEDS: GABAPENTIN 100 MG CAP PO SCH ×2 (09:09→14:25)
[2021-03-07] MEDS: OXYBUTYNIN CHLORIDE 5 MG TAB PO SCH (09:09)
[2021-03-07] MEDS: NIFEDIPINE CR 30 MG TAB PO SCH (09:10)
[2021-03-07] MEDS: METOPROLOL SUCCINATE 25 MG TAB XL PO SCH (09:10)
[2021-03-07] MEDS ORDERED: TEMAZEPAM 15 MG CAP PO PRN (10:00)
[2021-03-07] MEDS: HYDROCODONE/APAP 5MG-325MG TAB PO PRN (10:54)
[2021-03-07 11:03] VITALS: BP 112/66
[2021-03-07] MEDS ORDERED: ONDANSETRON HCL 4 MG ORAL DISINTEGRATING TAB PO PRN (13:15)
[2021-03-07 15:36] VITALS: BP 112/62
[2021-03-07] MEDS ORDERED: ATORVASTATIN 40 MG TAB PO SCH (21:00)
== END 2021-03-07 15:52 | disposition home or self-care (01) | DRG 291 ==
LOC: ER 18:22 → ERHOLD 20:04 → MED/SURG 22:15
PROVIDERS: ADMIT Internal Medicine; ATTEND Internal Medicine
DX: I13.0 Hypertensive heart and chronic kidney disease with heart failure and stage 1 through stage 4 chronic kidney disease, or unspecified chronic kidney disease (principal); I50.33 Acute on chronic diastolic (congestive) heart failure; N17.0 Acute kidney failure with tubular necrosis; I48.20 Chronic atrial fibrillation, unspecified; N18.4 Chronic kidney disease, stage 4 (severe); E87.2 Acidosis; E87.1 Hypo-osmolality and hyponatremia; Z68.41 Body mass index [BMI] 40.0-44.9, adult; E11.22 Type 2 diabetes mellitus with diabetic chronic kidney disease; E03.9 Hypothyroidism, unspecified; Z87.442 Personal history of urinary calculi; Z91.048 Other nonmedicinal substance allergy status; E86.0 Dehydration; N18.30 Chronic kidney disease, stage 3 unspecified; E78.5 Hyperlipidemia, unspecified; G47.33 Obstructive sleep apnea (adult) (pediatric); D64.9 Anemia, unspecified; Z83.3 Family history of diabetes mellitus; M54.12 Radiculopathy, cervical region; M54.2 Cervicalgia; D63.8 Anemia in other chronic diseases classified elsewhere; E66.01 Morbid (severe) obesity due to excess calories; Z79.82 Long term (current) use of aspirin; Z79.4 Long term (current) use of insulin
CPT/HCPCS: 36415; 71045; 72050; 76770; 80048; 80053; 80076; 81001; 81015; 82550; 82553; 82570; 82948; 83880; 84100; 84156; 84443; 84484; 84550; 85025; 85610; 85730; 93005; 93306; 94799; 97139; 99284; J1817; J1940; J2405; J2920; J7030; U0002

== ENCOUNTER 2021-03-08 13:20 | Inpatient (IN) | payer MEDICARE, OTHER ==
[~2021-03-08] VITALS: Ht 149.9 cm; Wt 96.2 kg
[2021-03-08] MEDS ORDERED: ONDANSETRON HCL 4 MG ORAL DISINTEGRATING TAB PO PRN (13:45)
[2021-03-08 14:25] LABS: BASOPHILS % 0.2 % (0.0-1.0); EOSINOPHILS % 0.2 % (0.0-6.0); HEMATOCRIT 38.4 % (34.2-44.1); HEMOGLOBIN 12.2 g/dL (12.0-16.0); LYMPHOCYTES # (AUTO) 0.5 (1.0-3.2); MEAN CORPUSCULAR HEMOGLOBIN 29.5 pg (28-32); MEAN CORPUSCULAR HGB CONC 31.8 g/dL (31-35); MEAN CORPUSCULAR VOLUME 92.8 fL (81-99); MONOCYTES # (AUTO) 0.7 (0.2-0.8); MONOCYTES % 4.3 % (4.4-11.3); NEUTROPHILS # (AUTO) 15.7 (2.1-6.9); NEUTROPHILS % 91.4 % (38.7-80.0); PLATELET COUNT 300 x10e3/uL (140-360); RED BLOOD COUNT 4.14 x10e6/uL (3.6-5.1); RED CELL DISTRIBUTION WIDTH 15.2 % (11.7-14.4)
[2021-03-08 14:44] LABS: ALBUMIN 3.3 g/dL (3.5-5.0); ALBUMIN/GLOBULIN RATIO 0.9 (0.8-2.0); ANION GAP 19.9 mmol/L (8-16); CALCIUM 10.1 mg/dL (8.4-10.2); CREATININE, SERUM 3.03 mg/dL (0.57-1.11); POTASSIUM 4.9 mmol/L (3.5-5.1)
[2021-03-08 14:50] LABS: CREATINE KINASE MB 3.9 ng/mL (0-5.0)
[2021-03-08 15:44] LABS: CLARITY,URINE SL CLOUDY (CLEAR); COLOR,URINE STRAW (YELLOW); KETONES,URINE NEGATIVE (NEGATIVE); LEUKOCYTE ESTERASE ,URINE NEGATIVE (NEGATIVE); NITRITE,URINE NEGATIVE (NEGATIVE); PROTEIN,URINE DIPSTICK NEGATIVE (NEGATIVE); URINE UROBILINOGEN 0.2 mg/dL (0.2 - 1)
[2021-03-08 15:53] LABS: BACTERIA,URINE MODERATE /HPF; EPITHELIAL CELLS,URINE MODERATE /LPF
[2021-03-08] MEDS ORDERED: HEPARIN SOD (PORCINE) 1000 UNIT/ML SDV ONE (15:58)
[2021-03-08] MEDS ORDERED: LIDOCAINE HCL 1% LOCAL INJ 20 ML VIAL ONE (16:07)
[2021-03-08] MEDS: CEFTRIAXONE 2 GM in SODIUM CHLORIDE 0.9% 100 ML IV SCH (16:51)
[2021-03-08] MEDS ORDERED: ONDANSETRON HCL INJ 2MG/ML 2ML 2 MG/ML VIAL IV PRN (17:15)
[2021-03-08] MEDS ORDERED: DEXTROSE 50% SYRINGE 50 ML IV PRN (17:15)
[2021-03-08] MEDS ORDERED: FAMOTIDINE 20 MG/2 ML VIAL IV SCH (18:00)
[2021-03-08] MEDS ORDERED: ACETAMINOPHEN 325 MG TAB PO ONE (19:30)
[2021-03-08] MEDS ORDERED: ACETAMINOPHEN 325 MG TAB ONE (19:38)
[2021-03-08 20:05] VITALS: BP_SYST 134; BP_DIAS 56; BP_DIAS 76
[2021-03-08] MEDS ORDERED: HEPARIN SOD (PORCINE) 1000 UNIT/ML SDV IV PRN (20:15)
[2021-03-08] MEDS ORDERED: SODIUM CHLORIDE 0.9% 1000ML 1,000 ML IV PRN (20:15)
[2021-03-08] MEDS ORDERED: SODIUM CHLORIDE 0.9% 1000ML 1,000 ML ONE (20:31)
[2021-03-08 21:00] VITALS: BP 134/56
[2021-03-08] MEDS: INSULIN LISPRO 100 UNIT/1 ML 3ML VIAL SQ SCH (21:00)
[2021-03-08 21:06] LABS: CREATINE KINASE MB 3.1 ng/mL (0-5.0)
[2021-03-08] MEDS ORDERED: MANNITOL 25% 12.5GM/50 ML VIAL IV ONE (21:30)
[2021-03-09] VITALS (8 sets, daily range): BP systolic 115–155; BP diastolic 51–73
[2021-03-09] MEDS: LEVOTHYROXINE SODIUM 50 MCG TAB PO SCH (04:31)
[2021-03-09 06:11] LABS: BASOPHILS % 0.3 % (0.0-1.0); EOSINOPHILS # (AUTO) 0.1 (0.0-0.4); EOSINOPHILS % 1.1 % (0.0-6.0); HEMATOCRIT 31.7 % (34.2-44.1); HEMOGLOBIN 10.3 g/dL (12.0-16.0); LYMPHOCYTES # (AUTO) 0.6 (1.0-3.2); LYMPHOCYTES % 6.9 % (18.0-39.1); MEAN CORPUSCULAR HEMOGLOBIN 29.7 pg (28-32); MEAN CORPUSCULAR HGB CONC 32.5 g/dL (31-35); MEAN CORPUSCULAR VOLUME 91.4 fL (81-99); MONOCYTES # (AUTO) 0.5 (0.2-0.8); MONOCYTES % 5.2 % (4.4-11.3); NEUTROPHILS # (AUTO) 7.9 (2.1-6.9); NEUTROPHILS % 85.7 % (38.7-80.0); PLATELET COUNT 227 x10e3/uL (140-360); RED BLOOD COUNT 3.47 x10e6/uL (3.6-5.1)
[2021-03-09 06:54] LABS: CREATINE KINASE MB 1.9 ng/mL (0-5.0)
[2021-03-09 07:13] LABS: ALBUMIN 2.7 g/dL (3.5-5.0); ALBUMIN/GLOBULIN RATIO 0.9 (0.8-2.0); ANION GAP 16.5 mmol/L (8-16); CALCIUM 8.3 mg/dL (8.4-10.2); CREATININE, SERUM 1.88 mg/dL (0.57-1.11); POTASSIUM 4.5 mmol/L (3.5-5.1)
[2021-03-09 07:14] LABS: CHOL/HDL RATIO 2.9 (3.0-3.6)
[2021-03-09] MEDS ORDERED: MANNITOL 25% 12.5GM/50 ML VIAL IV PRN (07:15)
[2021-03-09] MEDS ORDERED: SODIUM CHLORIDE 0.9% 1000ML 2,000 ML IV PRN (07:15)
[2021-03-09] MEDS ORDERED: HEPARIN SOD (PORCINE) 1000 UNIT/ML SDV IV PRN (07:15)
[2021-03-09] MEDS ORDERED: SODIUM CHLORIDE 0.9% 250ML 750 ML IV PRN (07:30)
[2021-03-09] MEDS: PANTOPRAZOLE SOD 40 MG TABEC PO SCH (08:24)
[2021-03-09] MEDS: INSULIN LISPRO 100 UNIT/1 ML 3ML VIAL SQ SCH ×4 (08:25→20:15)
[2021-03-09] MEDS: OXYBUTYNIN CHLORIDE 5 MG TAB PO SCH ×2 (08:25→15:32)
[2021-03-09] MEDS: METOPROLOL SUCCINATE 50 MG TAB XL PO SCH (08:25)
[2021-03-09] MEDS: ALLOPURINOL 300 MG TAB PO SCH (08:26)
[2021-03-09] MEDS ORDERED: TORSEMIDE 10 MG TAB PO SCH (09:00)
[2021-03-09] MEDS ORDERED: PANTOPRAZOLE SOD 40 MG TABEC PO SCH (09:00)
[2021-03-09] MEDS: HYDROCODONE/APAP 10MG-325MG TAB PO PRN (10:14)
[2021-03-09] MEDS: NIFEDIPINE CR 30 MG TAB PO SCH (12:14)
[2021-03-09] MEDS: CEFTRIAXONE 2 GM in SODIUM CHLORIDE 0.9% 100 ML IV SCH (15:32)
[2021-03-09] MEDS ORDERED: SODIUM CHLORIDE 0.9% 250ML 250 ML ONE (15:49)
[2021-03-09] MEDS: ASPIRIN 81 MG CHEW TAB PO SCH (20:14)
[2021-03-09] MEDS: ATORVASTATIN 20 MG TAB PO SCH (20:15)
[2021-03-10] VITALS (8 sets, daily range): BP systolic 119–135; BP diastolic 52–78
[2021-03-10] MEDS: LEVOTHYROXINE SODIUM 50 MCG TAB PO SCH (05:34)
[2021-03-10 06:12] LABS: BASOPHILS % 0.4 % (0.0-1.0); EOSINOPHILS # (AUTO) 0.2 (0.0-0.4); EOSINOPHILS % 2.2 % (0.0-6.0); HEMATOCRIT 31.4 % (34.2-44.1); HEMOGLOBIN 10.2 g/dL (12.0-16.0); LYMPHOCYTES # (AUTO) 0.8 (1.0-3.2); LYMPHOCYTES % 11.6 % (18.0-39.1); MEAN CORPUSCULAR HEMOGLOBIN 29.8 pg (28-32); MEAN CORPUSCULAR HGB CONC 32.5 g/dL (31-35); MEAN CORPUSCULAR VOLUME 91.8 fL (81-99); MONOCYTES # (AUTO) 0.6 (0.2-0.8); NEUTROPHILS # (AUTO) 5.2 (2.1-6.9); NEUTROPHILS % 76.2 % (38.7-80.0); PLATELET COUNT 229 x10e3/uL (140-360); RED BLOOD COUNT 3.42 x10e6/uL (3.6-5.1); RED CELL DISTRIBUTION WIDTH 15.1 % (11.7-14.4)
[2021-03-10 07:01] LABS: ALBUMIN 2.6 g/dL (3.5-5.0); ALBUMIN/GLOBULIN RATIO 0.9 (0.8-2.0); ANION GAP 17.4 mmol/L (8-16); CALCIUM 9.2 mg/dL (8.4-10.2); CREATININE, SERUM 2.05 mg/dL (0.57-1.11); POTASSIUM 4.4 mmol/L (3.5-5.1)
[2021-03-10] MEDS: OXYBUTYNIN CHLORIDE 5 MG TAB PO SCH ×2 (09:05→15:10)
[2021-03-10] MEDS: PANTOPRAZOLE SOD 40 MG TABEC PO SCH (09:05)
[2021-03-10] MEDS: METOPROLOL SUCCINATE 50 MG TAB XL PO SCH (09:06)
[2021-03-10] MEDS: ALLOPURINOL 300 MG TAB PO SCH (09:06)
[2021-03-10] MEDS: NIFEDIPINE CR 30 MG TAB PO SCH (09:06)
[2021-03-10] MEDS: INSULIN LISPRO 100 UNIT/1 ML 3ML VIAL SQ SCH ×4 (09:07→20:10)
[2021-03-10] MEDS: HYDROCODONE/APAP 10MG-325MG TAB PO PRN (09:30)
[2021-03-10] MEDS: CEFTRIAXONE 2 GM in SODIUM CHLORIDE 0.9% 100 ML IV SCH (15:10)
[2021-03-10] MEDS: ATORVASTATIN 20 MG TAB PO SCH (20:09)
[2021-03-10] MEDS: ASPIRIN 81 MG CHEW TAB PO SCH (20:09)
[2021-03-11 00:41] VITALS: BP 142/63
[2021-03-11 04:00] VITALS: BP 137/52
[2021-03-11] MEDS: LEVOTHYROXINE SODIUM 50 MCG TAB PO SCH (05:59)
[2021-03-11 06:09] LABS: BASOPHILS % 0.4 % (0.0-1.0); EOSINOPHILS # (AUTO) 0.2 (0.0-0.4); EOSINOPHILS % 3.4 % (0.0-6.0); HEMATOCRIT 29.8 % (34.2-44.1); HEMOGLOBIN 9.6 g/dL (12.0-16.0); LYMPHOCYTES # (AUTO) 0.8 (1.0-3.2); LYMPHOCYTES % 11.6 % (18.0-39.1); MEAN CORPUSCULAR HEMOGLOBIN 29.8 pg (28-32); MEAN CORPUSCULAR HGB CONC 32.2 g/dL (31-35); MEAN CORPUSCULAR VOLUME 92.5 fL (81-99); MONOCYTES # (AUTO) 0.5 (0.2-0.8); MONOCYTES % 7.3 % (4.4-11.3); NEUTROPHILS # (AUTO) 5.2 (2.1-6.9); NEUTROPHILS % 76.9 % (38.7-80.0); PLATELET COUNT 194 x10e3/uL (140-360); RED BLOOD COUNT 3.22 x10e6/uL (3.6-5.1); RED CELL DISTRIBUTION WIDTH 15.3 % (11.7-14.4)
[2021-03-11 07:05] LABS: ALBUMIN 2.5 g/dL (3.5-5.0); CALCIUM 8.9 mg/dL (8.4-10.2); CREATININE, SERUM 1.98 mg/dL (0.57-1.11)
[2021-03-11] MEDS: PANTOPRAZOLE SOD 40 MG TABEC PO SCH (07:30)
[2021-03-11] MEDS: INSULIN LISPRO 100 UNIT/1 ML 3ML VIAL SQ SCH ×2 (07:30→11:30)
[2021-03-11 08:54] VITALS: BP 135/57
[2021-03-11 09:06] VITALS: BP 135/57
[2021-03-11] MEDS: METOPROLOL SUCCINATE 50 MG TAB XL PO SCH (09:08)
[2021-03-11] MEDS: ALLOPURINOL 300 MG TAB PO SCH (09:08)
[2021-03-11] MEDS: OXYBUTYNIN CHLORIDE 5 MG TAB PO SCH (09:08)
[2021-03-11] MEDS: NIFEDIPINE CR 30 MG TAB PO SCH (09:08)
[2021-03-11 13:21] VITALS: BP 128/63
== END 2021-03-11 13:47 | disposition home or self-care (01) | DRG 683 ==
LOC: ER 13:48 → ERHOLD 17:25 → MED/SURG2 20:04
PROVIDERS: ADMIT Internal Medicine; ATTEND Internal Medicine
PROC: 02HV33Z Insertion of Infusion Device into Superior Vena Cava, Percutaneous Approach (ICD-10-PCS; principal; 2021-03-08)
PROC: B5181ZA Fluoroscopy of Superior Vena Cava using Low Osmolar Contrast, Guidance (ICD-10-PCS; 2021-03-08)
PROC: 5A1D70Z Performance of Urinary Filtration, Intermittent, Less than 6 Hours Per Day (ICD-10-PCS; 2021-03-08)
DX: N17.9 Acute kidney failure, unspecified (principal); I13.0 Hypertensive heart and chronic kidney disease with heart failure and stage 1 through stage 4 chronic kidney disease, or unspecified chronic kidney disease; Z68.41 Body mass index [BMI] 40.0-44.9, adult; N39.0 Urinary tract infection, site not specified; N18.4 Chronic kidney disease, stage 4 (severe); I50.9 Heart failure, unspecified; E11.22 Type 2 diabetes mellitus with diabetic chronic kidney disease; I48.91 Unspecified atrial fibrillation; G47.33 Obstructive sleep apnea (adult) (pediatric); Z82.49 Family history of ischemic heart disease and other diseases of the circulatory system; E03.9 Hypothyroidism, unspecified; E78.5 Hyperlipidemia, unspecified; E66.01 Morbid (severe) obesity due to excess calories; M10.9 Gout, unspecified; K21.9 Gastro-esophageal reflux disease without esophagitis; D64.9 Anemia, unspecified
CPT/HCPCS: 36415; 36556; 71045; 74470; 76937; 77001; 80053; 80061; 81001; 82550; 82553; 82948; 83735; 83880; 84484; 85025; 86704; 86706; 86707; 87040; 87086; 87340; 93005; 94799; 99284; C1752; C1769; J0696; J1644; J2001; J2150; J7030; J7050; Q0162

== ENCOUNTER 2021-04-28 19:18 | Inpatient (IN) | payer MEDICARE, OTHER ==
[~2021-04-28] VITALS: Ht 149.9 cm; Wt 95.3 kg
[2021-04-28] MEDS ORDERED: FUROSEMIDE INJ 10 MG/ML 4 ML VIAL IV ONE (19:45)
[2021-04-28] MEDS ORDERED: ASPIRIN 81 MG CHEW TAB PO ONE (19:45)
[2021-04-28] MEDS ORDERED: ONDANSETRON HCL INJ 2MG/ML 2ML 2 MG/ML VIAL IV PRN ×2 (19:45→21:15)
[2021-04-28 19:58] LABS: BASOPHILS % 0.4 % (0.0-1.0); EOSINOPHILS # (AUTO) 0.3 (0.0-0.4); EOSINOPHILS % 2.6 % (0.0-6.0); HEMATOCRIT 36.4 % (34.2-44.1); HEMOGLOBIN 11.3 g/dL (12.0-16.0); LYMPHOCYTES # (AUTO) 0.9 (1.0-3.2); LYMPHOCYTES % 8.1 % (18.0-39.1); MEAN CORPUSCULAR HEMOGLOBIN 29.5 pg (28-32); MONOCYTES # (AUTO) 0.4 (0.2-0.8); MONOCYTES % 3.8 % (4.4-11.3); NEUTROPHILS # (AUTO) 9.2 (2.1-6.9); NEUTROPHILS % 84.4 % (38.7-80.0); PLATELET COUNT 240 x10e3/uL (140-360); RED BLOOD COUNT 3.83 x10e6/uL (3.6-5.1); RED CELL DISTRIBUTION WIDTH 15.6 % (11.7-14.4)
[2021-04-28 20:00] LABS: CLARITY,URINE SL CLOUDY (CLEAR); COLOR,URINE YELLOW (YELLOW); KETONES,URINE TRACE (NEGATIVE); LEUKOCYTE ESTERASE ,URINE NEGATIVE (NEGATIVE); NITRITE,URINE NEGATIVE (NEGATIVE); PROTEIN,URINE DIPSTICK 1+ (NEGATIVE); URINE UROBILINOGEN 0.2 mg/dL (0.2 - 1)
[2021-04-28 20:12] LABS: AMORPHOUS SEDIMENT,URINE MANY (FEW); BACTERIA,URINE MODERATE /HPF; EPITHELIAL CELLS,URINE MANY /LPF; TRANSITIONAL EPI CELLS,URINE FEW
[2021-04-28] MEDS ORDERED: PROMETHAZINE 25MG/ NS 50ML (IV) IV STA (20:52)
[2021-04-28 21:02] LABS: ALBUMIN 3.8 g/dL (3.5-5.0); ALBUMIN/GLOBULIN RATIO 1.1 (0.8-2.0); ANION GAP 18.3 mmol/L (8-16); CALCIUM 9.9 mg/dL (8.4-10.2); CREATININE, SERUM 2.78 mg/dL (0.57-1.11); POTASSIUM 4.3 mmol/L (3.5-5.1)
[2021-04-28] MEDS ORDERED: SODIUM CHLORIDE FLUSH 10 ML SYR INJ PRN (21:15)
[2021-04-28] MEDS ORDERED: CIPROFLOXACIN 400 MG/D5W 200ML 200 ML IV SCH (21:30)
[2021-04-28 22:18] LABS: CREATINE KINASE MB 2.1 ng/mL (0-5.0)
[2021-04-28] MEDS ORDERED: FUROSEMIDE INJ 10 MG/ML 4 ML VIAL IV STA (23:09)
[2021-04-29] VITALS (7 sets, daily range): BP systolic 113–148; BP diastolic 55–80
[2021-04-29] MEDS ORDERED: FAMOTIDINE 20 MG/2 ML VIAL IV STA (00:12)
[2021-04-29] MEDS ORDERED: FAMOTIDINE 20 MG/2 ML VIAL IV ONE (00:25)
[2021-04-29] MEDS ORDERED: HYDROCODONE/APAP 10MG-325MG TAB PO PRN (03:30)
[2021-04-29] MEDS: LEVOTHYROXINE SODIUM 50 MCG TAB PO SCH (06:00)
[2021-04-29 06:24] LABS: BASOPHILS % 0.3 % (0.0-1.0); EOSINOPHILS # (AUTO) 0.3 (0.0-0.4); EOSINOPHILS % 3.4 % (0.0-6.0); HEMATOCRIT 32.2 % (34.2-44.1); HEMOGLOBIN 10.1 g/dL (12.0-16.0); LYMPHOCYTES # (AUTO) 0.9 (1.0-3.2); LYMPHOCYTES % 11.7 % (18.0-39.1); MEAN CORPUSCULAR HEMOGLOBIN 29.6 pg (28-32); MEAN CORPUSCULAR HGB CONC 31.4 g/dL (31-35); MEAN CORPUSCULAR VOLUME 94.4 fL (81-99); MONOCYTES # (AUTO) 0.5 (0.2-0.8); MONOCYTES % 6.2 % (4.4-11.3); NEUTROPHILS # (AUTO) 5.8 (2.1-6.9); NEUTROPHILS % 77.6 % (38.7-80.0); PLATELET COUNT 211 x10e3/uL (140-360); RED BLOOD COUNT 3.41 x10e6/uL (3.6-5.1); RED CELL DISTRIBUTION WIDTH 15.3 % (11.7-14.4)
[2021-04-29 07:01] LABS: ALBUMIN 3.2 g/dL (3.5-5.0); ANION GAP 15.2 mmol/L (8-16); CALCIUM 9.3 mg/dL (8.4-10.2); CREATININE, SERUM 2.61 mg/dL (0.57-1.11); POTASSIUM 4.2 mmol/L (3.5-5.1)
[2021-04-29] MEDS: FAMOTIDINE 20 MG/2 ML VIAL IV SCH ×2 (09:00→22:31)
[2021-04-29] MEDS: METOPROLOL SUCCINATE 50 MG TAB XL PO SCH (09:00)
[2021-04-29] MEDS ORDERED: FAMOTIDINE 20 MG/2 ML VIAL IV SCH (09:00)
[2021-04-29] MEDS: ALLOPURINOL 300 MG TAB PO SCH (09:00)
[2021-04-29] MEDS: NIFEDIPINE CR 30 MG TAB PO SCH (09:00)
[2021-04-29] MEDS: CEFTRIAXONE 1 GM in SODIUM CHLORIDE 0.9% 50ML 50 ML IV SCH (09:00)
[2021-04-29] MEDS: OXYBUTYNIN CHLORIDE 5 MG TAB PO SCH ×2 (09:00→17:00)
[2021-04-29] MEDS ORDERED: SODIUM CHLORIDE 0.9% 250ML 250 ML ONE (10:55)
[2021-04-29] MEDS: FUROSEMIDE INJ 10 MG/ML 4 ML VIAL IV SCH ×2 (12:27→22:31)
[2021-04-29 14:43] LABS: CREATINE KINASE MB 1.5 ng/mL (0-5.0)
[2021-04-29] MEDS ORDERED: ATORVASTATIN 20 MG TAB PO SCH (21:00)
[2021-04-29] MEDS ORDERED: ASPIRIN 81 MG CHEW TAB PO SCH (21:00)
[2021-04-29 22:40] LABS: CREATINE KINASE MB 1.3 ng/mL (0-5.0)
[2021-04-30 00:50] VITALS: BP 115/97
[2021-04-30 04:59] VITALS: BP 128/63
[2021-04-30] MEDS: LEVOTHYROXINE SODIUM 50 MCG TAB PO SCH (06:00)
[2021-04-30 08:11] VITALS: BP 135/83
[2021-04-30] MEDS: CEFTRIAXONE 1 GM in SODIUM CHLORIDE 0.9% 50ML 50 ML IV SCH (09:00)
[2021-04-30] MEDS: FAMOTIDINE 20 MG/2 ML VIAL IV SCH (09:00)
[2021-04-30] MEDS: NIFEDIPINE CR 30 MG TAB PO SCH (09:00)
[2021-04-30] MEDS: METOPROLOL SUCCINATE 50 MG TAB XL PO SCH (09:00)
[2021-04-30] MEDS: ALLOPURINOL 300 MG TAB PO SCH (09:00)
[2021-04-30] MEDS: FUROSEMIDE INJ 10 MG/ML 4 ML VIAL IV SCH (09:00)
[2021-04-30] MEDS: OXYBUTYNIN CHLORIDE 5 MG TAB PO SCH (09:00)
[2021-04-30 09:18] VITALS: BP 135/83
== END 2021-04-30 10:45 | disposition home or self-care (01) | DRG 291 ==
LOC: ER 19:26 → ERHOLD 21:24 → MED/SURG 04-29 00:26
PROVIDERS: ADMIT Internal Medicine; ATTEND Internal Medicine
DX: I13.0 Hypertensive heart and chronic kidney disease with heart failure and stage 1 through stage 4 chronic kidney disease, or unspecified chronic kidney disease (principal); I50.33 Acute on chronic diastolic (congestive) heart failure; N39.0 Urinary tract infection, site not specified; I48.20 Chronic atrial fibrillation, unspecified; Z68.41 Body mass index [BMI] 40.0-44.9, adult; N18.30 Chronic kidney disease, stage 3 unspecified; E11.22 Type 2 diabetes mellitus with diabetic chronic kidney disease; Z79.899 Other long term (current) drug therapy; K21.9 Gastro-esophageal reflux disease without esophagitis; K44.9 Diaphragmatic hernia without obstruction or gangrene; I25.10 Atherosclerotic heart disease of native coronary artery without angina pectoris; Z20.822 Contact with and (suspected) exposure to COVID-19; G47.33 Obstructive sleep apnea (adult) (pediatric); M10.9 Gout, unspecified; E66.01 Morbid (severe) obesity due to excess calories; E03.9 Hypothyroidism, unspecified; D64.9 Anemia, unspecified
CPT/HCPCS: 36415; 71045; 80053; 81001; 82550; 82553; 82948; 83880; 84484; 85025; 93005; 93306; 94799; 99284; J0696; J1940; J2405; J2550; J7050; U0002

== ENCOUNTER 2021-09-04 10:17 | Inpatient (IN) | payer MEDICARE, OTHER ==
[~2021-09-04] VITALS: Ht 144.8 cm; Wt 95.3 kg
[2021-09-04 11:02] LABS: INR 1.1; PARTIAL THROMBOPLASTIN TIME 24.1 seconds (23.8-35.5); PROTHROMBIN TIME 15.2 seconds (11.9-14.5)
[2021-09-04 11:12] LABS: ALBUMIN/GLOBULIN RATIO 0.7 (0.8-2.0); ANION GAP 20.4 mmol/L (8-16); CALCIUM 8.9 mg/dL (8.4-10.2); CREATININE, SERUM 2.64 mg/dL (0.57-1.11); POTASSIUM 4.4 mmol/L (3.5-5.1)
[2021-09-04 11:19] LABS: CREATINE KINASE MB 1.6 ng/mL (0-5.0)
[2021-09-04 11:22] LABS: BASOPHILS % 0.4 % (0.0-1.0); EOSINOPHILS # (AUTO) 0.2 (0.0-0.4); EOSINOPHILS % 2.4 % (0.0-6.0); HEMATOCRIT 30.8 % (34.2-44.1); HEMOGLOBIN 9.9 g/dL (12.0-16.0); LYMPHOCYTES # (AUTO) 0.3 (1.0-3.2); LYMPHOCYTES % 3.7 % (18.0-39.1); MEAN CORPUSCULAR HEMOGLOBIN 30.6 pg (28-32); MEAN CORPUSCULAR HGB CONC 32.1 g/dL (31-35); MEAN CORPUSCULAR VOLUME 95.1 fL (81-99); MONOCYTES # (AUTO) 0.4 (0.2-0.8); MONOCYTES % 6.2 % (4.4-11.3); NEUTROPHILS % 86.9 % (38.7-80.0); PLATELET COUNT 211 x10e3/uL (140-360); RED BLOOD COUNT 3.24 x10e6/uL (3.6-5.1); RED CELL DISTRIBUTION WIDTH 15.5 % (11.7-14.4)
[2021-09-04 12:34] LABS: CLARITY,URINE SL CLOUDY (CLEAR); COLOR,URINE YELLOW (YELLOW); KETONES,URINE NEGATIVE (NEGATIVE); LEUKOCYTE ESTERASE ,URINE NEGATIVE (NEGATIVE); NITRITE,URINE NEGATIVE (NEGATIVE); PROTEIN,URINE DIPSTICK 1+ (NEGATIVE); URINE UROBILINOGEN 0.2 mg/dL (0.2 - 1)
[2021-09-04 13:05] LABS: BACTERIA,URINE MODERATE /HPF; EPITHELIAL CELLS,URINE FEW /LPF; RBC,URINE 0-5 /HPF (0-5); WBC,URINE (MAN) 0-5 /HPF (0-5)
[2021-09-04] MEDS ORDERED: ALBUTEROL/IPRATROPIUM 3 ML NEB NEB ONE (13:15)
[2021-09-04] MEDS ORDERED: DEXTROSE 50% SYRINGE 50 ML IV PRN (13:45)
[2021-09-04] MEDS ORDERED: FUROSEMIDE INJ 10 MG/ML 4 ML VIAL IV ONE (14:30)
[2021-09-04 14:48] VITALS: BP 133/60
[2021-09-04 16:07] VITALS: BP 133/60
[2021-09-04] MEDS ORDERED: OXYBUTYNIN CHLOR5 M1 PO (16:41)
[2021-09-04] MEDS: INSULIN LISPRO 100 UNIT/1 ML 3ML VIAL SQ SCH ×2 (17:55→20:37)
[2021-09-04 19:19] LABS: CREATINE KINASE MB 1.6 ng/mL (0-5.0)
[2021-09-04 20:22] VITALS: BP 132/64
[2021-09-04] MEDS: FUROSEMIDE INJ 10 MG/ML 4 ML VIAL IV SCH (20:33)
[2021-09-04 20:34] VITALS: BP 132/64
[2021-09-04] MEDS: DIPHENHYDRAMINE HCL 25 MG CAP PO PRN (23:20)
[2021-09-05] VITALS (7 sets, daily range): BP systolic 119–137; BP diastolic 59–66
[2021-09-05] MEDS ORDERED: CHOLESTYRAMINE 4 GM PACKET PO PRN ×2 (04:00→05:00)
[2021-09-05] MEDS ORDERED: HYDROCODONE/APAP 10MG-325MG TAB PO PRN ×2 (04:00→05:00)
[2021-09-05] MEDS: LEVOTHYROXINE SODIUM 75 MCG TAB PO SCH (05:40)
[2021-09-05 05:58] LABS: BASOPHILS % 0.3 % (0.0-1.0); EOSINOPHILS # (AUTO) 0.3 (0.0-0.4); EOSINOPHILS % 4.9 % (0.0-6.0); HEMATOCRIT 30.3 % (34.2-44.1); HEMOGLOBIN 9.7 g/dL (12.0-16.0); LYMPHOCYTES # (AUTO) 0.3 (1.0-3.2); LYMPHOCYTES % 5.6 % (18.0-39.1); MEAN CORPUSCULAR HEMOGLOBIN 30.5 pg (28-32); MEAN CORPUSCULAR VOLUME 95.3 fL (81-99); MONOCYTES # (AUTO) 0.5 (0.2-0.8); MONOCYTES % 7.8 % (4.4-11.3); NEUTROPHILS # (AUTO) 4.8 (2.1-6.9); NEUTROPHILS % 81.1 % (38.7-80.0); PLATELET COUNT 188 x10e3/uL (140-360); RED BLOOD COUNT 3.18 x10e6/uL (3.6-5.1); RED CELL DISTRIBUTION WIDTH 15.4 % (11.7-14.4)
[2021-09-05 06:21] LABS: ALBUMIN 2.6 g/dL (3.5-5.0); ALBUMIN/GLOBULIN RATIO 0.7 (0.8-2.0); ANION GAP 18.3 mmol/L (8-16); CALCIUM 8.4 mg/dL (8.4-10.2); CREATININE, SERUM 2.4 mg/dL (0.57-1.11)
[2021-09-05 06:28] LABS: POTASSIUM 5.3 mmol/L (3.5-5.1)
[2021-09-05 06:47] LABS: CREATINE KINASE MB 1.1 ng/mL (0-5.0)
[2021-09-05] MEDS: INSULIN LISPRO 100 UNIT/1 ML 3ML VIAL SQ SCH ×4 (07:30→21:00)
[2021-09-05] MEDS ORDERED: NIFEDIPINE CR 30 MG TAB PO SCH (09:00)
[2021-09-05] MEDS ORDERED: CHLOROTHIAZIDE SODIUM 500 MG VIAL IV ONE (09:15)
[2021-09-05] MEDS: OXYBUTYNIN CHLORIDE XL 5 MG TAB PO SCH (09:24)
[2021-09-05] MEDS: METOPROLOL SUCCINATE 25 MG TAB XL PO SCH (09:25)
[2021-09-05] MEDS: NIFEDIPINE CR 30 MG TAB PO SCH (09:25)
[2021-09-05] MEDS: SODIUM BICARBONATE 650 MG TAB PO SCH ×2 (09:25→16:59)
[2021-09-05] MEDS: ALLOPURINOL 300 MG TAB PO SCH (09:26)
[2021-09-05] MEDS: FUROSEMIDE INJ 10 MG/ML 4 ML VIAL IV SCH ×2 (12:52→22:55)
[2021-09-05] MEDS: ATORVASTATIN 40 MG TAB PO SCH (22:55)
[2021-09-05] MEDS: ASPIRIN 81 MG CHEW TAB PO SCH (22:55)
[2021-09-06] VITALS (8 sets, daily range): BP systolic 126–143; BP diastolic 55–68
[2021-09-06] MEDS: LEVOTHYROXINE SODIUM 75 MCG TAB PO SCH (05:41)
[2021-09-06 07:19] LABS: BASOPHILS % 0.8 % (0.0-1.0); EOSINOPHILS # (AUTO) 0.4 (0.0-0.4); EOSINOPHILS % 6.6 % (0.0-6.0); HEMATOCRIT 34.6 % (34.2-44.1); LYMPHOCYTES # (AUTO) 0.3 (1.0-3.2); LYMPHOCYTES % 5.1 % (18.0-39.1); MEAN CORPUSCULAR HEMOGLOBIN 29.9 pg (28-32); MEAN CORPUSCULAR HGB CONC 31.8 g/dL (31-35); MONOCYTES # (AUTO) 0.3 (0.2-0.8); MONOCYTES % 6.1 % (4.4-11.3); NEUTROPHILS # (AUTO) 4.3 (2.1-6.9); PLATELET COUNT 219 x10e3/uL (140-360); RED BLOOD COUNT 3.68 x10e6/uL (3.6-5.1); RED CELL DISTRIBUTION WIDTH 15.5 % (11.7-14.4)
[2021-09-06] MEDS: INSULIN LISPRO 100 UNIT/1 ML 3ML VIAL SQ SCH ×4 (07:30→21:45)
[2021-09-06 07:59] LABS: ALBUMIN 2.8 g/dL (3.5-5.0); ALBUMIN/GLOBULIN RATIO 0.7 (0.8-2.0); ANION GAP 18.4 mmol/L (8-16); CALCIUM 8.7 mg/dL (8.4-10.2); CREATININE, SERUM 2.25 mg/dL (0.57-1.11); MAGNESIUM 1.8 MG/DL (1.3-2.1); POTASSIUM 4.4 mmol/L (3.5-5.1)
[2021-09-06] MEDS: PANTOPRAZOLE SOD 40 MG TABEC PO SCH (08:31)
[2021-09-06] MEDS ORDERED: CHLOROTHIAZIDE SODIUM 500 MG VIAL IV ONE (10:00)
[2021-09-06] MEDS: FUROSEMIDE INJ 10 MG/ML 4 ML VIAL IV SCH ×2 (10:50→21:45)
[2021-09-06] MEDS: OXYBUTYNIN CHLORIDE XL 5 MG TAB PO SCH (10:51)
[2021-09-06] MEDS: SODIUM BICARBONATE 650 MG TAB PO SCH ×2 (10:51→17:37)
[2021-09-06] MEDS: NIFEDIPINE CR 30 MG TAB PO SCH (10:51)
[2021-09-06] MEDS: METOPROLOL SUCCINATE 25 MG TAB XL PO SCH (10:52)
[2021-09-06] MEDS: ALLOPURINOL 300 MG TAB PO SCH (10:52)
[2021-09-06] MEDS: ATORVASTATIN 40 MG TAB PO SCH (21:45)
[2021-09-06] MEDS: ASPIRIN 81 MG CHEW TAB PO SCH (21:45)
[2021-09-07] VITALS (9 sets, daily range): BP systolic 119–135; BP diastolic 54–77
[2021-09-07] MEDS: LEVOTHYROXINE SODIUM 75 MCG TAB PO SCH (05:36)
[2021-09-07 06:55] LABS: BASOPHILS % 0.5 % (0.0-1.0); EOSINOPHILS # (AUTO) 0.4 (0.0-0.4); EOSINOPHILS % 6.8 % (0.0-6.0); HEMATOCRIT 35.3 % (34.2-44.1); HEMOGLOBIN 11.1 g/dL (12.0-16.0); LYMPHOCYTES # (AUTO) 0.4 (1.0-3.2); LYMPHOCYTES % 6.7 % (18.0-39.1); MEAN CORPUSCULAR HEMOGLOBIN 29.4 pg (28-32); MEAN CORPUSCULAR HGB CONC 31.4 g/dL (31-35); MEAN CORPUSCULAR VOLUME 93.4 fL (81-99); MONOCYTES # (AUTO) 0.5 (0.2-0.8); MONOCYTES % 8.4 % (4.4-11.3); NEUTROPHILS # (AUTO) 4.5 (2.1-6.9); NEUTROPHILS % 77.1 % (38.7-80.0); PLATELET COUNT 222 x10e3/uL (140-360); RED BLOOD COUNT 3.78 x10e6/uL (3.6-5.1); RED CELL DISTRIBUTION WIDTH 15.3 % (11.7-14.4)
[2021-09-07 07:17] LABS: ALBUMIN 2.7 g/dL (3.5-5.0); ALBUMIN/GLOBULIN RATIO 0.8 (0.8-2.0); ANION GAP 15.2 mmol/L (8-16); CREATININE, SERUM 2.09 mg/dL (0.57-1.11); MAGNESIUM 1.8 MG/DL (1.3-2.1); POTASSIUM 4.2 mmol/L (3.5-5.1)
[2021-09-07] MEDS: PANTOPRAZOLE SOD 40 MG TABEC PO SCH (07:30)
[2021-09-07] MEDS: INSULIN LISPRO 100 UNIT/1 ML 3ML VIAL SQ SCH ×4 (07:30→21:15)
[2021-09-07] MEDS: FUROSEMIDE INJ 10 MG/ML 4 ML VIAL IV SCH ×2 (08:44→21:12)
[2021-09-07] MEDS: OXYBUTYNIN CHLORIDE XL 5 MG TAB PO SCH (08:44)
[2021-09-07] MEDS: NIFEDIPINE CR 30 MG TAB PO SCH (08:44)
[2021-09-07] MEDS: METOPROLOL SUCCINATE 25 MG TAB XL PO SCH (08:45)
[2021-09-07] MEDS: SODIUM BICARBONATE 650 MG TAB PO SCH ×2 (08:45→17:00)
[2021-09-07] MEDS: ALLOPURINOL 300 MG TAB PO SCH (08:46)
[2021-09-07] MEDS: ATORVASTATIN 40 MG TAB PO SCH (21:12)
[2021-09-07] MEDS: ASPIRIN 81 MG CHEW TAB PO SCH (21:12)
[2021-09-07] MEDS: DIPHENHYDRAMINE HCL 25 MG CAP PO PRN (23:26)
[2021-09-08] VITALS (8 sets, daily range): BP systolic 117–142; BP diastolic 51–73
[2021-09-08] MEDS: LEVOTHYROXINE SODIUM 75 MCG TAB PO SCH (05:19)
[2021-09-08] MEDS: INSULIN LISPRO 100 UNIT/1 ML 3ML VIAL SQ SCH ×4 (07:30→21:00)
[2021-09-08] MEDS: PANTOPRAZOLE SOD 40 MG TABEC PO SCH (07:30)
[2021-09-08 07:53] LABS: BASOPHILS % 0.7 % (0.0-1.0); EOSINOPHILS # (AUTO) 0.4 (0.0-0.4); EOSINOPHILS % 7.4 % (0.0-6.0); HEMATOCRIT 34.1 % (34.2-44.1); HEMOGLOBIN 10.7 g/dL (12.0-16.0); LYMPHOCYTES # (AUTO) 0.5 (1.0-3.2); LYMPHOCYTES % 8.4 % (18.0-39.1); MEAN CORPUSCULAR HEMOGLOBIN 29.7 pg (28-32); MEAN CORPUSCULAR HGB CONC 31.4 g/dL (31-35); MEAN CORPUSCULAR VOLUME 94.7 fL (81-99); MONOCYTES # (AUTO) 0.5 (0.2-0.8); MONOCYTES % 8.8 % (4.4-11.3); NEUTROPHILS % 74.1 % (38.7-80.0); PLATELET COUNT 213 x10e3/uL (140-360)
[2021-09-08 08:15] LABS: ALBUMIN 2.7 g/dL (3.5-5.0); ALBUMIN/GLOBULIN RATIO 0.7 (0.8-2.0); ANION GAP 17.4 mmol/L (8-16); CALCIUM 9.1 mg/dL (8.4-10.2); CREATININE, SERUM 2.15 mg/dL (0.57-1.11); POTASSIUM 4.4 mmol/L (3.5-5.1)
[2021-09-08] MEDS: SODIUM BICARBONATE 650 MG TAB PO SCH ×2 (08:45→17:00)
[2021-09-08] MEDS: NIFEDIPINE CR 30 MG TAB PO SCH (08:45)
[2021-09-08] MEDS: OXYBUTYNIN CHLORIDE XL 5 MG TAB PO SCH (08:45)
[2021-09-08] MEDS: FUROSEMIDE INJ 10 MG/ML 4 ML VIAL IV SCH ×2 (08:45→21:00)
[2021-09-08] MEDS: METOPROLOL SUCCINATE 25 MG TAB XL PO SCH (08:45)
[2021-09-08] MEDS: ALLOPURINOL 300 MG TAB PO SCH (08:46)
[2021-09-08] MEDS ORDERED: CHLOROTHIAZIDE SODIUM 500 MG VIAL IV ONE (11:30)
[2021-09-08] MEDS: ATORVASTATIN 40 MG TAB PO SCH (21:00)
[2021-09-08] MEDS: ASPIRIN 81 MG CHEW TAB PO SCH (21:00)
[2021-09-09] VITALS (7 sets, daily range): BP systolic 115–146; BP diastolic 52–76
[2021-09-09] MEDS: LEVOTHYROXINE SODIUM 75 MCG TAB PO SCH (05:57)
[2021-09-09] MEDS: PANTOPRAZOLE SOD 40 MG TABEC PO SCH (09:19)
[2021-09-09] MEDS: FUROSEMIDE INJ 10 MG/ML 4 ML VIAL IV SCH ×2 (09:19→21:00)
[2021-09-09] MEDS: SODIUM BICARBONATE 650 MG TAB PO SCH ×2 (09:20→17:47)
[2021-09-09] MEDS: NIFEDIPINE CR 30 MG TAB PO SCH (09:20)
[2021-09-09] MEDS: METOPROLOL SUCCINATE 25 MG TAB XL PO SCH (09:20)
[2021-09-09] MEDS: OXYBUTYNIN CHLORIDE XL 5 MG TAB PO SCH (09:20)
[2021-09-09] MEDS: ALLOPURINOL 300 MG TAB PO SCH (09:20)
[2021-09-09] MEDS: INSULIN LISPRO 100 UNIT/1 ML 3ML VIAL SQ SCH ×4 (09:25→21:00)
[2021-09-09] MEDS: ATORVASTATIN 40 MG TAB PO SCH (21:00)
[2021-09-09] MEDS: ASPIRIN 81 MG CHEW TAB PO SCH (21:00)
[2021-09-09] MEDS: DIPHENHYDRAMINE HCL 25 MG CAP PO PRN (22:52)
[2021-09-10] VITALS (8 sets, daily range): BP systolic 110–144; BP diastolic 53–73
[2021-09-10] MEDS: LEVOTHYROXINE SODIUM 75 MCG TAB PO SCH (06:00)
[2021-09-10 07:25] LABS: ANION GAP 14.7 mmol/L (8-16); CALCIUM 8.7 mg/dL (8.4-10.2); CREATININE, SERUM 2.07 mg/dL (0.57-1.11); POTASSIUM 3.7 mmol/L (3.5-5.1)
[2021-09-10] MEDS: INSULIN LISPRO 100 UNIT/1 ML 3ML VIAL SQ SCH ×4 (07:30→21:20)
[2021-09-10] MEDS: OXYBUTYNIN CHLORIDE XL 5 MG TAB PO SCH (08:09)
[2021-09-10] MEDS: PANTOPRAZOLE SOD 40 MG TABEC PO SCH (08:09)
[2021-09-10] MEDS: FUROSEMIDE INJ 10 MG/ML 4 ML VIAL IV SCH ×2 (08:09→21:20)
[2021-09-10] MEDS: NIFEDIPINE CR 30 MG TAB PO SCH (08:11)
[2021-09-10] MEDS: SODIUM BICARBONATE 650 MG TAB PO SCH ×2 (08:12→16:36)
[2021-09-10] MEDS: METOLAZONE 5 MG TAB PO SCH (08:14)
[2021-09-10] MEDS: ALLOPURINOL 300 MG TAB PO SCH (08:14)
[2021-09-10] MEDS: METOPROLOL SUCCINATE 25 MG TAB XL PO SCH (08:17)
[2021-09-10] MEDS ORDERED: ONDANSETRON HCL INJ 2MG/ML 2ML 2 MG/ML VIAL IV PRN (10:30)
[2021-09-10] MEDS: ASPIRIN 81 MG CHEW TAB PO SCH (21:20)
[2021-09-10] MEDS: ATORVASTATIN 40 MG TAB PO SCH (21:20)
[2021-09-11] VITALS: BP 132/72
[2021-09-11 02:16] VITALS: BP 132/72
[2021-09-11 04:00] VITALS: BP 168/81
[2021-09-11] MEDS: LEVOTHYROXINE SODIUM 75 MCG TAB PO SCH (05:15)
[2021-09-11 07:28] LABS: ANION GAP 15.8 mmol/L (8-16); CALCIUM 8.7 mg/dL (8.4-10.2); CREATININE, SERUM 2.21 mg/dL (0.57-1.11); POTASSIUM 3.8 mmol/L (3.5-5.1)
[2021-09-11] MEDS: INSULIN LISPRO 100 UNIT/1 ML 3ML VIAL SQ SCH (07:58)
[2021-09-11] MEDS: METOLAZONE 5 MG TAB PO SCH (07:59)
[2021-09-11] MEDS: PANTOPRAZOLE SOD 40 MG TABEC PO SCH (07:59)
[2021-09-11] MEDS: SODIUM BICARBONATE 650 MG TAB PO SCH (07:59)
[2021-09-11] MEDS: ALLOPURINOL 300 MG TAB PO SCH (07:59)
[2021-09-11] MEDS: FUROSEMIDE INJ 10 MG/ML 4 ML VIAL IV SCH (07:59)
[2021-09-11] MEDS: OXYBUTYNIN CHLORIDE XL 5 MG TAB PO SCH (07:59)
[2021-09-11 08:00] VITALS: BP 113/70
[2021-09-11] MEDS: METOPROLOL SUCCINATE 25 MG TAB XL PO SCH (08:01)
[2021-09-11] MEDS: NIFEDIPINE CR 30 MG TAB PO SCH (08:02)
== END 2021-09-11 09:00 | disposition home or self-care (01) | DRG 291 ==
LOC: ER 10:45 → ERHOLD 13:45 → MED/SURG3 14:48
PROVIDERS: ADMIT Internal Medicine; ATTEND Internal Medicine
DX: I13.0 Hypertensive heart and chronic kidney disease with heart failure and stage 1 through stage 4 chronic kidney disease, or unspecified chronic kidney disease (principal); I50.33 Acute on chronic diastolic (congestive) heart failure; I48.20 Chronic atrial fibrillation, unspecified; Z68.42 Body mass index [BMI] 45.0-49.9, adult; N18.30 Chronic kidney disease, stage 3 unspecified; G47.33 Obstructive sleep apnea (adult) (pediatric); E66.01 Morbid (severe) obesity due to excess calories; E03.9 Hypothyroidism, unspecified; E78.5 Hyperlipidemia, unspecified; D64.9 Anemia, unspecified; R09.02 Hypoxemia; M10.9 Gout, unspecified; Z20.822 Contact with and (suspected) exposure to COVID-19
CPT/HCPCS: 36415; 51700; 71045; 80048; 80053; 81001; 82550; 82553; 82948; 83735; 83880; 84484; 85025; 85610; 85730; 87040; 93005; 94640; 94760; 94799; 96360; 96372; 99251; 99285; J1940; J2405

== ENCOUNTER 2021-11-02 15:24 | Inpatient (IN) | payer MEDICARE, OTHER ==
[~2021-11-02] VITALS: Ht 144.8 cm; Wt 95.5 kg
[~2021-11-02 15:24] MED LIST changes: +OXYBUTYNIN CHLOR5 M1 PO
[2021-11-02] MEDS ORDERED: ASPIRIN 81 MG CHEW TAB PO ONE ×2 (16:45→18:45)
[2021-11-02] MEDS ORDERED: FUROSEMIDE INJ 10 MG/ML 4 ML VIAL IV ONE (16:45)
[2021-11-02 16:51] LABS: BASOPHILS % 0.6 % (0.0-1.0); EOSINOPHILS # (AUTO) 0.4 (0.0-0.4); EOSINOPHILS % 5.5 % (0.0-6.0); HEMATOCRIT 33.4 % (34.2-44.1); HEMOGLOBIN 10.7 g/dL (12.0-16.0); LYMPHOCYTES # (AUTO) 0.4 (1.0-3.2); LYMPHOCYTES % 5.1 % (18.0-39.1); MEAN CORPUSCULAR HEMOGLOBIN 28.9 pg (28-32); MEAN CORPUSCULAR VOLUME 90.3 fL (81-99); MONOCYTES # (AUTO) 0.5 (0.2-0.8); MONOCYTES % 7.7 % (4.4-11.3); NEUTROPHILS # (AUTO) 5.7 (2.1-6.9); NEUTROPHILS % 80.8 % (38.7-80.0); PLATELET COUNT 199 x10e3/uL (140-360); RED CELL DISTRIBUTION WIDTH 15.4 % (11.7-14.4)
[2021-11-02 17:02] LABS: INR 0.98; PROTHROMBIN TIME 13.9 seconds (11.9-14.5)
[2021-11-02 17:03] LABS: PARTIAL THROMBOPLASTIN TIME 31.5 seconds (23.8-35.5)
[2021-11-02 17:08] LABS: CLARITY,URINE SL CLOUDY (CLEAR); COLOR,URINE YELLOW (YELLOW); KETONES,URINE NEGATIVE (NEGATIVE); LEUKOCYTE ESTERASE ,URINE MODERATE (NEGATIVE); NITRITE,URINE NEGATIVE (NEGATIVE); PROTEIN,URINE DIPSTICK TRACE (NEGATIVE); URINE UROBILINOGEN 0.2 mg/dL (0.2 - 1)
[2021-11-02 17:10] LABS: ANION GAP 19.8 mmol/L (8-16); CALCIUM 8.7 mg/dL (8.4-10.2); CREATININE, SERUM 2.81 mg/dL (0.57-1.11); MAGNESIUM 1.2 MG/DL (1.3-2.1); POTASSIUM 3.8 mmol/L (3.5-5.1)
[2021-11-02 17:16] LABS: CREATINE KINASE MB 1.4 ng/mL (0-5.0)
[2021-11-02 17:17] LABS: BACTERIA,URINE MANY /HPF; EPITHELIAL CELLS,URINE FEW /LPF
[2021-11-02] MEDS ORDERED: MAGNESIUM SULFATE 2GM/50ML 50 ML IV ONE (18:15)
[2021-11-02] MEDS ORDERED: ONDANSETRON HCL INJ 2MG/ML 2ML 2 MG/ML VIAL IV PRN (18:45)
[2021-11-02 22:00] VITALS: BP 139/71
[2021-11-02 23:00] VITALS: BP 139/71
[2021-11-03] VITALS (7 sets, daily range): BP systolic 105–164; BP diastolic 62–80
[2021-11-03] MEDS ORDERED: ATORVASTATIN CA40 MG PO (00:01)
[2021-11-03] MEDS ORDERED: METOPROLOL SUCC25 MG PO (00:01)
[2021-11-03] MEDS ORDERED: OXYBUTYNIN CHLO10 MG PO (00:01)
[2021-11-03] MEDS ORDERED: SYNTHROID75 MCG PO (00:01)
[2021-11-03] MEDS ORDERED: RABEPRAZOLE SOD20 MG PO (00:01)
[2021-11-03] MEDS ORDERED: NIFEDIAC CC60 MG PO (00:01)
[2021-11-03] MEDS ORDERED: TORSEMIDE100 MG PO (00:01)
[2021-11-03] MEDS ORDERED: HYDROCORTISONE 1% CREAM 30 GM TUBE TOP PRN (04:30)
[2021-11-03] MEDS: LEVOTHYROXINE SODIUM 75 MCG TAB PO SCH (05:14)
[2021-11-03 06:00] LABS: BASOPHILS % 0.9 % (0.0-1.0); EOSINOPHILS # (AUTO) 0.2 (0.0-0.4); EOSINOPHILS % 5.8 % (0.0-6.0); HEMATOCRIT 33.5 % (34.2-44.1); HEMOGLOBIN 10.4 g/dL (12.0-16.0); LYMPHOCYTES # (AUTO) 0.2 (1.0-3.2); LYMPHOCYTES % 6.6 % (18.0-39.1); MEAN CORPUSCULAR HEMOGLOBIN 28.6 pg (28-32); MONOCYTES # (AUTO) 0.5 (0.2-0.8); MONOCYTES % 15.6 % (4.4-11.3); NEUTROPHILS # (AUTO) 2.5 (2.1-6.9); NEUTROPHILS % 70.8 % (38.7-80.0); PLATELET COUNT 170 x10e3/uL (140-360); RED BLOOD COUNT 3.64 x10e6/uL (3.6-5.1); RED CELL DISTRIBUTION WIDTH 15.4 % (11.7-14.4)
[2021-11-03 06:27] LABS: ALBUMIN 3.8 g/dL (3.5-5.0); ALBUMIN/GLOBULIN RATIO 1.3 (0.8-2.0); ANION GAP 14.1 mmol/L (8-16); CALCIUM 8.8 mg/dL (8.4-10.2); CREATININE, SERUM 2.52 mg/dL (0.57-1.11); MAGNESIUM 1.3 MG/DL (1.3-2.1); POTASSIUM 4.1 mmol/L (3.5-5.1)
[2021-11-03 06:57] LABS: CREATINE KINASE MB 0.8 ng/mL (0-5.0)
[2021-11-03] MEDS: OXYBUTYNIN CHLORIDE XL 5 MG TAB PO SCH (08:30)
[2021-11-03] MEDS: ALLOPURINOL 300 MG TAB PO SCH (08:30)
[2021-11-03] MEDS: NIFEDIPINE CR 30 MG TAB PO SCH (08:30)
[2021-11-03] MEDS: FUROSEMIDE INJ 10 MG/ML 4 ML VIAL IV SCH ×2 (08:30→21:25)
[2021-11-03] MEDS: METOPROLOL SUCCINATE 25 MG TAB XL PO SCH (08:38)
[2021-11-03] MEDS ORDERED: GUAIFENESIN 200 MG/10 ML UDC PO PRN (10:00)
[2021-11-03] MEDS ORDERED: ACETAMINOPHEN 650 MG SUPP PR PRN (10:00)
[2021-11-03] MEDS ORDERED: ACETAMINOPHEN 325 MG TAB PO PRN (10:00)
[2021-11-03] MEDS ORDERED: BEBTELOVIMAB 175 MG INJ IV ONE (16:00)
[2021-11-03] MEDS ORDERED: HYDROCODONE/APAP 10MG-325MG TAB PO PRN ×2 (16:45→17:00)
[2021-11-03 16:55] LABS: CLARITY,URINE CLEAR (CLEAR); COLOR,URINE YELLOW (YELLOW); KETONES,URINE NEGATIVE (NEGATIVE); LEUKOCYTE ESTERASE ,URINE TRACE (NEGATIVE); NITRITE,URINE NEGATIVE (NEGATIVE); PROTEIN,URINE DIPSTICK 1+ (NEGATIVE); URINE UROBILINOGEN 0.2 mg/dL (0.2 - 1)
[2021-11-03 17:04] LABS: BACTERIA,URINE MODERATE /HPF; EPITHELIAL CELLS,URINE RARE /LPF; RBC,URINE 0-5 /HPF (0-5); WBC,URINE (MAN) 0-5 /HPF (0-5)
[2021-11-03 17:09] LABS: CREATININE,URINE RANDOM 20.99 mg/dL (47-110); TOTAL PROTEIN, URINE 33.2 mg/dL (1-14)
[2021-11-03 17:59] LABS: CREATINE KINASE MB 0.5 ng/mL (0-5.0)
[2021-11-03] MEDS: ASPIRIN 81 MG CHEW TAB PO SCH (21:25)
[2021-11-03] MEDS: ATORVASTATIN 40 MG TAB PO SCH (21:25)
[2021-11-04] VITALS (7 sets, daily range): BP systolic 103–145; BP diastolic 55–77
[2021-11-04] MEDS ORDERED: MAGNESIUM SULFATE 2GM/50ML 50 ML IV ONE (03:45)
[2021-11-04] MEDS: LEVOTHYROXINE SODIUM 75 MCG TAB PO SCH (05:18)
[2021-11-04 06:05] LABS: BASOPHILS % 0.2 % (0.0-1.0); EOSINOPHILS % 0.5 % (0.0-6.0); HEMATOCRIT 34.6 % (34.2-44.1); LYMPHOCYTES # (AUTO) 0.6 (1.0-3.2); LYMPHOCYTES % 13.1 % (18.0-39.1); MEAN CORPUSCULAR HEMOGLOBIN 29.3 pg (28-32); MEAN CORPUSCULAR HGB CONC 31.8 g/dL (31-35); MEAN CORPUSCULAR VOLUME 92.3 fL (81-99); MONOCYTES # (AUTO) 0.8 (0.2-0.8); MONOCYTES % 19.2 % (4.4-11.3); NEUTROPHILS # (AUTO) 2.8 (2.1-6.9); NEUTROPHILS % 66.5 % (38.7-80.0); PLATELET COUNT 152 x10e3/uL (140-360); RED BLOOD COUNT 3.75 x10e6/uL (3.6-5.1); RED CELL DISTRIBUTION WIDTH 15.4 % (11.7-14.4)
[2021-11-04 06:27] LABS: ALBUMIN 3.5 g/dL (3.5-5.0); ALBUMIN/GLOBULIN RATIO 1.2 (0.8-2.0); ANION GAP 14.7 mmol/L (8-16); CALCIUM 8.5 mg/dL (8.4-10.2); CREATININE, SERUM 2.5 mg/dL (0.57-1.11); POTASSIUM 3.7 mmol/L (3.5-5.1)
[2021-11-04 06:57] LABS: CREATINE KINASE MB 0.3 ng/mL (0-5.0)
[2021-11-04] MEDS: ALLOPURINOL 300 MG TAB PO SCH (09:39)
[2021-11-04] MEDS: NIFEDIPINE CR 30 MG TAB PO SCH (09:39)
[2021-11-04] MEDS: OXYBUTYNIN CHLORIDE XL 5 MG TAB PO SCH (09:40)
[2021-11-04] MEDS: FUROSEMIDE INJ 10 MG/ML 4 ML VIAL IV SCH ×2 (09:42→21:21)
[2021-11-04] MEDS: METOPROLOL SUCCINATE 25 MG TAB XL PO SCH (09:42)
[2021-11-04] MEDS ORDERED: METHYLPREDNISOLONE SOD SUCC 125 MG/2ML VIAL IV ONE (14:30)
[2021-11-04] MEDS: ATORVASTATIN 40 MG TAB PO SCH (21:21)
[2021-11-04] MEDS: ASPIRIN 81 MG CHEW TAB PO SCH (21:21)
[2021-11-05] VITALS (7 sets, daily range): BP systolic 114–140; BP diastolic 58–75
[2021-11-05] MEDS: LEVOTHYROXINE SODIUM 75 MCG TAB PO SCH (05:10)
[2021-11-05 06:37] LABS: HEMATOCRIT 35.4 % (34.2-44.1); HEMOGLOBIN 11.8 g/dL (12.0-16.0); LYMPHOCYTES # (AUTO) 0.3 (1.0-3.2); LYMPHOCYTES % 15.3 % (18.0-39.1); MEAN CORPUSCULAR HEMOGLOBIN 29.1 pg (28-32); MEAN CORPUSCULAR HGB CONC 33.3 g/dL (31-35); MONOCYTES # (AUTO) 0.2 (0.2-0.8); NEUTROPHILS # (AUTO) 1.7 (2.1-6.9); NEUTROPHILS % 77.7 % (38.7-80.0); PLATELET COUNT 138 x10e3/uL (140-360); RED BLOOD COUNT 4.06 x10e6/uL (3.6-5.1)
[2021-11-05 06:49] LABS: MEAN CORPUSCULAR VOLUME 87.2 fL (81-99)
[2021-11-05 06:56] LABS: ALBUMIN 3.2 g/dL (3.5-5.0); ALBUMIN/GLOBULIN RATIO 0.9 (0.8-2.0); ANION GAP 19.1 mmol/L (8-16); CALCIUM 8.5 mg/dL (8.4-10.2); CREATININE, SERUM 2.83 mg/dL (0.57-1.11); MAGNESIUM 1.6 MG/DL (1.3-2.1); POTASSIUM 4.1 mmol/L (3.5-5.1)
[2021-11-05] MEDS: FUROSEMIDE INJ 10 MG/ML 4 ML VIAL IV SCH ×2 (09:17→20:37)
[2021-11-05] MEDS: ALLOPURINOL 300 MG TAB PO SCH (09:18)
[2021-11-05] MEDS: NIFEDIPINE CR 30 MG TAB PO SCH (09:18)
[2021-11-05] MEDS: OXYBUTYNIN CHLORIDE XL 5 MG TAB PO SCH (09:18)
[2021-11-05] MEDS: METOPROLOL SUCCINATE 25 MG TAB XL PO SCH (09:19)
[2021-11-05] MEDS: ATORVASTATIN 40 MG TAB PO SCH (20:37)
[2021-11-05] MEDS: ASPIRIN 81 MG CHEW TAB PO SCH (20:37)
[2021-11-06] VITALS: BP 113/60
[2021-11-06 04:00] VITALS: BP 125/61
[2021-11-06] MEDS: LEVOTHYROXINE SODIUM 75 MCG TAB PO SCH (05:31)
[2021-11-06 06:00] LABS: ANION GAP 17.7 mmol/L (8-16); CALCIUM 8.5 mg/dL (8.4-10.2); CREATININE, SERUM 2.37 mg/dL (0.57-1.11); POTASSIUM 3.7 mmol/L (3.5-5.1)
[2021-11-06 08:20] VITALS: BP 97/65
[2021-11-06] MEDS ORDERED: METOLAZONE 5 MG TAB PO SCH (09:00)
== END 2021-11-06 09:10 | disposition home or self-care (01) | DRG 178 ==
LOC: ER 16:35 → ERHOLD 18:46 → MED/SURG2 22:22
PROVIDERS: ADMIT Internal Medicine; ATTEND Internal Medicine
PROC: 8E0ZXY6 Isolation (ICD-10-PCS; principal; 2021-11-02)
DX: U07.1 COVID-19 (principal); I13.0 Hypertensive heart and chronic kidney disease with heart failure and stage 1 through stage 4 chronic kidney disease, or unspecified chronic kidney disease; N18.4 Chronic kidney disease, stage 4 (severe); I50.32 Chronic diastolic (congestive) heart failure; E11.22 Type 2 diabetes mellitus with diabetic chronic kidney disease; Z79.4 Long term (current) use of insulin; E03.9 Hypothyroidism, unspecified; M10.9 Gout, unspecified; Z88.1 Allergy status to other antibiotic agents
CPT/HCPCS: 0223U; 36415; 51700; 71045; 76770; 80048; 80053; 81001; 82550; 82553; 82570; 82948; 83735; 83880; 84156; 84484; 85025; 85610; 85730; 93005; 99285; J1940; J2405; J2930; J3475

== ENCOUNTER 2022-05-08 11:51 | Inpatient (IN) | payer MEDICARE, OTHER ==
[~2022-05-08] VITALS: Ht 144.8 cm; Wt 108.9 kg
[~2022-05-08 11:51] MED LIST changes: +ATORVASTATIN CA40 MG PO; +METOPROLOL SUCC25 MG PO; +NIFEDIAC CC60 MG PO; +OXYBUTYNIN CHLO10 MG PO; +RABEPRAZOLE SOD20 MG PO; +SYNTHROID75 MCG PO; +TORSEMIDE100 MG PO
[2022-05-08] MEDS ORDERED: SODIUM CHLORIDE FLUSH 10 ML SYR IV PRN (12:00)
[2022-05-08] MEDS ORDERED: METOCLOPRAMIDE HCL 10 MG/2ML VIAL IV ONE (12:00)
[2022-05-08 13:00] LABS: BASOPHILS % 0.3 % (0.0-1.0); EOSINOPHILS # (AUTO) 0.2 (0.0-0.4); HEMOGLOBIN 11.6 g/dL (12.0-16.0); LYMPHOCYTES # (AUTO) 0.6 (1.0-3.2); LYMPHOCYTES % 8.4 % (18.0-39.1); MEAN CORPUSCULAR HGB CONC 31.4 g/dL (31-35); MEAN CORPUSCULAR VOLUME 89.2 fL (81-99); MONOCYTES # (AUTO) 0.4 (0.2-0.8); MONOCYTES % 5.5 % (4.4-11.3); NEUTROPHILS # (AUTO) 6.2 (2.1-6.9); NEUTROPHILS % 83.5 % (38.7-80.0); PLATELET COUNT 202 x10e3/uL (140-360); RED BLOOD COUNT 4.15 x10e6/uL (3.6-5.1); RED CELL DISTRIBUTION WIDTH 16.1 % (11.7-14.4)
[2022-05-08] MEDS ORDERED: HYDRALAZINE HCL 20 MG/ML VIAL IV STA (13:00)
[2022-05-08] MEDS ORDERED: FUROSEMIDE INJ 10 MG/ML 4 ML VIAL IV ONE (13:15)
[2022-05-08 13:31] LABS: ALBUMIN/GLOBULIN RATIO 1.2 (0.8-2.0); ANION GAP 16.6 mmol/L (8-16); CREATININE, SERUM 2.05 mg/dL (0.57-1.11); POTASSIUM 3.6 mmol/L (3.5-5.1)
[2022-05-08] MEDS ORDERED: ASPIRIN 81 MG CHEW TAB PO ONE (14:45)
[2022-05-08] MEDS ORDERED: SODIUM CHLORIDE FLUSH 10 ML SYR INJ PRN (14:45)
[2022-05-08] MEDS: ONDANSETRON HCL INJ 2MG/ML 2ML 2 MG/ML VIAL IV PRN (16:56)
[2022-05-08] MEDS ORDERED: HYDRALAZINE HCL 20 MG/ML VIAL IV PRN (17:15)
[2022-05-08 20:00] VITALS: BP 137/69
[2022-05-08 21:00] VITALS: BP 137/69
[2022-05-08] MEDS ORDERED: DEXTROSE 50% SYRINGE 50 ML IV PRN (21:15)
[2022-05-08] MEDS ORDERED: HYDROCODONE/APAP 5MG-325MG TAB PO PRN (21:15)
[2022-05-08] MEDS ORDERED: INSULIN GLARGINE 100 UNITS/ML VIAL SQ ONE (21:30)
[2022-05-08] MEDS ORDERED: INSULIN LISPRO 100 UNIT/1 ML 3ML VIAL SQ PRN (21:30)
[2022-05-08] MEDS ORDERED: HYDROCODONE/APAP 5MG-325MG TAB PO ONE (22:00)
[2022-05-09] VITALS (7 sets, daily range): BP systolic 118–198; BP diastolic 66–87
[2022-05-09] MEDS: LEVOTHYROXINE SODIUM 75 MCG TAB PO SCH (04:53)
[2022-05-09 04:59] LABS: BASOPHILS % 0.3 % (0.0-1.0); EOSINOPHILS # (AUTO) 0.1 (0.0-0.4); EOSINOPHILS % 0.9 % (0.0-6.0); HEMATOCRIT 34.7 % (34.2-44.1); HEMOGLOBIN 10.1 g/dL (12.0-16.0); LYMPHOCYTES # (AUTO) 0.6 (1.0-3.2); LYMPHOCYTES % 8.1 % (18.0-39.1); MEAN CORPUSCULAR HGB CONC 29.1 g/dL (31-35); MEAN CORPUSCULAR VOLUME 92.8 fL (81-99); MONOCYTES # (AUTO) 0.5 (0.2-0.8); MONOCYTES % 7.8 % (4.4-11.3); NEUTROPHILS # (AUTO) 5.7 (2.1-6.9); NEUTROPHILS % 82.8 % (38.7-80.0); PLATELET COUNT 201 x10e3/uL (140-360); RED BLOOD COUNT 3.74 x10e6/uL (3.6-5.1); RED CELL DISTRIBUTION WIDTH 15.9 % (11.7-14.4)
[2022-05-09 05:25] LABS: ALBUMIN 3.4 g/dL (3.5-5.0); ALBUMIN/GLOBULIN RATIO 1.3 (0.8-2.0); ANION GAP 14.6 mmol/L (8-16); CALCIUM 8.5 mg/dL (8.4-10.2); CREATININE, SERUM 2.19 mg/dL (0.57-1.11); POTASSIUM 3.6 mmol/L (3.5-5.1)
[2022-05-09 05:47] LABS: CREATINE KINASE MB 1.5 ng/mL (0-5.0)
[2022-05-09] MEDS: INSULIN LISPRO 100 UNIT/1 ML 3ML VIAL SQ SCH ×4 (07:30→21:00)
[2022-05-09] MEDS: OXYBUTYNIN CHLORIDE XL 5 MG TAB PO SCH (08:53)
[2022-05-09] MEDS: PANTOPRAZOLE SOD 40 MG TABEC PO SCH (08:53)
[2022-05-09] MEDS: ALLOPURINOL 300 MG TAB PO SCH (08:53)
[2022-05-09] MEDS: FUROSEMIDE INJ 10 MG/ML 4 ML VIAL IV SCH ×2 (08:54→22:32)
[2022-05-09] MEDS ORDERED: METOPROLOL SUCCINATE 25 MG TAB XL PO SCH (09:00)
[2022-05-09] MEDS ORDERED: NON-FORMULARY MEDICATION (Atorvastatin Calcium 40 MG) PO SCH (21:00)
[2022-05-09] MEDS: INSULIN GLARGINE 100 UNITS/ML VIAL SQ SCH (21:00)
[2022-05-09] MEDS: ATORVASTATIN 40 MG TAB PO SCH (22:32)
[2022-05-09] MEDS: ASPIRIN 81 MG CHEW TAB PO SCH (22:32)
[2022-05-10] VITALS (8 sets, daily range): BP systolic 125–175; BP diastolic 58–89
[2022-05-10] MEDS: HYDROCODONE/APAP 10MG-325MG TAB PO PRN (00:28)
[2022-05-10 05:57] LABS: BASOPHILS % 0.6 % (0.0-1.0); EOSINOPHILS # (AUTO) 0.2 (0.0-0.4); EOSINOPHILS % 3.2 % (0.0-6.0); HEMATOCRIT 35.4 % (34.2-44.1); HEMOGLOBIN 10.9 g/dL (12.0-16.0); LYMPHOCYTES # (AUTO) 0.8 (1.0-3.2); LYMPHOCYTES % 11.3 % (18.0-39.1); MEAN CORPUSCULAR HEMOGLOBIN 27.9 pg (28-32); MEAN CORPUSCULAR HGB CONC 30.8 g/dL (31-35); MEAN CORPUSCULAR VOLUME 90.8 fL (81-99); MONOCYTES # (AUTO) 0.6 (0.2-0.8); MONOCYTES % 8.5 % (4.4-11.3); NEUTROPHILS # (AUTO) 5.2 (2.1-6.9); NEUTROPHILS % 76.1 % (38.7-80.0); PLATELET COUNT 161 x10e3/uL (140-360); RED CELL DISTRIBUTION WIDTH 16.5 % (11.7-14.4)
[2022-05-10] MEDS: LEVOTHYROXINE SODIUM 75 MCG TAB PO SCH ×2 (06:00→10:35)
[2022-05-10 06:27] LABS: ALBUMIN 3.1 g/dL (3.5-5.0); ALBUMIN/GLOBULIN RATIO 1.1 (0.8-2.0); ANION GAP 16.1 mmol/L (8-16); CALCIUM 8.4 mg/dL (8.4-10.2); CREATININE, SERUM 2.77 mg/dL (0.57-1.11); MAGNESIUM 1.1 MG/DL (1.3-2.1); POTASSIUM 4.1 mmol/L (3.5-5.1)
[2022-05-10] MEDS ORDERED: MAGNESIUM SULFATE 2GM/50ML 50 ML IV ONE ×2 (07:30→11:00)
[2022-05-10] MEDS: INSULIN LISPRO 100 UNIT/1 ML 3ML VIAL SQ SCH ×4 (07:30→20:53)
[2022-05-10] MEDS ORDERED: SODIUM CHLORIDE 0.9% 250ML 250 ML ONE (08:24)
[2022-05-10] MEDS ORDERED: MAGNESIUM SULFATE 2GM/50ML 150 ML IV SCH (09:00)
[2022-05-10] MEDS: OXYBUTYNIN CHLORIDE XL 5 MG TAB PO SCH (09:32)
[2022-05-10] MEDS: FUROSEMIDE INJ 10 MG/ML 4 ML VIAL IV SCH ×2 (09:32→20:45)
[2022-05-10] MEDS: ALLOPURINOL 300 MG TAB PO SCH (09:33)
[2022-05-10] MEDS: PANTOPRAZOLE SOD 40 MG TABEC PO SCH (09:33)
[2022-05-10 11:01] LABS: % IRON SATURATION 11 % (15-50); IRON 37 ug/dL (50-170); TOTAL IRON BINDING CAPACITY 347 ug/dL (261-478); TRANSFERRIN 248 mg/dL (180-382)
[2022-05-10] MEDS: ONDANSETRON HCL INJ 2MG/ML 2ML 2 MG/ML VIAL IV PRN (13:24)
[2022-05-10] MEDS: MAGNESIUM SULFATE 2GM/50ML 50 ML IV SCH ×2 (15:27→17:49)
[2022-05-10] MEDS: ISOSORBIDE DINITRATE 20 MG TAB PO SCH ×2 (15:27→20:49)
[2022-05-10] MEDS: CARVEDILOL 3.125 MG TAB PO SCH (16:57)
[2022-05-10] MEDS: HYDRALAZINE HCL 25 MG TAB PO SCH (16:58)
[2022-05-10] MEDS: ZOLPIDEM TARTRATE 10 MG TAB PO SCH (20:45)
[2022-05-10] MEDS: ASPIRIN 81 MG CHEW TAB PO SCH (20:46)
[2022-05-10] MEDS: ATORVASTATIN 40 MG TAB PO SCH (20:49)
[2022-05-10] MEDS: INSULIN GLARGINE 100 UNITS/ML VIAL SQ SCH (20:58)
[2022-05-11] VITALS (9 sets, daily range): BP systolic 103–155; BP diastolic 59–73
[2022-05-11 05:31] LABS: BASOPHILS % 0.6 % (0.0-1.0); EOSINOPHILS # (AUTO) 0.3 (0.0-0.4); EOSINOPHILS % 4.9 % (0.0-6.0); HEMATOCRIT 34.8 % (34.2-44.1); HEMOGLOBIN 10.7 g/dL (12.0-16.0); LYMPHOCYTES # (AUTO) 0.7 (1.0-3.2); LYMPHOCYTES % 10.3 % (18.0-39.1); MEAN CORPUSCULAR HEMOGLOBIN 27.4 pg (28-32); MEAN CORPUSCULAR HGB CONC 30.7 g/dL (31-35); MEAN CORPUSCULAR VOLUME 89.2 fL (81-99); MONOCYTES # (AUTO) 0.5 (0.2-0.8); NEUTROPHILS % 75.9 % (38.7-80.0); PLATELET COUNT 160 x10e3/uL (140-360)
[2022-05-11] MEDS: LEVOTHYROXINE SODIUM 75 MCG TAB PO SCH (05:47)
[2022-05-11 05:51] LABS: ALBUMIN 3.2 g/dL (3.5-5.0); ALBUMIN/GLOBULIN RATIO 1.2 (0.8-2.0); ANION GAP 16.1 mmol/L (8-16); CALCIUM 8.9 mg/dL (8.4-10.2); CREATININE, SERUM 3.14 mg/dL (0.57-1.11); MAGNESIUM 3.6 MG/DL (1.3-2.1); POTASSIUM 4.1 mmol/L (3.5-5.1)
[2022-05-11] MEDS: INSULIN LISPRO 100 UNIT/1 ML 3ML VIAL SQ SCH ×4 (07:30→20:50)
[2022-05-11] MEDS: PANTOPRAZOLE SOD 40 MG TABEC PO SCH (07:30)
[2022-05-11] MEDS: HYDRALAZINE HCL 25 MG TAB PO SCH ×2 (08:46→17:00)
[2022-05-11] MEDS: ISOSORBIDE DINITRATE 20 MG TAB PO SCH ×3 (08:47→20:49)
[2022-05-11] MEDS: ALLOPURINOL 300 MG TAB PO SCH (08:47)
[2022-05-11] MEDS: CARVEDILOL 3.125 MG TAB PO SCH ×2 (08:47→17:00)
[2022-05-11] MEDS: OXYBUTYNIN CHLORIDE XL 5 MG TAB PO SCH (08:47)
[2022-05-11] MEDS: FUROSEMIDE INJ 10 MG/ML 4 ML VIAL IV SCH (08:53)
[2022-05-11] MEDS ORDERED: HEPARIN SOD (PORCINE) 1000 UNIT/ML 30ML ONE (11:33)
[2022-05-11] MEDS ORDERED: HEPARIN SOD/SOD CHLORIDE 2,000 ML ONE (11:33)
[2022-05-11] MEDS ORDERED: LIDOCAINE HCL 2% LOCAL 20 ML VIAL ONE (11:33)
[2022-05-11] MEDS ORDERED: IOPAMIDOL 370 MG/ML 100 ML INFUS..BTL INJ ONE (11:34)
[2022-05-11] MEDS ORDERED: SODIUM CHLORIDE 0.9% 1000ML 1,000 ML ONE (11:34)
[2022-05-11] MEDS ORDERED: NITROGLYCERIN/D5W 200 MCG/ML 250 ML ONE (11:34)
[2022-05-11] MEDS ORDERED: VERAPAMIL HCL 2.5 MG/ML 2 ML VIAL ONE (11:34)
[2022-05-11] MEDS ORDERED: MIDAZOLAM HCL 2 MG/2 ML VIAL ONE (11:35)
[2022-05-11] MEDS ORDERED: FENTANYL CITRATE/PF 100MCG/2 ML INJ ONE (11:35)
[2022-05-11] MEDS ORDERED: HYDRALAZINE HCL 20 MG/ML VIAL ONE (12:21)
[2022-05-11] MEDS: ONDANSETRON HCL INJ 2MG/ML 2ML 2 MG/ML VIAL IV PRN (13:53)
[2022-05-11] MEDS: HYDROCODONE/APAP 10MG-325MG TAB PO PRN (13:53)
[2022-05-11] MEDS: ATORVASTATIN 40 MG TAB PO SCH (20:48)
[2022-05-11] MEDS: ZOLPIDEM TARTRATE 10 MG TAB PO SCH (20:48)
[2022-05-11] MEDS: ASPIRIN 81 MG CHEW TAB PO SCH (20:48)
[2022-05-11] MEDS: INSULIN GLARGINE 100 UNITS/ML VIAL SQ SCH (20:55)
[2022-05-12] VITALS (8 sets, daily range): BP systolic 108–167; BP diastolic 52–87
[2022-05-12 06:12] LABS: BASOPHILS % 0.7 % (0.0-1.0); EOSINOPHILS # (AUTO) 0.3 (0.0-0.4); EOSINOPHILS % 4.4 % (0.0-6.0); HEMOGLOBIN 10.7 g/dL (12.0-16.0); LYMPHOCYTES # (AUTO) 0.5 (1.0-3.2); LYMPHOCYTES % 8.7 % (18.0-39.1); MEAN CORPUSCULAR HEMOGLOBIN 27.2 pg (28-32); MEAN CORPUSCULAR HGB CONC 30.6 g/dL (31-35); MEAN CORPUSCULAR VOLUME 88.8 fL (81-99); MONOCYTES # (AUTO) 0.5 (0.2-0.8); MONOCYTES % 8.2 % (4.4-11.3); NEUTROPHILS # (AUTO) 4.7 (2.1-6.9); NEUTROPHILS % 77.7 % (38.7-80.0); PLATELET COUNT 187 x10e3/uL (140-360); RED BLOOD COUNT 3.94 x10e6/uL (3.6-5.1); RED CELL DISTRIBUTION WIDTH 15.9 % (11.7-14.4)
[2022-05-12] MEDS: LEVOTHYROXINE SODIUM 75 MCG TAB PO SCH (06:21)
[2022-05-12 06:37] LABS: ALBUMIN 3.1 g/dL (3.5-5.0); ALBUMIN/GLOBULIN RATIO 1.1 (0.8-2.0); ANION GAP 15.9 mmol/L (8-16); CALCIUM 8.9 mg/dL (8.4-10.2); CREATININE, SERUM 3.2 mg/dL (0.57-1.11); POTASSIUM 3.9 mmol/L (3.5-5.1)
[2022-05-12] MEDS: INSULIN LISPRO 100 UNIT/1 ML 3ML VIAL SQ SCH ×4 (07:30→21:13)
[2022-05-12] MEDS: HYDROCODONE/APAP 10MG-325MG TAB PO PRN (08:25)
[2022-05-12] MEDS: ISOSORBIDE DINITRATE 20 MG TAB PO SCH ×3 (08:26→21:09)
[2022-05-12] MEDS: PANTOPRAZOLE SOD 40 MG TABEC PO SCH (08:27)
[2022-05-12] MEDS: CARVEDILOL 3.125 MG TAB PO SCH ×2 (08:27→16:47)
[2022-05-12] MEDS: ALLOPURINOL 300 MG TAB PO SCH (08:28)
[2022-05-12] MEDS: OXYBUTYNIN CHLORIDE XL 5 MG TAB PO SCH (08:28)
[2022-05-12] MEDS ORDERED: HYDRALAZINE HCL 25 MG TAB PO SCH (09:00)
[2022-05-12] MEDS ORDERED: SODIUM CHLORIDE 0.9% 500ML 500 ML IV ONE (09:00)
[2022-05-12] MEDS: SODIUM CHLORIDE 0.9% 1000ML 1,000 ML IV SCH (13:22)
[2022-05-12] MEDS: HYDRALAZINE HCL 25 MG TAB PO SCH ×2 (13:28→23:24)
[2022-05-12] MEDS: ONDANSETRON HCL INJ 2MG/ML 2ML 2 MG/ML VIAL IV PRN (13:28)
[2022-05-12] MEDS: DOCUSATE SODIUM 100 MG CAP PO SCH (16:47)
[2022-05-12] MEDS: ASPIRIN 81 MG CHEW TAB PO SCH (21:07)
[2022-05-12] MEDS: ATORVASTATIN 40 MG TAB PO SCH (21:08)
[2022-05-12] MEDS: ZOLPIDEM TARTRATE 10 MG TAB PO SCH (21:09)
[2022-05-12] MEDS: INSULIN GLARGINE 100 UNITS/ML VIAL SQ SCH (21:13)
[2022-05-13] VITALS (8 sets, daily range): BP systolic 117–170; BP diastolic 57–78
[2022-05-13] MEDS: HYDRALAZINE HCL 25 MG TAB PO SCH ×3 (05:44→22:59)
[2022-05-13] MEDS: LEVOTHYROXINE SODIUM 75 MCG TAB PO SCH (05:44)
[2022-05-13] MEDS: SODIUM CHLORIDE 0.9% 1000ML 1,000 ML IV SCH ×3 (05:45→19:00)
[2022-05-13 05:52] LABS: BASOPHILS % 0.3 % (0.0-1.0); EOSINOPHILS # (AUTO) 0.3 (0.0-0.4); EOSINOPHILS % 5.8 % (0.0-6.0); HEMATOCRIT 35.4 % (34.2-44.1); HEMOGLOBIN 10.2 g/dL (12.0-16.0); LYMPHOCYTES # (AUTO) 0.6 (1.0-3.2); LYMPHOCYTES % 9.8 % (18.0-39.1); MEAN CORPUSCULAR HEMOGLOBIN 27.2 pg (28-32); MEAN CORPUSCULAR HGB CONC 28.8 g/dL (31-35); MEAN CORPUSCULAR VOLUME 94.4 fL (81-99); MONOCYTES # (AUTO) 0.5 (0.2-0.8); MONOCYTES % 8.7 % (4.4-11.3); NEUTROPHILS # (AUTO) 4.4 (2.1-6.9); NEUTROPHILS % 75.1 % (38.7-80.0); PLATELET COUNT 183 x10e3/uL (140-360); RED BLOOD COUNT 3.75 x10e6/uL (3.6-5.1); RED CELL DISTRIBUTION WIDTH 15.8 % (11.7-14.4)
[2022-05-13 06:27] LABS: ALBUMIN 2.9 g/dL (3.5-5.0); ALBUMIN/GLOBULIN RATIO 1.1 (0.8-2.0); ANION GAP 13.2 mmol/L (8-16); CALCIUM 8.7 mg/dL (8.4-10.2); CREATININE, SERUM 3.13 mg/dL (0.57-1.11); POTASSIUM 4.2 mmol/L (3.5-5.1)
[2022-05-13] MEDS: INSULIN LISPRO 100 UNIT/1 ML 3ML VIAL SQ SCH ×4 (07:30→20:49)
[2022-05-13] MEDS: DOCUSATE SODIUM 100 MG CAP PO SCH ×2 (09:41→16:12)
[2022-05-13] MEDS: OXYBUTYNIN CHLORIDE XL 5 MG TAB PO SCH (09:41)
[2022-05-13] MEDS: PANTOPRAZOLE SOD 40 MG TABEC PO SCH (09:41)
[2022-05-13] MEDS: ALLOPURINOL 300 MG TAB PO SCH (09:41)
[2022-05-13] MEDS: ISOSORBIDE DINITRATE 20 MG TAB PO SCH ×3 (09:42→21:06)
[2022-05-13] MEDS: CARVEDILOL 3.125 MG TAB PO SCH ×2 (09:43→16:11)
[2022-05-13] MEDS ORDERED: LORATADINE 10 MG TAB PO PRN (10:45)
[2022-05-13] MEDS: INSULIN GLARGINE 100 UNITS/ML VIAL SQ SCH (21:00)
[2022-05-13] MEDS: ASPIRIN 81 MG CHEW TAB PO SCH (21:02)
[2022-05-13] MEDS: ATORVASTATIN 40 MG TAB PO SCH (21:03)
[2022-05-13] MEDS: ZOLPIDEM TARTRATE 10 MG TAB PO SCH (21:08)
[2022-05-14 00:02] VITALS: BP 141/78
[2022-05-14 04:46] VITALS: BP 138/58
[2022-05-14 05:30] VITALS: BP 141/60
[2022-05-14] MEDS: LEVOTHYROXINE SODIUM 75 MCG TAB PO SCH (05:43)
[2022-05-14] MEDS: SODIUM CHLORIDE 0.9% 1000ML 1,000 ML IV SCH (05:46)
[2022-05-14] MEDS: HYDRALAZINE HCL 25 MG TAB PO SCH (06:18)
[2022-05-14] MEDS: INSULIN LISPRO 100 UNIT/1 ML 3ML VIAL SQ SCH ×2 (07:30→11:30)
[2022-05-14 08:00] VITALS: BP 178/67
[2022-05-14] MEDS: OXYBUTYNIN CHLORIDE XL 5 MG TAB PO SCH (08:28)
[2022-05-14] MEDS: DOCUSATE SODIUM 100 MG CAP PO SCH (08:28)
[2022-05-14] MEDS: ALLOPURINOL 300 MG TAB PO SCH (08:28)
[2022-05-14] MEDS: PANTOPRAZOLE SOD 40 MG TABEC PO SCH (08:28)
[2022-05-14] MEDS: ISOSORBIDE DINITRATE 20 MG TAB PO SCH (08:29)
[2022-05-14] MEDS: CARVEDILOL 3.125 MG TAB PO SCH (08:29)
[2022-05-14 08:41] VITALS: BP 178/67
[2022-05-14 08:41] LABS: ALBUMIN 2.8 g/dL (3.5-5.0); ALBUMIN/GLOBULIN RATIO 1.1 (0.8-2.0); ANION GAP 8.9 mmol/L (8-16); CALCIUM 8.6 mg/dL (8.4-10.2); CREATININE, SERUM 2.07 mg/dL (0.57-1.11); POTASSIUM 3.9 mmol/L (3.5-5.1)
[2022-05-14] MEDS ORDERED: HYDRALAZINE HCL25 MG PO (11:37)
[2022-05-14] MEDS ORDERED: ISORDIL40 MG PO (11:40)
[2022-05-14 12:39] VITALS: BP 146/62
== END 2022-05-14 13:08 | disposition home or self-care (01) | DRG 286 ==
LOC: ER 11:55 → ERHOLD 14:57 → MED/SURG2 18:38 → OBSVTOIN 05-10 11:27
PROVIDERS: ADMIT Internal Medicine; ATTEND Internal Medicine
PROC: 4A023N6 Measurement of Cardiac Sampling and Pressure, Right Heart, Percutaneous Approach (ICD-10-PCS; principal; 2022-05-11)
PROC: B2141ZZ Fluoroscopy of Right Heart using Low Osmolar Contrast (ICD-10-PCS; 2022-05-11)
PROC: B31S1ZZ Fluoroscopy of Right Pulmonary Artery using Low Osmolar Contrast (ICD-10-PCS; 2022-05-11)
PROC: 4A0335C Measurement of Arterial Flow, Coronary, Percutaneous Approach (ICD-10-PCS; 2022-05-11)
DX: I13.0 Hypertensive heart and chronic kidney disease with heart failure and stage 1 through stage 4 chronic kidney disease, or unspecified chronic kidney disease (principal); I50.33 Acute on chronic diastolic (congestive) heart failure; N17.9 Acute kidney failure, unspecified; N18.32 Chronic kidney disease, stage 3b; E11.22 Type 2 diabetes mellitus with diabetic chronic kidney disease; Z79.4 Long term (current) use of insulin; I25.10 Atherosclerotic heart disease of native coronary artery without angina pectoris; Z95.818 Presence of other cardiac implants and grafts; Z20.822 Contact with and (suspected) exposure to COVID-19; Z79.899 Other long term (current) drug therapy; I48.91 Unspecified atrial fibrillation; E03.9 Hypothyroidism, unspecified; R60.0 Localized edema; E78.2 Mixed hyperlipidemia; E11.69 Type 2 diabetes mellitus with other specified complication; I27.29 Other secondary pulmonary hypertension; G47.33 Obstructive sleep apnea (adult) (pediatric); M10.9 Gout, unspecified; E78.00 Pure hypercholesterolemia, unspecified; D64.9 Anemia, unspecified
CPT/HCPCS: 36415; 71045; 78580; 80053; 82550; 82553; 82948; 83540; 83735; 83880; 84466; 84484; 85025; 93005; 93306; 93451; 94760; 94799; 99252; 99284; A9540; C1751; C1769; G0378; J0360; J1644; J1815; J1940; J2001; J2250; J2405; J2765; J3010; J3475; J7030; J7040; J7050; Q9967

== ENCOUNTER 2022-06-19 13:49 | Inpatient (IN) | payer MEDICARE, OTHER ==
[~2022-06-19] VITALS: Ht 149.9 cm; Wt 108.9 kg
[~2022-06-19 13:49] MED LIST changes: +ISORDIL40 MG PO
[2022-06-19 14:30] LABS: HEMATOCRIT 32.1 % (34.2-44.1); LYMPHOCYTES # (AUTO) 0.3 (1.0-3.2); LYMPHOCYTES % 2.3 % (18.0-39.1); MEAN CORPUSCULAR HEMOGLOBIN 26.5 pg (28-32); MEAN CORPUSCULAR HGB CONC 31.2 g/dL (31-35); MEAN CORPUSCULAR VOLUME 85.1 fL (81-99); MONOCYTES # (AUTO) 0.3 (0.2-0.8); MONOCYTES % 2.7 % (4.4-11.3); NEUTROPHILS # (AUTO) 11.4 (2.1-6.9); NEUTROPHILS % 94.3 % (38.7-80.0); PLATELET COUNT 231 x10e3/uL (140-360); RED BLOOD COUNT 3.77 x10e6/uL (3.6-5.1); RED CELL DISTRIBUTION WIDTH 18.3 % (11.7-14.4)
[2022-06-19 14:46] LABS: ALBUMIN 3.3 g/dL (3.5-5.0); ALBUMIN/GLOBULIN RATIO 1.1 (0.8-2.0); ANION GAP 18.3 mmol/L (8-16); CALCIUM 9.2 mg/dL (8.4-10.2); CREATININE, SERUM 1.58 mg/dL (0.57-1.11); POTASSIUM 4.3 mmol/L (3.5-5.1)
[2022-06-19 16:56] LABS: CLARITY,URINE CLOUDY (CLEAR); COLOR,URINE YELLOW (YELLOW); KETONES,URINE NEGATIVE (NEGATIVE); LEUKOCYTE ESTERASE ,URINE NEGATIVE (NEGATIVE); NITRITE,URINE NEGATIVE (NEGATIVE); PROTEIN,URINE DIPSTICK >=300 (NEGATIVE); URINE UROBILINOGEN 0.2 mg/dL (0.2 - 1)
[2022-06-19 17:06] LABS: BACTERIA,URINE MANY /HPF; EPITHELIAL CELLS,URINE FEW /LPF; MUCUS,URINE FEW (RARE); RBC,URINE 0-5 /HPF (0-5)
[2022-06-19 17:08] LABS: TRANSITIONAL EPI CELLS,URINE FEW
[2022-06-19] MEDS ORDERED: ONDANSETRON HCL INJ 2MG/ML 2ML 2 MG/ML VIAL IV PRN (17:15)
[2022-06-19] MEDS ORDERED: CEFTRIAXONE 1 GM VIAL IV ONE (17:15)
[2022-06-19] MEDS ORDERED: SODIUM CHLORIDE FLUSH 10 ML SYR INJ PRN (17:15)
[2022-06-19 20:58] VITALS: BP 153/78; PULSE 71; RESP 21; TEMP 98.1; O2SAT 97
[2022-06-19 21:00] VITALS: BP 153/78; PULSE 71; RESP 21; TEMP 98.1; O2SAT 97
[2022-06-19 21:38] VITALS: BP 153/68; PULSE 71; RESP 21; TEMP 98.1; O2SAT 97
[2022-06-19] MEDS ORDERED: DEXAMETHASONE4 MG PO (21:48)
[2022-06-19] MEDS ORDERED: IPRATROPIU0.2 MG/1 M INH (21:48)
[2022-06-19] MEDS ORDERED: BUDESONIDE0.5 MG/2 M NEB (21:48)
[2022-06-19] MEDS ORDERED: PANTOPRAZOLE SO40 MG PO (21:48)
[2022-06-19] MEDS ORDERED: AMARYL2 MG PO (21:48)
[2022-06-19] MEDS ORDERED: PROCARDIA XL30 MG (21:48)
[2022-06-19] MEDS ORDERED: VITAMIN D3125 MCG PO (21:48)
[2022-06-19] MEDS ORDERED: ISOSORBIDE MONO30 MG PO (21:48)
[2022-06-19] MEDS ORDERED: BENZONATATE100 MG PO (21:48)
[2022-06-20] VITALS (8 sets, daily range): BP systolic 115–150; BP diastolic 44–71; PULSE 50–82; RESP 16–21; TEMP 97.7–98.6; O2SAT 96–100
[2022-06-20] MEDS ORDERED: BUDESONIDE 0.5MG/2 ML NEB NEB PRN (04:00)
[2022-06-20] MEDS ORDERED: DEXTROSE 50% SYRINGE 50 ML IV PRN (04:30)
[2022-06-20 05:34] LABS: BASOPHILS % 0.1 % (0.0-1.0); EOSINOPHILS # (AUTO) 0.1 (0.0-0.4); EOSINOPHILS % 0.9 % (0.0-6.0); HEMATOCRIT 29.2 % (34.2-44.1); HEMOGLOBIN 9.1 g/dL (12.0-16.0); LYMPHOCYTES # (AUTO) 0.7 (1.0-3.2); LYMPHOCYTES % 7.4 % (18.0-39.1); MEAN CORPUSCULAR HEMOGLOBIN 26.8 pg (28-32); MEAN CORPUSCULAR HGB CONC 31.2 g/dL (31-35); MEAN CORPUSCULAR VOLUME 86.1 fL (81-99); MONOCYTES # (AUTO) 0.6 (0.2-0.8); MONOCYTES % 6.2 % (4.4-11.3); NEUTROPHILS # (AUTO) 8.1 (2.1-6.9); NEUTROPHILS % 84.8 % (38.7-80.0); PLATELET COUNT 204 x10e3/uL (140-360); RED BLOOD COUNT 3.39 x10e6/uL (3.6-5.1); RED CELL DISTRIBUTION WIDTH 18.5 % (11.7-14.4)
[2022-06-20 05:59] LABS: ALBUMIN 2.9 g/dL (3.5-5.0); ALBUMIN/GLOBULIN RATIO 1.2 (0.8-2.0); ANION GAP 14.1 mmol/L (8-16); CALCIUM 8.7 mg/dL (8.4-10.2); CREATININE, SERUM 1.31 mg/dL (0.57-1.11); POTASSIUM 4.1 mmol/L (3.5-5.1)
[2022-06-20] MEDS: LEVOTHYROXINE SODIUM 50 MCG TAB PO SCH (06:15)
[2022-06-20] MEDS: INSULIN LISPRO 100 UNIT/1 ML 3ML VIAL SQ SCH ×4 (07:30→21:00)
[2022-06-20] MEDS ORDERED: FUROSEMIDE INJ 10 MG/ML 2 ML VIAL IV SCH (09:00)
[2022-06-20] MEDS: ASPIRIN 81 MG CHEW TAB PO SCH (09:13)
[2022-06-20] MEDS: NIFEDIPINE CR 30 MG TAB PO SCH (09:13)
[2022-06-20] MEDS: ISOSORBIDE MONONITRATE 30 MG TAB CR PO SCH (09:13)
[2022-06-20] MEDS: METOPROLOL SUCCINATE 25 MG TAB XL PO SCH (09:14)
[2022-06-20] MEDS: ALLOPURINOL 300 MG TAB PO SCH (09:14)
[2022-06-20] MEDS: PANTOPRAZOLE SOD 40 MG TABEC PO SCH (09:15)
[2022-06-20] MEDS ORDERED: SODIUM CHLORIDE 0.9% 250ML 250 ML ONE (09:32)
[2022-06-20] MEDS: DEXTROSE 5%/0.225% SOD CHL 1,000 ML IV SCH ×2 (11:24→21:54)
[2022-06-20] MEDS: SODIUM BICARBONATE 650 MG TAB PO SCH (17:07)
[2022-06-20] MEDS: ZOLPIDEM TARTRATE 5 MG TAB PO PRN (23:21)
[2022-06-21] VITALS (10 sets, daily range): BP systolic 125–183; BP diastolic 47–80; PULSE 51–77; RESP 16–20; TEMP 97.2–98.3; O2SAT 98–100
[2022-06-21 06:03] LABS: BASOPHILS % 0.4 % (0.0-1.0); EOSINOPHILS # (AUTO) 0.2 (0.0-0.4); EOSINOPHILS % 2.7 % (0.0-6.0); HEMATOCRIT 28.5 % (34.2-44.1); HEMOGLOBIN 8.6 g/dL (12.0-16.0); LYMPHOCYTES # (AUTO) 0.4 (1.0-3.2); LYMPHOCYTES % 6.8 % (18.0-39.1); MEAN CORPUSCULAR HEMOGLOBIN 26.9 pg (28-32); MEAN CORPUSCULAR HGB CONC 30.2 g/dL (31-35); MONOCYTES # (AUTO) 0.4 (0.2-0.8); MONOCYTES % 7.7 % (4.4-11.3); NEUTROPHILS # (AUTO) 4.5 (2.1-6.9); NEUTROPHILS % 81.7 % (38.7-80.0); PLATELET COUNT 182 x10e3/uL (140-360); RED CELL DISTRIBUTION WIDTH 18.6 % (11.7-14.4)
[2022-06-21 06:06] LABS: MEAN CORPUSCULAR VOLUME 89.1 fL (81-99)
[2022-06-21] MEDS: LEVOTHYROXINE SODIUM 50 MCG TAB PO SCH (06:21)
[2022-06-21 06:22] LABS: ALBUMIN 2.5 g/dL (3.5-5.0); ALBUMIN/GLOBULIN RATIO 1.1 (0.8-2.0); ANION GAP 13.7 mmol/L (8-16); CALCIUM 8.1 mg/dL (8.4-10.2); CREATININE, SERUM 1.29 mg/dL (0.57-1.11); MAGNESIUM 1.4 MG/DL (1.3-2.1); POTASSIUM 3.7 mmol/L (3.5-5.1)
[2022-06-21 07:22] LABS: % IRON SATURATION 22 % (15-50); IRON 50 ug/dL (50-170); TOTAL IRON BINDING CAPACITY 231 ug/dL (261-478); TRANSFERRIN 165 mg/dL (180-382)
[2022-06-21] MEDS: INSULIN LISPRO 100 UNIT/1 ML 3ML VIAL SQ SCH ×4 (07:30→22:11)
[2022-06-21] MEDS: ISOSORBIDE MONONITRATE 30 MG TAB CR PO SCH (09:04)
[2022-06-21] MEDS: ASPIRIN 81 MG CHEW TAB PO SCH (09:05)
[2022-06-21] MEDS: PANTOPRAZOLE SOD 40 MG TABEC PO SCH (09:05)
[2022-06-21] MEDS: SODIUM BICARBONATE 650 MG TAB PO SCH ×2 (09:05→16:25)
[2022-06-21] MEDS: ALLOPURINOL 300 MG TAB PO SCH (09:05)
[2022-06-21] MEDS: METOPROLOL SUCCINATE 25 MG TAB XL PO SCH (09:06)
[2022-06-21] MEDS: NIFEDIPINE CR 30 MG TAB PO SCH (09:06)
[2022-06-21] MEDS: DEXTROSE 5%/0.225% SOD CHL 1,000 ML IV SCH (09:10)
[2022-06-21] MEDS ORDERED: ONDANSETRON HCL 4 MG ORAL DISINTEGRATING TAB PO PRN (14:00)
[2022-06-21] MEDS: ZOLPIDEM TARTRATE 5 MG TAB PO PRN (22:12)
[2022-06-22] VITALS (8 sets, daily range): BP systolic 133–166; BP diastolic 55–82; PULSE 56–66; RESP 18–20; TEMP 98–99.3; O2SAT 97–100
[2022-06-22] MEDS: LEVOTHYROXINE SODIUM 50 MCG TAB PO SCH (05:58)
[2022-06-22 06:38] LABS: ALBUMIN 2.7 g/dL (3.5-5.0); ALBUMIN/GLOBULIN RATIO 1.2 (0.8-2.0); ANION GAP 12.9 mmol/L (8-16); CALCIUM 8.2 mg/dL (8.4-10.2); CREATININE, SERUM 1.34 mg/dL (0.57-1.11); MAGNESIUM 1.4 MG/DL (1.3-2.1); POTASSIUM 3.9 mmol/L (3.5-5.1)
[2022-06-22] MEDS: INSULIN LISPRO 100 UNIT/1 ML 3ML VIAL SQ SCH ×4 (07:30→21:08)
[2022-06-22 08:27] LABS: BASOPHILS % 0.2 % (0.0-1.0); EOSINOPHILS # (AUTO) 0.1 (0.0-0.4); EOSINOPHILS % 2.7 % (0.0-6.0); HEMATOCRIT 30.4 % (34.2-44.1); HEMOGLOBIN 9.3 g/dL (12.0-16.0); LYMPHOCYTES # (AUTO) 0.4 (1.0-3.2); LYMPHOCYTES % 7.2 % (18.0-39.1); MEAN CORPUSCULAR HEMOGLOBIN 26.8 pg (28-32); MEAN CORPUSCULAR HGB CONC 30.6 g/dL (31-35); MEAN CORPUSCULAR VOLUME 87.6 fL (81-99); MONOCYTES # (AUTO) 0.4 (0.2-0.8); MONOCYTES % 8.4 % (4.4-11.3); NEUTROPHILS # (AUTO) 4.2 (2.1-6.9); NEUTROPHILS % 81.1 % (38.7-80.0); PLATELET COUNT 157 x10e3/uL (140-360); RED BLOOD COUNT 3.47 x10e6/uL (3.6-5.1); RED CELL DISTRIBUTION WIDTH 18.9 % (11.7-14.4)
[2022-06-22] MEDS: PANTOPRAZOLE SOD 40 MG TABEC PO SCH (10:08)
[2022-06-22] MEDS: METOPROLOL SUCCINATE 25 MG TAB XL PO SCH (10:08)
[2022-06-22] MEDS: ALLOPURINOL 300 MG TAB PO SCH (10:08)
[2022-06-22] MEDS: ASPIRIN 81 MG CHEW TAB PO SCH (10:08)
[2022-06-22] MEDS: NIFEDIPINE CR 30 MG TAB PO SCH (10:08)
[2022-06-22] MEDS: SODIUM BICARBONATE 650 MG TAB PO SCH ×2 (10:08→18:09)
[2022-06-22] MEDS: ISOSORBIDE MONONITRATE 30 MG TAB CR PO SCH (10:09)
[2022-06-22] MEDS: DEXTROSE 5%/0.225% SOD CHL 1,000 ML IV SCH ×2 (10:14→16:20)
[2022-06-22] MEDS: ZOLPIDEM TARTRATE 5 MG TAB PO PRN (21:03)
[2022-06-23] VITALS (8 sets, daily range): BP systolic 127–164; BP diastolic 55–76; PULSE 58–80; RESP 17–20; TEMP 97.6–98.7; O2SAT 97–100
[2022-06-23] MEDS: LEVOTHYROXINE SODIUM 50 MCG TAB PO SCH (04:44)
[2022-06-23] MEDS ORDERED: MAGNESIUM SULFATE 2GM/50ML 50 ML IV ONE (05:15)
[2022-06-23] MEDS: INSULIN LISPRO 100 UNIT/1 ML 3ML VIAL SQ SCH ×4 (07:30→20:30)
[2022-06-23 07:55] LABS: BASOPHILS % 0.2 % (0.0-1.0); EOSINOPHILS # (AUTO) 0.1 (0.0-0.4); EOSINOPHILS % 2.2 % (0.0-6.0); HEMATOCRIT 28.6 % (34.2-44.1); HEMOGLOBIN 8.6 g/dL (12.0-16.0); LYMPHOCYTES # (AUTO) 0.4 (1.0-3.2); LYMPHOCYTES % 8.1 % (18.0-39.1); MEAN CORPUSCULAR HEMOGLOBIN 26.5 pg (28-32); MEAN CORPUSCULAR HGB CONC 30.1 g/dL (31-35); MONOCYTES # (AUTO) 0.4 (0.2-0.8); MONOCYTES % 7.3 % (4.4-11.3); NEUTROPHILS % 81.8 % (38.7-80.0); PLATELET COUNT 130 x10e3/uL (140-360); RED BLOOD COUNT 3.25 x10e6/uL (3.6-5.1); RED CELL DISTRIBUTION WIDTH 18.8 % (11.7-14.4)
[2022-06-23 08:17] LABS: ALBUMIN 2.4 g/dL (3.5-5.0); ANION GAP 13.7 mmol/L (8-16); CALCIUM 8.1 mg/dL (8.4-10.2); CREATININE, SERUM 1.09 mg/dL (0.57-1.11); POTASSIUM 3.7 mmol/L (3.5-5.1)
[2022-06-23] MEDS: METOPROLOL SUCCINATE 25 MG TAB XL PO SCH (08:36)
[2022-06-23] MEDS: ASPIRIN 81 MG CHEW TAB PO SCH (08:36)
[2022-06-23] MEDS: ALLOPURINOL 300 MG TAB PO SCH (08:36)
[2022-06-23] MEDS: SODIUM BICARBONATE 650 MG TAB PO SCH ×2 (08:36→17:12)
[2022-06-23] MEDS: ISOSORBIDE MONONITRATE 30 MG TAB CR PO SCH (08:36)
[2022-06-23] MEDS: NIFEDIPINE CR 30 MG TAB PO SCH (08:37)
[2022-06-23] MEDS: PANTOPRAZOLE SOD 40 MG TABEC PO SCH (08:37)
[2022-06-23 09:25] LABS: INR 0.99; PROTHROMBIN TIME 13.6 seconds (11.9-14.5)
[2022-06-23 09:26] LABS: PARTIAL THROMBOPLASTIN TIME 31.7 seconds (23.8-35.5)
[2022-06-23] MEDS ORDERED: SODIUM CHLORIDE 0.9% 250ML 250 ML ONE ×2 (13:45→13:46)
[2022-06-23] MEDS ORDERED: SODIUM CHLORIDE 0.9% 1000ML 1,000 ML ONE (13:45)
[2022-06-23] MEDS ORDERED: LIDOCAINE 1% W/EPINEPHRINE 20 ML VIAL ONE (13:45)
[2022-06-23] MEDS ORDERED: LIDOCAINE HCL 2% LOCAL 20 ML VIAL ONE ×2 (13:45→16:09)
[2022-06-23] MEDS ORDERED: Vancomycin IV 1 GM VIAL ONE ×2 (13:45→15:04)
[2022-06-23] MEDS ORDERED: GENTAMICIN SULFATE 40 MG/ML 2 ML VIAL ONE ×2 (15:14→15:24)
[2022-06-23] MEDS ORDERED: SODIUM CHLORIDE 0.9% 1000ML 2,000 ML ONE (15:14)
[2022-06-23] MEDS ORDERED: MIDAZOLAM HCL 2 MG/2 ML VIAL ONE ×2 (15:17→16:25)
[2022-06-23] MEDS ORDERED: FENTANYL CITRATE/PF 100MCG/2 ML INJ ONE (15:17)
[2022-06-23] MEDS: ZOLPIDEM TARTRATE 5 MG TAB PO PRN (20:30)
[2022-06-24] VITALS (9 sets, daily range): BP systolic 122–148; BP diastolic 58–77; PULSE 59–75; RESP 17–20; TEMP 97.8–98.4; O2SAT 95–100
[2022-06-24] MEDS: TRAMADOL HCL 50 MG TAB PO PRN ×2 (04:25→20:52)
[2022-06-24] MEDS: LEVOTHYROXINE SODIUM 50 MCG TAB PO SCH (06:12)
[2022-06-24] MEDS: INSULIN LISPRO 100 UNIT/1 ML 3ML VIAL SQ SCH ×4 (07:30→20:52)
[2022-06-24] MEDS: ISOSORBIDE MONONITRATE 30 MG TAB CR PO SCH (08:42)
[2022-06-24] MEDS: ASPIRIN 81 MG CHEW TAB PO SCH (08:43)
[2022-06-24] MEDS: ALLOPURINOL 300 MG TAB PO SCH (08:43)
[2022-06-24] MEDS: PANTOPRAZOLE SOD 40 MG TABEC PO SCH (08:43)
[2022-06-24] MEDS: SODIUM BICARBONATE 650 MG TAB PO SCH ×2 (08:43→16:44)
[2022-06-24] MEDS: METOPROLOL SUCCINATE 25 MG TAB XL PO SCH (08:43)
[2022-06-24] MEDS: NIFEDIPINE CR 30 MG TAB PO SCH (09:00)
[2022-06-24] MEDS: ZOLPIDEM TARTRATE 5 MG TAB PO PRN (20:51)
[2022-06-25] VITALS (10 sets, daily range): BP systolic 118–161; BP diastolic 52–70; PULSE 58–71; RESP 18–20; TEMP 98–98.9; O2SAT 95–100
[2022-06-25] MEDS: LEVOTHYROXINE SODIUM 50 MCG TAB PO SCH (06:04)
[2022-06-25] MEDS: INSULIN LISPRO 100 UNIT/1 ML 3ML VIAL SQ SCH ×4 (07:30→21:00)
[2022-06-25] MEDS: NIFEDIPINE CR 30 MG TAB PO SCH (08:56)
[2022-06-25] MEDS: ASPIRIN 81 MG CHEW TAB PO SCH (08:56)
[2022-06-25] MEDS: ALLOPURINOL 300 MG TAB PO SCH (08:57)
[2022-06-25] MEDS: PANTOPRAZOLE SOD 40 MG TABEC PO SCH (08:57)
[2022-06-25] MEDS: ISOSORBIDE MONONITRATE 30 MG TAB CR PO SCH (08:57)
[2022-06-25] MEDS: METOPROLOL SUCCINATE 25 MG TAB XL PO SCH (08:57)
[2022-06-25] MEDS: SODIUM BICARBONATE 650 MG TAB PO SCH ×2 (08:57→16:05)
[2022-06-25] MEDS: TRAMADOL HCL 50 MG TAB PO PRN (20:55)
[2022-06-25] MEDS: ZOLPIDEM TARTRATE 5 MG TAB PO PRN (20:55)
[2022-06-26] VITALS (9 sets, daily range): BP systolic 117–164; BP diastolic 55–70; PULSE 60–67; RESP 16–24; TEMP 97.3–98.4; O2SAT 93–99
[2022-06-26] MEDS: LEVOTHYROXINE SODIUM 50 MCG TAB PO SCH (05:12)
[2022-06-26] MEDS: TRAMADOL HCL 50 MG TAB PO PRN ×2 (05:12→18:36)
[2022-06-26 06:04] LABS: BASOPHILS % 0.5 % (0.0-1.0); EOSINOPHILS # (AUTO) 0.1 (0.0-0.4); EOSINOPHILS % 3.3 % (0.0-6.0); HEMATOCRIT 28.6 % (34.2-44.1); HEMOGLOBIN 8.6 g/dL (12.0-16.0); LYMPHOCYTES # (AUTO) 0.6 (1.0-3.2); LYMPHOCYTES % 16.2 % (18.0-39.1); MEAN CORPUSCULAR HEMOGLOBIN 27.6 pg (28-32); MEAN CORPUSCULAR HGB CONC 30.1 g/dL (31-35); MEAN CORPUSCULAR VOLUME 91.7 fL (81-99); MONOCYTES # (AUTO) 0.5 (0.2-0.8); MONOCYTES % 12.3 % (4.4-11.3); NEUTROPHILS # (AUTO) 2.5 (2.1-6.9); NEUTROPHILS % 67.2 % (38.7-80.0); PLATELET COUNT 146 x10e3/uL (140-360); RED BLOOD COUNT 3.12 x10e6/uL (3.6-5.1); RED CELL DISTRIBUTION WIDTH 20.4 % (11.7-14.4)
[2022-06-26 06:37] LABS: ANION GAP 13.3 mmol/L (8-16); CALCIUM 8.5 mg/dL (8.4-10.2); CREATININE, SERUM 1.4 mg/dL (0.57-1.11); POTASSIUM 4.3 mmol/L (3.5-5.1)
[2022-06-26] MEDS: INSULIN LISPRO 100 UNIT/1 ML 3ML VIAL SQ SCH ×4 (07:30→21:08)
[2022-06-26 09:26] LABS: PLATELET ESTIMATE SLIGHTLY DECREASED; PLATELET MORPHOLOGY COMMENT NORMAL; RBC MORPHOLOGY COMMENT NORMAL
[2022-06-26] MEDS: SODIUM BICARBONATE 650 MG TAB PO SCH ×2 (10:37→18:37)
[2022-06-26] MEDS: NIFEDIPINE CR 30 MG TAB PO SCH (10:37)
[2022-06-26] MEDS: ISOSORBIDE MONONITRATE 30 MG TAB CR PO SCH (10:37)
[2022-06-26] MEDS: METOPROLOL SUCCINATE 25 MG TAB XL PO SCH (10:38)
[2022-06-26] MEDS: PANTOPRAZOLE SOD 40 MG TABEC PO SCH (10:38)
[2022-06-26] MEDS: ALLOPURINOL 300 MG TAB PO SCH (10:38)
[2022-06-26] MEDS: ASPIRIN 81 MG CHEW TAB PO SCH (10:38)
[2022-06-26] MEDS: MUPIROCIN 2% OINT 22 GM TUBE TOP SCH (20:00)
[2022-06-26] MEDS: ZOLPIDEM TARTRATE 5 MG TAB PO PRN (21:12)
[2022-06-27] VITALS: BP 127/59; PULSE 58; RESP 20; TEMP 99.1; O2SAT 100
[2022-06-27 06:05] VITALS: BP 130/64; PULSE 60; RESP 20; TEMP 97.2; O2SAT 96
[2022-06-27] MEDS: LEVOTHYROXINE SODIUM 50 MCG TAB PO SCH (06:24)
[2022-06-27 07:07] VITALS: PULSE 68; RESP 18; O2SAT 96
[2022-06-27] MEDS: INSULIN LISPRO 100 UNIT/1 ML 3ML VIAL SQ SCH (07:30)
[2022-06-27 08:00] VITALS: BP 155/69; PULSE 67; RESP 18; TEMP 98; O2SAT 93
[2022-06-27 09:54] VITALS: BP 140/65; PULSE 68; RESP 20; TEMP 98; O2SAT 99
[2022-06-27] MEDS ORDERED: MINOCYCLINE HCL50 MG PO (10:13)
[2022-06-27] MEDS ORDERED: KEFLEX125 MG/5 M PO (10:13)
[2022-06-27] MEDS: SODIUM BICARBONATE 650 MG TAB PO SCH (10:57)
[2022-06-27] MEDS: PANTOPRAZOLE SOD 40 MG TABEC PO SCH (10:57)
[2022-06-27] MEDS: ASPIRIN 81 MG CHEW TAB PO SCH (10:57)
[2022-06-27] MEDS: NIFEDIPINE CR 30 MG TAB PO SCH (10:57)
[2022-06-27] MEDS: METOPROLOL SUCCINATE 25 MG TAB XL PO SCH (10:58)
[2022-06-27] MEDS: ALLOPURINOL 300 MG TAB PO SCH (10:58)
[2022-06-27] MEDS: ISOSORBIDE MONONITRATE 30 MG TAB CR PO SCH (10:58)
[2022-06-27] MEDS: MUPIROCIN 2% OINT 22 GM TUBE TOP SCH (10:59)
== END 2022-06-27 10:59 | disposition home or self-care (01) | DRG 981 ==
LOC: ER 14:03 → ERHOLD 17:17 → MED/SURG2 20:33 → OBSVTOIN 06-20 08:58
PROVIDERS: ADMIT Internal Medicine; ATTEND Internal Medicine
PROC: 3E03329 Introduction of Other Anti-infective into Peripheral Vein, Percutaneous Approach (ICD-10-PCS; 2022-06-20)
PROC: 0JH604Z Insertion of Pacemaker, Single Chamber into Chest Subcutaneous Tissue and Fascia, Open Approach (ICD-10-PCS; principal; 2022-06-23)
PROC: 02HK3JZ Insertion of Pacemaker Lead into Right Ventricle, Percutaneous Approach (ICD-10-PCS; 2022-06-23)
PROC: 0JPT02Z Removal of Monitoring Device from Trunk Subcutaneous Tissue and Fascia, Open Approach (ICD-10-PCS; 2022-06-23)
PROC: 0J9Q0ZZ Drainage of Right Foot Subcutaneous Tissue and Fascia, Open Approach (ICD-10-PCS; 2022-06-26)
DX: N39.0 Urinary tract infection, site not specified (principal); G93.41 Metabolic encephalopathy; R65.20 Severe sepsis without septic shock; G93.40 Encephalopathy, unspecified; Z68.42 Body mass index [BMI] 45.0-49.9, adult; L03.115 Cellulitis of right lower limb; I13.0 Hypertensive heart and chronic kidney disease with heart failure and stage 1 through stage 4 chronic kidney disease, or unspecified chronic kidney disease; I48.20 Chronic atrial fibrillation, unspecified; I49.5 Sick sinus syndrome; E11.22 Type 2 diabetes mellitus with diabetic chronic kidney disease; E66.01 Morbid (severe) obesity due to excess calories; Z86.16 Personal history of COVID-19; I50.9 Heart failure, unspecified; E03.9 Hypothyroidism, unspecified; G47.33 Obstructive sleep apnea (adult) (pediatric); Z95.818 Presence of other cardiac implants and grafts; Z88.1 Allergy status to other antibiotic agents; I27.20 Pulmonary hypertension, unspecified; E05.90 Thyrotoxicosis, unspecified without thyrotoxic crisis or storm; N18.32 Chronic kidney disease, stage 3b; Z79.01 Long term (current) use of anticoagulants; J44.9 Chronic obstructive pulmonary disease, unspecified; M10.9 Gout, unspecified
CPT/HCPCS: 33207; 36415; 51700; 70450; 71045; 75820; 80048; 80053; 81001; 82140; 82948; 83540; 83735; 83880; 84466; 85025; 85610; 85730; 87071; 87075; 87086; 87205; 93005; 93306; 94799; 96372; 99152; 99153; 99285; C1769; C1786; C1898; G0378; J0696; J1580; J1940; J2001; J2250; J3475; J7030; J7050

== ENCOUNTER 2022-07-18 16:50 | Emergency (ER) | payer MEDICARE, OTHER ==
[~2022-07-18] VITALS: Ht 149.9 cm; Wt 108.9 kg
[~2022-07-18 16:50] MED LIST changes: +AMARYL2 MG PO; +BENZONATATE100 MG PO; +BUDESONIDE0.5 MG/2 M NEB; +DEXAMETHASONE4 MG PO; +IPRATROPIU0.2 MG/1 M INH; +ISOSORBIDE MONO30 MG PO; +KEFLEX125 MG/5 M PO; +MINOCYCLINE HCL50 MG PO; +PROCARDIA XL30 MG; +VITAMIN D3125 MCG PO
[2022-07-18] MEDS ORDERED: SODIUM CHLORIDE 0.9% 1000ML 1,000 ML IV STA (20:16)
[2022-07-18 20:20] LABS: BASOPHILS % 0.3 % (0.0-1.0); EOSINOPHILS # (AUTO) 0.2 (0.0-0.4); EOSINOPHILS % 2.1 % (0.0-6.0); HEMATOCRIT 32.2 % (34.2-44.1); LYMPHOCYTES # (AUTO) 0.9 (1.0-3.2); LYMPHOCYTES % 8.1 % (18.0-39.1); MEAN CORPUSCULAR HEMOGLOBIN 27.9 pg (28-32); MEAN CORPUSCULAR HGB CONC 31.1 g/dL (31-35); MEAN CORPUSCULAR VOLUME 89.9 fL (81-99); MONOCYTES # (AUTO) 0.5 (0.2-0.8); MONOCYTES % 4.5 % (4.4-11.3); NEUTROPHILS # (AUTO) 9.7 (2.1-6.9); NEUTROPHILS % 84.6 % (38.7-80.0); PLATELET COUNT 250 x10e3/uL (140-360); RED BLOOD COUNT 3.58 x10e6/uL (3.6-5.1); RED CELL DISTRIBUTION WIDTH 21.5 % (11.7-14.4)
[2022-07-18 20:36] LABS: ALANINE AMINOTRANSFERASE 11 IU/L (0-55); ALBUMIN 3.7 g/dL (3.5-5.0); ALBUMIN/GLOBULIN RATIO 1.1 (0.8-2.0); ALKALINE PHOSPHATASE 122 IU/L (40-150); ANION GAP 21.2 mmol/L (8-16); BLOOD UREA NITROGEN 36 mg/dL (7-26); BUN/CREATININE RATIO 13 (6-25); CALCIUM 9.3 mg/dL (8.4-10.2); CARBON DIOXIDE 16 mmol/L (22-29); CHLORIDE 103 mmol/L (98-107); CREATINE KINASE 37 IU/L (29-168); CREATININE, SERUM 2.72 mg/dL (0.57-1.11); GLUCOSE 143 mg/dL (74-118); POTASSIUM 4.2 mmol/L (3.5-5.1); SODIUM 136 mmol/L (136-145)
[2022-07-18 21:44] VITALS: BP 132/79
== END 2022-07-18 21:15 | disposition home or self-care (01) ==
LOC: ER 17:50
DX: R34 Anuria and oliguria (principal); R33.9 Retention of urine, unspecified; I12.9 Hypertensive chronic kidney disease with stage 1 through stage 4 chronic kidney disease, or unspecified chronic kidney disease; E11.22 Type 2 diabetes mellitus with diabetic chronic kidney disease; E11.65 Type 2 diabetes mellitus with hyperglycemia; N18.9 Chronic kidney disease, unspecified; I48.91 Unspecified atrial fibrillation; I50.9 Heart failure, unspecified; G47.30 Sleep apnea, unspecified
CPT/HCPCS: 36415; 71045; 80053; 82550; 82553; 83690; 83880; 84484; 85025; 99284; J7030

== ENCOUNTER 2022-07-26 10:29 | Inpatient (IN) | payer MEDICARE, OTHER ==
[~2022-07-26] VITALS: Ht 149.9 cm; Wt 81.6 kg
[2022-07-26 10:57] LABS: BASOPHILS % 0.4 % (0.0-1.0); EOSINOPHILS # (AUTO) 0.1 (0.0-0.4); EOSINOPHILS % 1.4 % (0.0-6.0); HEMATOCRIT 31.3 % (34.2-44.1); HEMOGLOBIN 9.8 g/dL (12.0-16.0); LYMPHOCYTES # (AUTO) 0.8 (1.0-3.2); LYMPHOCYTES % 9.9 % (18.0-39.1); MEAN CORPUSCULAR HEMOGLOBIN 27.8 pg (28-32); MEAN CORPUSCULAR HGB CONC 31.3 g/dL (31-35); MEAN CORPUSCULAR VOLUME 88.9 fL (81-99); MONOCYTES # (AUTO) 0.5 (0.2-0.8); MONOCYTES % 5.9 % (4.4-11.3); NEUTROPHILS # (AUTO) 6.5 (2.1-6.9); PLATELET COUNT 274 x10e3/uL (140-360); RED BLOOD COUNT 3.52 x10e6/uL (3.6-5.1); RED CELL DISTRIBUTION WIDTH 21.2 % (11.7-14.4)
[2022-07-26] MEDS ORDERED: SODIUM CHLORIDE 0.9% 500ML 500 ML IV ONE (11:00)
[2022-07-26] MEDS ORDERED: METOPROLOL TARTRATE 25 MG TAB PO ONE (11:00)
[2022-07-26 11:08] LABS: INR 1.02; PROTHROMBIN TIME 13.9 seconds (11.9-14.5)
[2022-07-26 11:09] LABS: PARTIAL THROMBOPLASTIN TIME 31.3 seconds (23.8-35.5)
[2022-07-26 11:16] LABS: ALBUMIN/GLOBULIN RATIO 1.4 (0.8-2.0); CREATININE, SERUM 2.11 mg/dL (0.57-1.11)
[2022-07-26 11:18] LABS: MAGNESIUM 0.8 MG/DL (1.3-2.1)
[2022-07-26] MEDS ORDERED: MAGNESIUM SULFATE 2GM/50ML 50 ML IV ONE (11:30)
[2022-07-26 12:15] LABS: CLARITY,URINE CLEAR (CLEAR); COLOR,URINE YELLOW (YELLOW); KETONES,URINE NEGATIVE (NEGATIVE); LEUKOCYTE ESTERASE ,URINE NEGATIVE (NEGATIVE); NITRITE,URINE NEGATIVE (NEGATIVE); PROTEIN,URINE DIPSTICK >=300 (NEGATIVE); URINE UROBILINOGEN 0.2 mg/dL (0.2 - 1)
[2022-07-26 12:24] LABS: BACTERIA,URINE MODERATE /HPF; EPITHELIAL CELLS,URINE FEW /LPF
[2022-07-26 12:25] LABS: RBC,URINE 0-5 /HPF (0-5); YEAST,URINE FEW
[2022-07-26] MEDS ORDERED: LORAZEPAM INJ 2 MG/ML VIAL IV ONE (13:15)
[2022-07-26] MEDS ORDERED: ENOXAPARIN SODIUM INJ 100 MG/ML SYR SC ONE (13:15)
[2022-07-26] MEDS ORDERED: ONDANSETRON HCL INJ 2MG/ML 2ML 2 MG/ML VIAL IV PRN (13:15)
[2022-07-26 15:35] VITALS: BP 155/80; PULSE 90; RESP 19; TEMP 97.7; O2SAT 97
[2022-07-26] MEDS: METOPROLOL TARTRATE 25 MG TAB PO SCH (17:00)
[2022-07-26 19:01] LABS: CREATINE KINASE MB 2.8 ng/mL (0-5.0)
[2022-07-26] MEDS ORDERED: LORAZEPAM INJ 2 MG/ML VIAL IV PRN (19:45)
[2022-07-26 20:00] VITALS: BP 166/79; PULSE 87; RESP 18; TEMP 98.5; O2SAT 99
[2022-07-26] MEDS: ZOLPIDEM TARTRATE 5 MG TAB PO PRN (23:20)
[2022-07-26] MEDS: HYDROCODONE/APAP 10MG-325MG TAB PO PRN (23:20)
[2022-07-27] VITALS (9 sets, daily range): BP systolic 123–169; BP diastolic 62–96; PULSE 57–96; RESP 18–20; TEMP 97.4–98.6; O2SAT 95–100
[2022-07-27] MEDS ORDERED: ZOLPIDEM TARTRAT5 MG PO (03:18)
[2022-07-27] MEDS ORDERED: VITAMIN D3250 MC1 PO (03:18)
[2022-07-27] MEDS ORDERED: TORSEMIDE20 MG PO (03:18)
[2022-07-27] MEDS: LEVOTHYROXINE SODIUM 50 MCG TAB PO SCH (05:52)
[2022-07-27] MEDS: HYDRALAZINE HCL 25 MG TAB PO SCH ×3 (05:54→21:07)
[2022-07-27] MEDS ORDERED: SODIUM CHLORIDE 0.9% 100 ML ONE (05:56)
[2022-07-27] MEDS: FLUCONAZOLE 200 MG/100 ML 100 ML IV SCH (05:59)
[2022-07-27 06:19] LABS: BASOPHILS % 0.7 % (0.0-1.0); EOSINOPHILS # (AUTO) 0.2 (0.0-0.4); EOSINOPHILS % 4.2 % (0.0-6.0); HEMATOCRIT 27.5 % (34.2-44.1); HEMOGLOBIN 8.3 g/dL (12.0-16.0); LYMPHOCYTES # (AUTO) 0.6 (1.0-3.2); LYMPHOCYTES % 10.4 % (18.0-39.1); MEAN CORPUSCULAR HEMOGLOBIN 28.1 pg (28-32); MEAN CORPUSCULAR HGB CONC 30.2 g/dL (31-35); MEAN CORPUSCULAR VOLUME 93.2 fL (81-99); MONOCYTES # (AUTO) 0.3 (0.2-0.8); NEUTROPHILS # (AUTO) 4.4 (2.1-6.9); NEUTROPHILS % 77.8 % (38.7-80.0); PLATELET COUNT 236 x10e3/uL (140-360); RED BLOOD COUNT 2.95 x10e6/uL (3.6-5.1); RED CELL DISTRIBUTION WIDTH 21.1 % (11.7-14.4)
[2022-07-27 06:46] LABS: ALBUMIN 3.1 g/dL (3.5-5.0); ALBUMIN/GLOBULIN RATIO 1.2 (0.8-2.0); CALCIUM 8.5 mg/dL (8.4-10.2); CREATININE, SERUM 1.78 mg/dL (0.57-1.11); MAGNESIUM 1.2 MG/DL (1.3-2.1)
[2022-07-27 08:12] LABS: PLATELET ESTIMATE ADEQUATE; PLATELET MORPHOLOGY COMMENT NORMAL; RBC MORPHOLOGY COMMENT ABNORMAL
[2022-07-27 08:13] LABS: ANISOCYTOSIS MODERATE; POLYCHROMASIA FEW
[2022-07-27] MEDS ORDERED: ASPIRIN 81 MG CHEW TAB PO SCH (09:00)
[2022-07-27] MEDS: ISOSORBIDE MONONITRATE 30 MG TAB CR PO SCH (09:08)
[2022-07-27] MEDS: TORSEMIDE 10 MG TAB PO SCH (09:08)
[2022-07-27] MEDS: ASPIRIN 81 MG ENTERIC COATED PO SCH (09:09)
[2022-07-27] MEDS: METOPROLOL TARTRATE 25 MG TAB PO SCH ×2 (09:09→17:15)
[2022-07-27] MEDS: PANTOPRAZOLE SOD 40 MG TABEC PO SCH (09:10)
[2022-07-27 15:29] LABS: CREATINE KINASE MB 2.3 ng/mL (0-5.0)
[2022-07-27] MEDS: ZOLPIDEM TARTRATE 5 MG TAB PO PRN (21:01)
[2022-07-27] MEDS: QUETIAPINE FUMARATE 25 MG TAB PO SCH (21:02)
[2022-07-28] VITALS (8 sets, daily range): BP systolic 118–169; BP diastolic 56–87; PULSE 60–89; RESP 18–20; TEMP 97.4–98.5; O2SAT 98–100
[2022-07-28] MEDS: FLUCONAZOLE 200 MG/100 ML 100 ML IV SCH (04:27)
[2022-07-28] MEDS: LEVOTHYROXINE SODIUM 50 MCG TAB PO SCH (05:17)
[2022-07-28] MEDS: HYDRALAZINE HCL 25 MG TAB PO SCH ×3 (05:17→21:46)
[2022-07-28 05:57] LABS: BASOPHILS % 0.3 % (0.0-1.0); EOSINOPHILS # (AUTO) 0.2 (0.0-0.4); EOSINOPHILS % 2.7 % (0.0-6.0); HEMATOCRIT 27.2 % (34.2-44.1); HEMOGLOBIN 8.5 g/dL (12.0-16.0); LYMPHOCYTES # (AUTO) 0.8 (1.0-3.2); MEAN CORPUSCULAR HGB CONC 31.3 g/dL (31-35); MEAN CORPUSCULAR VOLUME 89.5 fL (81-99); MONOCYTES # (AUTO) 0.4 (0.2-0.8); MONOCYTES % 5.1 % (4.4-11.3); NEUTROPHILS # (AUTO) 5.7 (2.1-6.9); NEUTROPHILS % 80.5 % (38.7-80.0); PLATELET COUNT 211 x10e3/uL (140-360); RED BLOOD COUNT 3.04 x10e6/uL (3.6-5.1)
[2022-07-28 06:15] LABS: ALBUMIN/GLOBULIN RATIO 1.2 (0.8-2.0); ALKALINE PHOSPHATASE 76 IU/L (40-150); ANION GAP 16.1 mmol/L (8-16); BLOOD UREA NITROGEN 33 mg/dL (7-26); BUN/CREATININE RATIO 14 (6-25); CALCIUM 8.3 mg/dL (8.4-10.2); CARBON DIOXIDE 20 mmol/L (22-29); CHLORIDE 108 mmol/L (98-107); CREATININE, SERUM 2.35 mg/dL (0.57-1.11); GLUCOSE 169 mg/dL (74-118); POTASSIUM 4.1 mmol/L (3.5-5.1); SODIUM 140 mmol/L (136-145)
[2022-07-28 06:19] LABS: ALANINE AMINOTRANSFERASE < 6 IU/L (0-55)
[2022-07-28 06:21] LABS: MAGNESIUM 1.1 MG/DL (1.3-2.1)
[2022-07-28] MEDS ORDERED: MAGNESIUM SULFATE 2GM/50ML 50 ML IV ONE ×2 (06:45→10:30)
[2022-07-28] MEDS: ASPIRIN 81 MG ENTERIC COATED PO SCH (08:34)
[2022-07-28] MEDS: TORSEMIDE 10 MG TAB PO SCH (08:34)
[2022-07-28] MEDS: METOPROLOL TARTRATE 25 MG TAB PO SCH ×2 (08:34→17:56)
[2022-07-28] MEDS: PANTOPRAZOLE SOD 40 MG TABEC PO SCH (08:34)
[2022-07-28] MEDS: ISOSORBIDE MONONITRATE 30 MG TAB CR PO SCH (08:35)
[2022-07-28] MEDS: ZOLPIDEM TARTRATE 5 MG TAB PO PRN (20:19)
[2022-07-28] MEDS: QUETIAPINE FUMARATE 25 MG TAB PO SCH (20:19)
[2022-07-29] VITALS (7 sets, daily range): BP systolic 132–169; BP diastolic 63–92; PULSE 63–83; RESP 18–19; TEMP 97.3–98.5; O2SAT 98–100
[2022-07-29 05:22] LABS: BASOPHILS % 0.4 % (0.0-1.0); EOSINOPHILS # (AUTO) 0.1 (0.0-0.4); EOSINOPHILS % 1.6 % (0.0-6.0); HEMATOCRIT 28.9 % (34.2-44.1); HEMOGLOBIN 8.8 g/dL (12.0-16.0); LYMPHOCYTES # (AUTO) 0.8 (1.0-3.2); LYMPHOCYTES % 11.4 % (18.0-39.1); MEAN CORPUSCULAR HEMOGLOBIN 28.2 pg (28-32); MEAN CORPUSCULAR HGB CONC 30.4 g/dL (31-35); MEAN CORPUSCULAR VOLUME 92.6 fL (81-99); MONOCYTES # (AUTO) 0.4 (0.2-0.8); MONOCYTES % 5.8 % (4.4-11.3); NEUTROPHILS # (AUTO) 5.4 (2.1-6.9); NEUTROPHILS % 80.4 % (38.7-80.0); PLATELET COUNT 243 x10e3/uL (140-360); RED BLOOD COUNT 3.12 x10e6/uL (3.6-5.1); RED CELL DISTRIBUTION WIDTH 21.1 % (11.7-14.4)
[2022-07-29] MEDS: FLUCONAZOLE 200 MG/100 ML 100 ML IV SCH (05:23)
[2022-07-29] MEDS: HYDRALAZINE HCL 25 MG TAB PO SCH ×3 (05:24→20:54)
[2022-07-29] MEDS: LEVOTHYROXINE SODIUM 50 MCG TAB PO SCH (05:24)
[2022-07-29 05:43] LABS: ALBUMIN 3.3 g/dL (3.5-5.0); ALBUMIN/GLOBULIN RATIO 1.2 (0.8-2.0); ANION GAP 15.3 mmol/L (8-16); CALCIUM 8.9 mg/dL (8.4-10.2); CREATININE, SERUM 2.17 mg/dL (0.57-1.11); MAGNESIUM 1.9 MG/DL (1.3-2.1); POTASSIUM 4.3 mmol/L (3.5-5.1)
[2022-07-29] MEDS: METOPROLOL TARTRATE 25 MG TAB PO SCH ×2 (08:48→17:13)
[2022-07-29] MEDS: ASPIRIN 81 MG ENTERIC COATED PO SCH (08:48)
[2022-07-29] MEDS: PANTOPRAZOLE SOD 40 MG TABEC PO SCH (08:48)
[2022-07-29] MEDS: TORSEMIDE 10 MG TAB PO SCH (08:49)
[2022-07-29] MEDS: ISOSORBIDE MONONITRATE 30 MG TAB CR PO SCH (08:49)
[2022-07-29] MEDS: QUETIAPINE FUMARATE 25 MG TAB PO SCH (20:53)
[2022-07-29] MEDS: HYDROCODONE/APAP 10MG-325MG TAB PO PRN (20:53)
[2022-07-29] MEDS: ZOLPIDEM TARTRATE 5 MG TAB PO PRN (23:47)
[2022-07-30] VITALS: BP 149/70; PULSE 69; RESP 18; TEMP 98.1; O2SAT 100
[2022-07-30] MEDS: FLUCONAZOLE 200 MG/100 ML 100 ML IV SCH (04:30)
[2022-07-30] MEDS: LEVOTHYROXINE SODIUM 50 MCG TAB PO SCH (05:08)
[2022-07-30] MEDS: HYDRALAZINE HCL 25 MG TAB PO SCH ×3 (05:09→21:55)
[2022-07-30 08:05] VITALS: BP 154/96; PULSE 90; RESP 18; TEMP 98.8; O2SAT 100
[2022-07-30] MEDS: TORSEMIDE 10 MG TAB PO SCH (08:51)
[2022-07-30] MEDS: PANTOPRAZOLE SOD 40 MG TABEC PO SCH (08:51)
[2022-07-30] MEDS: ISOSORBIDE MONONITRATE 30 MG TAB CR PO SCH (08:51)
[2022-07-30] MEDS: METOPROLOL TARTRATE 25 MG TAB PO SCH ×2 (08:52→16:58)
[2022-07-30] MEDS: ASPIRIN 81 MG ENTERIC COATED PO SCH (08:52)
[2022-07-30 09:20] VITALS: BP 154/96; PULSE 90; RESP 18; TEMP 98.8; O2SAT 100
[2022-07-30 12:55] VITALS: BP 146/92; PULSE 78; RESP 20; TEMP 97.5; O2SAT 100
[2022-07-30 17:07] VITALS: BP 153/84; PULSE 84; RESP 18; TEMP 98.4; O2SAT 99
[2022-07-30 20:00] VITALS: BP 175/76; PULSE 76; RESP 20; TEMP 97.5; O2SAT 100
[2022-07-30] MEDS: QUETIAPINE FUMARATE 25 MG TAB PO SCH (21:55)
[2022-07-31] MEDS: FLUCONAZOLE 200 MG/100 ML 100 ML IV SCH (04:30)
[2022-07-31 06:15] LABS: BASOPHILS % 0.4 % (0.0-1.0); EOSINOPHILS # (AUTO) 0.1 (0.0-0.4); EOSINOPHILS % 1.5 % (0.0-6.0); HEMATOCRIT 28.4 % (34.2-44.1); HEMOGLOBIN 8.8 g/dL (12.0-16.0); LYMPHOCYTES # (AUTO) 0.7 (1.0-3.2); LYMPHOCYTES % 12.3 % (18.0-39.1); MEAN CORPUSCULAR HEMOGLOBIN 27.8 pg (28-32); MEAN CORPUSCULAR VOLUME 89.9 fL (81-99); MONOCYTES # (AUTO) 0.4 (0.2-0.8); MONOCYTES % 6.7 % (4.4-11.3); NEUTROPHILS # (AUTO) 4.2 (2.1-6.9); NEUTROPHILS % 78.5 % (38.7-80.0); PLATELET COUNT 214 x10e3/uL (140-360); RED BLOOD COUNT 3.16 x10e6/uL (3.6-5.1); RED CELL DISTRIBUTION WIDTH 19.6 % (11.7-14.4)
[2022-07-31] MEDS: HYDRALAZINE HCL 25 MG TAB PO SCH ×3 (06:21→21:24)
[2022-07-31] MEDS: LEVOTHYROXINE SODIUM 50 MCG TAB PO SCH (06:21)
[2022-07-31 06:50] LABS: ALBUMIN 3.2 g/dL (3.5-5.0); ALBUMIN/GLOBULIN RATIO 1.3 (0.8-2.0); CREATININE, SERUM 1.72 mg/dL (0.57-1.11)
[2022-07-31 08:00] VITALS: BP_SYST 150; BP_SYST 192; BP_DIAS 79; BP_DIAS 95; PULSE 74; RESP 20; TEMP 98.6; O2SAT 100
[2022-07-31 08:37] VITALS: BP 150/79; PULSE 90
[2022-07-31] MEDS: METOPROLOL TARTRATE 25 MG TAB PO SCH ×2 (08:40→17:19)
[2022-07-31] MEDS: PANTOPRAZOLE SOD 40 MG TABEC PO SCH (08:40)
[2022-07-31] MEDS: ONDANSETRON HCL 4 MG ORAL DISINTEGRATING TAB PO PRN ×2 (08:40→08:42)
[2022-07-31] MEDS: ISOSORBIDE MONONITRATE 30 MG TAB CR PO SCH (08:40)
[2022-07-31] MEDS: TORSEMIDE 10 MG TAB PO SCH (08:40)
[2022-07-31] MEDS: ASPIRIN 81 MG ENTERIC COATED PO SCH (08:41)
[2022-07-31 12:11] VITALS: BP 174/107; PULSE 82; RESP 20; TEMP 98; O2SAT 100
[2022-07-31] MEDS: FLUCONAZOLE 100 MG TAB PO SCH (15:17)
[2022-07-31 16:33] VITALS: BP 161/98; PULSE 72; RESP 20; TEMP 98.7; O2SAT 98
[2022-07-31] MEDS: HYDROCODONE/APAP 10MG-325MG TAB PO PRN (16:54)
[2022-07-31] MEDS ORDERED: SODIUM CHLORIDE 0.9% 250ML 250 ML ONE (17:15)
[2022-07-31 20:00] VITALS: BP 130/55; PULSE 82; RESP 20; TEMP 98.7; O2SAT 98
[2022-07-31] MEDS ORDERED: METOPROLOL TARTRATE 25 MG TAB PO SCH (21:00)
[2022-07-31] MEDS: QUETIAPINE FUMARATE 25 MG TAB PO SCH (21:24)
[2022-07-31 21:29] VITALS: BP 130/65; PULSE 82; RESP 17; TEMP 98.7; O2SAT 98
[2022-08-01] VITALS (8 sets, daily range): BP systolic 132–195; BP diastolic 68–96; PULSE 57–78; RESP 17–21; TEMP 97.5–98.5; O2SAT 98–100
[2022-08-01 05:44] LABS: BASOPHILS # (AUTO) 0.1 (0.0-0.1); BASOPHILS % 0.9 % (0.0-1.0); EOSINOPHILS # (AUTO) 0.1 (0.0-0.4); EOSINOPHILS % 0.9 % (0.0-6.0); HEMOGLOBIN 8.9 g/dL (12.0-16.0); LYMPHOCYTES # (AUTO) 0.9 (1.0-3.2); LYMPHOCYTES % 15.1 % (18.0-39.1); MEAN CORPUSCULAR HEMOGLOBIN 28.1 pg (28-32); MEAN CORPUSCULAR HGB CONC 29.7 g/dL (31-35); MEAN CORPUSCULAR VOLUME 94.6 fL (81-99); MONOCYTES # (AUTO) 0.4 (0.2-0.8); MONOCYTES % 7.6 % (4.4-11.3); NEUTROPHILS # (AUTO) 4.2 (2.1-6.9); NEUTROPHILS % 74.8 % (38.7-80.0); PLATELET COUNT 222 x10e3/uL (140-360); RED BLOOD COUNT 3.17 x10e6/uL (3.6-5.1); RED CELL DISTRIBUTION WIDTH 19.9 % (11.7-14.4)
[2022-08-01] MEDS: LEVOTHYROXINE SODIUM 50 MCG TAB PO SCH (05:56)
[2022-08-01] MEDS: HYDRALAZINE HCL 25 MG TAB PO SCH ×3 (05:56→21:11)
[2022-08-01 06:12] LABS: ALBUMIN 3.3 g/dL (3.5-5.0); ALBUMIN/GLOBULIN RATIO 1.3 (0.8-2.0); ANION GAP 15.5 mmol/L (8-16); CALCIUM 8.9 mg/dL (8.4-10.2); CREATININE, SERUM 2.11 mg/dL (0.57-1.11); MAGNESIUM 1.3 MG/DL (1.3-2.1); POTASSIUM 5.5 mmol/L (3.5-5.1)
[2022-08-01] MEDS: TORSEMIDE 10 MG TAB PO SCH (09:38)
[2022-08-01] MEDS: ISOSORBIDE MONONITRATE 30 MG TAB CR PO SCH (09:39)
[2022-08-01] MEDS: ASPIRIN 81 MG ENTERIC COATED PO SCH (09:39)
[2022-08-01] MEDS: PANTOPRAZOLE SOD 40 MG TABEC PO SCH (09:40)
[2022-08-01] MEDS: METOPROLOL TARTRATE 25 MG TAB PO SCH ×2 (09:40→17:41)
[2022-08-01] MEDS: FLUCONAZOLE 100 MG TAB PO SCH (14:05)
[2022-08-01] MEDS: ONDANSETRON HCL 4 MG ORAL DISINTEGRATING TAB PO PRN (15:56)
[2022-08-01] MEDS: QUETIAPINE FUMARATE 25 MG TAB PO SCH (21:11)
[2022-08-02] VITALS (8 sets, daily range): BP systolic 129–186; BP diastolic 70–93; PULSE 61–81; RESP 17–21; TEMP 97–98.2; O2SAT 99–100
[2022-08-02] MEDS ORDERED: MAGNESIUM SULFATE 2GM/50ML 50 ML IV ONE (03:45)
[2022-08-02 05:02] LABS: BASOPHILS # (AUTO) 0.1 (0.0-0.1); BASOPHILS % 0.9 % (0.0-1.0); EOSINOPHILS # (AUTO) 0.1 (0.0-0.4); EOSINOPHILS % 1.2 % (0.0-6.0); HEMATOCRIT 29.3 % (34.2-44.1); HEMOGLOBIN 8.9 g/dL (12.0-16.0); LYMPHOCYTES # (AUTO) 0.8 (1.0-3.2); LYMPHOCYTES % 13.4 % (18.0-39.1); MEAN CORPUSCULAR HEMOGLOBIN 28.1 pg (28-32); MEAN CORPUSCULAR HGB CONC 30.4 g/dL (31-35); MEAN CORPUSCULAR VOLUME 92.4 fL (81-99); MONOCYTES # (AUTO) 0.4 (0.2-0.8); MONOCYTES % 7.1 % (4.4-11.3); NEUTROPHILS # (AUTO) 4.4 (2.1-6.9); PLATELET COUNT 138 x10e3/uL (140-360); RED BLOOD COUNT 3.17 x10e6/uL (3.6-5.1); RED CELL DISTRIBUTION WIDTH 19.4 % (11.7-14.4)
[2022-08-02 05:23] LABS: ALBUMIN 3.3 g/dL (3.5-5.0); ALBUMIN/GLOBULIN RATIO 1.3 (0.8-2.0); ANION GAP 15.5 mmol/L (8-16); CALCIUM 9.2 mg/dL (8.4-10.2); CREATININE, SERUM 2.26 mg/dL (0.57-1.11); POTASSIUM 5.5 mmol/L (3.5-5.1)
[2022-08-02] MEDS: LEVOTHYROXINE SODIUM 50 MCG TAB PO SCH (06:20)
[2022-08-02] MEDS: HYDRALAZINE HCL 25 MG TAB PO SCH ×3 (06:21→21:32)
[2022-08-02] MEDS: PANTOPRAZOLE SOD 40 MG TABEC PO SCH (09:34)
[2022-08-02] MEDS: ISOSORBIDE MONONITRATE 30 MG TAB CR PO SCH (09:35)
[2022-08-02] MEDS: METOPROLOL TARTRATE 25 MG TAB PO SCH ×2 (09:36→21:32)
[2022-08-02] MEDS: ASPIRIN 81 MG ENTERIC COATED PO SCH (09:36)
[2022-08-02] MEDS: TORSEMIDE 10 MG TAB PO SCH (09:38)
[2022-08-02] MEDS: FLUCONAZOLE 100 MG TAB PO SCH (16:06)
[2022-08-02] MEDS: QUETIAPINE FUMARATE 25 MG TAB PO SCH (21:31)
[2022-08-02] MEDS: ZOLPIDEM TARTRATE 5 MG TAB PO PRN (22:19)
[2022-08-03] VITALS (9 sets, daily range): BP systolic 147–192; BP diastolic 71–90; PULSE 61–76; RESP 19–20; TEMP 97.2–98.5; O2SAT 98–100
[2022-08-03 05:24] LABS: BASOPHILS % 0.8 % (0.0-1.0); EOSINOPHILS # (AUTO) 0.1 (0.0-0.4); EOSINOPHILS % 1.5 % (0.0-6.0); HEMATOCRIT 29.3 % (34.2-44.1); HEMOGLOBIN 9.1 g/dL (12.0-16.0); LYMPHOCYTES # (AUTO) 0.7 (1.0-3.2); LYMPHOCYTES % 12.6 % (18.0-39.1); MEAN CORPUSCULAR HEMOGLOBIN 28.1 pg (28-32); MEAN CORPUSCULAR HGB CONC 31.1 g/dL (31-35); MEAN CORPUSCULAR VOLUME 90.4 fL (81-99); MONOCYTES # (AUTO) 0.4 (0.2-0.8); MONOCYTES % 7.5 % (4.4-11.3); NEUTROPHILS # (AUTO) 4.1 (2.1-6.9); NEUTROPHILS % 77.2 % (38.7-80.0); PLATELET COUNT 193 x10e3/uL (140-360); RED BLOOD COUNT 3.24 x10e6/uL (3.6-5.1); RED CELL DISTRIBUTION WIDTH 18.6 % (11.7-14.4)
[2022-08-03 05:41] LABS: ALBUMIN 3.3 g/dL (3.5-5.0); ALBUMIN/GLOBULIN RATIO 1.3 (0.8-2.0); ANION GAP 14.5 mmol/L (8-16); CALCIUM 9.1 mg/dL (8.4-10.2); CREATININE, SERUM 2.09 mg/dL (0.57-1.11); MAGNESIUM 1.6 MG/DL (1.3-2.1); POTASSIUM 5.5 mmol/L (3.5-5.1)
[2022-08-03] MEDS: HYDRALAZINE HCL 25 MG TAB PO SCH ×3 (05:53→20:33)
[2022-08-03] MEDS: LEVOTHYROXINE SODIUM 50 MCG TAB PO SCH (05:53)
[2022-08-03] MEDS: TORSEMIDE 10 MG TAB PO SCH (09:34)
[2022-08-03] MEDS: ASPIRIN 81 MG ENTERIC COATED PO SCH (09:34)
[2022-08-03] MEDS: ISOSORBIDE MONONITRATE 30 MG TAB CR PO SCH (09:34)
[2022-08-03] MEDS: METOPROLOL TARTRATE 25 MG TAB PO SCH ×2 (09:35→20:33)
[2022-08-03] MEDS: PANTOPRAZOLE SOD 40 MG TABEC PO SCH (09:36)
[2022-08-03] MEDS: ACETAMINOPHEN 325 MG TAB PO PRN (14:39)
[2022-08-03] MEDS: QUETIAPINE FUMARATE 25 MG TAB PO SCH (20:32)
[2022-08-04] VITALS (8 sets, daily range): BP systolic 147–174; BP diastolic 66–94; PULSE 61–77; RESP 18–20; TEMP 97.3–98.7; O2SAT 98–100
[2022-08-04] MEDS: LEVOTHYROXINE SODIUM 50 MCG TAB PO SCH (05:16)
[2022-08-04] MEDS: HYDRALAZINE HCL 25 MG TAB PO SCH ×3 (05:17→20:27)
[2022-08-04 06:04] LABS: CREATININE, SERUM 2.04 mg/dL (0.57-1.11)
[2022-08-04 06:18] LABS: ALBUMIN 3.2 g/dL (3.5-5.0); ALBUMIN/GLOBULIN RATIO 1.2 (0.8-2.0)
[2022-08-04 06:44] LABS: BASOPHILS % 0.6 % (0.0-1.0); EOSINOPHILS # (AUTO) 0.1 (0.0-0.4); EOSINOPHILS % 2.4 % (0.0-6.0); HEMATOCRIT 30.6 % (34.2-44.1); HEMOGLOBIN 9.4 g/dL (12.0-16.0); LYMPHOCYTES # (AUTO) 0.8 (1.0-3.2); LYMPHOCYTES % 15.3 % (18.0-39.1); MEAN CORPUSCULAR HEMOGLOBIN 28.1 pg (28-32); MEAN CORPUSCULAR HGB CONC 30.7 g/dL (31-35); MEAN CORPUSCULAR VOLUME 91.6 fL (81-99); MONOCYTES # (AUTO) 0.4 (0.2-0.8); MONOCYTES % 8.1 % (4.4-11.3); NEUTROPHILS # (AUTO) 3.6 (2.1-6.9); NEUTROPHILS % 73.2 % (38.7-80.0); PLATELET COUNT 190 x10e3/uL (140-360); RED BLOOD COUNT 3.34 x10e6/uL (3.6-5.1); RED CELL DISTRIBUTION WIDTH 18.5 % (11.7-14.4)
[2022-08-04] MEDS: ISOSORBIDE MONONITRATE 30 MG TAB CR PO SCH (09:16)
[2022-08-04] MEDS: PANTOPRAZOLE SOD 40 MG TABEC PO SCH (09:16)
[2022-08-04] MEDS: TORSEMIDE 10 MG TAB PO SCH (09:16)
[2022-08-04] MEDS: ASPIRIN 81 MG ENTERIC COATED PO SCH (09:16)
[2022-08-04] MEDS: METOPROLOL TARTRATE 25 MG TAB PO SCH ×2 (09:17→20:28)
[2022-08-04] MEDS: HYDROCODONE/APAP 5MG-325MG TAB PO PRN (10:38)
[2022-08-04] MEDS: QUETIAPINE FUMARATE 25 MG TAB PO SCH (20:26)
[2022-08-04] MEDS: ZOLPIDEM TARTRATE 5 MG TAB PO PRN (20:28)
[2022-08-05] VITALS (8 sets, daily range): BP systolic 149–164; BP diastolic 68–132; PULSE 59–71; RESP 17–19; TEMP 97.4–98.6; O2SAT 97–100
[2022-08-05] MEDS: LEVOTHYROXINE SODIUM 50 MCG TAB PO SCH (06:23)
[2022-08-05] MEDS: HYDRALAZINE HCL 25 MG TAB PO SCH ×3 (06:24→21:10)
[2022-08-05] MEDS: TORSEMIDE 10 MG TAB PO SCH (08:31)
[2022-08-05] MEDS: ASPIRIN 81 MG ENTERIC COATED PO SCH (08:32)
[2022-08-05] MEDS: PANTOPRAZOLE SOD 40 MG TABEC PO SCH (08:32)
[2022-08-05] MEDS: ISOSORBIDE MONONITRATE 30 MG TAB CR PO SCH (08:32)
[2022-08-05] MEDS: METOPROLOL TARTRATE 25 MG TAB PO SCH ×2 (08:32→21:10)
[2022-08-05] MEDS: ACETAMINOPHEN 325 MG TAB PO PRN (11:43)
[2022-08-05] MEDS: QUETIAPINE FUMARATE 25 MG TAB PO SCH (21:10)
[2022-08-06] MEDS: ACETAMINOPHEN 325 MG TAB PO PRN ×3 (00:13→10:17)
[2022-08-06] MEDS: HYDRALAZINE HCL 25 MG TAB PO SCH ×3 (05:07→20:40)
[2022-08-06] MEDS: LEVOTHYROXINE SODIUM 50 MCG TAB PO SCH (05:07)
[2022-08-06 05:23] VITALS: BP 161/67; PULSE 62; RESP 17; TEMP 98.2; O2SAT 98
[2022-08-06 08:17] VITALS: BP 158/80; PULSE 70; RESP 19; TEMP 97.5; O2SAT 100
[2022-08-06 09:00] VITALS: BP 158/80; PULSE 74; RESP 19; TEMP 97.5; O2SAT 100
[2022-08-06] MEDS: TORSEMIDE 10 MG TAB PO SCH (09:09)
[2022-08-06] MEDS: PANTOPRAZOLE SOD 40 MG TABEC PO SCH (09:10)
[2022-08-06] MEDS: ISOSORBIDE MONONITRATE 30 MG TAB CR PO SCH (09:10)
[2022-08-06] MEDS: ASPIRIN 81 MG ENTERIC COATED PO SCH (09:10)
[2022-08-06] MEDS: METOPROLOL TARTRATE 25 MG TAB PO SCH ×2 (09:10→20:39)
[2022-08-06 11:56] VITALS: BP 123/69; PULSE 71; RESP 21; TEMP 97.9; O2SAT 99
[2022-08-06 16:02] VITALS: BP 170/94; PULSE 67; RESP 20; TEMP 98; O2SAT 100
[2022-08-06 20:00] VITALS: BP 178/73; PULSE 72; RESP 16; TEMP 98.3; O2SAT 100
[2022-08-06] MEDS: ZOLPIDEM TARTRATE 5 MG TAB PO PRN (20:39)
[2022-08-06] MEDS: QUETIAPINE FUMARATE 25 MG TAB PO SCH (20:40)
[2022-08-07] VITALS (7 sets, daily range): BP systolic 122–159; BP diastolic 69–88; PULSE 65–80; RESP 16–19; TEMP 96.3–98.4; O2SAT 100
[2022-08-07] MEDS: HYDROCODONE/APAP 5MG-325MG TAB PO PRN (05:10)
[2022-08-07] MEDS: HYDRALAZINE HCL 25 MG TAB PO SCH ×3 (05:11→23:03)
[2022-08-07] MEDS: LEVOTHYROXINE SODIUM 50 MCG TAB PO SCH (05:11)
[2022-08-07 05:40] LABS: BASOPHILS % 0.8 % (0.0-1.0); EOSINOPHILS # (AUTO) 0.1 (0.0-0.4); EOSINOPHILS % 2.2 % (0.0-6.0); HEMATOCRIT 33.2 % (34.2-44.1); HEMOGLOBIN 10.4 g/dL (12.0-16.0); LYMPHOCYTES # (AUTO) 0.9 (1.0-3.2); LYMPHOCYTES % 17.9 % (18.0-39.1); MEAN CORPUSCULAR HEMOGLOBIN 28.3 pg (28-32); MEAN CORPUSCULAR HGB CONC 31.3 g/dL (31-35); MEAN CORPUSCULAR VOLUME 90.5 fL (81-99); MONOCYTES # (AUTO) 0.4 (0.2-0.8); MONOCYTES % 8.2 % (4.4-11.3); NEUTROPHILS # (AUTO) 3.6 (2.1-6.9); NEUTROPHILS % 70.5 % (38.7-80.0); PLATELET COUNT 171 x10e3/uL (140-360); RED BLOOD COUNT 3.67 x10e6/uL (3.6-5.1); RED CELL DISTRIBUTION WIDTH 17.9 % (11.7-14.4)
[2022-08-07 06:20] LABS: ALBUMIN 3.6 g/dL (3.5-5.0); ALBUMIN/GLOBULIN RATIO 1.3 (0.8-2.0); ANION GAP 14.9 mmol/L (8-16); CALCIUM 9.7 mg/dL (8.4-10.2); CREATININE, SERUM 2.01 mg/dL (0.57-1.11); MAGNESIUM 1.3 MG/DL (1.3-2.1); POTASSIUM 4.9 mmol/L (3.5-5.1)
[2022-08-07] MEDS: TORSEMIDE 10 MG TAB PO SCH (08:23)
[2022-08-07] MEDS: ASPIRIN 81 MG ENTERIC COATED PO SCH (08:23)
[2022-08-07] MEDS: PANTOPRAZOLE SOD 40 MG TABEC PO SCH (08:23)
[2022-08-07] MEDS: METOPROLOL TARTRATE 25 MG TAB PO SCH ×2 (08:23→23:02)
[2022-08-07] MEDS: ISOSORBIDE MONONITRATE 30 MG TAB CR PO SCH (08:23)
[2022-08-07] MEDS: QUETIAPINE FUMARATE 25 MG TAB PO SCH (22:54)
[2022-08-08] VITALS: BP 156/81; PULSE 79; RESP 18; TEMP 96.4; O2SAT 100
[2022-08-08] MEDS ORDERED: MAGNESIUM SULFATE 2GM/50ML 50 ML IV ONE ×2 (04:45→05:29)
[2022-08-08] MEDS: LEVOTHYROXINE SODIUM 50 MCG TAB PO SCH (05:35)
[2022-08-08] MEDS: HYDRALAZINE HCL 25 MG TAB PO SCH (05:35)
[2022-08-08 05:41] VITALS: BP 156/81; PULSE 90; RESP 18; TEMP 97.6; O2SAT 100
[2022-08-08 08:00] VITALS: BP 161/78; PULSE 78; RESP 19; TEMP 99.3; O2SAT 100
[2022-08-08 08:49] VITALS: BP 161/78; PULSE 78; RESP 19; TEMP 99.3; O2SAT 100
[2022-08-08] MEDS: METOPROLOL TARTRATE 25 MG TAB PO SCH (08:55)
[2022-08-08] MEDS: PANTOPRAZOLE SOD 40 MG TABEC PO SCH (08:55)
[2022-08-08] MEDS: ISOSORBIDE MONONITRATE 30 MG TAB CR PO SCH (08:55)
[2022-08-08] MEDS: ASPIRIN 81 MG ENTERIC COATED PO SCH (08:55)
[2022-08-08] MEDS: TORSEMIDE 10 MG TAB PO SCH (08:56)
[2022-08-08 09:05] VITALS: BP 158/66
== END 2022-08-08 10:06 | disposition home health service (06) | DRG 689 ==
LOC: ER 10:37 → ERHOLD 13:11 → MED/SURG3 14:30
PROVIDERS: ADMIT Internal Medicine; ATTEND Internal Medicine
PROC: 02HV33Z Insertion of Infusion Device into Superior Vena Cava, Percutaneous Approach (ICD-10-PCS; principal; 2022-07-31)
DX: N39.0 Urinary tract infection, site not specified (principal); G92.9 Unspecified toxic encephalopathy; I13.0 Hypertensive heart and chronic kidney disease with heart failure and stage 1 through stage 4 chronic kidney disease, or unspecified chronic kidney disease; L03.115 Cellulitis of right lower limb; I48.91 Unspecified atrial fibrillation; U09.9 Post COVID-19 condition, unspecified; E11.22 Type 2 diabetes mellitus with diabetic chronic kidney disease; N18.30 Chronic kidney disease, stage 3 unspecified; I27.20 Pulmonary hypertension, unspecified; G47.33 Obstructive sleep apnea (adult) (pediatric); I50.9 Heart failure, unspecified; G43.909 Migraine, unspecified, not intractable, without status migrainosus; E83.42 Hypomagnesemia; E03.9 Hypothyroidism, unspecified; E66.01 Morbid (severe) obesity due to excess calories; D64.9 Anemia, unspecified; I25.10 Atherosclerotic heart disease of native coronary artery without angina pectoris; Z20.822 Contact with and (suspected) exposure to COVID-19; Z79.82 Long term (current) use of aspirin; Z79.4 Long term (current) use of insulin; Z68.36 Body mass index [BMI] 36.0-36.9, adult
CPT/HCPCS: 36415; 70450; 70551; 71045; 80053; 81001; 82140; 82550; 82553; 82948; 83605; 83735; 83880; 84484; 85025; 85610; 85730; 87040; 87086; 93005; 96360; 99285; J0696; J1450; J1650; J2060; J3475; J7040; J7050; Q0162

== ENCOUNTER 2022-08-17 14:01 | Inpatient (IN) | payer MEDICARE, OTHER ==
[~2022-08-17] VITALS: Ht 149.9 cm; Wt 81.6 kg
[~2022-08-17 14:01] MED LIST changes: +VITAMIN D3250 MC1 PO; +ZOLPIDEM TARTRAT5 MG PO
[2022-08-17] MEDS ORDERED: ONDANSETRON HCL INJ 2MG/ML 2ML 2 MG/ML VIAL IV STA (14:55)
[2022-08-17 16:12] LABS: BASOPHILS % 0.5 % (0.0-1.0); EOSINOPHILS % 0.3 % (0.0-6.0); HEMATOCRIT 34.9 % (34.2-44.1); HEMOGLOBIN 10.9 g/dL (12.0-16.0); LYMPHOCYTES # (AUTO) 0.9 (1.0-3.2); LYMPHOCYTES % 13.6 % (18.0-39.1); MEAN CORPUSCULAR HEMOGLOBIN 27.9 pg (28-32); MEAN CORPUSCULAR HGB CONC 31.2 g/dL (31-35); MEAN CORPUSCULAR VOLUME 89.5 fL (81-99); MONOCYTES # (AUTO) 0.5 (0.2-0.8); MONOCYTES % 7.3 % (4.4-11.3); NEUTROPHILS # (AUTO) 5.1 (2.1-6.9); NEUTROPHILS % 77.8 % (38.7-80.0); PLATELET COUNT 168 x10e3/uL (140-360); RED CELL DISTRIBUTION WIDTH 16.5 % (11.7-14.4)
[2022-08-17 16:14] LABS: CLARITY,URINE HAZY (CLEAR); COLOR,URINE YELLOW (YELLOW); KETONES,URINE NEGATIVE (NEGATIVE); LEUKOCYTE ESTERASE ,URINE SMALL (NEGATIVE); NITRITE,URINE NEGATIVE (NEGATIVE); PROTEIN,URINE DIPSTICK >=300 (NEGATIVE); URINE UROBILINOGEN 0.2 mg/dL (0.2 - 1)
[2022-08-17 16:25] LABS: AMORPHOUS SEDIMENT,URINE FEW (FEW); BACTERIA,URINE MODERATE /HPF; RBC,URINE 0-5 /HPF (0-5); WBC,URINE (MAN) 21-50 /HPF (0-5); YEAST,URINE MODERATE
[2022-08-17 16:31] LABS: ALBUMIN 4.3 g/dL (3.5-5.0); ALBUMIN/GLOBULIN RATIO 1.5 (0.8-2.0); ANION GAP 20.8 mmol/L (8-16); CREATININE, SERUM 3.01 mg/dL (0.57-1.11); POTASSIUM 4.8 mmol/L (3.5-5.1)
[2022-08-17] MEDS ORDERED: SODIUM CHLORIDE 0.9% 1000ML 1,000 ML IV ONE (17:00)
[2022-08-17] MEDS ORDERED: ONDANSETRON HCL INJ 2MG/ML 2ML 2 MG/ML VIAL IV PRN (17:15)
[2022-08-17] MEDS ORDERED: HYDROCODONE/APAP 10MG-325MG TAB PO PRN (17:15)
[2022-08-17] MEDS: SODIUM CHLORIDE 0.9% 1000ML 1,000 ML IV SCH ×2 (17:54→22:38)
[2022-08-17 20:20] VITALS: PULSE 78; RESP 18; O2SAT 100
[2022-08-17 21:00] VITALS: BP 171/89; PULSE 71; RESP 20; TEMP 98.1; O2SAT 100
[2022-08-17] MEDS ORDERED: ZOLPIDEM TARTRATE 5 MG TAB PO PRN (21:00)
[2022-08-17] MEDS: HYDRALAZINE HCL 25 MG TAB PO SCH (22:33)
[2022-08-18] VITALS (10 sets, daily range): BP systolic 125–169; BP diastolic 61–90; PULSE 67–81; RESP 16–20; TEMP 97.3–98.7; O2SAT 97–100
[2022-08-18 04:57] LABS: BASOPHILS % 0.6 % (0.0-1.0); EOSINOPHILS # (AUTO) 0.1 (0.0-0.4); EOSINOPHILS % 2.3 % (0.0-6.0); HEMOGLOBIN 9.9 g/dL (12.0-16.0); LYMPHOCYTES # (AUTO) 0.7 (1.0-3.2); LYMPHOCYTES % 14.4 % (18.0-39.1); MEAN CORPUSCULAR HEMOGLOBIN 27.9 pg (28-32); MEAN CORPUSCULAR HGB CONC 30.9 g/dL (31-35); MEAN CORPUSCULAR VOLUME 90.1 fL (81-99); MONOCYTES # (AUTO) 0.5 (0.2-0.8); MONOCYTES % 11.3 % (4.4-11.3); NEUTROPHILS # (AUTO) 3.4 (2.1-6.9); NEUTROPHILS % 71.2 % (38.7-80.0); PLATELET COUNT 142 x10e3/uL (140-360); RED BLOOD COUNT 3.55 x10e6/uL (3.6-5.1); RED CELL DISTRIBUTION WIDTH 16.1 % (11.7-14.4)
[2022-08-18] MEDS: HYDRALAZINE HCL 25 MG TAB PO SCH ×3 (04:59→21:02)
[2022-08-18] MEDS: LEVOTHYROXINE SODIUM 50 MCG TAB PO SCH (04:59)
[2022-08-18 05:14] LABS: ALBUMIN 3.4 g/dL (3.5-5.0); ALBUMIN/GLOBULIN RATIO 1.5 (0.8-2.0); ANION GAP 14.3 mmol/L (8-16); CALCIUM 8.9 mg/dL (8.4-10.2); CREATININE, SERUM 2.44 mg/dL (0.57-1.11); POTASSIUM 4.3 mmol/L (3.5-5.1)
[2022-08-18] MEDS: ASPIRIN 81 MG CHEW TAB PO SCH (08:57)
[2022-08-18] MEDS: ISOSORBIDE MONONITRATE 30 MG TAB CR PO SCH (08:57)
[2022-08-18] MEDS: PANTOPRAZOLE SOD 40 MG TABEC PO SCH (08:57)
[2022-08-18] MEDS: OXYBUTYNIN CHLORIDE XL 5 MG TAB PO SCH ×2 (08:58→17:05)
[2022-08-18] MEDS: INSULIN GLARGINE 100 UNITS/ML VIAL SQ SCH (09:00)
[2022-08-18] MEDS: SODIUM CHLORIDE 0.9% 1000ML 1,000 ML IV SCH (09:56)
[2022-08-18] MEDS: LACTATED RINGER'S 1,000 ML INJ SCH (14:01)
[2022-08-18 17:41] LABS: CREATININE,URINE RANDOM 108.81 mg/dL (47-110)
[2022-08-18 17:42] LABS: POTASSIUM,URINE 36.7 mmol/L
[2022-08-19] VITALS (10 sets, daily range): BP systolic 123–167; BP diastolic 60–96; PULSE 61–97; RESP 16–20; TEMP 97.3–98.7; O2SAT 79–100
[2022-08-19] MEDS: LACTATED RINGER'S 1,000 ML INJ SCH ×2 (04:29→16:54)
[2022-08-19] MEDS: LEVOTHYROXINE SODIUM 50 MCG TAB PO SCH (05:10)
[2022-08-19] MEDS: HYDRALAZINE HCL 25 MG TAB PO SCH ×3 (05:11→21:31)
[2022-08-19 06:45] LABS: ALBUMIN 3.6 g/dL (3.5-5.0); ANION GAP 14.3 mmol/L (8-16); CALCIUM 9.2 mg/dL (8.4-10.2); CREATININE, SERUM 1.87 mg/dL (0.57-1.11); POTASSIUM 4.3 mmol/L (3.5-5.1)
[2022-08-19 06:46] LABS: ALBUMIN/GLOBULIN RATIO 1.6 (0.8-2.0)
[2022-08-19] MEDS: ISOSORBIDE MONONITRATE 30 MG TAB CR PO SCH (08:33)
[2022-08-19] MEDS: INSULIN GLARGINE 100 UNITS/ML VIAL SQ SCH (08:34)
[2022-08-19] MEDS: OXYBUTYNIN CHLORIDE XL 5 MG TAB PO SCH ×2 (08:34→16:54)
[2022-08-19] MEDS: ASPIRIN 81 MG CHEW TAB PO SCH (08:34)
[2022-08-19] MEDS: PANTOPRAZOLE SOD 40 MG TABEC PO SCH (08:34)
[2022-08-19] MEDS ORDERED: FLUCONAZOLE 100 MG TAB PO ONE (11:30)
[2022-08-19] MEDS ORDERED: ALPRAZOLAM 1 MG TAB PO ONE (17:30)
[2022-08-19] MEDS ORDERED: SERTRALINE HCL50 MG PO (18:28)
[2022-08-19] MEDS ORDERED: QUETIAPINE FUMARATE 25 MG TAB PO SCH (21:00)
[2022-08-20 01:48] VITALS: BP 142/65; PULSE 64; RESP 16; TEMP 97.4; O2SAT 98
[2022-08-20 05:07] VITALS: BP 138/61; PULSE 61; RESP 16; TEMP 97.2; O2SAT 98
[2022-08-20] MEDS: LEVOTHYROXINE SODIUM 50 MCG TAB PO SCH (05:24)
[2022-08-20] MEDS: HYDRALAZINE HCL 25 MG TAB PO SCH (05:24)
[2022-08-20] MEDS: LACTATED RINGER'S 1,000 ML INJ SCH (05:25)
[2022-08-20 07:14] LABS: ANION GAP 11.3 mmol/L (8-16); CALCIUM 8.8 mg/dL (8.4-10.2); CREATININE, SERUM 1.89 mg/dL (0.57-1.11); POTASSIUM 4.3 mmol/L (3.5-5.1)
[2022-08-20 08:33] VITALS: BP 145/85; PULSE 75; RESP 17; TEMP 98.1; O2SAT 100
[2022-08-20] MEDS ORDERED: SERTRALINE HCL 50 MG TAB PO SCH (09:00)
[2022-08-20 10:00] VITALS: BP 145/85; PULSE 75; RESP 17; TEMP 98.1; O2SAT 100
[2022-08-20] MEDS: ISOSORBIDE MONONITRATE 30 MG TAB CR PO SCH (11:30)
[2022-08-20] MEDS: ASPIRIN 81 MG CHEW TAB PO SCH (11:31)
[2022-08-20] MEDS: OXYBUTYNIN CHLORIDE XL 5 MG TAB PO SCH (11:31)
[2022-08-20] MEDS: INSULIN GLARGINE 100 UNITS/ML VIAL SQ SCH (11:36)
[2022-08-20] MEDS: PANTOPRAZOLE SOD 40 MG TABEC PO SCH (11:36)
== END 2022-08-20 13:09 | disposition home or self-care (01) | DRG 683 ==
LOC: ER 14:23 → ERHOLD 17:02 → MED/SURG 18:48 → OBSVTOIN 08-19 09:59
PROVIDERS: ADMIT Family Medicine; ATTEND Family Medicine
DX: N17.0 Acute kidney failure with tubular necrosis (principal); B37.49 Other urogenital candidiasis; I13.0 Hypertensive heart and chronic kidney disease with heart failure and stage 1 through stage 4 chronic kidney disease, or unspecified chronic kidney disease; I48.91 Unspecified atrial fibrillation; E11.22 Type 2 diabetes mellitus with diabetic chronic kidney disease; N18.9 Chronic kidney disease, unspecified; I50.9 Heart failure, unspecified; F41.0 Panic disorder [episodic paroxysmal anxiety]; G43.909 Migraine, unspecified, not intractable, without status migrainosus; G47.30 Sleep apnea, unspecified; I27.20 Pulmonary hypertension, unspecified; F41.9 Anxiety disorder, unspecified; Z87.440 Personal history of urinary (tract) infections; Z20.822 Contact with and (suspected) exposure to COVID-19; Z79.4 Long term (current) use of insulin; Z79.82 Long term (current) use of aspirin
CPT/HCPCS: 0223U; 36415; 80048; 80053; 81001; 82570; 82948; 83690; 83735; 84100; 84133; 84300; 85025; 87086; 93005; 94799; 99252; 99284; G0378; J1815; J2405; J7030

== ENCOUNTER 2022-08-22 09:36 | Emergency (ER) | payer MEDICARE, OTHER ==
[~2022-08-22] VITALS: Ht 149.9 cm; Wt 78.5 kg
[~2022-08-22 09:36] MED LIST changes: +SERTRALINE HCL50 MG PO
[2022-08-22 13:44] LABS: CLARITY,URINE SL CLOUDY (CLEAR); COLOR,URINE YELLOW (YELLOW)
[2022-08-22 13:45] LABS: KETONES,URINE NEGATIVE (NEGATIVE); LEUKOCYTE ESTERASE ,URINE SMALL (NEGATIVE); NITRITE,URINE NEGATIVE (NEGATIVE); PROTEIN,URINE DIPSTICK >=300 (NEGATIVE); URINE UROBILINOGEN 0.2 mg/dL (0.2 - 1)
[2022-08-22 14:18] LABS: BACTERIA,URINE MODERATE /HPF; EPITHELIAL CELLS,URINE MODERATE /LPF; WBC,URINE (MAN) 21-50 /HPF (0-5)
[2022-08-22] MEDS ORDERED: CEPHALEXIN500 MG PO (15:00)
[2022-08-22 15:04] VITALS: O2SAT 99
== END 2022-08-22 15:10 | disposition home or self-care (01) ==
LOC: ER 09:46
DX: R30.0 Dysuria (principal); N39.0 Urinary tract infection, site not specified; R11.2 Nausea with vomiting, unspecified; I10 Essential (primary) hypertension; E11.9 Type 2 diabetes mellitus without complications; I48.91 Unspecified atrial fibrillation; N28.9 Disorder of kidney and ureter, unspecified; G47.30 Sleep apnea, unspecified
CPT/HCPCS: 0223U; 36415; 80048; 80053; 81001; 82570; 82948; 83690; 83735; 84100; 84133; 84300; 85025; 87086; 93005; 94799; 99252; 99283; 99284; G0378; J1815; J2405; J7030

== ENCOUNTER 2024-02-14 12:21 | Inpatient (IN) | payer MEDICARE, OTHER ==
[2024-02-14] VITALS (8 sets, daily range): BP systolic 136–148; BP diastolic 79–86; PULSE 65–84; RESP 17–18; TEMP 97.4–98.9; O2SAT 96–100
[~2024-02-14] VITALS: Ht 149.9 cm; Wt 48.1 kg
[~2024-02-14 12:21] MED LIST changes: +AMLODIPINE BESYL5 MG PO; +CEPHALEXIN500 MG PO; +DICYCLOMINE HCL20 MG PO; +LOMOTIL TABLET1 EACH PO; +MAGNESIUM OXID400 MG PO; +NAPROXEN250 MG PO; +ULTRAM 50MG50 MG PO
[2024-02-14 13:13] LABS: BASOPHILS % 0.3 % (0.0-1.0); EOSINOPHILS # (AUTO) 0.3 (0.0-0.4); EOSINOPHILS % 4.2 % (0.0-6.0); HEMATOCRIT 33.9 % (34.2-44.1); HEMOGLOBIN 11.1 g/dL (12.0-16.0); LYMPHOCYTES # (AUTO) 0.8 (1.0-3.2); LYMPHOCYTES % 14.1 % (18.0-39.1); MEAN CORPUSCULAR HEMOGLOBIN 30.2 pg (28-32); MEAN CORPUSCULAR HGB CONC 32.7 g/dL (31-35); MEAN CORPUSCULAR VOLUME 92.4 fL (81-99); MONOCYTES # (AUTO) 0.3 (0.2-0.8); MONOCYTES % 4.7 % (4.4-11.3); NEUTROPHILS # (AUTO) 4.5 (2.1-6.9); NEUTROPHILS % 76.4 % (38.7-80.0); PLATELET COUNT 160 x10e3/uL (140-360); RED BLOOD COUNT 3.67 x10e6/uL (3.6-5.1); RED CELL DISTRIBUTION WIDTH 15.3 % (11.7-14.4)
[2024-02-14 13:32] LABS: ALBUMIN 3.6 g/dL (3.5-5.0); ALBUMIN/GLOBULIN RATIO 1.4 (0.8-2.0); ANION GAP 18.5 mmol/L (8-16); BILIRUBIN,TOTAL 0.4 mg/dL (0.2-1.2); CALCIUM 8.7 mg/dL (8.4-10.2); CREATININE, SERUM 4.2 mg/dL (0.57-1.11); POTASSIUM 3.5 mmol/L (3.5-5.1); TOTAL PROTEIN 6.1 g/dL (6.5-8.1)
[2024-02-14 14:55] LABS: INR 1.07; PROTHROMBIN TIME 14.6 seconds (11.9-14.5)
[2024-02-14] MEDS: SODIUM BICARBONATE 650 MG TAB PO SCH (15:00)
[2024-02-14] MEDS ORDERED: ABILIFY5 MG PO (17:45)
[2024-02-15] VITALS (9 sets, daily range): BP systolic 103–175; BP diastolic 56–108; PULSE 65–79; RESP 17–60; TEMP 97.5–98.9; O2SAT 97–100
[2024-02-15] MEDS ORDERED: HYDROCODONE/APAP 10MG-325MG TAB PO PRN (04:00)
[2024-02-15] MEDS: HYDRALAZINE HCL 25 MG TAB PO SCH (05:37)
[2024-02-15] MEDS: LEVOTHYROXINE SODIUM 50 MCG TAB PO SCH (05:38)
[2024-02-15 07:01] LABS: BASOPHILS % 0.6 % (0.0-1.0); EOSINOPHILS # (AUTO) 0.3 (0.0-0.4); EOSINOPHILS % 4.8 % (0.0-6.0); HEMATOCRIT 30.7 % (34.2-44.1); HEMOGLOBIN 10.3 g/dL (12.0-16.0); LYMPHOCYTES # (AUTO) 0.8 (1.0-3.2); LYMPHOCYTES % 15.3 % (18.0-39.1); MEAN CORPUSCULAR HEMOGLOBIN 30.5 pg (28-32); MEAN CORPUSCULAR HGB CONC 33.6 g/dL (31-35); MEAN CORPUSCULAR VOLUME 90.8 fL (81-99); MONOCYTES # (AUTO) 0.3 (0.2-0.8); NEUTROPHILS # (AUTO) 3.9 (2.1-6.9); NEUTROPHILS % 74.1 % (38.7-80.0); PLATELET COUNT 134 x10e3/uL (140-360); RED BLOOD COUNT 3.38 x10e6/uL (3.6-5.1); RED CELL DISTRIBUTION WIDTH 15.2 % (11.7-14.4); WHITE BLOOD COUNT 5.22 x10e3/uL (4.8-10.8)
[2024-02-15 07:33] LABS: ALBUMIN 3.1 g/dL (3.5-5.0); ALBUMIN/GLOBULIN RATIO 1.6 (0.8-2.0); ANION GAP 15.3 mmol/L (8-16); BILIRUBIN,TOTAL 0.4 mg/dL (0.2-1.2); CREATININE, SERUM 4.16 mg/dL (0.57-1.11); POTASSIUM 3.3 mmol/L (3.5-5.1); TOTAL PROTEIN 5.1 g/dL (6.5-8.1)
[2024-02-15] MEDS: OXYBUTYNIN CHLORIDE XL 5 MG TAB PO SCH (08:18)
[2024-02-15] MEDS: HYDROCODONE/APAP 10MG-325MG TAB PO PRN (08:18)
[2024-02-15] MEDS: METOPROLOL SUCCINATE 25 MG TAB XL PO SCH (08:19)
[2024-02-15] MEDS: PANTOPRAZOLE SOD 40 MG TABEC PO SCH (08:19)
[2024-02-15] MEDS: ALLOPURINOL 300 MG TAB PO SCH (08:19)
[2024-02-15] MEDS: ISOSORBIDE MONONITRATE 30 MG TAB CR PO SCH (08:19)
[2024-02-15] MEDS: MAGNESIUM OXIDE 400 MG TAB PO SCH (08:19)
[2024-02-15 09:49] LABS: HEPATITIS B CORE AB TOTAL POSTIVIE; HEPATITIS B SURFACE AG (P) NEGATIVE
[2024-02-15] MEDS ORDERED: HEPARIN SOD (PORCINE) 1000 UNIT/ML SDV ONE (11:38)
[2024-02-15] MEDS ORDERED: MIDAZOLAM HCL 2 MG/2 ML VIAL ONE (11:38)
[2024-02-15] MEDS ORDERED: FENTANYL CITRATE/PF 100MCG/2 ML INJ ONE (11:39)
[2024-02-15] MEDS ORDERED: SODIUM CHLORIDE 0.9% 250ML 250 ML ONE (11:39)
[2024-02-15] MEDS ORDERED: SODIUM CHLORIDE 0.9% 500ML 500 ML ONE (11:47)
[2024-02-15] MEDS ORDERED: SODIUM CHLORIDE 0.9% 1000ML 2,000 ML IV PRN (13:00)
[2024-02-15] MEDS ORDERED: SODIUM CHLORIDE 0.9% 250ML 500 ML IV PRN (13:00)
[2024-02-15] MEDS ORDERED: MANNITOL 25% 12.5GM/50 ML VIAL IV PRN (13:00)
[2024-02-15] MEDS ORDERED: ALBUMIN 25% 12.5GM 0.25 GM/ML BTL IV PRN (13:00)
[2024-02-15] MEDS ORDERED: HEPARIN SOD (PORCINE) 1000 UNIT/ML SDV IV PRN (15:45)
[2024-02-15] MEDS: SODIUM CHLORIDE 0.9% 1000ML 1,000 ML ONE (16:58)
[2024-02-15] MEDS: HEPARIN SOD (PORCINE) 1000 UNIT/ML SDV ONE (16:58)
[2024-02-15] MEDS: ASPIRIN 81 MG CHEW TAB PO SCH (17:03)
[2024-02-15] MEDS: AMLODIPINE BESYLATE 5 MG TAB PO SCH (22:31)
[2024-02-15] MEDS: ARIPIPRAZOLE 5 MG TABLET PO SCH (22:35)
[2024-02-16] VITALS (11 sets, daily range): BP systolic 129–163; BP diastolic 68–78; PULSE 69–91; RESP 16–20; TEMP 97.3–98.7; O2SAT 95–100
[2024-02-16] MEDS: ONDANSETRON HCL INJ 2MG/ML 2ML 2 MG/ML VIAL IV PRN (09:00)
[2024-02-16] MEDS ORDERED: DEXTROSE 50% SYRINGE 50 ML IV PRN (17:00)
[2024-02-16] MEDS: INSULIN LISPRO 100 UNIT/1 ML 3ML VIAL SQ SCH (17:00)
[2024-02-16] MEDS: ZOLPIDEM TARTRATE 5 MG TAB PO PRN (23:24)
[2024-02-17 03:06] VITALS: BP 138/69; PULSE 81; RESP 18; TEMP 98.7; O2SAT 95
[2024-02-17 07:02] LABS: BILIRUBIN,URINE NEGATIVE (NEGATIVE); CLARITY,URINE CLEAR (CLEAR); COLOR,URINE YELLOW (YELLOW); GLUCOSE, URINE NEGATIVE (NEGATIVE); KETONES,URINE NEGATIVE (NEGATIVE); LEUKOCYTE ESTERASE ,URINE NEGATIVE (NEGATIVE); NITRITE,URINE NEGATIVE (NEGATIVE); PH,URINE 5.5 (5 - 7); PROTEIN,URINE DIPSTICK >=300 (NEGATIVE); URINE UROBILINOGEN 0.2 mg/dL (0.2 - 1)
[2024-02-17 07:23] LABS: EPITHELIAL CELLS,URINE FEW /LPF; RBC,URINE 0-5 /HPF (0-5)
[2024-02-17 07:24] LABS: BACTERIA,URINE FEW /HPF; YEAST,URINE FEW
[2024-02-17 08:19] VITALS: BP 136/79; PULSE 84; RESP 18; TEMP 98; O2SAT 99
[2024-02-17 11:58] VITALS: BP 132/61; PULSE 90; RESP 17; TEMP 99; O2SAT 100
[2024-02-17 16:05] VITALS: BP 135/91; PULSE 71; RESP 18; TEMP 97.4; O2SAT 98
[2024-02-17 20:00] VITALS: BP 141/67; PULSE 75; RESP 18; TEMP 97.2; O2SAT 99
[2024-02-17 21:00] VITALS: BP 141/67; PULSE 75; RESP 18; TEMP 97.2; O2SAT 99
[2024-02-18] VITALS (7 sets, daily range): BP systolic 131–167; BP diastolic 65–88; PULSE 72–94; RESP 17–18; TEMP 97.8–99.2; O2SAT 96–99
[2024-02-18 06:27] LABS: BASOPHILS % 0.4 % (0.0-1.0); EOSINOPHILS # (AUTO) 0.2 (0.0-0.4); EOSINOPHILS % 4.6 % (0.0-6.0); HEMATOCRIT 30.9 % (34.2-44.1); HEMOGLOBIN 9.9 g/dL (12.0-16.0); LYMPHOCYTES % 18.6 % (18.0-39.1); MEAN CORPUSCULAR HEMOGLOBIN 30.1 pg (28-32); MEAN CORPUSCULAR VOLUME 93.9 fL (81-99); MONOCYTES # (AUTO) 0.4 (0.2-0.8); MONOCYTES % 8.1 % (4.4-11.3); NEUTROPHILS # (AUTO) 3.5 (2.1-6.9); NEUTROPHILS % 67.9 % (38.7-80.0); PLATELET COUNT 100 x10e3/uL (140-360); RED BLOOD COUNT 3.29 x10e6/uL (3.6-5.1); RED CELL DISTRIBUTION WIDTH 15.4 % (11.7-14.4); WHITE BLOOD COUNT 5.21 x10e3/uL (4.8-10.8)
[2024-02-18 07:01] LABS: ALBUMIN 2.9 g/dL (3.5-5.0); ALBUMIN/GLOBULIN RATIO 1.9 (0.8-2.0); ANION GAP 13.7 mmol/L (8-16); BILIRUBIN,TOTAL 0.4 mg/dL (0.2-1.2); CALCIUM 8.6 mg/dL (8.4-10.2); CREATININE, SERUM 2.81 mg/dL (0.57-1.11); MAGNESIUM 1.3 MG/DL (1.3-2.1); POTASSIUM 3.7 mmol/L (3.5-5.1); TOTAL PROTEIN 4.4 g/dL (6.5-8.1)
[2024-02-18 16:13] LABS: ANION GAP 14.6 mmol/L (8-16); CALCIUM 8.8 mg/dL (8.4-10.2); CREATININE, SERUM 1.51 mg/dL (0.57-1.11); POTASSIUM 3.6 mmol/L (3.5-5.1)
[2024-02-18] MEDS: MUPIROCIN 2% OINT 22 GM TUBE TOP SCH (17:14)
[2024-02-19 03:27] VITALS: BP 150/78; PULSE 68; RESP 18; TEMP 99.4; O2SAT 97
[2024-02-19 05:10] LABS: HEPATITIS B CORE AB TOTAL Positive; HEPATITIS B SURFACE AG (P) Negative
[2024-02-19 06:10] LABS: BASOPHILS % 0.5 % (0.0-1.0); EOSINOPHILS # (AUTO) 0.2 (0.0-0.4); EOSINOPHILS % 3.4 % (0.0-6.0); HEMATOCRIT 33.6 % (34.2-44.1); HEMOGLOBIN 10.9 g/dL (12.0-16.0); LYMPHOCYTES # (AUTO) 1.2 (1.0-3.2); LYMPHOCYTES % 18.5 % (18.0-39.1); MEAN CORPUSCULAR HGB CONC 32.4 g/dL (31-35); MEAN CORPUSCULAR VOLUME 92.6 fL (81-99); MONOCYTES # (AUTO) 0.5 (0.2-0.8); MONOCYTES % 7.2 % (4.4-11.3); NEUTROPHILS # (AUTO) 4.4 (2.1-6.9); NEUTROPHILS % 70.1 % (38.7-80.0); PLATELET COUNT 99 x10e3/uL (140-360); RED BLOOD COUNT 3.63 x10e6/uL (3.6-5.1); RED CELL DISTRIBUTION WIDTH 15.8 % (11.7-14.4); WHITE BLOOD COUNT 6.23 x10e3/uL (4.8-10.8)
[2024-02-19 06:36] LABS: ALBUMIN 3.1 g/dL (3.5-5.0); ALBUMIN/GLOBULIN RATIO 1.3 (0.8-2.0); ANION GAP 15.2 mmol/L (8-16); BILIRUBIN,TOTAL 0.6 mg/dL (0.2-1.2); CREATININE, SERUM 1.89 mg/dL (0.57-1.11); POTASSIUM 4.2 mmol/L (3.5-5.1); TOTAL PROTEIN 5.4 g/dL (6.5-8.1)
[2024-02-19 08:00] VITALS: BP 154/82; PULSE 68; RESP 17; TEMP 98.5; O2SAT 100
[2024-02-19 12:04] VITALS: BP 149/77; PULSE 64; RESP 19; TEMP 98.3; O2SAT 100
[2024-02-19 16:00] VITALS: BP 152/77; PULSE 63; RESP 17; TEMP 99.4; O2SAT 100
[2024-02-19 19:41] VITALS: BP 143/64; PULSE 76; RESP 21; TEMP 98.3; O2SAT 100
[2024-02-19] MEDS: SODIUM CHLORIDE 0.9% 1000ML 2,000 ML ONE (21:33)
[2024-02-20] VITALS (8 sets, daily range): BP systolic 133–175; BP diastolic 66–80; PULSE 64–74; RESP 16–20; TEMP 97.8–99.3; O2SAT 98–99
[2024-02-20 06:23] LABS: BASOPHILS % 0.6 % (0.0-1.0); EOSINOPHILS # (AUTO) 0.2 (0.0-0.4); EOSINOPHILS % 3.5 % (0.0-6.0); HEMATOCRIT 28.6 % (34.2-44.1); HEMOGLOBIN 9.5 g/dL (12.0-16.0); LYMPHOCYTES % 20.1 % (18.0-39.1); MEAN CORPUSCULAR HEMOGLOBIN 30.6 pg (28-32); MEAN CORPUSCULAR HGB CONC 33.2 g/dL (31-35); MEAN CORPUSCULAR VOLUME 92.3 fL (81-99); MONOCYTES # (AUTO) 0.4 (0.2-0.8); NEUTROPHILS # (AUTO) 3.5 (2.1-6.9); NEUTROPHILS % 67.4 % (38.7-80.0); PLATELET COUNT 108 x10e3/uL (140-360); RED CELL DISTRIBUTION WIDTH 15.5 % (11.7-14.4); WHITE BLOOD COUNT 5.13 x10e3/uL (4.8-10.8)
[2024-02-20 07:02] LABS: ALBUMIN 2.6 g/dL (3.5-5.0); ALBUMIN/GLOBULIN RATIO 1.4 (0.8-2.0); ANION GAP 11.9 mmol/L (8-16); BILIRUBIN,TOTAL 0.4 mg/dL (0.2-1.2); CALCIUM 8.6 mg/dL (8.4-10.2); CREATININE, SERUM 2.39 mg/dL (0.57-1.11); POTASSIUM 3.9 mmol/L (3.5-5.1); TOTAL PROTEIN 4.4 g/dL (6.5-8.1)
[2024-02-20] MEDS ORDERED: HEPARIN SOD (PORCINE) 1000 UNIT/ML SDV IV PRN (10:15)
[2024-02-21] VITALS (9 sets, daily range): BP systolic 126–182; BP diastolic 64–96; PULSE 64–93; RESP 17–20; TEMP 97.2–98.2; O2SAT 99–100
[2024-02-21] MEDS: Morphine 2mg Syringe 2 MG/ML SYR IV ONE (05:49)
[2024-02-21 06:48] LABS: BASOPHILS % 0.4 % (0.0-1.0); EOSINOPHILS # (AUTO) 0.2 (0.0-0.4); EOSINOPHILS % 3.3 % (0.0-6.0); HEMATOCRIT 32.3 % (34.2-44.1); HEMOGLOBIN 10.1 g/dL (12.0-16.0); LYMPHOCYTES # (AUTO) 0.9 (1.0-3.2); LYMPHOCYTES % 16.9 % (18.0-39.1); MEAN CORPUSCULAR HGB CONC 31.3 g/dL (31-35); MEAN CORPUSCULAR VOLUME 95.8 fL (81-99); MONOCYTES # (AUTO) 0.4 (0.2-0.8); MONOCYTES % 8.1 % (4.4-11.3); NEUTROPHILS # (AUTO) 3.7 (2.1-6.9); NEUTROPHILS % 70.9 % (38.7-80.0); PLATELET COUNT 106 x10e3/uL (140-360); RED BLOOD COUNT 3.37 x10e6/uL (3.6-5.1); RED CELL DISTRIBUTION WIDTH 14.8 % (11.7-14.4)
[2024-02-21 07:19] LABS: ALBUMIN 2.8 g/dL (3.5-5.0); ALBUMIN/GLOBULIN RATIO 1.3 (0.8-2.0); ANION GAP 12.3 mmol/L (8-16); BILIRUBIN,TOTAL 0.5 mg/dL (0.2-1.2); CALCIUM 8.8 mg/dL (8.4-10.2); CREATININE, SERUM 1.9 mg/dL (0.57-1.11); TOTAL PROTEIN 4.9 g/dL (6.5-8.1)
[2024-02-21 07:25] LABS: POTASSIUM 3.3 mmol/L (3.5-5.1)
[2024-02-21] MEDS ORDERED: PROPOFOL IV EMULSION 10 MG/ML 20 ML VIAL ONE (12:52)
[2024-02-21 19:52] LABS: BASOPHILS % 0.3 % (0.0-1.0); EOSINOPHILS # (AUTO) 0.2 (0.0-0.4); EOSINOPHILS % 2.9 % (0.0-6.0); HEMOGLOBIN 10.7 g/dL (12.0-16.0); LYMPHOCYTES # (AUTO) 0.7 (1.0-3.2); LYMPHOCYTES % 12.4 % (18.0-39.1); MEAN CORPUSCULAR HEMOGLOBIN 30.3 pg (28-32); MEAN CORPUSCULAR HGB CONC 31.5 g/dL (31-35); MEAN CORPUSCULAR VOLUME 96.3 fL (81-99); MONOCYTES # (AUTO) 0.4 (0.2-0.8); MONOCYTES % 6.2 % (4.4-11.3); NEUTROPHILS # (AUTO) 4.6 (2.1-6.9); NEUTROPHILS % 77.7 % (38.7-80.0); PLATELET COUNT 114 x10e3/uL (140-360); RED BLOOD COUNT 3.53 x10e6/uL (3.6-5.1); RED CELL DISTRIBUTION WIDTH 14.9 % (11.7-14.4); WHITE BLOOD COUNT 5.95 x10e3/uL (4.8-10.8)
[2024-02-21 19:59] LABS: INR 1.07; PROTHROMBIN TIME 14.6 seconds (11.9-14.5)
[2024-02-22] VITALS (8 sets, daily range): BP systolic 119–174; BP diastolic 60–82; PULSE 54–79; RESP 18–21; TEMP 97.6–99.6; O2SAT 97–100
[2024-02-22 06:52] LABS: BASOPHILS % 0.7 % (0.0-1.0); EOSINOPHILS # (AUTO) 0.2 (0.0-0.4); EOSINOPHILS % 3.3 % (0.0-6.0); HEMATOCRIT 30.8 % (34.2-44.1); HEMOGLOBIN 9.8 g/dL (12.0-16.0); LYMPHOCYTES # (AUTO) 0.8 (1.0-3.2); LYMPHOCYTES % 17.4 % (18.0-39.1); MEAN CORPUSCULAR HEMOGLOBIN 30.2 pg (28-32); MEAN CORPUSCULAR HGB CONC 31.8 g/dL (31-35); MEAN CORPUSCULAR VOLUME 95.1 fL (81-99); MONOCYTES # (AUTO) 0.4 (0.2-0.8); MONOCYTES % 8.5 % (4.4-11.3); NEUTROPHILS # (AUTO) 3.2 (2.1-6.9); NEUTROPHILS % 69.7 % (38.7-80.0); PLATELET COUNT 85 x10e3/uL (140-360); RED BLOOD COUNT 3.24 x10e6/uL (3.6-5.1); RED CELL DISTRIBUTION WIDTH 14.5 % (11.7-14.4); WHITE BLOOD COUNT 4.61 x10e3/uL (4.8-10.8)
[2024-02-22 07:08] LABS: ALBUMIN 2.5 g/dL (3.5-5.0); ALBUMIN/GLOBULIN RATIO 1.3 (0.8-2.0); BILIRUBIN,TOTAL 0.4 mg/dL (0.2-1.2); CALCIUM 8.8 mg/dL (8.4-10.2); CREATININE, SERUM 1.93 mg/dL (0.57-1.11); TOTAL PROTEIN 4.4 g/dL (6.5-8.1)
[2024-02-22] MEDS: POTASSIUM CHLORIDE 20 MEQ TAB CR PO ONE (08:52)
[2024-02-22] MEDS: HYDROCODONE/APAP 5MG-325MG TAB PO PRN (21:26)
[2024-02-23] VITALS: BP 149/75; PULSE 63; RESP 18; TEMP 98.1; O2SAT 100
[2024-02-23 04:00] VITALS: BP 170/70; PULSE 59; RESP 18; TEMP 98.1; O2SAT 99
[2024-02-23 07:01] LABS: BASOPHILS % 0.2 % (0.0-1.0); EOSINOPHILS # (AUTO) 0.2 (0.0-0.4); EOSINOPHILS % 3.7 % (0.0-6.0); HEMATOCRIT 28.6 % (34.2-44.1); HEMOGLOBIN 8.9 g/dL (12.0-16.0); LYMPHOCYTES # (AUTO) 0.7 (1.0-3.2); LYMPHOCYTES % 18.2 % (18.0-39.1); MEAN CORPUSCULAR HEMOGLOBIN 29.8 pg (28-32); MEAN CORPUSCULAR HGB CONC 31.1 g/dL (31-35); MEAN CORPUSCULAR VOLUME 95.7 fL (81-99); MONOCYTES # (AUTO) 0.4 (0.2-0.8); MONOCYTES % 9.8 % (4.4-11.3); NEUTROPHILS # (AUTO) 2.8 (2.1-6.9); NEUTROPHILS % 67.9 % (38.7-80.0); PLATELET COUNT 106 x10e3/uL (140-360); RED BLOOD COUNT 2.99 x10e6/uL (3.6-5.1); RED CELL DISTRIBUTION WIDTH 14.6 % (11.7-14.4); WHITE BLOOD COUNT 4.07 x10e3/uL (4.8-10.8)
[2024-02-23 07:49] LABS: ALBUMIN 2.6 g/dL (3.5-5.0); ALBUMIN/GLOBULIN RATIO 1.4 (0.8-2.0); ANION GAP 11.5 mmol/L (8-16); BILIRUBIN,TOTAL 0.4 mg/dL (0.2-1.2); CALCIUM 8.6 mg/dL (8.4-10.2); CREATININE, SERUM 1.28 mg/dL (0.57-1.11); POTASSIUM 3.5 mmol/L (3.5-5.1); TOTAL PROTEIN 4.5 g/dL (6.5-8.1)
[2024-02-23 08:00] VITALS: BP 146/77; PULSE 61; RESP 18; TEMP 98.6; O2SAT 100
[2024-02-23 08:22] VITALS: BP 146/84; PULSE 61; RESP 18; TEMP 98.6; O2SAT 100
[2024-02-23] MEDS: FLUCONAZOLE 100 MG TAB PO SCH (09:01)
[2024-02-23 09:02] VITALS: BP 146/77; PULSE 61
== END 2024-02-23 10:30 | disposition home or self-care (01) | DRG 264 ==
LOC: ER 12:36 → ERHOLD 13:08 → MED/SURG3 15:59
PROVIDERS: ADMIT Internal Medicine; ATTEND Internal Medicine
PROC: 0JH63XZ Insertion of Tunneled Vascular Access Device into Chest Subcutaneous Tissue and Fascia, Percutaneous Approach (ICD-10-PCS; 2024-02-14)
PROC: 02H633Z Insertion of Infusion Device into Right Atrium, Percutaneous Approach (ICD-10-PCS; 2024-02-14)
PROC: B5181ZA Fluoroscopy of Superior Vena Cava using Low Osmolar Contrast, Guidance (ICD-10-PCS; 2024-02-14)
PROC: 5A1D70Z Performance of Urinary Filtration, Intermittent, Less than 6 Hours Per Day (ICD-10-PCS; 2024-02-15)
PROC: 5A1D70Z Performance of Urinary Filtration, Intermittent, Less than 6 Hours Per Day (ICD-10-PCS; 2024-02-16)
PROC: 5A1D70Z Performance of Urinary Filtration, Intermittent, Less than 6 Hours Per Day (ICD-10-PCS; 2024-02-18)
PROC: 5A1D70Z Performance of Urinary Filtration, Intermittent, Less than 6 Hours Per Day (ICD-10-PCS; 2024-02-20)
PROC: 03180ZF Bypass Left Brachial Artery to Lower Arm Vein, Open Approach (ICD-10-PCS; principal; 2024-02-21 12:39)
PROC: 5A1D70Z Performance of Urinary Filtration, Intermittent, Less than 6 Hours Per Day (ICD-10-PCS; 2024-02-22)
DX: I13.2 Hypertensive heart and chronic kidney disease with heart failure and with stage 5 chronic kidney disease, or end stage renal disease (principal); N18.6 End stage renal disease; I50.33 Acute on chronic diastolic (congestive) heart failure; E87.20 Acidosis, unspecified; N39.0 Urinary tract infection, site not specified; E11.22 Type 2 diabetes mellitus with diabetic chronic kidney disease; D63.1 Anemia in chronic kidney disease; D69.6 Thrombocytopenia, unspecified; I27.20 Pulmonary hypertension, unspecified; E87.79 Other fluid overload; E87.6 Hypokalemia; G47.33 Obstructive sleep apnea (adult) (pediatric); I48.91 Unspecified atrial fibrillation; M10.9 Gout, unspecified; E03.9 Hypothyroidism, unspecified; K21.9 Gastro-esophageal reflux disease without esophagitis; I25.10 Atherosclerotic heart disease of native coronary artery without angina pectoris; S41.111A Laceration without foreign body of right upper arm, initial encounter; X58.XXXA Exposure to other specified factors, initial encounter; M15.9 Polyosteoarthritis, unspecified; F41.9 Anxiety disorder, unspecified; Z79.899 Other long term (current) drug therapy; Z79.82 Long term (current) use of aspirin
CPT/HCPCS: 36415; 36558; 71045; 74470; 76937; 77001; 80048; 80053; 81001; 82948; 83735; 83880; 85025; 85610; 86704; 86706; 87086; 87340; 94799; 96372; 99152; 99252; 99284; C1769; C1892; J0690; J0696; J1644; J2150; J2250; J2270; J2405; J7030; J7040; J7050

== ENCOUNTER 2024-02-29 21:30 | Emergency (ER) | payer MEDICARE, OTHER ==
[~2024-02-29] VITALS: Ht 149.9 cm; Wt 70.8 kg
[~2024-02-29 21:30] MED LIST changes: +ABILIFY5 MG PO
[2024-02-29 21:47] VITALS: PULSE 70; RESP 20; TEMP 98.2
[2024-02-29 22:33] VITALS: BP 174/81; PULSE 77; RESP 17; TEMP 98.2; O2SAT 99
== END 2024-02-29 22:25 | disposition home or self-care (01) ==
LOC: ER 21:35
DX: Z48.01 Encounter for change or removal of surgical wound dressing (principal)
CPT/HCPCS: 99283

== ENCOUNTER 2024-03-26 14:12 | Emergency (ER) | payer MEDICARE, OTHER ==
[~2024-03-26] VITALS: Ht 149.9 cm; Wt 70.8 kg
[2024-03-26 14:25] VITALS: PULSE 61; RESP 15; TEMP 97.9
[2024-03-26 15:09] VITALS: BP 107/69; PULSE 61; RESP 16; O2SAT 100
== END 2024-03-26 15:00 | disposition home or self-care (01) ==
LOC: ER 14:35
DX: T82.49XA Other complication of vascular dialysis catheter, initial encounter (principal); I12.0 Hypertensive chronic kidney disease with stage 5 chronic kidney disease or end stage renal disease; E11.22 Type 2 diabetes mellitus with diabetic chronic kidney disease; N18.6 End stage renal disease; Z99.2 Dependence on renal dialysis; I50.9 Heart failure, unspecified; I48.91 Unspecified atrial fibrillation; E03.9 Hypothyroidism, unspecified; I25.10 Atherosclerotic heart disease of native coronary artery without angina pectoris
CPT/HCPCS: 99283

== ENCOUNTER 2024-04-03 13:19 | Inpatient (IN) | payer MEDICARE, OTHER ==
[~2024-04-03] VITALS: Ht 149.9 cm; Wt 59.9 kg
[2024-04-03 14:55] LABS: INR 1.07; PARTIAL THROMBOPLASTIN TIME 24.7 seconds (23.8-35.5); PROTHROMBIN TIME 14.5 seconds (11.9-14.5)
[2024-04-03 15:02] LABS: ALBUMIN 2.6 g/dL (3.5-5.0); ALBUMIN/GLOBULIN RATIO 1.1 (0.8-2.0); ANION GAP 16.1 mmol/L (8-16); BILIRUBIN,TOTAL 0.5 mg/dL (0.2-1.2); CALCIUM 8.3 mg/dL (8.4-10.2); CREATININE, SERUM 2.08 mg/dL (0.57-1.11); MAGNESIUM 1.5 MG/DL (1.3-2.1); TOTAL PROTEIN 4.9 g/dL (6.5-8.1)
[2024-04-03 15:08] LABS: TROPONIN I 0.037 ng/mL (0-0.300)
[2024-04-03 15:14] LABS: POTASSIUM 3.1 mmol/L (3.5-5.1)
[2024-04-03 15:20] LABS: BASOPHILS % 0.4 % (0.0-1.0); EOSINOPHILS % 0.4 % (0.0-6.0); HEMATOCRIT 32.9 % (34.2-44.1); HEMOGLOBIN 10.1 g/dL (12.0-16.0); LYMPHOCYTES # (AUTO) 0.9 (1.0-3.2); LYMPHOCYTES % 17.7 % (18.0-39.1); MEAN CORPUSCULAR HEMOGLOBIN 30.6 pg (28-32); MEAN CORPUSCULAR HGB CONC 30.7 g/dL (31-35); MEAN CORPUSCULAR VOLUME 99.7 fL (81-99); MONOCYTES # (AUTO) 0.3 (0.2-0.8); MONOCYTES % 6.5 % (4.4-11.3); NEUTROPHILS # (AUTO) 3.6 (2.1-6.9); NEUTROPHILS % 74.8 % (38.7-80.0)
[2024-04-03 15:21] LABS: PLATELET COUNT 98 x10e3/uL (140-360)
[2024-04-03 16:19] VITALS: PULSE 63; RESP 17
[2024-04-03] MEDS: INSULIN LISPRO 100 UNIT/1 ML 3ML VIAL SQ SCH (16:30)
[2024-04-03] MEDS ORDERED: NITROGLYCERIN 0.4 MG SUBL SL PRN (16:30)
[2024-04-03] MEDS ORDERED: DEXTROSE 50% SYRINGE 50 ML IV PRN (16:30)
[2024-04-03] MEDS ORDERED: ONDANSETRON HCL INJ 2MG/ML 2ML 2 MG/ML VIAL IV PRN (16:30)
[2024-04-03] MEDS ORDERED: Morphine 2mg Syringe 2 MG/ML SYR IV PRN (16:30)
[2024-04-03 16:35] VITALS: TEMP 98.3
[2024-04-03 17:11] VITALS: PULSE 74; RESP 20; O2SAT 96
[2024-04-03 17:30] VITALS: BP 167/70; PULSE 66; RESP 20; TEMP 98; O2SAT 100
[2024-04-03 17:45] VITALS: BP 167/70; PULSE 66; RESP 20; TEMP 98; O2SAT 100
[2024-04-03 21:00] VITALS: BP_SYST 146; BP_SYST 167; BP_DIAS 69; BP_DIAS 70; PULSE 61; PULSE 66; RESP 16; RESP 20; TEMP 98; TEMP 98.5; O2SAT 100
[2024-04-04] VITALS (7 sets, daily range): BP systolic 116–164; BP diastolic 59–79; PULSE 60–75; RESP 16–20; TEMP 97.8–98.8; O2SAT 95–100
[2024-04-04 04:03] LABS: ALBUMIN 2.2 g/dL (3.5-5.0); ALBUMIN/GLOBULIN RATIO 1.2 (0.8-2.0); ANION GAP 13.2 mmol/L (8-16); BILIRUBIN,TOTAL 0.4 mg/dL (0.2-1.2); CHOL/HDL RATIO 2.2 (3.0-3.6); CREATININE, SERUM 1.91 mg/dL (0.57-1.11); POTASSIUM 3.2 mmol/L (3.5-5.1); TOTAL PROTEIN 4.1 g/dL (6.5-8.1)
[2024-04-04 04:09] LABS: TROPONIN I 0.045 ng/mL (0-0.300)
[2024-04-04] MEDS ORDERED: MAGNESIUM SULFATE 2GM/50ML 50 ML IV ONE (04:30)
[2024-04-04] MEDS ORDERED: HYDROCODONE/APAP 10MG-325MG TAB PO PRN (04:30)
[2024-04-04 04:51] LABS: BASOPHILS % 0.8 % (0.0-1.0); EOSINOPHILS # (AUTO) 0.1 (0.0-0.4); EOSINOPHILS % 2.1 % (0.0-6.0); HEMATOCRIT 27.8 % (34.2-44.1); HEMOGLOBIN 9.1 g/dL (12.0-16.0); LYMPHOCYTES % 21.4 % (18.0-39.1); MEAN CORPUSCULAR HGB CONC 32.7 g/dL (31-35); MEAN CORPUSCULAR VOLUME 94.6 fL (81-99); MONOCYTES # (AUTO) 0.4 (0.2-0.8); MONOCYTES % 8.7 % (4.4-11.3); NEUTROPHILS # (AUTO) 3.2 (2.1-6.9); NEUTROPHILS % 66.6 % (38.7-80.0); PLATELET COUNT 106 x10e3/uL (140-360); RED BLOOD COUNT 2.94 x10e6/uL (3.6-5.1); RED CELL DISTRIBUTION WIDTH 14.9 % (11.7-14.4); WHITE BLOOD COUNT 4.82 x10e3/uL (4.8-10.8)
[2024-04-04] MEDS: HYDRALAZINE HCL 25 MG TAB PO SCH (06:00)
[2024-04-04] MEDS: LEVOTHYROXINE SODIUM 50 MCG TAB PO SCH (06:56)
[2024-04-04 07:04] LABS: TROPONIN I 0.034 ng/mL (0-0.300)
[2024-04-04] MEDS: PANTOPRAZOLE SOD 40 MG TABEC PO SCH (07:30)
[2024-04-04] MEDS: FUROSEMIDE 40 MG TAB PO SCH (08:32)
[2024-04-04] MEDS: METOPROLOL SUCCINATE 25 MG TAB XL PO SCH (08:32)
[2024-04-04] MEDS: ISOSORBIDE MONONITRATE 30 MG TAB CR PO SCH (08:33)
[2024-04-04] MEDS: DICYCLOMINE HCL 20 MG TAB PO SCH (09:00)
[2024-04-04] MEDS: ASPIRIN 81 MG CHEW TAB PO SCH (09:00)
[2024-04-04] MEDS: ALLOPURINOL 300 MG TAB PO SCH (09:00)
[2024-04-04] MEDS ORDERED: ASPIRIN 81 MG ENTERIC COATED PO SCH (09:00)
[2024-04-04] MEDS ORDERED: HEPARIN SOD (PORCINE) 1000 UNIT/ML SDV IV PRN (13:00)
[2024-04-04] MEDS ORDERED: SODIUM CHLORIDE 0.9% 1000ML 2,000 ML IV PRN (13:00)
[2024-04-04] MEDS: MAGNESIUM SULFATE 2GM/50ML 50 ML IV ONE (13:54)
[2024-04-04] MEDS: AMLODIPINE BESYLATE 5 MG TAB PO SCH (21:53)
[2024-04-05] VITALS (7 sets, daily range): BP systolic 114–162; BP diastolic 60–74; PULSE 59–71; RESP 17–19; TEMP 97.6–98.3; O2SAT 96–100
[2024-04-05] MEDS: POTASSIUM CHLORIDE 20 MEQ TAB CR PO ONE (10:48)
[2024-04-05 14:41] LABS: HEPATITIS B CORE AB TOTAL POSITIVE; HEPATITIS B SURFACE AG (P) NEGATIVE
[2024-04-06] VITALS (7 sets, daily range): BP systolic 99–129; BP diastolic 52–66; PULSE 59–65; RESP 17–19; TEMP 97.5–98.4; O2SAT 99–100
[2024-04-06 05:49] LABS: ANION GAP 12.6 mmol/L (8-16); CREATININE, SERUM 1.92 mg/dL (0.57-1.11); POTASSIUM 3.6 mmol/L (3.5-5.1)
[2024-04-06] MEDS: ZOLPIDEM TARTRATE 5 MG TAB PO PRN (21:01)
[2024-04-07] VITALS (8 sets, daily range): BP systolic 102–151; BP diastolic 43–62; PULSE 58–70; RESP 18–20; TEMP 97.7–98.5; O2SAT 100
[2024-04-07 05:07] LABS: BASOPHILS % 0.9 % (0.0-1.0); EOSINOPHILS # (AUTO) 0.1 (0.0-0.4); EOSINOPHILS % 2.4 % (0.0-6.0); HEMATOCRIT 27.4 % (34.2-44.1); LYMPHOCYTES # (AUTO) 1.3 (1.0-3.2); LYMPHOCYTES % 31.1 % (18.0-39.1); MEAN CORPUSCULAR HEMOGLOBIN 30.5 pg (28-32); MEAN CORPUSCULAR HGB CONC 32.5 g/dL (31-35); MEAN CORPUSCULAR VOLUME 93.8 fL (81-99); MONOCYTES # (AUTO) 0.3 (0.2-0.8); MONOCYTES % 7.3 % (4.4-11.3); NEUTROPHILS # (AUTO) 2.5 (2.1-6.9); NEUTROPHILS % 57.8 % (38.7-80.0); PLATELET COUNT 123 x10e3/uL (140-360); RED BLOOD COUNT 2.92 x10e6/uL (3.6-5.1); RED CELL DISTRIBUTION WIDTH 14.8 % (11.7-14.4); WHITE BLOOD COUNT 4.25 x10e3/uL (4.8-10.8)
[2024-04-07 05:12] LABS: HEMOGLOBIN 8.9 g/dL (12.0-16.0)
[2024-04-07 05:45] LABS: ALBUMIN 2.2 g/dL (3.5-5.0); ALBUMIN/GLOBULIN RATIO 1.2 (0.8-2.0); ANION GAP 14.8 mmol/L (8-16); BILIRUBIN,TOTAL 0.5 mg/dL (0.2-1.2); CREATININE, SERUM 2.52 mg/dL (0.57-1.11); MAGNESIUM 1.8 MG/DL (1.3-2.1); POTASSIUM 3.8 mmol/L (3.5-5.1)
[2024-04-07] MEDS ORDERED: HEPARIN SOD (PORCINE) 1000 UNIT/ML SDV IV PRN (08:00)
[2024-04-07] MEDS: HEPARIN SOD (PORCINE) 1000 UNIT/ML SDV ONE (13:19)
[2024-04-07] MEDS: SODIUM CHLORIDE 0.9% 1000ML 2,000 ML ONE (13:19)
[2024-04-08] VITALS (7 sets, daily range): BP systolic 101–132; BP diastolic 53–74; PULSE 60–71; RESP 16–20; TEMP 97.3–98.5; O2SAT 97–100
[2024-04-09] VITALS (8 sets, daily range): BP systolic 90–146; BP diastolic 46–70; PULSE 60–65; RESP 16–20; TEMP 97.7–98.1; O2SAT 94–100
[2024-04-09 05:34] LABS: BASOPHILS % 0.7 % (0.0-1.0); EOSINOPHILS # (AUTO) 0.2 (0.0-0.4); EOSINOPHILS % 3.6 % (0.0-6.0); HEMATOCRIT 29.1 % (34.2-44.1); HEMOGLOBIN 9.2 g/dL (12.0-16.0); LYMPHOCYTES # (AUTO) 0.9 (1.0-3.2); LYMPHOCYTES % 21.9 % (18.0-39.1); MEAN CORPUSCULAR HEMOGLOBIN 30.4 pg (28-32); MEAN CORPUSCULAR HGB CONC 31.6 g/dL (31-35); MONOCYTES # (AUTO) 0.3 (0.2-0.8); MONOCYTES % 8.2 % (4.4-11.3); NEUTROPHILS # (AUTO) 2.7 (2.1-6.9); NEUTROPHILS % 65.4 % (38.7-80.0); PLATELET COUNT 121 x10e3/uL (140-360); RED BLOOD COUNT 3.03 x10e6/uL (3.6-5.1); RED CELL DISTRIBUTION WIDTH 14.3 % (11.7-14.4); WHITE BLOOD COUNT 4.16 x10e3/uL (4.8-10.8)
[2024-04-09 06:07] LABS: ALBUMIN 2.1 g/dL (3.5-5.0); ALBUMIN/GLOBULIN RATIO 1.2 (0.8-2.0); ANION GAP 11.6 mmol/L (8-16); BILIRUBIN,TOTAL 0.3 mg/dL (0.2-1.2); CREATININE, SERUM 2.43 mg/dL (0.57-1.11); MAGNESIUM 1.6 MG/DL (1.3-2.1); TOTAL PROTEIN 3.8 g/dL (6.5-8.1)
[2024-04-09 06:31] LABS: POTASSIUM 2.6 mmol/L (3.5-5.1)
[2024-04-09] MEDS: MAGNESIUM SULFATE 2GM/50ML 50 ML IV ONE (08:02)
[2024-04-09] MEDS: POTASSIUM CHLORIDE 20 MEQ TAB CR PO ONE ×2 (08:03→11:30)
[2024-04-09] MEDS: SODIUM CHLORIDE 0.9% 250ML 250 ML ONE (11:22)
[2024-04-10] VITALS (8 sets, daily range): BP systolic 99–141; BP diastolic 46–74; PULSE 61–69; RESP 16–20; TEMP 97.5–98.4; O2SAT 98–100
[2024-04-10 16:55] LABS: ANION GAP 12.7 mmol/L (8-16); CALCIUM 8.1 mg/dL (8.4-10.2); CREATININE, SERUM 2.14 mg/dL (0.57-1.11); POTASSIUM 3.7 mmol/L (3.5-5.1)
[2024-04-11] VITALS: BP 113/55; PULSE 61; RESP 16; TEMP 97.9; O2SAT 100
[2024-04-11 04:44] VITALS: BP 120/65; PULSE 66; RESP 16; TEMP 98.1; O2SAT 96
[2024-04-11 08:00] VITALS: BP 137/67; PULSE 60; RESP 17; TEMP 97.8; O2SAT 99
[2024-04-11 12:00] VITALS: BP 127/64; PULSE 68; RESP 18; TEMP 98; O2SAT 100
[2024-04-11] MEDS ORDERED: ONDANSETRON HCL 4 MG ORAL DISINTEGRATING TAB PO PRN (15:00)
[2024-04-11 16:00] VITALS: BP 129/67; PULSE 73; RESP 18; TEMP 97.8; O2SAT 100
== END 2024-04-11 20:00 | DRG 313 ==
LOC: ER 13:40 → ERHOLD 16:26 → MED/SURG 17:21 → MED/SURG2 04-05 14:22
PROVIDERS: ADMIT Internal Medicine; ATTEND Internal Medicine
PROC: 5A1D70Z Performance of Urinary Filtration, Intermittent, Less than 6 Hours Per Day (ICD-10-PCS; principal; 2024-04-04)
DX: R07.9 Chest pain, unspecified (principal); N18.6 End stage renal disease; I13.2 Hypertensive heart and chronic kidney disease with heart failure and with stage 5 chronic kidney disease, or end stage renal disease; T82.868A Thrombosis due to vascular prosthetic devices, implants and grafts, initial encounter; E11.22 Type 2 diabetes mellitus with diabetic chronic kidney disease; D69.6 Thrombocytopenia, unspecified; R62.7 Adult failure to thrive; I50.9 Heart failure, unspecified; Z99.2 Dependence on renal dialysis; E83.42 Hypomagnesemia; E87.6 Hypokalemia; E03.9 Hypothyroidism, unspecified; K21.9 Gastro-esophageal reflux disease without esophagitis; M10.9 Gout, unspecified; R53.81 Other malaise; M62.81 Muscle weakness (generalized); Z68.26 Body mass index [BMI] 26.0-26.9, adult; Z53.09 Procedure and treatment not carried out because of other contraindication; Y83.2 Surgical operation with anastomosis, bypass or graft as the cause of abnormal reaction of the patient, or of later complication, without mention of misadventure at the time of the procedure; Z79.82 Long term (current) use of aspirin; Z79.890 Hormone replacement therapy; Z95.0 Presence of cardiac pacemaker; Z91.048 Other nonmedicinal substance allergy status; Z88.1 Allergy status to other antibiotic agents
CPT/HCPCS: 36415; 71045; 74470; 80048; 80053; 80061; 82550; 82948; 83735; 84484; 85025; 85610; 85730; 86704; 86706; 87340; 93005; 93931; 93971; 94799; 96372; 99252; 99284; J1644; J3475; J7030; J7050